=== PATIENT | female | born 1950 | race Caucasian/White ===

== ENCOUNTER → 2017-04-12 | Outpatient (CLI) | payer MEDICARE, OTHER ==
[~2017-04-12] MED LIST: ACET-461 PO; ASCO500T20 PO; ASP81CT; ASP81CT PO; ASPI-892 PO; Atorvastatin Calcium PO; CALC-140 PO; CATHETER FLUSH 10 ML SYR IV PRN; CHOL200049 PO; CITA20TA12 PO; CITA40TA19 PO; CLPD75T PO; CYAN10006 PO; DESV50TA; ESOM20SU; FEXO180T84 PO; FEXO30TA17; IOHEXOL 350 MG/ML 150 ML (OMNIPAQUE 350) VIAL IV ONE; LOVA20TA2 PO; METO-351 PO; NAPR220T76 PO; NEXIUM; NITR-33 PO; NS 100 ML (IVPB) BAG IV ONE; PRISTIQ; ZLP5T; pristiq
--- NOTE | 2017-04-12 13:21 | Diagnostic Imaging Report ---
PROCEDURE: CT angiography of the chest with contrast. TECHNIQUE: Multiple contiguous axial images were obtained through the chest after uneventful bolus administration of intravenous contrast. Reconstructed CTA MIP acquisitions were also performed. INDICATION: Sweaty, shaking, chest pain. No priors. The pulmonary arterial branches are well opacified and confirmed widely patent. No intraluminal filling defect or thrombus. The study is negative for PE. The aorta is patent and nonaneurysmal. The heart and pericardium unremarkable. There does appear to be a small hiatal hernia. No thoracic effusion or pneumothorax. There is trace basilar atelectasis on the left. No evidence for pneumonia or acute infiltrate. No effusion. No acute soft tissue or osseous chest wall pathology. No thoracic adenopathy. The visualized upper abdomen reveals a few gallstones with no acute-appearing upper abdominal abnormality. IMPRESSION: Negative for PE. Slight basilar atelectasis on the left. Cholelithiasis chronic. No acute-appearing abnormality. Dictated by: Dictated on workstation # [id number]
== END ==
LOC: RAD 11:30
PROVIDERS: ATTEND Nurse Practitioner Family
DX: R07.89 Other chest pain (principal); R06.09 Other forms of dyspnea; R94.31 Abnormal electrocardiogram [ECG] [EKG]; I25.10 Atherosclerotic heart disease of native coronary artery without angina pectoris
CPT/HCPCS: 71275

== ENCOUNTER → 2017-04-30 | Outpatient (CLI) | payer MEDICARE, OTHER ==
[~2017-04-30] MED LIST changes: -IOHEXOL 350 MG/ML 150 ML (OMNIPAQUE 350) VIAL IV ONE; -NS 100 ML (IVPB) BAG IV ONE; +REGADENOSON 0.4 MG/5 ML SYR (LEXISCAN) IV ONE
[2017-04-30 09:36] VITALS: BP 157/76
[2017-04-30 09:42] VITALS: BP 179/78
== END ==
LOC: CARD 08:10
PROVIDERS: ATTEND Nurse Practitioner Family
DX: R07.89 Other chest pain (principal); R06.09 Other forms of dyspnea; R94.31 Abnormal electrocardiogram [ECG] [EKG]; I25.10 Atherosclerotic heart disease of native coronary artery without angina pectoris
CPT/HCPCS: 78452; 93017

== ENCOUNTER 2017-06-20 13:01 | Outpatient (CLI) | payer MEDICARE, OTHER ==
[~2017-06-20] VITALS: Ht 160 cm; Wt 100.2 kg
[~2017-06-20 13:01] MED LIST changes: -CATHETER FLUSH 10 ML SYR IV PRN; -REGADENOSON 0.4 MG/5 ML SYR (LEXISCAN) IV ONE
[2017-06-20 13:09] VITALS: BP 127/60
[2017-06-20] MEDS ORDERED: ASCO500T7 PO (13:16)
[2017-06-20] MEDS ORDERED: MULT-1036 PO (13:16)
[2017-06-20] MEDS ORDERED: LORA10TA76 PO (13:16)
[2017-06-20] MEDS ORDERED: CITA40TA11 PO (13:16)
[2017-06-20] MEDS ORDERED: CLOP75TA28 PO (13:16)
[2017-06-20] MEDS ORDERED: ASPI-586 PO (13:16)
[2017-06-20] MEDS ORDERED: PANT40TA3 PO (13:16)
[2017-06-20 13:31] LABS: BASOPHILS % (AUTO) 1 % (0-10); EOSINOPHILS # (AUTO) 0.2 10^3/uL (0.0-0.3); EOSINOPHILS % (AUTO) 3 % (0-10); LYMPHOCYTES # (AUTO) 1.9 X 10^3 (1.0-4.0); LYMPHOCYTES % (AUTO) 26 % (12-44); MEAN CORPUSCULAR HEMOGLOBIN 30 PG (25-34); MEAN CORPUSCULAR HGB CONC 34 G/DL (32-36); MEAN CORPUSCULAR VOLUME 89 FL (80-99); MEAN PLATELET VOLUME 9.6 FL (7.4-10.4); MONOCYTES # (AUTO) 0.4 X 10^3 (0.0-1.0); MONOCYTES % (AUTO) 6 % (0-12); NEUTROPHILS # (AUTO) 4.5 X 10^3 (1.8-7.8); NEUTROPHILS % (AUTO) 64 % (42-75); PLATELET COUNT 256 10^3/uL (130-400); RED BLOOD COUNT 4.52 10^6/uL (4.35-5.85); RED CELL DISTRIBUTION WIDTH 12.3 % (10.0-14.5); WHITE BLOOD COUNT 7.1 10^3/uL (4.3-11.0)
== END 2017-06-20 13:30 | disposition home or self-care (01) ==
LOC: PREOP 13:01
PROVIDERS: ATTEND Surgery
DX: K80.20 Calculus of gallbladder without cholecystitis without obstruction; Z01.812 Encounter for preprocedural laboratory examination
CPT/HCPCS: 36415; 85025; 87081

== ENCOUNTER 2017-06-27 08:55 | Day surgery (SDC) | payer MEDICARE, OTHER ==
[~2017-06-27] VITALS: Ht 160 cm; Wt 100.2 kg
[~2017-06-27 08:55] MED LIST changes: +ASCO500T7 PO; +ASPI-586 PO; +CITA40TA11 PO; +CLOP75TA28 PO; +LORA10TA76 PO; +MULT-1036 PO; +PANT40TA3 PO
[2017-06-27 09:30] VITALS: BP 137/59
[2017-06-27] MEDS ORDERED: ceFAZolin 1 GM/NS 50 ML IVPB IV ONE ×2 (09:30)
[2017-06-27] MEDS ORDERED: CATHETER FLUSH 10 ML SYR IV PRN (09:30)
[2017-06-27] MEDS ORDERED: BUP/EPI 0.5% 1:200,000 (MARCAINE) 10ML VIAL IJ ONE (10:26)
--- NOTE | 2017-06-27 10:32 | Progress Note-Pre Operative ---
Pre-Operative Progress Note H&P Reviewed The H&P was reviewed, patient examined and no changes noted. Date Seen by Provider: Jun 27, 2017 Time Seen by Provider: 10:20 Date H&P Reviewed: Jun 27, 2017 Time H&P Reviewed: 10:20 Pre-Operative Diagnosis: chronic calculous cholecystitis MARQUEZ NIETO MD Jun 27, 2017 10:31 am
[2017-06-27] MEDS ORDERED: proPOfol 200 MG/20 ML (DIPRIVAN) VIAL IV ONE (10:37)
[2017-06-27] MEDS ORDERED: ONDANSETRON 4 MG/2 ML (SDV) Z0FRAN ONE ×2 (10:37→12:42)
[2017-06-27] MEDS ORDERED: LIDOCAINE PF 2% 5 ML (XYLOCAINE) VIAL ONE (10:37)
[2017-06-27] MEDS ORDERED: ROCURONIUM 50 MG/5 ML (ZEMURON) VIAL IV ONE (10:37)
[2017-06-27] MEDS ORDERED: fentaNYL INJECTION 100 MCG/2 ML AMP ONE ×2 (10:38)
[2017-06-27] MEDS ORDERED: MIDAZOLAM 2 MG/2 ML (VERSED) VIAL ONE (10:38)
[2017-06-27] MEDS ORDERED: DEXAMETHASONE 10 MG/ML (DECADRON) 1 ML VIAL ONE (10:39)
[2017-06-27] MEDS ORDERED: ACETAMINOPHEN 325 MG TABLET/CAPLET (TYLENOL) PO PRN (10:45)
[2017-06-27] MEDS ORDERED: oxyCODONE/APAP 5/325MG (PERCOCET 5) TABLET PO PRN (10:45)
[2017-06-27] MEDS ORDERED: ONDANSETRON 4 MG/2 ML (SDV) Z0FRAN IVP PRN ×2 (10:45→12:30)
[2017-06-27] MEDS ORDERED: morphine INJ 10 MG/ML 1ML (SYR OR VIAL) IVP PRN ×2 (10:45→12:30)
[2017-06-27] MEDS: LACTATED RINGERS 1,000 ML IV PRN ×2 (10:48→11:28)
[2017-06-27] MEDS ORDERED: LACTATED RINGERS 1,000 ML IV ONE (11:23)
[2017-06-27] MEDS ORDERED: NEOSTIGMINE (BLOXIVERZ ) 1 MG/1ML 10 ML VIAL ONE (11:55)
[2017-06-27] MEDS ORDERED: SEVOFLURANE (ULTANE) 15 ML INHAL SOLN ONE (12:11)
--- NOTE | 2017-06-27 12:15 | Progress Note-Post Operative ---
Post-Operative Progess Note Surgeon (s)/Body Builder Apprentice (s) Surgeon MARQUEZ NIETO MD Body Builder Apprentice: tena quiroga BARBER INSTRUCTOR Pre-Operative Diagnosis chronic calculous cholecystitis Post-Operative Diagnosis same Procedure & Operative Findings Date of Procedure 06/27/17 Procedure Performed/Findings laparoscopic cholecystectomy Anesthesia Type GET Estimated Blood Loss Estimated blood loss (mL): minimal Specimens/Packing Specimens Removed gallbladder MARQUEZ NIETO MD Jun 27, 2017 12:15 pm
[2017-06-27] MEDS ORDERED: HYDR-3816 PO (12:20)
--- NOTE | 2017-06-27 12:23 | Discharge Inst-Surgical ---
D/C Lap Instructions-EMILIA New, Converted, or Re-Newed RX: RX on Chart Follow Up Appt in 2 weeks Activity as tolerated No driving for 24 hours No driving while on pain medications Incentive Spirometry use every 2 hours while awake Regular Diet Symptoms to Report: Fever over 101 degree F, Nausea/Vomiting Infection Signs and Symptoms to report: Increased redness, Foul odor of wound, Increased drainage Bathing instructions: May shower Operative Area Clean/Dry; Keep incision clean/dry If any problems/questions: Contact your physician or go to Emergency Room MARQUEZ NIETO MD Jun 27, 2017 12:23 pm
[2017-06-27] MEDS ORDERED: morphine INJ 10 MG/ML 1ML (SYR OR VIAL) ONE (12:28)
[2017-06-27] MEDS ORDERED: MEPERIDINE (DEMEROL) INJ 50 MG/ML IVP PRN (12:30)
[2017-06-27] MEDS ORDERED: HYDROmorphone (DILAUDID) 2 MG/ML VIAL IVP PRN (12:30)
--- NOTE | 2017-06-27 12:54 | OPERATIVE REPORT ---
DATE OF SERVICE: 06/27/2017 ATTENDING PRIMARY CARE PHYSICIAN: Dr. Kiki Fisher. PREOPERATIVE DIAGNOSIS: Symptomatic chronic calculous cholecystitis. POSTOPERATIVE DIAGNOSIS: Symptomatic chronic calculous cholecystitis. PROCEDURE: Laparoscopic cholecystectomy. SURGEON: Dr. Nieto. AIRCRAFT COMMUNICATOR: Rojelio Sewell APRN. ANESTHESIA: General endotracheal. ESTIMATED BLOOD LOSS: Minimal. FINDINGS: Chronic gallbladder wall inflammation with multiple small gallstones. DISPOSITION: The patient tolerated the procedure well. INDICATIONS: The patient is a 66-year-old female who underwent a CT scan with an incidental finding of gallstones. At that time she was asymptomatic and was seen. The natural history of gallstone disease and gallbladder issues were explained to patient and eventually she did become symptomatic with pain in the right upper abdominal quadrant, usually after meals, associated with nausea and vomiting. She does have a number of medical comorbidities including coronary artery disease, hypertension, hypercholesterolemia and has had cardiac catheterization and stent placement in the past and is on anticoagulation with Plavix. DESCRIPTION OF PROCEDURE: The patient was brought to the operating room, laid supine on the table. After adequate IV pain and sedative medications and general endotracheal intubation, the abdomen was prepped and draped in standard surgical fashion. Then, 0.5% Marcaine with epinephrine was then used to anesthetize the overlying skin in the left upper abdominal quadrant and a small transverse skin incision made using a 15 blade. An 0 silk suture was applied to the medial aspect of the incision for retraction and the Veress needle inserted with low opening pressure of 0 mmHg and the abdomen was insufflated at 15 mmHg pressure. The Veress needle removed and a 5 mm Xcel trocar placed followed by a 5 mm 45 degree angle laparoscope visualizing the peritoneal cavity. A 4-quadrant abdominal exploration was performed. There was chronic gallbladder wall inflammation as well as dilation. Visualized the liver, small bowel, omentum and stomach appeared normal. Under direct visualization, we then proceeded to place a supraumbilical 10 mm port after the skin and peritoneum were anesthetized using 0.5% Marcaine with epinephrine and a transverse skin incision made using 15 blade. In a similar manner, a right upper abdominal quadrant 5 mm port was placed. The patient was then placed in reverse Trendelenburg position as well as plane right side up, left side down. The fundus of the gallbladder was retracted anteriorly and superiorly. The omental adhesions to the body of the gallbladder were then taken down using blunt dissection. The hepatoduodenal ligament was then opened using the hook instrument using cautery as well as bluntly. We then proceeded to identify the entire critical view of safety encompassing the triangle of Calot and the cystic duct and artery going into the gallbladder as well as the liver behind the proximal gallbladder. A timeout was then taken and the cystic duct and artery were then clipped proximally, distally and cut with EndoShears with visualization of good hemostasis. The gallbladder was then dissected off the liver bed using electrocautery on the hook instrument with visualization of good hemostasis as well as no leaking ducts of Luschka. The gallbladder was removed through the 10 mm port site using an EndoCatch bag. The 10 mm port site fascia and peritoneum were then closed under direct visualization using a Adal-Teodora device and 0 Vicryl suture. The abdomen was desufflated and remaining ports removed. All skin incisions were closed using 4-0 Monocryl running subcuticular sutures. The patient tolerated the procedure well. Intraoperatively she did develop what appeared to be a new bundle branch block, however, hemodynamically stable. She does have a history of coronary artery disease and has had a cardiac catheterization and stent placement. We will get a 12-lead EKG and consultation by her vaccine key customer leader for any further new management. Job ID: [id number] DocumentID: [id number] Dictated Date: 06/27/2017 12:29:25 Product Development Manager Date: 06/27/2017 12:53:59 Dictated By: MARQUEZ NIETO MD
--- NOTE | 2017-06-27 13:21 | Consultation-Cardiology ---
HPI-Cardiology Cardiology Consultation: Date of Consultation 06/27/17 Time Seen by Provider: 13:00 Date of Admission 06-27-17 Attending Physician Marquez Lyn MD Admitting Physician Kiki Fisher MD Consulting Physician Aleshia Romero MD HPI: Chief Complaint: LBBB Ms. Brannon is a 66 yr old female who is currently in out pt recovery post lap brit by Dr. Lyn. We have been consulted d/t LBBB. She is not reporting any c /o CP, palpitations, dizziness or lightheadedness. She reports a feeling of needing to belch. Review of Systems-Cardiology Review of Systems Constitutional: As described under HPI Eyes: No blindness, No blurred vision, No contact lenses, No drainage, No decreased acuity, No foreign body sensation, No pain, No vision change Ears/Nose/Throat: No chronic hearing loss, No ear discharge, No ear pain, No nasal drainage, No ulcerations Respiratory: As described under HPI Cardiovascular: As described under HPI Gastrointestinal: No abdomen distended, No abdominal pain, No blood streaked bowels, No constipation, No diarrhea, No nausea, No vomiting, No stool coloration changes Genitourinary: No burning, No dysuria, No discharge, No frequency, No flank pain, No hematuria, No urgency : Yes : No Musculoskeletal: No muscle pain Skin: No rash, No skin related problems, No ulcerations Psychiatric/Neurological: No anxiety, No depression, No seizure, No focal weakness, No syncope Hematologic: No bleeding abnormalities TQI-Jmfutc-Oxbqke Hx Patient Social History Alcohol Use: Denies Use Recreational Drug Use: No Smoking Status: Never a Smoker Recent Foreign Travel: No Recent Infectious Disease Expo: No Immunizations Up To Date Tetanus Booster (TDap): Unknown Past Medical History PMH As described under Assessment. Allergies and Home Medications Allergies Coded Allergies: No Known Drug Allergies (Unverified , 08/08/09) Home Medications Ascorbic Acid 500 Mg Tablet, 500 MG PO DAILY, (Reported) Aspirin 81 Mg Tablet.dr, 81 MG PO DAILY, (Reported) Citalopram Hydrobromide 40 Mg Tablet, 40 MG PO DAILY, (Reported) Clopidogrel Bisulfate 75 Mg Tablet, 75 MG PO DAILY, (Reported) Hydrocodone/Acetaminophen 1 Each Tablet, 1-2 EACH PO Q4H, #35 Prescribed by: MARQUEZ LYN on 06/27/17 1220 Loratadine 10 Mg Tablet, 10 MG PO DAILY, (Reported) Lovastatin 20 Mg Tablet, 20 MG PO DAILY, (Reported) Metoprolol Succinate 25 Mg Tab.er.24h, 12.5 MG PO BID, (Reported) take 1/2 of 25mg tab Multivits,Ca,Minerals/Iron/FA 1 Each Tablet, 1 EACH PO DAILY, (Reported) Pantoprazole Sodium 40 Mg Tablet.dr, 40 MG PO DAILY, (Reported) Physical Exam-Cardiology Physical Exam Vital Signs/I&O Capillary Refill : Constitutional: AAO x 3 HEENT: PERRL, No discharge, hearing is well preserved, oral hygience is good, No ulceration, No xanthelasmas are seen Neck: No carotid bruit, carotid pulses are 2 + bilaterally Respiratory: No accessory muscle use, No respiratory distress, lungs clear to auscultation Cardiovascular: regular rate-rhythm, No JVD, S1 and S2 Gastrointestinal: tender (Post surgical) Rectal: deferred Extremities: No significant edema Neurologic/Psychiatric: grossly intact Skin: No rash, No ulcerations ECG Impression ECG Initial ECG Rhythm: Normal Sinus Comment Telemetry: LBBB A/P-Cardiology Assessment/Admission Diagnosis Post lap brit No clinical evidence of ACS Intermittent LBBB with a known h/o LBBB Chronic poor stamina and gen weakness of undetermined etiology. MPI of 05/02/17 does not show any ischemia or infarction; LVEF 69% Abnormal ECG: LBBB CAD. Following abnormal MPI of Jun 2016, last card cath of 07/24/16 showed mod LAD disease without evidence of hemodynamic signficicance; patent Promus Nirmal 2.25x12 mm steny in the mid LAD and patent Promus 2.5 x 12 mm stent in the first OM , both placed in December 2013; LVEF 70%, no MR, normal LVEDP Echocardiogram from June 2016 showed LVEF 60%. Mild MR and TR. No evidence of significant valvular stenosis. PASP approx 25mmHg Recently diagnosed gallstones for which she is awaiting surgery with Dr Lyn Hypertension Mild to mod THURSTON, chronic, stable Elevated BMI of approx 39 Father of OR at age 57 Carotid art disease: carotid u/s of 09/15/15 at [facility] showed 20% LICA stenosis VERNON, treated with CPAP Discussion and Recomendations EKG and telemetry strips have been reviewed. Telemetry is showing intermittent LBB, which she has a h/o LBBB. She has a h/o CAD with stent placement a year ago. She has been off of Plavix and ASA for 5 days pre-operatively for lap brit. We advise her home medications be resumed including ASA and Plavix when OK from a surgical stand point. Resume home dose of BB. We will have her f/u as an out pt. We would like to thank Dr. Lyn for this consult. This consult is being scribed by Saeid Field APRN on behalf of Dr. Romero after discussion regarding plan of care. Clinical Quality Measures DVT/VTE Risk/Contraindication: Risk Factor Score Per Nursin RFS Level Per Nursing on Admit: 4+=Very High Physician Assessment Physician Assessment Pt seen at approx 1:10 pm on 06/27/17 S/p laparoscopic brit. No cp or palp or shortness of breath Cor: reg Lungs: clear Ext: no c/c/e Tele and ECG: intermittent LBBB (of which she has a known history) A&R * As documented in our note above that I updated (italics) and as noted below * Continue current regimen * Resume antiplatelet therapy as soon as considered safe from a surgical standpoint * Advised to return to ER in case of any symptoms * Outpatient f/u advised Note: I saw and examined patient at 1:10 pm yesterday and signed the note today THAIS FIELD Jun 27, 2017 13:21 ALESHIA ROMERO MD FACP [facility] Jun 28, 2017 08:49
[2017-06-27 13:30] VITALS: BP 161/87
[2017-06-27 14:00] VITALS: BP 164/79
[2017-06-27 14:30] VITALS: BP 143/70
== END 2017-06-27 14:55 | disposition home or self-care (01) ==
LOC: SDC 08:55
PROVIDERS: ATTEND Surgery
DX: K80.10 Calculus of gallbladder with chronic cholecystitis without obstruction (principal); I25.10 Atherosclerotic heart disease of native coronary artery without angina pectoris; I44.7 Left bundle-branch block, unspecified; I10 Essential (primary) hypertension; E78.00 Pure hypercholesterolemia, unspecified; K58.9 Irritable bowel syndrome, unspecified; F32.9 Major depressive disorder, single episode, unspecified; G47.33 Obstructive sleep apnea (adult) (pediatric); E66.9 Obesity, unspecified; Z68.39 Body mass index [BMI] 39.0-39.9, adult; Z95.5 Presence of coronary angioplasty implant and graft; Z79.02 Long term (current) use of antithrombotics/antiplatelets; Z79.899 Other long term (current) drug therapy; Z82.49 Family history of ischemic heart disease and other diseases of the circulatory system
CPT/HCPCS: 93005

== ENCOUNTER 2018-02-06 05:36 | Outpatient (CLI) | payer MEDICARE, OTHER ==
[~2018-02-06] VITALS: Ht 165.1 cm; Wt 100.2 kg
[~2018-02-06 05:36] MED LIST changes: +HYDR-34 PO
[2018-02-14] MEDS ORDERED: PANT40TA2 PO (11:26)
== END 2018-02-06 14:47 ==
LOC: PREOP 05:36
PROVIDERS: ATTEND Surgery
DX: Z01.818 Encounter for other preprocedural examination (principal)

== ENCOUNTER 2018-02-22 17:29 | Emergency (ER) | payer MEDICARE, OTHER ==
[~2018-02-22] VITALS: Ht 162.6 cm; Wt 93.0 kg
[~2018-02-22 17:29] MED LIST changes: +PANT40TA2 PO
--- NOTE | 2018-02-22 18:06 | ED GU-Female ---
General Chief Complaint: -Female Stated Complaint: VAGINAL BLEEDING AFTER BIOPSY,PASSED BLOOD CLOT Source: patient Exam Limitations: no limitations History of Present Illness Date Seen by Provider: February 22, 2018 Time Seen by Provider: 18:02 Initial Comments To ER with reports of vaginal bleeding after biopsy on 02/20/18. Patient had a routine well woman exam with Dr. Barnes, there was a lesion on the vaginal wall and she was referred to Dr. Meadows. This biopsy on the . She been feeling fine but today upon getting up from the couch she passed a large clot from the vagina. She is on aspirin and Plavix for coronary artery disease with stenting. She's had a complete hysterectomy about 20 years ago. Timing/Duration: just prior to arrival Severity/Quality: moderate Allergies and Home Medications Allergies Coded Allergies: No Known Drug Allergies (Unverified , 02/06/18) Home Medications Ascorbic Acid 500 Mg Tablet, 500 MG PO DAILY, (Reported) Aspirin 81 Mg Tablet.dr, 81 MG PO DAILY, (Reported) Citalopram Hydrobromide 40 Mg Tablet, 40 MG PO DAILY, (Reported) Clopidogrel Bisulfate 75 Mg Tablet, 75 MG PO DAILY, (Reported) Loratadine 10 Mg Tablet, 10 MG PO DAILY, (Reported) Lovastatin 20 Mg Tablet, 20 MG PO DAILY, (Reported) Metoprolol Succinate 25 Mg Tab.er.24h, 25 MG PO BID, (Reported) take 1/2 of 25mg tab Multivits,Ca,Minerals/Iron/FA 1 Each Tablet, 1 EACH PO DAILY, (Reported) Pantoprazole Sodium 40 Mg Tablet.dr, 40 MG PO DAILY Prescribed by: MARQUEZ NIETO on 02/14/18 1126 Patient Home Medication List Home Medication List Reviewed: Yes Review of Systems Constitutional: see HPI EENTM: see HPI Respiratory: no symptoms reported Cardiovascular: no symptoms reported Genitourinary: no symptoms reported Musculoskeletal: no symptoms reported Skin: no symptoms reported Psychiatric/Neurological: No Symptoms Reported Endocrine: No Symptoms Reported Past Ityhymq-Ekcyif-Odogsq Hx Patient Social History Recent Foreign Travel: No Contact w/Someone Who Travel: No Recent Hopitalizations: No Immunizations Up To Date Tetanus Booster (TDap): Unknown Date of Pneumonia Vaccine: Jul 15, 2017 Date of Influenza Vaccine: Jul 15, 2017 Seasonal Allergies Seasonal Allergies: Yes Past Medical History Cardiac, Coronary Stent, Gallbladder, Hysterectomy Sleep Apnea Currently Using CPAP: Yes Coronary Artery Disease, High Cholesterol, Hypertension Reproductive Disorders: No SENIOR TAX SPECIALIST History: Hysterectomy Sexually Transmitted Disease: No HIV/AIDS: No Gastroesophageal Reflux Arthritis Loss of Vision: Denies Hearing Impairment: Denies Sleep Difficulties, Anxiety, Depression Adverse Reaction/Blood Tranf: No (N/A) Physical Exam Vital Signs Vital Signs - First Documented 02/22/18 17:40 Temp 98.5 Pulse 82 Resp 16 B/P (MAP) 154/90 (111) Pulse Ox 98 O2 Delivery Room Air Capillary Refill : General Appearance: WD/WN, no apparent distress HEENT: PERRL/EOMI, normal ENT inspection Neck: non-tender, full range of motion Respiratory: no respiratory distress, no accessory muscle use Gastrointestinal: normal bowel sounds, non tender Pelvic: other (There is an area to the right vaginal wall about 2 inches posterior from the vaginal introitus that is about 7 mm in diameter. This is an oblong shaped area in the center of this is a pinhead size clot without active bleeding at this time. The clot was not removed.) Neurologic/Psychiatric: alert, normal mood/affect, oriented x 3 Skin: normal color Progress/Results/Core Measures Suspected Sepsis SIRS Temperature: Pulse: Respiratory Rate: Laboratory Tests 02/22/18 18:22: White Blood Count 7.1 Blood Pressure / Mean: Laboratory Tests 02/22/18 18:22: Platelet Count 279 Results/Orders Lab Results Laboratory Tests Test 02/22/18 18:22 Range/Units White Blood Count 7.1 4.3-11.0 10^3/uL Red Blood Count 4.48 4.35-5.85 10^6/uL Hemoglobin 13.7 11.5-16.0 G/DL Hematocrit 40 35-52 % Mean Corpuscular Volume 89 80-99 FL Mean Corpuscular Hemoglobin 31 25-34 PG Mean Corpuscular Hemoglobin Concent 34 32-36 G/DL Red Cell Distribution Width 12.7 10.0-14.5 % Platelet Count 279 130-400 10^3/uL Mean Platelet Volume 9.5 7.4-10.4 FL Neutrophils (%) (Auto) 66 42-75 % Lymphocytes (%) (Auto) 22 12-44 % Monocytes (%) (Auto) 9 0-12 % Eosinophils (%) (Auto) 3 0-10 % Basophils (%) (Auto) 1 0-10 % Neutrophils # (Auto) 4.7 1.8-7.8 X 10^3 Lymphocytes # (Auto) 1.5 1.0-4.0 X 10^3 Monocytes # (Auto) 0.7 0.0-1.0 X 10^3 Eosinophils # (Auto) 0.2 0.0-0.3 10^3/uL Basophils # (Auto) 0.1 0.0-0.1 10^3/uL My Orders Orders - WILLIAM WONG APRN Cbc With Automated Diff (02/22/18 18:00) Vital Signs/I&O 02/22/18 17:40 Temp 98.5 Pulse 82 Resp 16 B/P (MAP) 154/90 (111) Pulse Ox 98 O2 Delivery Room Air Capillary Refill : Departure Communication (Admissions) 2129 I relayed the findings to Dr. Meadows who states that if she continues to have a problem she can call the office for follow-up. Impression Primary Impression: post intravaginal biopsy bleeding Disposition: HOME, SELF-CARE Condition: Stable Departure-Patient Inst. Decision time for Depature: 18:05 Referrals: ROD BARNES MD (PCP/Family) Primary Care Physician Patient Instructions: NO INSTRUCTIONS GIVEN Add. Discharge Instructions: 1. Return to ER for any lightheadedness or recurrent bleeding. Call Dr. Meadows's office on Saturday morning to make an appointment for follow-up. All discharge instructions reviewed with patient and/or family. Voiced understanding. Copy Copies To 1: ROD BARNES MD, PETER J APRN February 22, 2018 18:06
[2018-02-22 18:29] LABS: BASOPHILS # (AUTO) 0.1 10^3/uL (0.0-0.1); BASOPHILS % (AUTO) 1 % (0-10); EOSINOPHILS # (AUTO) 0.2 10^3/uL (0.0-0.3); EOSINOPHILS % (AUTO) 3 % (0-10); HEMATOCRIT 40 % (35-52); HEMOGLOBIN 13.7 G/DL (11.5-16.0); LYMPHOCYTES # (AUTO) 1.5 X 10^3 (1.0-4.0); LYMPHOCYTES % (AUTO) 22 % (12-44); MEAN CORPUSCULAR HEMOGLOBIN 31 PG (25-34); MEAN CORPUSCULAR HGB CONC 34 G/DL (32-36); MEAN CORPUSCULAR VOLUME 89 FL (80-99); MEAN PLATELET VOLUME 9.5 FL (7.4-10.4); MONOCYTES # (AUTO) 0.7 X 10^3 (0.0-1.0); MONOCYTES % (AUTO) 9 % (0-12); NEUTROPHILS # (AUTO) 4.7 X 10^3 (1.8-7.8); NEUTROPHILS % (AUTO) 66 % (42-75); PLATELET COUNT 279 10^3/uL (130-400); RED BLOOD COUNT 4.48 10^6/uL (4.35-5.85); RED CELL DISTRIBUTION WIDTH 12.7 % (10.0-14.5); WHITE BLOOD COUNT 7.1 10^3/uL (4.3-11.0)
[2018-02-22 18:56] VITALS: BP 152/90
== END 2018-02-22 18:56 | disposition home or self-care (01) ==
LOC: EDUNIT# 17:29 → ER 17:30
DX: N99.821 Postprocedural hemorrhage of a genitourinary system organ or structure following other procedure (principal); I25.10 Atherosclerotic heart disease of native coronary artery without angina pectoris; E78.00 Pure hypercholesterolemia, unspecified; I10 Essential (primary) hypertension; K21.9 Gastro-esophageal reflux disease without esophagitis; F41.9 Anxiety disorder, unspecified; F32.9 Major depressive disorder, single episode, unspecified; G47.9 Sleep disorder, unspecified; Z95.5 Presence of coronary angioplasty implant and graft; Z90.710 Acquired absence of both cervix and uterus; Z79.82 Long term (current) use of aspirin; Z79.02 Long term (current) use of antithrombotics/antiplatelets
CPT/HCPCS: 36415; 85025; 99284

== ENCOUNTER → 2019-09-08 | Outpatient (CLI) | payer MEDICARE, OTHER ==
[~2019-09-08] VITALS: Ht 160 cm; Wt 109.0 kg
[~2019-09-08] MED LIST changes: +CATHETER FLUSH 10 ML SYR IV PRN; +REGADENOSON 0.4 MG/5 ML SYR (LEXISCAN) IV ONE
[2019-09-08 13:07] VITALS: BP 150/66
[2019-09-08 13:09] VITALS: BP 156/81
--- NOTE | 2019-09-08 16:22 | STRESS TEST ---
DATE OF SERVICE: 09/08/2019 RESTING AND POST REGADENOSON TECHNETIUM-99M TETROFOSMIN SPECT CT IMAGING ORDERING PHYSICIAN: Aleshia Romero MD, SURINDER, FACP, FACC. PRIMARY PHYSICIAN: Dr. Fisher. CLINICAL DIAGNOSIS: Coronary artery disease. Baseline images were carried out after injection of 11 mCi of technetium-99m Tetrofosmin. This was followed by 0.4 mg regadenoson and 28.2 mCi of technetium-99m Tetrofosmin for stress imaging. The electrocardiogram showed sinus rhythm at baseline. There was left bundle branch block at baseline. The electrocardiogram did not change significantly with the regadenoson infusion. The patient tolerated the procedure well. Review of images at rest and following stress does not indicate any significant perfusion defects consistent with significant myocardial ischemia or infarction. Gated images show normal global left ventricular systolic function with normal regional wall motion. Left ventricular ejection fraction is calculated to be 69%. Left ventricular end diastolic volume is 54 mL. TID is absent (1.08). CONCLUSIONS: 1. No evidence of any significant myocardial ischemia or infarction on this study. 2. Normal regional wall motion. 3. Normal global left ventricular systolic function with a calculated ejection fraction of 69%. Job ID: [id number] DocumentID: [id number] Dictated Date: 09/08/2019 15:41:56 Lithographic Artist Date: 09/08/2019 16:20:09 Dictated By: ALESHIA ROMERO MD, MA, FACP, FACC,
== END ==
LOC: CARD 09:21
PROVIDERS: ATTEND Internal Medicine Cardiovascular Disease
DX: I08.1 Rheumatic disorders of both mitral and tricuspid valves (principal); I25.10 Atherosclerotic heart disease of native coronary artery without angina pectoris; I65.29 Occlusion and stenosis of unspecified carotid artery; G47.33 Obstructive sleep apnea (adult) (pediatric)
CPT/HCPCS: 78452; 93017; 93306

== ENCOUNTER 2020-02-15 15:52 | Observation (INO) | payer MEDICARE, OTHER ==
[~2020-02-15] VITALS: Ht 162 cm; Wt 104.3 kg
[2020-02-15] VITALS (9 sets, daily range): BP systolic 129–152; BP diastolic 61–79
[~2020-02-15 15:52] MED LIST changes: -CATHETER FLUSH 10 ML SYR IV PRN; -REGADENOSON 0.4 MG/5 ML SYR (LEXISCAN) IV ONE
[2020-02-15] MEDS ORDERED: ASPIRIN 81 MG CHEW (CHILDREN'S ASA) PO ONE (16:00)
--- NOTE | 2020-02-15 16:19 | ED Chest Pain ---
General Chief Complaint: Chest Pain Stated Complaint: CHEST PAIN, NECK,THROBBING HEAD PAIN Nursing Triage Note: Pt amb to room #6 with c/o medial chest discomfort radiating up to medial neck et medial head. 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 Pt reports discomfort felt, "electrical." Pt reports recent hx headaches. Pt denies SOA, cough, fever, or chills. Pt reports she is currently not experiencing any chest pain or discomfort during triage. A&OX4. Nursing Sepsis Screen: No Definite Risk Source: patient Exam Limitations: no limitations History of Present Illness Date Seen by Provider: February 15, 2020 Time Seen by Provider: 15:49 Initial Comments The patient presents to ER by private conveyance from home with chief complaint that about 45 minutes prior to arrival she was not doing anything strenuous but began to experience some substernal chest pain radiating up towards the neck. She's been dealing with headaches past several months and Dr. Fisher has been working her up and got an MRI was unremarkable of her head. She says this chest pain started to wane by the time she got to the ER but did activate one of her headaches which is also begun to wane. She has not taken anything for it. She does take Plavix, a statin and recently doubled her metoprolol to 50 mg a day in response to increasing blood pressure over the past several days in conjunction with her primary care doctor. She is known to Dr. Romero. She had a catheterization with stents several years ago and more recently in 2018 she had an MPI showing an ejection fraction of 69% and no significant myocardial ischemia at that time. She was told by her maintenance carpenter that if she had more chest pain he would probably encourage her to get a heart catheterization again. She is not on a blood thinner. She has not had any chest palpitations flutters, near syncope or increased swelling of her hands or feet. She is not having shortness breath cough fever chills or sick contacts. No recent travel. She did take her daily pantoprazole. She did not take any antacids. History of left bundle branch block. Cardiac catheterization 2015 with a previous, patent, mid LAD and first OM stent placement. Cholecystectomy, hypertension, father of [place] at age 57, BMI 39, carotid disease 2014 ultrasound showed 20% left internal carotid artery stenosis. Obstructive sleep apnea on CPAP. Allergies and Home Medications Allergies Coded Allergies: No Known Drug Allergies (Unverified , 02/06/18) Home Medications Ascorbic Acid 500 Mg Tablet, 500 MG PO DAILY, (Reported) Aspirin 81 Mg Tablet.dr, 81 MG PO DAILY, (Reported) Citalopram Hydrobromide 40 Mg Tablet, 40 MG PO DAILY, (Reported) Clopidogrel Bisulfate 75 Mg Tablet, 75 MG PO DAILY, (Reported) Loratadine 10 Mg Tablet, 10 MG PO DAILY, (Reported) Lovastatin 20 Mg Tablet, 20 MG PO DAILY, (Reported) Metoprolol Succinate 25 Mg Tab.er.24h, 25 MG PO BID, (Reported) take 1/2 of 25mg tab Multivits,Ca,Minerals/Iron/FA 1 Each Tablet, 1 EACH PO DAILY, (Reported) Pantoprazole Sodium 40 Mg Tablet.dr, 40 MG PO DAILY Prescribed by: MARQUEZ NIETO on 02/14/18 1126 Patient Home Medication List Home Medication List Reviewed: Yes Review of Systems Review of Systems Constitutional: No chills, No diaphoresis EENTM: No Blurred Vision, No Double Vision Respiratory: Denies Cough, Denies Shortness of Air Cardiovascular: See HPI, Chest Pain; Denies Edema, Denies Irregular Heart Rate, Denies Lightheadedness Gastrointestinal: Denies Abdomen Distended, Denies Abdominal Pain, Denies Constipated, Denies Diarrhea, Denies Nausea Genitourinary: Denies Burning, Denies Drainage Musculoskeletal: No back pain, No joint pain Skin: No pruritus, No rash Psychiatric/Neurological: Denies Headache, Denies Numbness All Other Systems Reviewed Negative Unless Noted: Yes Past Ouytdiq-Oncwsv-Piugzr Hx Patient Social History Alcohol Use: Denies Use Recreational Drug Use: No Smoking Status: Never a Smoker Recent Foreign Travel: No Contact w/Someone Who Travel: No Recent Infectious Disease Expo: No Recent Hopitalizations: No Immunizations Up To Date Tetanus Booster (TDap): Unknown Date of Pneumonia Vaccine: Jul 15, 2017 Date of Influenza Vaccine: Jul 15, 2017 Seasonal Allergies Seasonal Allergies: Yes Past Medical History Cardiac, Coronary Stent, Gallbladder, Hysterectomy Sleep Apnea Currently Using CPAP: Yes Coronary Artery Disease, High Cholesterol, Hypertension Reproductive Disorders: No CONSULTING NETWORKING ENGINEER History: Hysterectomy Sexually Transmitted Disease: No HIV/AIDS: No Gastroesophageal Reflux Arthritis Loss of Vision: Denies Hearing Impairment: Denies Sleep Difficulties, Anxiety, Depression Adverse Reaction/Blood Tranf: No (N/A) Physical Exam Vital Signs Vital Signs - First Documented 02/15/20 15:53 Temp 36.9 Pulse 77 Resp 18 B/P (MAP) 183/116 (138) Pulse Ox 98 O2 Delivery Room Air Capillary Refill : Less Than 3 Seconds Height, Weight, BMI Height: 5'4.00" Weight: 205lbs. 0.0oz. 92.234291xs; 38.00 BMI Method:Estimated General Appearance: Anxious, Obese HEENT: PERRL/EOMI, Pharynx Normal, Moist Mucous Membranes Neck: Full Range of Motion, Normal Inspection; No JVD Respiratory: Lungs Clear, Normal Breath Sounds, No Accessory Muscle Use, No Respiratory Distress Cardiovascular: Regular Rate, Rhythm, No Edema, No JVD, Normal Peripheral Pulses Gastrointestinal: Normal Bowel Sounds, Non Tender, Soft Extremity: Normal Capillary Refill, Normal Inspection, Non Tender, No Calf Tend erness, No Pedal Edema Neurologic/Psychiatric: Alert, Oriented x3 Skin: Normal Color, Warm/Dry Progress/Results/Core Measures Results/Orders Lab Results Laboratory Tests Test 02/15/20 15:59 Range/Units White Blood Count 9.6 4.3-11.0 10^3/uL Red Blood Count 5.03 4.35-5.85 10^6/uL Hemoglobin 15.1 11.5-16.0 G/DL Hematocrit 45 35-52 % Mean Corpuscular Volume 89 80-99 FL Mean Corpuscular Hemoglobin 30 25-34 PG Mean Corpuscular Hemoglobin Concent 34 32-36 G/DL Red Cell Distribution Width 13.0 10.0-14.5 % Platelet Count 305 130-400 10^3/uL Mean Platelet Volume 9.5 7.4-10.4 FL Neutrophils (%) (Auto) 61 42-75 % Lymphocytes (%) (Auto) 28 12-44 % Monocytes (%) (Auto) 9 0-12 % Eosinophils (%) (Auto) 3 0-10 % Basophils (%) (Auto) 1 0-10 % Neutrophils # (Auto) 5.8 1.8-7.8 X 10^3 Lymphocytes # (Auto) 2.7 1.0-4.0 X 10^3 Monocytes # (Auto) 0.8 0.0-1.0 X 10^3 Eosinophils # (Auto) 0.3 0.0-0.3 10^3/uL Basophils # (Auto) 0.1 0.0-0.1 10^3/uL Prothrombin Time 11.9 L 12.2-14.7 SEC INR Comment 0.9 0.8-1.4 Activated Partial Thromboplast Time 28 24-35 SEC Sodium Level 138 135-145 MMOL/L Potassium Level 4.7 3.6-5.0 MMOL/L Chloride Level 104 98-107 MMOL/L Carbon Dioxide Level 22 21-32 MMOL/L Anion Gap 12 5-14 MMOL/L Blood Urea Nitrogen 21 H 7-18 MG/DL Creatinine 0.90 0.60-1.30 MG/DL Estimat Glomerular Filtration Rate > 60 BUN/Creatinine Ratio 23 Glucose Level 111 H 70-105 MG/DL Calcium Level 9.7 8.5-10.1 MG/DL Corrected Calcium 9.4 8.5-10.1 MG/DL Magnesium Level 2.3 1.6-2.4 MG/DL Total Bilirubin 0.2 0.1-1.0 MG/DL Aspartate Amino Transf (AST/SGOT) 35 H 5-34 U/L Alanine Aminotransferase (ALT/SGPT) 23 0-55 U/L Alkaline Phosphatase 65 40-136 U/L Myoglobin 47.3 10.0-92.0 NG/ML Troponin I < 0.028 <0.028 NG/ML B-Type Natriuretic Peptide 19.6 <100.0 PG/ML Total Protein 8.4 H 6.4-8.2 GM/DL Albumin 4.4 3.2-4.5 GM/DL Medications Given in ED Current Medications Medications Dose Ordered Sig/Valentino Route Start Time Stop Time Status Last Admin Dose Admin Aspirin 324 mg ONCE ONCE PO 02/15/20 16:00 02/15/20 16:01 DC 02/15/20 16:10 324 MG Vital Signs/I&O 02/15/20 02/15/20 15:53 15:53 Temp 36.9 Pulse 77 Resp 18 B/P (MAP) 183/116 (138) Pulse Ox 98 O2 Delivery Room Air Room Air 2 Blood Pressure Mean: 138 Progress Progress Note : Time: 16:18 Progress Note Angina? Patient's not on hormone replacement therapy nor does she have a personal or family history of clots. Her pain has gone away she has no tachycardia nor hypoxia/dyspnea. Pulmonary is unlikely. Initial ECG Impression Date: February 15, 2020 Initial ECG Impression Time: 15:56 Initial ECG Rate: 74 Initial ECG Rhythm: Normal Sinus Initial ECG Intervals: IA (173) Initial ECG Impression: Nonspecific Changes Initial ECG Comparisson: Unchanged Comment Left bundle branch block without clinically relevant ST changes. Diagnostic Imaging Diagonstic Imaging: Xray Plain Films/CT/US/NM/MRI: chest (1v) Comments NAME: VANGIE VALDOVINOS [facility] REC#: [id number] PT STATUS: REG ER : 1950 PHYSICIAN: DONTE OSBORN ADMIT DATE: 02/15/20/ER Signed Date of Exam:02/15/20 CHEST 1 VIEW, AP/PA ONLY Indication: Chest discomfort. Frontal chest obtained at 04:15 p.m. and compared to 08/09/2009 Heart is top limits normal in size. Lungs are clear. There is no pneumothorax or pleural fluid. IMPRESSION: Borderline heart size with no acute process in the chest. Dictated by: Dictated on workstation # [id number] Dict: 02/15/20 1620 Trans: 02/15/20 1637 [facility] [id number] Interpreted by: BIBI WAGNER MD Electronically signed by: BIBI WAGNER MD 02/15/20 1637 Reviewed: Reviewed by Me Departure Communication (Admissions) Time/Spoke to Admitting Phy: 17:36 Discussed the case lab imaging findings with Dr. Duran and she agrees to observe the patient with consultation to cardiology. Time/Spoke to Consulting Phy: 17:35 Discussed the case with cardiology, Dr. Bosch and he agrees to consult on the case. As she is pain-free and not having an acute event on EKG he does not feel she requires heparin at this time. Impression Primary Impression: Chest pain Qualified Codes: R07.9 - Chest pain, unspecified Disposition: ADMITTED INPATIENT Condition: Stable Admissions Decision to Admit Reason: Admit from ER (General) Decision to Admit/Date: February 15, 2020 Time/Decision to Admit Time: 16:45 Departure-Patient Inst. Referrals: ROD FISHER MD (PCP/Family) Primary Care Physician DELMA MCGUIRE February 15, 2020 16:19
[2020-02-15 16:22] LABS: BASOPHILS # (AUTO) 0.1 10^3/uL (0.0-0.1); BASOPHILS % (AUTO) 1 % (0-10); EOSINOPHILS # (AUTO) 0.3 10^3/uL (0.0-0.3); EOSINOPHILS % (AUTO) 3 % (0-10); HEMATOCRIT 45 % (35-52); HEMOGLOBIN 15.1 G/DL (11.5-16.0); LYMPHOCYTES # (AUTO) 2.7 X 10^3 (1.0-4.0); LYMPHOCYTES % (AUTO) 28 % (12-44); MEAN CORPUSCULAR HEMOGLOBIN 30 PG (25-34); MEAN CORPUSCULAR HGB CONC 34 G/DL (32-36); MEAN CORPUSCULAR VOLUME 89 FL (80-99); MEAN PLATELET VOLUME 9.5 FL (7.4-10.4); MONOCYTES # (AUTO) 0.8 X 10^3 (0.0-1.0); MONOCYTES % (AUTO) 9 % (0-12); NEUTROPHILS # (AUTO) 5.8 X 10^3 (1.8-7.8); NEUTROPHILS % (AUTO) 61 % (42-75); PLATELET COUNT 305 10^3/uL (130-400); WHITE BLOOD COUNT 9.6 10^3/uL (4.3-11.0)
--- NOTE | 2020-02-15 16:22 | Diagnostic Imaging Report ---
Indication: Chest discomfort. Frontal chest obtained at 04:15 p.m. and compared to 08/09/2009 Heart is top limits normal in size. Lungs are clear. There is no pneumothorax or pleural fluid. IMPRESSION: Borderline heart size with no acute process in the chest. Dictated by: Dictated on workstation # [id number]
[2020-02-15 16:26] LABS: INR 0.9 (0.8-1.4); PROTHROMBIN TIME PATIENT 11.9 SEC (12.2-14.7)
[2020-02-15 16:32] LABS: ALBUMIN 4.4 GM/DL (3.2-4.5)
[2020-02-15 16:33] LABS: CHLORIDE 104 MMOL/L (98-107); POTASSIUM 4.7 MMOL/L (3.6-5.0); SODIUM 138 MMOL/L (135-145)
[2020-02-15 16:34] LABS: CALCIUM 9.7 MG/DL (8.5-10.1)
[2020-02-15 16:35] LABS: GLUCOSE 111 MG/DL (70-105); TOTAL PROTEIN 8.4 GM/DL (6.4-8.2)
[2020-02-15 16:36] LABS: CARBON DIOXIDE 22 MMOL/L (21-32)
[2020-02-15 16:37] LABS: BILIRUBIN,TOTAL 0.2 MG/DL (0.1-1.0)
[2020-02-15 16:38] LABS: ALKALINE PHOSPHATASE 65 U/L (40-136)
[2020-02-15 16:39] LABS: GFR ESTIMATED > 60
[2020-02-15 16:40] LABS: BUN/CREATININE RATIO 23
[2020-02-15 16:42] LABS: ALANINE AMINOTRANSFERASE 23 U/L (0-55); MAGNESIUM 2.3 MG/DL (1.6-2.4)
--- OUTSIDE RECORDS SUMMARY | 2020-02-15 17:56 | XMS REPORT ---
Author Author [facility] [facility] Address [address] [address] Care Team Providers Care Waitstaff Captain Name Role Phone JUDY GUZMAN Unavailable Unavailable MOLLY, ROD A Unavailable MOLLY, ROD A Unavailable CRISTINA QUINONES Unavailable MARQUEZ NIETO MD Unavailable Unavailable ROMAIN MAGANA Unavailable Unavailable PAONI, GERALD Unavailable Unavailable PATALITA, GERALD Unavailable Unavailable THAIS LUJAN Unavailable Unavailable PARVEZ, JUDI Unavailable Unavailable PARVEZ, JUDI Unavailable Unavailable PARVEZ, JUDI Unavailable Unavailable MOLLY, ROD Unavailable Unavailable MOLLY, ROD Unavailable Unavailable MOLLY, ROD Unavailable Unavailable HOWAYEK, ROMAIN Unavailable Unavailable REYNOLDS, UMBERTO-JAYCOB Unavailable Unavailable REYNOLDS, UMBERTO-JAYCOB Unavailable Unavailable BROKOB, NATALIA Unavailable Unavailable BROKOB, NATALIA Unavailable Unavailable BROKOB, NATALIA Unavailable Unavailable MOLLY, ROD Unavailable Unavailable MOLLY, ROD Unavailable Unavailable MOLLY, ROD Unavailable Unavailable PARVEZ, JUDI Unavailable Unavailable BROWN, FARRAH Unavailable Unavailable BROWN, FARRAH Unavailable Unavailable BROWN, FARRAH Unavailable Unavailable ROD BARNES MD Unavailable Unavailable NEYMAR QUINONES FACC, LUISA FACP CCDS Unavailable UnavailTHAIS Lam Unavailable Unavailable WILLIAM WONG APRN Unavailable Unavailable MEHRDAD WELLER MD Unavailable Unavailable ROBB CHILDERS MD Unavailable Unavailable Unavailable Unavailable Unavailable Unavailable Unavailable Unavailable Unavailable Unavailable Unavailable Unavailable Unavailable Unavailable Allergies Normalized Allergy Reported Date of Reaction(s) Care Provider Facility Allergy Type classification allergen Allergy Onset DA (6 Unclassified No Known Drug 08-08-2009 - no information THAIS LUJAN Not Available sources.) Allergies (73152) no information Unclassified NO KNOWN DRUG UNKNOWN, NO JUDI HANNON Not Available (20 sources.) ALLERGIES KNOWN DRUG (55441) ALLERGIES Medications Medication Ingredient Drug Dose Dates Status Sig Sig Care Class(es) (Normalized) (Original) Provid er acetaminoph acetaminoph Opioid 06-27-20 Complete take 7.5 Acetam inophe [place] en 325 mg / en / Agonist 17 - d tablets by n/Hydrocodon i Kido HYDROcodone HYDROcodone 02-07-20 mouth every e Bitart (no bitartrate 18 four hours, (Lortab 7.5 phone) 7.5 mg oral then take Mg Tablet) 1 tablet (2 1-1 tablets Each Tablet, sources.) by mouth 1-2 Each Oral Every 4HRS 06/27/17 Discontinued no CEFAZOLIN no 1 g 02-22-20 no no no no information VIAL INJ 1 information 17 - informat informatio n information name (1 source.) GM (ANCEF) 02-22-20 ion 17 no FENTANYL no 02-22-20 no no no no information INJ 100 information 17 - informat information info rmation name (1 source.) MCG/2CC 02-22-20 ion VIAL 17 no Normal no 02-21-20 no no no no information saline information 17 - informat information infor mation name (1 source.) 03-07-20 ion 17 Problems Active Problems Problem Normalized Date Last Normalized Normalized Provider Fa cility Classification Problem(s) Recorded Problem Problem Sta tus Duration Abdominal pain Abdominal Episodic Active LUISA BLACKMON [facility] Via (1 source.) pain, other [facility] Yudith specified site [facility] (30825) Residual Acquired Episodic Active WILLIAM WONG [facility] Via codes; absence of [place] unclassified both cervix [facility] (1 source.) and uterus [place] ([address]2414) Other upper Acute Episodic Active [facility] respiratory sinusitis, [facility] of infections (14 unspecified [place] sources.) County ([address]) Anxiety Anxiety Chronic Active WILLIAM WONG [facility] Via disorders (4 disorder, [place] sources.) unspecified [facility] (56091) Other Body mass Chronic Active MARQUEZ NIETO [facility] Via nutritional; index (BMI) [facility] [place] endocrine; and 39.0-39.9, Hospital - metabolic adult [place] disorders (2 (93520) sources.) Unclassified Body mass Chronic Active no name no inform ation (4 sources.) index (BMI) 39.0-39.9, adult Translations: [ FAMILY HX OF ISCHEM HEART DIS AND OTH DI, OBSTRUCTIVE SLEEP APNEA (ADULT) (PEDIATR] Biliary tract Calculus of Episodic Active TAKAAKI KIDO , [facility] Via disease (7 gallbladder MD [place] sources.) with chronic Hospital - cholecystitis [place] without (20391) obstruction Translations: [ CALCULUS OF GALLBLADDER W/O CHOLECYSTITI] Joint Derangement of Chronic Active JUDI PARVEZ Not Pam ilable disorders and unspecified (43099) dislocations; medial trauma-related meniscus due (24 sources.) to old tear or injury, left knee Translations: [ OTHER AND UNSPECIFIED DERANGEMENT OF MEDIAL MENISCUS] Abdominal Diaphragmatic Episodic Active TAKAAKI KIDO , [facility] Via hernia (8 hernia without MD [place] sources.) obstruction or Hospital - gangrene [place] (61487) Genitourinary Dysuria Episodic Active ROMAIN HOWAYEK Hospi ravinder symptoms and Translations: [facility] of ill-defined [ DYSURIA, [place] conditions (23 UNSPECIFIED County (67163) sources.) ABNORMAL FINDINGS IN URINE, DYSURIA, DYSURIA, OTHER NONSPECIFIC FINDINGS ON EXAMINATION OF URINE] Other Encounter for Episodic Active ROMAIN HOWAYEK Not Available screening for screening for (31539) suspected malignant conditions neoplasm of (not mental colon disorders or Translations: infectious [ ABNORMAL disease) (31 ELECTROCARDIOG sources.) NIHARIKA [ECG] [EKG], NONSPECIFIC ABNORMAL ELECTROCARDIOG NIHARIKA [ECG] [EKG], ABNORMAL RESULT OF OTHER CARDIOVASCULAR ] Essential Essential Chronic Active ROMAIN HOWJAMEEK Not Avai lable hypertension (primary) (05685) (27 sources.) hypertension Translations: [ MALIGNANT ESSENTIAL HYPERTENSION] Residual Family history Episodic Active THAIS AMITAMA [facility] Via codes; of ischemic [place] unclassified heart disease Hospital - (3 sources.) and other [place] diseases of (48653) the circulatory system Residual Family history Episodic Active TAKAAKI KIDO , [facility] Via codes; of malignant [place] unclassified neoplasm of Hospital - (8 sources.) digestive [place] organs (16109) Gastroduodenal Gastric ulcer, Chronic Active TAKAAKI KIDO , [facility] Via ulcer (except unspecified as MD [place] hemorrhage) (8 acute or Hospital - sources.) chronic, [place] without (29390) hemorrhage or perforation Gastritis and Gastritis, Episodic Active TAKAAKI KIDO , [facility] Via duodenitis (8 unspecified, MD [place] sources.) without Hospital - bleeding [place] (31041) Other Irritable Chronic Active TAKAAKI KIDO , [facility]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 MD [place] al disorders without Hospital - (6 sources.) diarrhea [place] (69495) 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[facility] Via disorders (7 bundle-branch [place] sources.) block, Hospital - unspecified [place] (93581) Other longterm Episodic Active TAKAAKI KIDO , [facility] Via aftercare (18 (current) use MD [place] sources.) of Hospital - antithrombotic [place] s/antiplatelet (14029) s Translations: [ OTHER SHELTER (CURRENT) DRUG THERAPY] Other exterminator termite Episodic Active PETER WONG [facility] Via aftercare (4 (current) use [place] sources.) of aspirin Hospital - [place] (69564) Other Long-term Episodic Active ALI NEYMAR , [facility] Via aftercare (1 (current) use MD OSCAR [place] source.) of other Hospital - medications [place] (53498) Mood disorders Major Chronic Active [facility] Hosp ital (20 sources.) depressive [facility] of disorder, [facility] (49524) episode, unspecified Translations: [ MAJOR DEPRESSIVE DISORDER, SINGLE EPISODE, UNSPECIFIED DEGREE] Other Obesity, Chronic Active TAKAAKI KIDO , [facility] Via nutritional; unspecified MD [place] endocrine; and Hospital - metabolic [place] disorders (6 (59352) sources.) Other Obesity, Chronic Active ALI NEYMAR , [facility] Via nutritional; unspecified MD OSC[facility] [place] endocrine; and Hospital - metabolic [place] disorders (1 (19912) source.) Residual Obstructive Chronic Active ALI NEYMAR , [facility] Via codes; sleep apnea MD O[facility]AR [place] unclassified (adult) Hospital - (7 sources.) (pediatric) [place] (16202) Residual Obstructive Chronic Active ROD MOLLY [facility] Vi a codes; sleep apnea , MD [place] unclassified (adult)(pediat Hospital - (1 source.) julianna) [place] (57333) Occlusion or Occlusion and Chronic Active ALI NEYMAR , [facility] Via stenosis of stenosis of MD O[facility]AR [place] precerebral unspecified Hospital - arteries (2 carotid artery [place] sources.) (96350) Nonspecific Other chest Episodic Active ALI NEYMAR , [facility] V ia chest pain (6 pain MD [facility] [place] sources.) Translations: Hospital - [ CHEST PAIN [place] NEC] (03790) Malaise and Other fatigue Episodic Active ROMAIN MAGANA No t Available fatigue (25 Translations: (49741) sources.) [ OTHER MALAISE AND FATIGUE, OTHER MALAISE AND FATIGUE, WEAKNESS] Other lower Other forms of Episodic Active ALI NEYMAR , [facility] Via respiratory dyspnea MD O[facility]AR [place] disease (7 Hospital - sources.) [place] (13275) Other Other long Episodic Active THAIS BAIMA [facility] Via aftercare (14 term (current) [place] sources.) drug therapy Hospital - [place] (09607) Residual Other Episodic Active ALI NEYMAR , [facility] Via codes; postprocedural MD O[facility]AR [place] unclassified status Hospital - (1 source.) [place] (65758) Other lower Other Episodic Active ALI NEYMAR , [facility] Via respiratory respiratory MD OSCAR [place] disease (1 abnormalities Hospital - source.) [place] (05411) Other Other symptoms Episodic Active [facility] pital gastrointestin involving [facility] of al disorders digestive [place] (2 sources.) system County ([address]293) Other Pain in joint, Episodic Active [facility] non-traumatic lower leg [facility] of joint [place] disorders (2 County (33415) sources.) Other Pain in Episodic Active [facility] non-traumatic unspecified [facility] of joint knee [place] disorders (9 County (40246) sources.) Other and Personal Episodic Active MARQUEZ NIETO [facility] Via unspecified history of [place] benign colonic polyps Hospital neoplasm (8 [place] sources.) (36853) Complications Postprocedural Episodic Active MEHRDAD WELLER [facility] Via of surgical hemorrhage of , [place] procedures or a Hospital - medical care genitourinary [place] (6 sources.) system organ (09310) or structure following other procedure Translations: [ HEMATOMA COMPLIC A PROC] 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 MARQUEZ NIETO Not Available roro coronary (93035) toby and other angioplasty heart disease implant and (16 sources.) graft Translations: [ ATHSCL HEART DISEASE OF [place] CORONARY , PRESENCE OF CORONARY ANGIOPLASTY IMPLANT] Coronary Presence of Episodic Active MEHRDAD WELLER [facility] Vi a roro coronary , MD [place] s and other angioplasty Hospital - heart disease implant and [place] (5 sources.) graft (45664) Translations: [ PERCUTANEOUS TRANSLUM CORON ANGIOPLASTY ] Esophageal Reflux Chronic Active MARQUEZ NIETO [facility] Via disorders (33 esophagitis [place] sources.) Translations: Hospital - [ [place] GASTRO-ESOPHAG (81839) EAL REFLUX DISEASE WITH ES, ESOPHAGEAL OBSTRUCTION, GASTRO-ESOPHAG EAL REFLUX DISEASE WITHOUT] Heart valve Rheumatic Chronic Active ALI NEYMAR , [facility] Via disorders (2 disorders of MD OSCAR [place] sources.) both mitral Hospital - and tricuspid [place] valves (40288) Hemorrhoids (8 Second degree Episodic Active MARQUEZ NIETO [facility] Via sources.) hemorrhoids [facility] - [place] (12962) Residual Sleep Episodic Active WILLIAM WONG [facility] Via codes; disorder, [facility] unclassified unspecified Hospital - (4 sources.) Translations: [place] [ ACQUIRED (14292) ABSENCE OF BOTH CERVIX AND UTER] Other Synovitis and Episodic Active JUDI PARVEZ Not Avai lable connective tenosynovitis, (91906) tissue disease unspecified (11 sources.) Urinary tract Urinary tract Episodic Active [facility] ospital infections (5 infection, [facility] of sources.) site not [place] specified [facility] (00177) Translations: [ URINARY TRACT INFECTION, SITE NOT SPECIFIED] Past or Other Problems Problem Normalized Date Last Normalized Normalized Provider Fa cility Classification Problem(s) Recorded Problem Problem Sta tus Duration Unclassified Acute no information no information [facility] (2 sources.) sinusitis [facility] (64172) Mood disorders Major no information no information MARQUEZ BECKMAN , Not Available (8 sources.) depressive (08218) disorder, single episode, unspecified Other Other Episodic Completed JUDI PARVEZ Not Available connective tenosynovitis (94934) tissue disease of hand and (2 sources.) wrist Disorders of Pure no information no information MARQUEZ Hammond , Not Available lipid hypercholester (35758) metabolism (8 [place], sources.) unspecified Other lower Shortness of Episodic Completed ROMAIN Blevins pital respiratory breath [facility] of disease (10 [place] sources.) [facility] (08457) Procedures Procedure Normalized Procedure Procedure Result Performer Facility Date 02-14-2018 Colorectal scrn; hi no information MARQUEZ NIETO Vi a [facility] risk ind [place] (06643) 02-14-2018 Diagnostic endoscopic no information MARQUEZ NIETO Via [facility] examination on colon [place] (35514) 02-14-2018 Esoph endoscopy, no information [facility] [place] (02760) 02-14-2018 Upper GI endoscopy, no information MARQUEZ NIETO Vi a [facility] biopsy [place] (40401) Immunizations The data below is from unstructured sourcesNo immunization records.No immunization records.No immunization records.No immunization records.No immunization records. No Known Immunizations No Known Immunizations Results Test Name Value Interpretation Reference Range Date Time Fa cility (Normalized) (Normalized) (Medline Reference) metabolic panel on null Sodium no information (no code) Via [facility] (89229) laboratory on 2020-02-15 Albumin 4.4 g/dL (NEG) 3.4 - 5.4 g/dL 02-15-2020 PENDING LOCATION [Mass/Vol] 11:590400 [facility] (01700) ALP [Catalytic 65 U/L (NEG) 44 - 147 U/L 02-15-2020 PEND ING LOCATION activity/Vol] 11:59-0400 [facility] (89974) ALT [Catalytic 23 U/L (NEG) 4 - 40 U/L 02-15-2020 PENDIN G LOCATION activity/Vol] 11:590400 [facility] (76250) Anion gap 12 mmol/L (NEG) 3 - 11 mmol/L 02-15-2020 PENDING LOCATION [Moles/Vol] 11:59-0400 [facility] (89216) aPTT Coag (PPP) 28 s (NEG) 25 - 35 s 02-15-2020 PENDIN G LOCATION [Time] 11:590400 [facility] (46609) AST [Catalytic 35 U/L (H) 10 - 34 U/L 02-15-2020 PENDI NG LOCATION activity/Vol] 11:59-0400 [facility] (09671) Basophils (Bld) 0.1 10*3/uL (NEG) 0 - 0.3 10*3/uL 02-15-2020 PENDING LOCATION [#/Vol] 11:590400 [facility] (45947) Basophils/100 1 % (NEG) 0.5 - 1 % 02-15-2020 PENDING LOCATION WBC (Bld) 11:59-0400 [facility] (62065) Bilirubin 0.2 mg/dL (NEG) 0.1 - 1.2 mg/dL 02-15-2020 [facility] LOCATION [Mass/Vol] 11:59-0400 [facility] (93389) Calcium 9.7 mg/dL (NEG) 8.5 - 10.2 mg/dL 02-15-2020 [facility] LOCATION [Mass/Vol] 11:59-0400 [facility] (80628) Calcium 9.4 mg/dL (NEG) 8.5 - 10.2 mg/dL 02-15-2020 [facility] LOCATION [Mass/Vol] 11:59-0400 [facility] (45901) Chloride 104 mmol/L (NEG) 95 - 106 mmol/L 02-15-2020 [facility] LOCATION [Moles/Vol] 11:59-0400 [facility] (11550) CO2 [Moles/Vol] 22 mmol/L (NEG) 23 - 29 mmol/L 02-15-2020 P ENDING LOCATION 11:59-0400 [facility] (80958) Creatinine 0.90 mg/dL (NEG) 02-15-2020 PENDING LOCATI ON [Mass/Vol] 11:59-0400 [facility] (99467) Creatinine and > (no code) 02-15-2020 PENDING LOC ATION Glomerular 11:59-0400 [facility] (08872) filtration rate.predicted panel - Serum, Plasma or Blood Eosinophils 0.3 10*3/uL (NEG) 0.05 - 0.5 02-15-2020 PENDING LOCATION (Bld) [#/Vol] 10*3/uL 11:59-0400 [facility] (36420) Eosinophils/100 3 % (NEG) 1 - 4 % 02-15-2020 [facility] LOCATION WBC (Bld) 11:59-0400 [facility] (12685) Erythrocyte 13.0 % (NEG) 11.6 - 14.6 % 02-15-2020 [facility] LOCATION distribution 11:59-0400 [facility] (24574) width (RBC) [Ratio] Glucose 111 mg/dL (H) 60 - 125 mg/dL 02-15-2020 PENDING LOCATION [Mass/Vol] 11:59-0400 [facility] (65645) Hematocrit (Bld) 45 % (NEG) 36.1 - 50.3 % 02-15-2020 P ENDING LOCATION [Volume 11:59-0400 [facility] (89955) fraction] Hemoglobin (Bld) 15.1 g/dL (NEG) 12.1 - 17.2 g/dL 02-15-2020 PENDING LOCATION [Mass/Vol] 11:59-0400 [facility] (63749) INR Coag 0.9 (NEG) 02-15-2020 PENDING LOCATI ON (Platelet poor 11:59-0400 [facility] (97407) plasma or blood) [Relative time] Lymphocytes 2.7 10*3/uL (NEG) 0.9 - 2.9 02-15-2020 PENDING LOCATION (Bld) [#/Vol] 10*3/uL 11:59-0400 [facility] (72267) Lymphocytes/100 28 % (NEG) 20 - 40 % 02-15-2020 PENDIN G LOCATION WBC (Bld) 11:59-0400 [facility] (16666) Magnesium 2.3 mg/dL (NEG) 1.7 - 2.2 mg/dL 02-15-2020 PENDIN G LOCATION [Mass/Vol] 11:59-0400 [facility] (01948) MCH (RBC) 30 pg (NEG) 27 - 31 pg 02-15-2020 PENDING LOC ATION [Entitic mass] 11:59-0400 [facility] (43040) MCHC (RBC) 34 g/dL (NEG) 32 - 36 g/dL 02-15-2020 PENDING LOCATION [Mass/Vol] 11:59-0400 [facility] (25871) MCV (RBC) 89 (NEG) 02-15-2020 PENDING LOCATI ON [Entitic vol] 11:59-0400 [facility] (90307) Monocytes (Bld) 0.8 10*3/uL (NEG) 0.3 - 0.9 02-15-2020 PEND ING LOCATION [#/Vol] 10*3/uL 11:59-0400 [facility] (69565) Monocytes/100 9 % (NEG) 2 - 8 % 02-15-2020 PENDING LOCATION WBC (Bld) 11:59-0400 [facility] (96309) Myoglobin 47.3 ng/mL (NEG) 02-15-2020 PENDING LOCATI ON [Mass/Vol] 11:59-0400 [facility] (41089) Natriuretic 19.6 pg/mL (no code) 0 - 100 pg/mL 02-15-2020 PENDI NG LOCATION peptide B (Bld) 11:59-0400 [facility] (07214) [Mass/Vol] Neutrophils 5.8 10*3/uL (NEG) 1.7 - 7 10*3/uL 02-15-2020 [facility] LOCATION (Bld) [#/Vol] 11:590400 [facility] (84834) Neutrophils/100 61 % (NEG) 40 - 60 % 02-15-2020 PENDIN G LOCATION WBC (Bld) 11:590400 [facility] (15323) Platelet mean 9.5 (NEG) 02-15-2020 PENDING LOCA TION volume (Bld) 11:590400 [facility] (92534) [Entitic vol] Platelets (Bld) 305 10*3/uL (NEG) 150 - 450 02-15-2020 PEND ING LOCATION [#/Vol] 10*3/uL 11:590400 [facility] (03389) Potassium 4.7 mmol/L (NEG) 3.7 - 5.2 mmol/L 02-15-2020 PEND ING LOCATION [Moles/Vol] 11:59-0400 [facility] (94075) Protein 8.4 g/dL (H) 6.4 - 8.3 g/dL 02-15-2020 PENDING LOCATION [Mass/Vol] 11:59-0400 [facility] (52676) PT Coag (PPP) 11.9 s (L) 9.4 - 12.5 s 02-15-2020 PENDI NG LOCATION [Time] 11:590400 [facility] (79143) RBC (Bld) 5.03 10*6/uL (NEG) 4.2 - 6.1 02-15-2020 PENDING L OCATION [#/Vol] 10*6/uL 11:590400 [facility] (79045) Sodium 138 mmol/L (NEG) 135 - 145 mmol/L 02-15-2020 PEND ING LOCATION [Moles/Vol] 11:59-0400 [facility] (70075) Troponin ng/mL (NEG) 0 - 0.4 ng/mL 02-15-2020 PENDING LOCATION I.cardiac 11:59-0400 [facility] (88050) [Mass/Vol] Urea nitrogen 21 mg/dL (H) 7 - 20 mg/dL 02-15-2020 PENDI NG LOCATION [Mass/Vol] 11:59-0400 [facility] (22905) Urea 23 mg/mg (no code) 6 - 22 mg/mg 02-15-2020 PENDING L OCATION nitrogen/Creatin 11:59-0400 [facility] (39124) ine [Mass ratio] WBC (Bld) 9.6 10*3/uL (NEG) 3.5 - 10.5 02-15-2020 PENDING L OCATION [#/Vol] 10*3/uL 11:59-0400 [facility] (80770) laboratory on 2020-02-13 CMV IgG IA Qn >10.00 (H) 02-13-2020 [facility] (000 00) 00:10-0400 CMV IgM IA Qn <30.0 (no code) 02-13-2020 [facility] (000 00) 00:10-0400 EBV capsid IgG >600.0 (H) 02-13-2020 [facility] (00 000) IA Qn (S) 00:12-0400 EBV capsid IgM <36.0 (no code) 02-13-2020 [facility] (00 000) IA Qn (S) 00:12-0400 EBV nuclear IgG 534.0 (H) 02-13-2020 [facility] (0 0000) IA Qn (S) 00:12-0400 not yet categorized on 2020-02-11 CYTOMEGALOVIRUS >10.00 (H) 02-11-2020 Hospital (CMV) AB, IGG 08: [facility] (17011) CYTOMEGALOVIRUS <30.0 (no code) 02-11-2020 Hospital (CMV) AB, IGM 08: [address] ([address]) EBV AB VCA, IGG >600.0 (H) 02-11-2020 Hospital 08:040 [facility] (29331) EBV AB VCA, IGM <36.0 (no code) 02-11-2020 Hospital 08:[address] ([address]) EBV NUCLEAR 534.0 (H) 02-11-2020 Hospital ANTIGEN AB, IGG 08: [facility] (22238) INTERPRETATION: EBV (no code) 02-11-2020 Hospital INTERPRETATION 08: [facility] of CHART\.br\ CHAVEZ: [facility] ANTIBODY PRESENT (41345) + ANTIBODY ABSENT -\.br\ INTERPRETATION VCA-IGM VCA-IGG EBNA-IGG\.br\ NO PREVIOUS INFECTION/ - - -\.br\ SUSCEPTIBLE\.br\ PRIMARY INFECTION (NEW + + -\.br\ OR RECENT)\.br\ PAST INFECTION +OR- + +\.br\ SEE COMMENT BELOW* + - -\.br\ *RESULTS INDICATE INFECTION WITH EBV AT SOME TIME\.br\ HOWEVER CANNOT PREDICT THE TIMING OF THE INFECTION\.br\ SINCE ANTIBODIES TO EBNA USUALLY DEVELOP AFTER\.br\ PRIMARY INFECTION OR, ALTERNATIVELY, APPROXIMATELY\.b r\ 5-10% OF PATIENTS WITH EBV NEVER DEVELOP ANTIBODIES\.br\ TO EBNA. laboratory on 2020-02-11 Basophils (Bld) 0.1 10*3/uL (no code) 0 - 0.3 10*3/uL 02-11-2020 Hospital [#/Vol] 08: [facility] (25217) Basophils/100 1.10 % (no code) 0.5 - 1 % 02-11-2020 Hospital WBC (Bld) 08: [facility] () Eosinophils 0.2 10*3/uL (no code) 0.05 - 0.5 02-11-2020 Hospita l (Bld) [#/Vol] 10*3/uL 08: [facility] (35749) Eosinophils/100 2.9 % (no code) 1 - 4 % 02-11-2020 Hospit al WBC (Bld) 08: [facility] (18321) Erythrocyte 12.2 % (no code) 11.6 - 14.6 % 02-11-2020 Hospit al distribution 08: [facility] width (RBC) [facility] [Ratio] (33351) ESR (Bld) 13 mm/h (no code) 02-11-2020 Hospital [Velocity] 08: [facility] (43280) Hematocrit (Bld) 42.8 % (no code) 36.1 - 50.3 % 02-11-2020 H ospital [Volume 08: [facility] of fraction] [facility] (97140) Hemoglobin (Bld) 14.4 g/dL (no code) 12.1 - 17.2 g/dL 02-11-2020 Hospital [Mass/Vol] 08: [facility] (77965) Lymphocytes 2.07 10*3/uL (no code) 0.9 - 2.9 02-11-2020 Hospita l (Bld) [#/Vol] 10*3/uL 08: [facility] (71395) Lymphocytes/100 31.1 % (no code) 20 - 40 % 02-11-2020 Hospit al WBC (Bld) 08: [facility] (55137) MCH (RBC) 30.9 pg (no code) 27 - 31 pg 02-11-2020 Hospital [Entitic mass] 08: [facility] (60754) MCHC (RBC) 33.6 g/dL (no code) 32 - 36 g/dL 02-11-2020 Hospital [Mass/Vol] 08: [facility] (30268) MCV (RBC) 91.8 fL (no code) 80 - 100 fL 02-11-2020 Hospital [Entitic vol] 08: [facility] (97321) Monocytes (Bld) 0.5 10*3/uL (no code) 0.3 - 0.9 02-11-2020 Hosp ital [#/Vol] 10*3/uL 08: [facility] (08703) Monocytes/100 7.4 % (no code) 2 - 8 % 02-11-2020 Hospital WBC (Bld) 08: [facility] (97094) Neutrophils 3.84 10*3/uL (no code) 1.7 - 7 10*3/uL 02-11-2020 H ospital (Bld) [#/Vol] 08: [facility] (99845) Neutrophils/100 57.5 % (no code) 40 - 60 % 02-11-2020 Hospit al WBC (Bld) 08: [facility] (18110) Platelet mean 9.3 fL (no code) 7.2 - 11.7 fL 02-11-2020 Hosp ital volume (Bld) 08: [facility] [Entitic vol] [facility] (33646) Platelets (Bld) 275 10*3/uL (no code) 150 - 450 02-11-2020 Hosp ital [#/Vol] 10*3/uL 08: [facility] (06286) RBC (Bld) 4.66 10*6/uL (no code) 4.2 - 6.1 02-11-2020 Hospital [#/Vol] 10*6/uL 08: [facility] (73595) Service comment Comment (no code) 02-11-2020 [facility] (0 0000) (Unsp spec) 21:52-0400 [Interp] WBC (Bld) 6.66 10*3/uL (no code) 3.5 - 10.5 02-11-2020 Hospital [#/Vol] 10*3/uL 08: [facility] (00609) laboratory on 2019-11-11 Basophils (Bld) 0.0 10*3/uL (no code) 0 - 0.3 10*3/uL 11-11-2019 Hospital [#/Vol] 11: [facility] (27364) Basophils/100 0.60 % (no code) 0.5 - 1 % 11-11-2019 Hospital WBC (Bld) 11: [facility] (97449) Eosinophils 0.3 10*3/uL (no code) 0.05 - 0.5 11-11-2019 Hospita l (Bld) [#/Vol] 10*3/uL 11: [facility] (60005) Eosinophils/100 4.1 % (no code) 1 - 4 % 11-11-2019 Hospit al WBC (Bld) 11:26-0500 [facility] (25799) Erythrocyte 12.3 % (no code) 11.6 - 14.6 % 11-11-2019 Hospit al distribution 11: [facility] width (RBC) [facility] [Ratio] ([id number]) ESR (Bld) 11 mm/h (no code) 11-11-2019 Hospital [Velocity] 11: [facility] (45694) Hematocrit (Bld) 42.4 % (no code) 36.1 - 50.3 % 11-11-2019 H ospital [Volume 11: [facility] fraction[facility] ([id number]) Hemoglobin (Bld) 14.0 g/dL (no code) 12.1 - 17.2 g/dL 11-11-2019 Hospital [Mass/Vol] 11: [facility] (40867) Lymphocytes 2.30 10*3/uL (no code) 0.9 - 2.9 11-11-2019 Hospita l (Bld) [#/Vol] 10*3/uL 11: [facility] (85483) Lymphocytes/100 33.6 % (no code) 20 - 40 % 11-11-2019 Hospit al WBC (Bld) 11: [facility] (07428) MCH (RBC) 30.5 pg (no code) 27 - 31 pg 11-11-2019 Hospital [Entitic mass] 11: [facility] (13820) MCHC (RBC) 33.0 g/dL (no code) 32 - 36 g/dL 11-11-2019 Hospital [Mass/Vol] 11: [facility] (42477) MCV (RBC) 92.4 fL (no code) 80 - 100 fL 11-11-2019 Hospital [Entitic vol] 11: [facility] (92861) Monocytes (Bld) 0.5 10*3/uL (no code) 0.3 - 0.9 11-11-2019 Hosp ital [#/Vol] 10*3/uL 11: [facility] (99488) Monocytes/100 7.2 % (no code) 2 - 8 % 11-11-2019 Hospital WBC (Bld) 11: [facility] (25366) Neutrophils 3.73 10*3/uL (no code) 1.7 - 7 10*3/uL 11-11-2019 H ospital (Bld) [#/Vol] 11: [facility] (53617) Neutrophils/100 54.5 % (no code) 40 - 60 % 11-11-2019 Hospit al WBC (Bld) 11: [facility] (82789) Platelet mean 9.5 fL (no code) 7.2 - 11.7 fL 11-11-2019 Hosp ital volume (Bld) 11: [facility] [Entitic vol] [facility] (60855) Platelets (Bld) 267 10*3/uL (no code) 150 - 450 11-11-2019 Hosp ital [#/Vol] 10*3/uL 11: [facility] (72945) RBC (Bld) 4.59 10*6/uL (no code) 4.2 - 6.1 11-11-2019 Hospital [#/Vol] 10*6/uL 11: [facility] ([id number]) WBC (Bld) 6.84 10*3/uL (no code) 3.5 - 10.5 11-11-2019 Hospital [#/Vol] 10*3/uL 11: [facility] (46457) laboratory on 2019-05-22 Clue cells Wet Not Observed (no code) 05-22-2019 Hospital prep Ql (Vag 17:55-0400 [facility] fld[facility] ([id number]) T. vaginalis Wet Not Observed (no code) 05-22-2019 Hospital prep Ql (Vag 17:55-0400 [facility] fld[facility] (67734) Yeast Wet prep Not Observed (no code) 05-22-2019 Hospital Ql (Vag fld) 17:55-0400 [facility] (43361) not yet categorized on 2019-05-15 Electrocardiogra Complete (no code) 05-15-2019 Hospital ms recorded 13: [facility] (66620) Urine Volume Urine Volume (no code) 05-15-2019 Hospital Sufficient 13: [facility] (10mL) [facility] (06019) no information Urine Saved if (A) 05-15-2019 Hospital Culture Needed 13: [facility] (48hrs from time [facility] of collection) ([id number]) laboratory on 2019-05-15 Albumin BCG dye 4.1 (no code) 05-15-2019 Hospital [Mass/Vol] 13: [facility] (87543) ALP [Catalytic 57 U/L (no code) 44 - 147 U/L 05-15-2019 Hosp ital activity/Vol] 13: [facility] ([id number]) ALT [Catalytic 19 U/L (no code) 4 - 40 U/L 05-15-2019 Hospit al activity/Vol] 13: [facility] (71568) Anion gap 15 mmol/L (H) 3 - 11 mmol/L 05-15-2019 Hospital [Moles/Vol] 13: [facility] (21080) AST [Catalytic 25 U/L (no code) 10 - 34 U/L 05-15-2019 Hospi ravinder activity/Vol] 13: [facility] (59211) Bacteria LM Ql Negative (no code) 05-15-2019 Hospital (Urine sed) 13: [facility] (99669) Basophils (Bld) 0.1 10*3/uL (no code) 0 - 0.3 10*3/uL 05-15-2019 Hospital [#/Vol] 13: [facility] (32211) Basophils/100 0.80 % (no code) 0.5 - 1 % 05-15-2019 Hospital WBC (Bld) 13: [facility] (72285) Bilirubin 0.2 mg/dL (no code) 0.1 - 1.2 mg/dL 05-15-2019 Hospit al [Mass/Vol] 13: [facility] () Bilirubin N/A (A) 05-15-2019 Hospital Confirm Ql (U) 13: [facility] (32872) Bilirubin Ql (U) Negative (no code) 05-15-2019 Hospital 13: [facility] (77530) Calcium 10.1 mg/dL (no code) 8.5 - 10.2 mg/dL 05-15-2019 Hosp ital [Mass/Vol] 13: [facility] (41475) Chloride 104 mmol/L (no code) 95 - 106 mmol/L 05-15-2019 Hospi ravinder [Moles/Vol] 13: [facility] () CK [Catalytic 97 U/L (no code) 05-15-2019 Hospital activity/Vol] 13: [facility] () CK.MB [Mass/Vol] 1.9 ng/mL (no code) 0 - 4.3 ng/mL 05-15-2019 H ospital 13: [facility] () Clarity (U) Clear (no code) 05-15-2019 Hospital 13: [facility] () Cobalamin 510.00 pg/mL (no code) 200 - 900 pg/mL 05-15-2019 Hos pital (Vitamin B12) 13: [facility] [Mass/Vol] [facility] (15848) Color (U) Yellow (no code) 05-15-2019 Hospital 13: [facility] () Creatinine 0.76 mg/dL (no code) 05-15-2019 Hospital [Mass/Vol] 13: [facility] (71818) Eosinophils 0.2 10*3/uL (no code) 0.05 - 0.5 05-15-2019 Hospita l (Bld) [#/Vol] 10*3/uL 13: [facility] (20393) Eosinophils/100 2.4 % (no code) 1 - 4 % 05-15-2019 Hospit al WBC (Bld) 13: [facility] (17886) Epithelial 0-5/HPF (A) 05-15-2019 Hospital cells.squamous 13: [facility] LM.HPF (Urine [facility] sed) [#/Area] (75539) Erythrocyte 12.3 % (no code) 11.6 - 14.6 % 05-15-2019 Hospit al distribution 13: [facility] width (RBC) [facility] [Ratio] ([id number]) GFR/1.73 sq 76 (no code) 90 - 120 05-15-2019 Hospital M.predicted MDRD mL/min/{1.73_m2} mL/min/{1.73_m2} 13: [facility] (S/P/Bld) [Vol [facility] rate/Area] ([id number]) Globulin (S) 3.6 g/dL (H) 2 - 3.5 g/dL 05-15-2019 Hospit al [Mass/Vol] 13: [facility] (71692) Glucose 112 mg/dL (H) 60 - 125 mg/dL 05-15-2019 Hospita l [Mass/Vol] 13: [facility] (76133) Glucose Test Negative (no code) 05-15-2019 Hospital strip (U) 13: [facility] [Mass/Vol] [facility] (50361) HCO3 (P) 26 (no code) 05-15-2019 Hospital [Moles/Vol] 13: [facility] (42349) Hematocrit (Bld) 43.5 % (no code) 36.1 - 50.3 % 05-15-2019 H ospital [Volume 13: [facility] fraction[facility] (57643) Hemoglobin (Bld) 14.6 g/dL (no code) 12.1 - 17.2 g/dL 05-15-2019 Hospital [Mass/Vol] 13: [facility] (54447) Hemoglobin Ql Negative (no code) 05-15-2019 Hospital (U) 13: [facility] (34030) Ketones (U) Negative (no code) 05-15-2019 Hospital [Mass/Vol] 13: [facility] (34423) Leukocyte Negative (no code) 05-15-2019 Hospital esterase Test 13: [facility] strip Ql (U) [facility] (53984) Lymphocytes 1.99 10*3/uL (no code) 0.9 - 2.9 05-15-2019 Hospita l (Bld) [#/Vol] 10*3/uL 13: [facility] () Lymphocytes/100 27.9 % (no code) 20 - 40 % 05-15-2019 Hospit al WBC (Bld) 13: [facility] (47683) MCH (RBC) 30.5 pg (no code) 27 - 31 pg 05-15-2019 Hospital [Entitic mass] 13: [facility] (74884) MCHC (RBC) 33.6 g/dL (no code) 32 - 36 g/dL 05-15-2019 Hospital [Mass/Vol] 13: [facility] (26187) MCV (RBC) 91.0 fL (no code) 80 - 100 fL 05-15-2019 Hospital [Entitic vol] 13: [facility] (30013) Monocytes (Bld) 0.5 10*3/uL (no code) 0.3 - 0.9 05-15-2019 Hosp ital [#/Vol] 10*3/uL 13: [facility] (33677) Monocytes/100 6.3 % (no code) 2 - 8 % 05-15-2019 Hospital WBC (Bld) 13: [facility] (11203) Myoglobin 35.9 ng/mL (no code) 05-15-2019 Hospital [Mass/Vol] 13: [facility] (47433) Neutrophils 4.45 10*3/uL (no code) 1.7 - 7 10*3/uL 05-15-2019 H ospital (Bld) [#/Vol] 13: [facility] (75326) Neutrophils/100 62.6 % (no code) 40 - 60 % 05-15-2019 Hospit al WBC (Bld) 13: [facility] (30996) Nitrite Ql (U) Negative (no code) 05-15-2019 Hospital 13: [facility] (58862) Osmolality Calc 291 (no code) 05-15-2019 Hospital [Osmolality] 13: [facility] () pH (U) 7.0 [pH] (no code) 4.6 - 8 [pH] 05-15-2019 Hospital 13: [facility] () Platelet mean 9.4 fL (no code) 7.2 - 11.7 fL 05-15-2019 Hosp ital volume (Bld) 13: [facility] [Entitic vol] [facility] (32901) Platelets (Bld) 287 10*3/uL (no code) 150 - 450 05-15-2019 Hosp ital [#/Vol] 10*3/uL 13: [facility] (17183) Potassium 4.6 mmol/L (no code) 3.7 - 5.2 mmol/L 05-15-2019 Hosp ital [Moles/Vol] 13: [facility] (64013) Protein (U) Negative (no code) 0 - 20 mg/dL 05-15-2019 Hospita l [Mass/Vol] 13: [facility] (68985) Protein 7.7 g/dL (no code) 6.4 - 8.3 g/dL 05-15-2019 Hospita l [Mass/Vol] 13: [facility] (73607) RBC (Bld) 4.78 10*6/uL (no code) 4.2 - 6.1 05-15-2019 Hospital [#/Vol] 10*6/uL 13: [facility] (50969) RBC LM.HPF Negative (no code) 0 - 4 /[HPF] 05-15-2019 Hospital (Urine sed) 13: [facility] [#/Area] [facility] (42750) Sodium 140 mmol/L (no code) 135 - 145 mmol/L 05-15-2019 Hosp ital [Moles/Vol] 13: [facility] (88683) Specific gravity 1.010 (no code) 05-15-2019 Hospital (U) [Rel 13: [facility] density] [facility] (66358) Troponin ng/mL (no code) 0 - 0.4 ng/mL 05-15-2019 Hospital I.cardiac 13: [facility] [Mass/Vol] [facility] (33310) Urea nitrogen 16 mg/dL (no code) 7 - 20 mg/dL 05-15-2019 Hospi ravinder [Mass/Vol] 13: [facility] (25961) Urobilinogen Qn 0.2 (A) 05-15-2019 Hospital (U) {Josias'U}/dL 13: [facility] (40695) WBC (Bld) 7.12 10*3/uL (no code) 3.5 - 10.5 05-15-2019 Hospital [#/Vol] 10*3/uL 13:30 [facility] (47677) WBC LM.HPF Negative (no code) 0 - 5 /[HPF] 05-15-2019 Hospital (Urine sed) 13: [facility] [#/Area] [facility] (68469) laboratory on 2019-04-27 Albumin BCG dye 4.1 (no code) 04-27-2019 Hospital [Mass/Vol] 12:56040 [facility] (87384) ALP [Catalytic 57 U/L (no code) 44 - 147 U/L 04-27-2019 Hosp ital activity/Vol] 12: [facility] (47667) ALT [Catalytic 21 U/L (no code) 4 - 40 U/L 04-27-2019 Hospit al activity/Vol] 12:56040 [facility] (53435) Anion gap 14 mmol/L (no code) 3 - 11 mmol/L 04-27-2019 Hospital [Moles/Vol] 12: [facility] (20192) AST [Catalytic 23 U/L (no code) 10 - 34 U/L 04-27-2019 Hospi ravinder activity/Vol] 12: [facility] (40664) Basophils (Bld) 0.1 10*3/uL (no code) 0 - 0.3 10*3/uL 04-27-2019 Hospital [#/Vol] 12: [facility] (08083) Basophils/100 0.80 % (no code) 0.5 - 1 % 04-27-2019 Hospital WBC (Bld) 12: [facility] (75488) Bilirubin 0.3 mg/dL (no code) 0.1 - 1.2 mg/dL 04-27-2019 Hospit al [Mass/Vol] 12: [facility] (39335) Calcium 8.9 mg/dL (no code) 8.5 - 10.2 mg/dL 04-27-2019 Hospi ravinder [Mass/Vol] 12: [facility] (10881) Chloride 105 mmol/L (no code) 95 - 106 mmol/L 04-27-2019 Hospi ravinder [Moles/Vol] 12: [facility] (47938) Creatinine 0.77 mg/dL (no code) 04-27-2019 Hospital [Mass/Vol] 12: [facility] (12362) Eosinophils 0.3 10*3/uL (no code) 0.05 - 0.5 04-27-2019 Hospita l (Bld) [#/Vol] 10*3/uL 12: [facility] (22506) Eosinophils/100 3.6 % (no code) 1 - 4 % 04-27-2019 Hospit al WBC (Bld) 12: [facility] (93563) Erythrocyte 12.2 % (no code) 11.6 - 14.6 % 04-27-2019 Hospit al distribution 12: [facility] width (RBC) [facility] [Ratio] ([id number]) GFR/1.73 sq 74 (no code) 90 - 120 04-27-2019 Hospital M.predicted MDRD mL/min/{1.73_m2} mL/min/{1.73_m2} 12: [facility] (S/P/Bld) [Vol [facility] rate/Area] (88595) Globulin (S) 3.0 g/dL (no code) 2 - 3.5 g/dL 04-27-2019 Hospit al [Mass/Vol] 12:56 [facility] () Glucose 98 mg/dL (no code) 60 - 125 mg/dL 04-27-2019 Hospita l [Mass/Vol] 12:56040 [facility] (40351) HCO3 (P) 26 (no code) 04-27-2019 Hospital [Moles/Vol] 12:56040 [facility] (36688) Hematocrit (Bld) 43.4 % (no code) 36.1 - 50.3 % 04-27-2019 H ospital [Volume 12:56 [facility] fraction[facility] (51252) Hemoglobin (Bld) 14.5 g/dL (no code) 12.1 - 17.2 g/dL 04-27-2019 Hospital [Mass/Vol] 12:56040 [facility] (08507) Lymphocytes 2.51 10*3/uL (no code) 0.9 - 2.9 04-27-2019 Hospita l (Bld) [#/Vol] 10*3/uL 12:56040 [facility] (35493) Lymphocytes/100 32.4 % (no code) 20 - 40 % 04-27-2019 Hospit al WBC (Bld) 12:56 [facility] (50104) M. pneumoniae Ab Negative (no code) 04-27-2019 Hospital Ql (S) 12: [facility] (47051) MCH (RBC) 30.5 pg (no code) 27 - 31 pg 04-27-2019 Hospital [Entitic mass] 12:56 [facility] (14715) MCHC (RBC) 33.4 g/dL (no code) 32 - 36 g/dL 04-27-2019 Hospital [Mass/Vol] 12:56 [facility] (50149) MCV (RBC) 91.2 fL (no code) 80 - 100 fL 04-27-2019 Hospital [Entitic vol] 12:56 [facility] (92559) Monocytes (Bld) 0.6 10*3/uL (no code) 0.3 - 0.9 04-27-2019 Hosp ital [#/Vol] 10*3/uL 12: [facility] (71579) Monocytes/100 8.0 % (no code) 2 - 8 % 04-27-2019 Hospital WBC (Bld) 12: [facility] (31188) Neutrophils 4.27 10*3/uL (no code) 1.7 - 7 10*3/uL 04-27-2019 H ospital (Bld) [#/Vol] 12: [facility] (92208) Neutrophils/100 55.2 % (no code) 40 - 60 % 04-27-2019 Hospit al WBC (Bld) 12: [facility] (40404) Osmolality Calc 290 (no code) 04-27-2019 Hospital [Osmolality] 12: [facility] (24520) Platelet mean 9.3 fL (no code) 7.2 - 11.7 fL 04-27-2019 Hosp ital volume (Bld) 12: [facility] [Entitic vol] [facility] (16885) Platelets (Bld) 267 10*3/uL (no code) 150 - 450 04-27-2019 Hosp ital [#/Vol] 10*3/uL 12:56 [facility] (04854) Potassium 4.7 mmol/L (no code) 3.7 - 5.2 mmol/L 04-27-2019 Hosp ital [Moles/Vol] 12:040 [facility] (31214) Protein 7.1 g/dL (no code) 6.4 - 8.3 g/dL 04-27-2019 Hospita l [Mass/Vol] 12:040 [facility] (61139) RBC (Bld) 4.76 10*6/uL (no code) 4.2 - 6.1 04-27-2019 Hospital [#/Vol] 10*6/uL 12:040 [facility] (67345) Sodium 140 mmol/L (no code) 135 - 145 mmol/L 04-27-2019 Hosp ital [Moles/Vol] 12: [facility] (50946) TSH Qn 1.47 (no code) 04-27-2019 Hospital 12: [facility] (55511) Urea nitrogen 15 mg/dL (no code) 7 - 20 mg/dL 04-27-2019 Hospi ravinder [Mass/Vol] 12:040 [facility] (88227) WBC (Bld) 7.74 10*3/uL (no code) 3.5 - 10.5 04-27-2019 Hospital [#/Vol] 10*3/uL 12:040 [facility] (01857) other on 2018-10-22 Erythrocyte 12.3 % (no code) 11.6 - 14.6 % 10-22-2018 Hospit al distribution 15: [facility] width (RBC) [facility] [Ratio] ([id number]) M. pneumoniae Ab Negative (no code) 10-22-2018 Hospital Ql (S) 15: [facility] (15057) MCHC (RBC) 33.3 g/dL (no code) 32 - 36 g/dL 10-22-2018 Hospital [Mass/Vol] 15: [facility] (73620) Platelet mean 9.2 fL (no code) 7.2 - 11.7 fL 10-22-2018 Hosp ital volume (Bld) 15: [facility] [Entitic vol] [facility] (07604) hematology on 2018-10-22 Basophils (Bld) 0.1 10*3/uL (no code) 0 - 0.3 10*3/uL 10-22-2018 Hospital [#/Vol] 15:050 [facility] (93043) Basophils/100 0.90 % (no code) 0.5 - 1 % 10-22-2018 Hospital WBC (Bld) 15: [facility] (20353) Eosinophils 0.2 10*3/uL (no code) 0.05 - 0.5 10-22-2018 Hospita l (Bld) [#/Vol] 10*3/uL 15: [facility] (70841) Eosinophils/100 3.5 % (no code) 1 - 4 % 10-22-2018 Hospit al WBC (Bld) 15: [facility] (78185) Hematocrit (Bld) 45.9 % (no code) 36.1 - 50.3 % 10-22-2018 H ospital [Volume 15:0500 [facility] fraction] [facility] (52854) Hemoglobin (Bld) 15.3 g/dL (H) 12.1 - 17.2 g/dL 10-22-2018 Hospital [Mass/Vol] 15:050 [facility] (24211) Lymphocytes 1.84 10*3/uL (no code) 0.9 - 2.9 10-22-2018 Hospita l (Bld) [#/Vol] 10*3/uL 15:050 [facility] (93952) Lymphocytes/100 26.8 % (no code) 20 - 40 % 10-22-2018 Hospit al WBC (Bld) 15:050 [facility] (71129) MCH (RBC) 29.9 pg (no code) 27 - 31 pg 10-22-2018 Hospital [Entitic mass] 15:050 [facility] (23111) MCV (RBC) 89.6 fL (no code) 80 - 100 fL 10-22-2018 Hospital [Entitic vol] 15: [facility] (78049) Monocytes (Bld) 0.7 10*3/uL (no code) 0.3 - 0.9 10-22-2018 Hosp ital [#/Vol] 10*3/uL 15: [facility] (69380) Monocytes/100 10.1 % (no code) 2 - 8 % 10-22-2018 Hospital WBC (Bld) 15: [facility] (98407) Neutrophils 4.03 10*3/uL (no code) 1.7 - 7 10*3/uL 10-22-2018 H ospital (Bld) [#/Vol] 15: [facility] (24126) Neutrophils/100 58.7 % (no code) 40 - 60 % 10-22-2018 Hospit al WBC (Bld) 15: [facility] (02321) Platelets (Bld) 265 10*3/uL (no code) 150 - 450 10-22-2018 Hosp ital [#/Vol] 10*3/uL 15: [facility] (19155) RBC (Bld) 5.12 10*6/uL (H) 4.2 - 6.1 10-22-2018 Hospital [#/Vol] 10*6/uL 15: [facility] (76768) WBC (Bld) 6.86 10*3/uL (no code) 3.5 - 10.5 10-22-2018 Hospital [#/Vol] 10*3/uL 15: [facility] (61191) urinalysis on 2018-08-07 Bacteria LM.HPF Trace (A) 08-07-2018 Hospital #/area (Urine 12: [facility] (93802) Bilirubin Ql (U) Negative (no code) 08-07-2018 Hospital 12:45050 [facility] (28023) Clarity Nom (U) Clear (no code) 08-07-2018 Hospital 12: [facility] (45190) Color Nom (U) Yellow (no code) 08-07-2018 Hospital 12:45-0500 [facility] (15806) Epithelial 0-5/HPF (A) 08-07-2018 Hospital cells.squamous 12:45-0500 [facility] LM.HPF #/area [facility] (Urine sed) (05585) Hemoglobin Test Negative (no code) 08-07-2018 Hospital strip Ql (U) 12:45-0500 [facility] (02328) Leukocyte Negative (no code) 08-07-2018 Hospital esterase Test 12:45-0500 [facility] strip Ql (U) [facility] (90230) Nitrite Test Negative (no code) 08-07-2018 Hospital strip Ql (U) 12:45-0500 [facility] (00053) pH Test strip 7.0 [pH] (no code) 4.6 - 8 [pH] 08-07-2018 Hospi ravinder (U) 12:45-0500 [facility] (59126) Protein mass Negative (no code) 0 - 20 mg/dL 08-07-2018 Hospit al conc (U) 12:45-0500 [facility] (42700) RBC LM.HPF Negative (no code) 0 - 4 /[HPF] 08-07-2018 Hospital #/area (Urine 12:45-0500 [facility] sed) [facility] (23770) Specific gravity 1.015 (no code) 08-07-2018 Hospital Relative Density 12:45-0500 [facility] (U) [facility] (70158) Urobilinogen 0.2 (A) 0.2 - 1 08-07-2018 Hospital Test strip Qn {Josias'U}/dL {Josias'U}/dL 12:45-0500 [facility] (U) [facility] (58029) WBC LM.HPF Negative (no code) 0 - 5 /[HPF] 08-07-2018 Hospital #/area (Urine 12:45-0500 [facility] sed) [facility] (58101) other on 2018-08-07 Bilirubin N/A (A) 08-07-2018 Hospital [Presence] in 12:45-0500 [facility] Urine by [facility] Confirmatory ([id number]) method Glucose Negative (no code) 08-07-2018 Hospital [Mass/volume] in 12:45-0500 [facility] Urine by Test [facility] strip (89433) Ketones mass Negative (no code) 08-07-2018 Hospital conc (U) 12:45-0500 [facility] (33344) Urine Volume Urine Volume (no code) 08-07-2018 Hospital Sufficient 12:45-0500 [facility] (10mL) [facility] (87067) no information Urine Saved if (A) 08-07-2018 Hospital Culture Needed 12:45-0500 [facility] (48hrs from time [facility] of collection) ([id number]) metabolic panel on 2018-08-07 Anion gap 3 14 mmol/L (no code) 3 - 11 mmol/L 08-07-2018 Hospit al molar conc 12:450500 [facility] (99948) Calcium mass 9.3 mg/dL (no code) 8.5 - 10.2 mg/dL 08-07-2018 Ho spital conc 12:45-0500 [facility] (52661) Chloride molar 103 mmol/L (no code) 95 - 106 mmol/L 08-07-2018 Hospital conc 12:450500 [facility] (46236) CO2 molar conc 27 mmol/L (no code) 23 - 29 mmol/L 08-07-2018 Ho spital 12:450500 [facility] (40004) Creatinine mass 0.82 mg/dL (no code) 08-07-2018 Hospital conc 12:450500 [facility] (10387) GFR/1.73 sq M 69 (no code) 90 - 120 08-07-2018 Hospital predicted among mL/min/{1.73_m2} mL/min/{1.73_m2} 12:450500 [facility] non-blacks MDRD [facility] vol rate/area (97612) (S/P/Bld) Glucose mass 88 mg/dL (no code) 60 - 125 mg/dL 08-07-2018 Hosp ital conc 12:45-0500 [facility] ([id number]) Osmolality 291 mosm/kg (no code) 275 - 295 08-07-2018 Hospital mosm/kg 12:45-0500 [facility] ([id number]) Potassium molar 4.4 mmol/L (no code) 3.7 - 5.2 mmol/L 08-07-2018 Hospital conc 12:45-0500 [facility] ([id number]) Sodium molar 140 mmol/L (no code) 135 - 145 mmol/L 08-07-2018 H ospital conc [id number] [facility] ([id number]) Urea nitrogen 20 mg/dL (no code) 7 - 20 mg/dL 08-07-2018 Hospi ravinder mass conc 12:45-0500 [facility] ([id number]) hematology on 2018-08-07 Basophils Auto 0.1 10*3/uL (no code) 0 - 0.3 10*3/uL 08-07-2018 Hospital #/vol (Bld) 12:45-0500 [facility] ([id number]) Basophils/100 0.80 % (no code) 0.5 - 1 % 08-07-2018 Hospital WBC Auto (Bld) 12:45-0500 [facility] ([id number]) Eosinophils Auto 0.2 10*3/uL (no code) 0.05 - 0.5 08-07-2018 Ho spital #/vol (Bld) 10*3/uL 12:45-0500 [facility] ([id number]) Eosinophils/100 2.7 % (no code) 1 - 4 % 08-07-2018 Hospit al WBC Auto (Bld) 12:450500 [facility] ([id number]) Erythrocyte 12.7 % (no code) 11.6 - 14.6 % 08-07-2018 Hospit al distribution [id number] [facility] width Auto Ratio [facility] ([facility]BC) ([id number]) Hematocrit Auto 43.5 % (no code) 36.1 - 50.3 % 08-07-2018 Ho spital Volume Fraction 12:45-0500 [facility] (Bld) [facility] ([id number]) Hemoglobin mass 14.1 g/dL (no code) 12.1 - 17.2 g/dL 08-07-2018 Hospital conc (Bld) 12:45-0500 [facility] ([id number]) Lymphocytes Auto 2.12 10*3/uL (no code) 0.9 - 2.9 08-07-2018 Ho spital #/vol (Bld) 10*3/uL 12:45-0500 [facility] ([id number]) Lymphocytes/100 28.3 % (no code) 20 - 40 % 08-07-2018 Hospit al WBC Auto (Bld) 12:450500 [facility] ([id number]) MCH Auto Entitic 29.6 pg (no code) 27 - 31 pg 08-07-2018 Hosp ital mass (RBC) 12:450500 [facility] ([id number]) MCHC Auto mass 32.4 g/dL (no code) 32 - 36 g/dL 08-07-2018 Hosp ital conc (RBC) 12:450500 [facility] ([id number]) MCV Auto Entitic 91.2 fL (no code) 80 - 100 fL 08-07-2018 Hos pital volume (RBC) 12:450500 [facility] ([id number]) Monocytes Auto 0.5 10*3/uL (no code) 0.3 - 0.9 08-07-2018 Hospi ravinder #/vol (Bld) 10*3/uL 12:450500 [facility] ([id number]) Monocytes/100 6.8 % (no code) 2 - 8 % 08-07-2018 Hospital WBC Auto (Bld) 12:450500 [facility] ([id number]) Neutrophils Auto 4.61 10*3/uL (no code) 1.7 - 7 10*3/uL 08-07-20 18 Hospital #/vol (Bld) 12:450500 [facility] ([id number]) Neutrophils/100 61.4 % (no code) 40 - 60 % 08-07-2018 Hospit al WBC Auto (Bld) 12:450500 [facility] ([id number]) Platelet mean 9.1 fL (no code) 7.2 - 11.7 fL 08-07-2018 Hosp ital volume Auto 12:45-0500 [facility] ([facility] ([id number]) Platelets Auto 259 10*3/uL (no code) 150 - 450 08-07-2018 Hospi ravinder #/vol (Bld) 10*3/uL 12:45-0500 [facility] ([id number]) RBC Auto #/vol 4.77 10*6/uL (no code) 4.2 - 6.1 08-07-2018 Hosp ital (Bld) 10*6/uL 12:45-0500 [facility] ([id number]) WBC Auto #/vol 7.50 10*3/uL (no code) 3.5 - 10.5 08-07-2018 Hos pital (d) 10*3/uL 12:45-0500 [facility] ([id number]) venous blood hemoglobin measurement (mass/volume) on 2018-02-22 Hemoglobin (HGB) 13.7 g/dL (no code) 12 - 18 g/dL Via [facility] ([id number]) blood neutrophils automated count (number/volume) on 2018-02-22 Neutrophils 4.7 10*3/uL (no code) 1.5 - 7.8 [facility] ([id number][facility] blood monocytes/100 leukocytes on 2018-02-22 Monocytes/100 9 % (no code) 2 - 8 % Via [facility] leukocytes [facility] (78981) blood monocytes automated count (number/volume) on 2018-02-22 Monocytes 0.7 10*3/uL (no code) 0.2 - 1.1 [facility] ([id number]) blood lymphocytes automated count (number/volume) on 2018-02-22 Lymphocytes 1.5 10*3/uL (no code) 0.85 - 4.1 [facility] ([id number]) blood leukocytes automated count (number/volume) on 2018-02-22 WBC (Leukocytes) 7.1 10*3/uL (no code) 3.8 - 10.8 Via [facility] 10*3/uL [facility] (50494) blood hematocrit (volume fraction) on 2018-02-22 Hematocrit (HCT) 40 % (no code) 39 - 51 % Via [facility] ([id number]) blood erythrocytes automated count (number/volume) on 2018-02-22 Erythrocytes 4.48 10*6/uL (no code) 4.2 - 6.1 Via [facility] (RBC) 10*6/uL [facility] ([id number]) automated erythrocyte mean corpuscular volume on 2018-02-22 MCV 89 fL (no code) 80 - 100 fL Via [facility] ([id number]) automated erythrocyte mean corpuscular hemoglobin concentration measurement (mass/volume) on 2018-02-22 MCHC 34 g/dL (no code) 32 - 36 g/dL Via [facility] (03648) automated erythrocyte mean corpuscular hemoglobin (mass per erythrocyte) on 2018-02-22 MCH 31 pg (no code) 27 - 31 pg Via [facility] (13599) automated erythrocyte distribution width ratio on 2018-02-22 RDW-CA 12.7 % (no code) 11 - 15 % Via [facility] (23337) automated eosinophil count on 2018-02-22 Eosinophils 0.2 10*3/uL (no code) 0.05 - 1.5 Via [facility] 10*3/uL [facility] (49311) automated blood platelet mean volume measurement on 2018-02-22 Platelet mean 9.5 fL (no code) 7.2 - 11.7 fL Via [facility] (PMV) [facility] (24754) automated blood platelet count (count/volume) on 2018-02-22 Platelets 279 10*3/uL (no code) 150 - 400 Via [facility] 10*3/uL [facility] (29967) automated blood neutrophils/100 leukocytes on 2018-02-22 Neutrophils/100 66 % (no code) 40 - 60 % Via [facility] leukocytes [facility] (84717) automated blood lymphocytes/100 leukocytes on 2018-02-22 Lymphocytes/100 22 % (no code) 20 - 40 % Via [facility] leukocytes [facility] (46287) automated blood eosinophils/100 leukocytes on 2018-02-22 Eosinophils/100 3 % (no code) 1 - 4 % Via [facility] ([id number]) automated blood basophils/100 leukocytes on 2018-02-22 Basophils/100 1 % (no code) 0.5 - 1 % Via [facility] (70934) automated blood basophil count (count/volume) on 2018-02-22 Basophils 0.1 10*3/uL (no code) 0 - 0.2 10*3/uL Via [facility] ([id number]) no panel information on 2018-02-12 NEGATED no information (no code) 02-12-2018 [facility] (00 000) no 15:06-0400 information NEGATED no information (no code) 02-12-2018 [facility] (00 000) no 15:06-0400 information NEGATED no information (no code) 02-12-2018 [facility] (00 000) no 15:06-0400 information NEGATED no information (no code) 02-12-2018 [facility] (00 000) no 15:06-0400 information NEGATED no information (no code) 02-12-2018 [facility] (00 000) no 15:06-0400 information NEGATED no information (no code) 02-12-2018 [facility] (00 000) no 15:06-0400 information NEGATED no information (no code) 02-12-2018 [facility] (00 000) no 15:06-0400 information urinalysis on 2017-09-12 Bilirubin Ql (U) 0.3 (no code) 09-12-2017 no inform ation 12:11-0500 other on 2017-09-12 FINAL CULTURE 20,000-50,000 (no code) 09-12-2017 no informa tion RESULTS Mixed Izzy 12:56-0500 Globulin 3.5 g/dL (no code) 2 - 3.5 g/dL 09-12-2017 no inform ation Calculated mass 12:110500 conc (S) no panel information on 2017-09-12 NEGATED no information (no code) 09-12-2017 Not Availab le no 13:56-0500 ([id number]) information NEGATED no information (no code) 09-12-2017 Not Availab le no 13:56-0500 ([id number]) information NEGATED no information (no code) 09-12-2017 Not Availab le no 13:56-0500 ([id number]) information metabolic panel on 2017-09-12 Albumin mass 3.9 g/dL (no code) 3.4 - 5.4 g/dL 09-12-2017 no i nformation conc 12:11-0500 ALP enzyme 63 U/L (no code) 44 - 147 U/L 09-12-2017 no infor mation act/vol 12:0500 ALT enzyme 20 U/L (no code) 4 - 40 U/L 09-12-2017 no informa tion act/vol 12:11-0500 Anion gap 3 14 mmol/L (no code) 3 - 11 mmol/L 09-12-2017 no inf ormation molar conc 12:-0500 AST enzyme 28 U/L (no code) 10 - 34 U/L 09-12-2017 no inform ation act/vol 12:-0500 Calcium mass 9.0 mg/dL (no code) 8.5 - 10.2 mg/dL 09-12-2017 no information conc 12:-0500 Chloride molar 105 mmol/L (no code) 95 - 106 mmol/L 09-12-2017 no information conc 12:0500 CO2 molar conc 26 mmol/L (no code) 23 - 29 mmol/L 09-12-2017 no information 12:0500 Creatinine mass 0.83 mg/dL (no code) 09-12-2017 no informa tion conc 12:0500 GFR/1.73 sq M 69 (no code) 90 - 120 09-12-2017 no infor mation predicted among mL/min/{1.73_m2} mL/min/{1.73_m2} 12:050 0 non-blacks MDRD vol rate/area (S/P/Bld) Glucose mass 89 mg/dL (no code) 60 - 125 mg/dL 09-12-2017 no i nformation conc 12:0500 Osmolality 292 mosm/kg (no code) 275 - 295 09-12-2017 no inform ation mosm/kg 12:0500 Potassium molar 4.5 mmol/L (no code) 3.7 - 5.2 mmol/L 09-12-2017 no information conc 12:11-0500 Protein mass 7.4 g/dL (no code) 6.4 - 8.3 g/dL 09-12-2017 no i nformation conc 12:-0500 Sodium molar 140 mmol/L (no code) 135 - 145 mmol/L 09-12-2017 n o information conc 12:11-0500 Urea nitrogen 22 mg/dL (no code) 7 - 20 mg/dL 09-12-2017 no in formation mass conc 12:11-0500 hematology on 2017-09-12 Basophils Auto 0.0 10*3/uL (no code) 0 - 0.3 10*3/uL 09-12-2017 no information #/vol (Bld) 12:11-0500 Basophils/100 0.50 % (no code) 0.5 - 1 % 09-12-2017 no infor mation WBC Auto (Bld) 12:11-0500 Eosinophils Auto 0.2 10*3/uL (no code) 0.05 - 0.5 09-12-2017 no information #/vol (Bld) 10*3/uL 12:0500 Eosinophils/100 2.5 % (no code) 1 - 4 % 09-12-2017 no inf ormation WBC Auto (Bld) 12: Erythrocyte 12.7 % (no code) 11.6 - 14.6 % 09-12-2017 no inf ormation distribution 12:050 width Auto Ratio (RBC) Hematocrit Auto 43.3 % (no code) 36.1 - 50.3 % 09-12-2017 no information Volume Fraction 12:110500 (Bld) Hemoglobin mass 14.2 g/dL (no code) 12.1 - 17.2 g/dL 09-12-2017 no information conc (Bld) 12:11-0500 Lymphocytes Auto 2.23 10*3/uL (no code) 0.9 - 2.9 09-12-2017 no information #/vol (Bld) 10*3/uL 12:11-0500 Lymphocytes/100 28.8 % (no code) 20 - 40 % 09-12-2017 no inf ormation WBC Auto (Bld) 12:11-0500 MCH Auto Entitic 30.1 pg (no code) 27 - 31 pg 09-12-2017 no i nformation mass (RBC) 12:0500 MCHC Auto mass 32.8 g/dL (no code) 32 - 36 g/dL 09-12-2017 no i nformation conc (RBC) 12: MCV Auto Entitic 91.9 fL (no code) 80 - 100 fL 09-12-2017 no information volume (RBC) 12:11-0500 Monocytes Auto 0.6 10*3/uL (no code) 0.3 - 0.9 09-12-2017 no in formation #/vol (Bld) 10*3/uL 12:11-0500 Monocytes/100 7.2 % (no code) 2 - 8 % 09-12-2017 no infor mation WBC Auto (Bld) 12:110500 Neutrophils Auto 4.72 10*3/uL (no code) 1.7 - 7 10*3/uL 09-12-20 17 no information #/vol (Bld) 12:0500 Neutrophils/100 61.0 % (no code) 40 - 60 % 09-12-2017 no inf ormation WBC Auto (Bld) 12:0500 Platelet mean 9.3 fL (no code) 7.2 - 11.7 fL 09-12-2017 no i nformation volume Auto 12:0500 Entitic volume (Bld) Platelets Auto 275 10*3/uL (no code) 150 - 450 09-12-2017 no in formation #/vol (Bld) 10*3/uL 12:11-0500 RBC Auto #/vol 4.71 10*6/uL (no code) 4.2 - 6.1 09-12-2017 no i nformation (Bld) 10*6/uL 12:11-0500 WBC Auto #/vol 7.74 10*3/uL (no code) 3.5 - 10.5 09-12-2017 no information (Bld) 10*3/uL 12:110500 other on 2017-07-16 Amikacin <=16 (S) Not Available (50835) Amoxicillin/K <=8/4 (S) Not Available Clavulanate (68502) Ampicillin <=8 (S) Not Available (41422) Ampicillin/Sulba <=8/4 (S) Not Available ctam (78834) Aztreonam <=8 (S) Not Available (22786) Cefazolin <=8 (S) Not Available (57960) Cefepime <=8 (S) Not Available (75188) Cefotaxime <=2 (S) Not Available (65127) Cefotaxime/K <=0.5 (no code) Not Available Clavulanate (07686) Cefoxitin <=8 (S) Not Available (54166) Ceftazidime <=1 (S) Not Available (74636) Ceftazidime/K <=0.25 (no code) Not Available Clavulanate (91364) Ceftriaxone <=8 (S) Not Available (04596) Cefuroxime <=4 (S) Not Available (04542) Cephalothin <=8 (S) Not Available (86267) Ciprofloxacin <=1 (S) Not Available (62165) CULTURE SOURCE voided urine (no code) 07-16-2017 Not Availa ble 18:30-0400 (19023) Ertapenem <=1 (S) Not Available (03009) FINAL CULTURE Escherichia coli (no code) 07-16-2017 Not Pam ilable RESULTS (Isolate 1) 18:30-0400 (91949) Gentamicin <=4 (S) Not Available (29064) Imipenem <=4 (S) Not Available (05358) Levofloxacin <=2 (S) Not Available (58850) MEDIA PLATED Setup at 18:26 (no code) 07-16-2017 Not Availa ble on 07/16/2017 18:30-0400 (05127) Meropenem <=4 (S) Not Available (60378) Nitrofurantoin <=32 (S) Not Available (12073) Piperacillin <=16 (S) Not Available (41227) Piperacillin/Oskar <=16 (S) Not Available obactam (72571) PRELIM CULTURE >100,000 Gram (no code) 07-16-2017 Not Avail able RESULTS Negative Lactose 18:30-0400 (40680) 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 Tetracycline >8 (R) Not Available (89771) Tigecycline <=2 (S) Not Available (33894) Tobramycin <=4 (S) Not Available (73702) Trimethoprim/ <=2/38 (S) Not Available Sulfamethoxazole (00260) thyroid on 2017-04-11 TSH Qn 1.40 (no code) 04-11-2017 Not Available 20:04-0400 (88151) other on 2017-04-11 Albumin BCG dye 3.6 (no code) 04-11-2017 Not Availa ble [Mass/Vol] 20:040400 (33826) CK [Catalytic 95 U/L (no code) 04-11-2017 Not Availabl e activity/Vol] 20:040400 (12457) Electrocardiogra Complete (no code) 04-11-2017 Not Avail able ms recorded 20:39-0 (64540) Erythrocyte 12.2 % (no code) 11.6 - 14.6 % 04-11-2017 Not Av ailable distribution 20:040400 (45761) width (RBC) [Ratio] GFR/1.73 sq 70 (no code) 90 - 120 04-11-2017 Not Availa ble M.predicted MDRD mL/min/{1.73_m2} mL/min/{1.73_m2} 20:0400 (33146) (S/P/Bld) [Vol rate/Area] Globulin (S) 3.4 g/dL (no code) 2 - 3.5 g/dL 04-11-2017 Not Av ailable [Mass/Vol] 20:040400 (64665) HCO3 (P) 25 (no code) 04-11-2017 Not Available [Moles/Vol] 20:040400 (52839) MCHC (RBC) 32.7 g/dL (no code) 32 - 36 g/dL 04-11-2017 Not Avai lable [Mass/Vol] 20:040400 (36679) Osmolality Calc 296 (H) 04-11-2017 Not Availa ble [Osmolality] 20:040400 (14999) Platelet mean 9.2 fL (no code) 7.2 - 11.7 fL 04-11-2017 Not Available volume (Bld) 20:040400 (57281) [Entitic vol] metabolic panel on 2017-04-11 ALP [Catalytic 48 U/L (no code) 44 - 147 U/L 04-11-2017 Not Available activity/Vol] 20:040400 (51100) ALT [Catalytic 18 U/L (no code) 4 - 40 U/L 04-11-2017 Not Av ailable activity/Vol] 20:040400 (74679) Anion gap 14 mmol/L (no code) 3 - 11 mmol/L 04-11-2017 Not Avai lable [Moles/Vol] 20:0400 (23417) AST [Catalytic 20 U/L (no code) 10 - 34 U/L 04-11-2017 Not A vailable activity/Vol] 20: (64657) Bilirubin 0.2 mg/dL (no code) 0.1 - 1.2 mg/dL 04-11-2017 Not Av ailable [Mass/Vol] 20: (25317) Calcium 8.9 mg/dL (no code) 8.5 - 10.2 mg/dL 04-11-2017 Not A vailable [Mass/Vol] 20: (88391) Chloride 107 mmol/L (no code) 95 - 106 mmol/L 04-11-2017 Not A vailable [Moles/Vol] 20: (75584) Creatinine 0.82 mg/dL (no code) 04-11-2017 Not Available [Mass/Vol] 20:0 (41325) Glucose 113 mg/dL (H) 60 - 125 mg/dL 04-11-2017 Not Pam ilable [Mass/Vol] 20: (83432) Potassium 4.1 mmol/L (no code) 3.7 - 5.2 mmol/L 04-11-2017 Not Available [Moles/Vol] 20:0 (26677) Protein 7.0 g/dL (no code) 6.4 - 8.3 g/dL 04-11-2017 Not Pam ilable [Mass/Vol] 20:0400 (59591) Sodium 142 mmol/L (no code) 135 - 145 mmol/L 04-11-2017 Not Available [Moles/Vol] 20:0400 (41844) Urea nitrogen 20 mg/dL (no code) 7 - 20 mg/dL 04-11-2017 Not A vailable [Mass/Vol] 20:0400 (57877) hematology on 2017-04-11 Basophils (Bld) 0.0 10*3/uL (no code) 0 - 0.3 10*3/uL 04-11-2017 Not Available [#/Vol] 20:04-0400 (91391) Basophils/100 0.60 % (no code) 0.5 - 1 % 04-11-2017 Not Avai lable WBC (Bld) 20:04-0400 (56388) Eosinophils 0.3 10*3/uL (no code) 0.05 - 0.5 04-11-2017 Not Pam ilable (Bld) [#/Vol] 10*3/uL 20:04-0400 (11185) Eosinophils/100 4.3 % (no code) 1 - 4 % 04-11-2017 Not Av ailable WBC (Bld) 20:-0400 (48114) Hematocrit (Bld) 40.4 % (no code) 36.1 - 50.3 % 04-11-2017 N ot Available [Volume 20:0400 (65793) fraction] Hemoglobin (Bld) 13.2 g/dL (no code) 12.1 - 17.2 g/dL 04-11-2017 Not Available [Mass/Vol] 20:0400 (81347) Lymphocytes 2.30 10*3/uL (no code) 0.9 - 2.9 04-11-2017 Not Pam ilable (Bld) [#/Vol] 10*3/uL 20:04-0400 (42291) Lymphocytes/100 32.8 % (no code) 20 - 40 % 04-11-2017 Not Av ailable WBC (Bld) 20:04-0400 (01109) MCH (RBC) 30.2 pg (no code) 27 - 31 pg 04-11-2017 Not Availab le [Entitic mass] 20:04-0400 (90527) MCV (RBC) 92.4 fL (no code) 80 - 100 fL 04-11-2017 Not Availa ble [Entitic vol] 20:04-0400 (66745) Monocytes (Bld) 0.7 10*3/uL (no code) 0.3 - 0.9 04-11-2017 Not Available [#/Vol] 10*3/uL 20:04-0400 (75830) Monocytes/100 9.6 % (no code) 2 - 8 % 04-11-2017 Not Avai lable WBC (Bld) 20:04-0400 (27942) Neutrophils 3.70 10*3/uL (no code) 1.7 - 7 10*3/uL 04-11-2017 N ot Available (Bld) [#/Vol] 20:04-0400 (74439) Neutrophils/100 52.7 % (no code) 40 - 60 % 04-11-2017 Not Av ailable WBC (Bld) 20:0400 (90652) Platelets (Bld) 249 10*3/uL (no code) 150 - 450 04-11-2017 Not Available [#/Vol] 10*3/uL 20:0400 (53960) RBC (Bld) 4.37 10*6/uL (no code) 4.2 - 6.1 04-11-2017 Not Avail able [#/Vol] 10*6/uL 20:0400 (54621) WBC (Bld) 7.01 10*3/uL (no code) 3.5 - 10.5 04-11-2017 Not Avai lable [#/Vol] 10*3/uL 20:040400 (91132) cardiac on 2017-04-11 CK.MB [Mass/Vol] 2.1 ng/mL (no code) 0 - 4.3 ng/mL 04-11-2017 N ot Available 20:0400 (00369) Myoglobin 33.2 ng/mL (no code) 04-11-2017 Not Available [Mass/Vol] 20:040400 (16482) Troponin ng/mL (no code) 0 - 0.4 ng/mL 04-11-2017 Not Avai lable I.cardiac 20:040400 (07080) [Mass/Vol] Troponin ng/mL (no code) 0 - 0.4 ng/mL 04-11-2017 Not Avai lable I.cardiac 22:59-0400 (90036) [Mass/Vol] urinalysis on 2017-03-22 Clarity (U) Clear (no code) 03-22-2017 Not Available 16: (13428) Color (U) Yellow (no code) 03-22-2017 Not Available 16: (22244) Epithelial 0-5/HPF (A) 03-22-2017 Not Available cells.squamous 16:12-0400 (39788) LM.HPF (Urine sed) [#/Area] Leukocyte 1+ (A) 03-22-2017 Not Available esterase Test 16:12-0400 (30401) strip Ql (U) Protein (U) Negative (no code) 0 - 20 mg/dL 03-22-2017 Not Pam ilable [Mass/Vol] 16:12-0400 (03098) RBC LM.HPF Negative (no code) 0 - 4 /[HPF] 03-22-2017 Not Avai lable (Urine sed) 16:12-0400 (66846) [#/Area] Specific gravity 1.020 (no code) 03-22-2017 Not Avail able (U) [Rel 16:12-0400 (99845) density] WBC LM.HPF 0-2/HPF (A) 03-22-2017 Not Available (Urine sed) 16:12-0400 (65578) [#/Area] other on 2017-03-22 Bacteria LM Ql Trace (A) 03-22-2017 Not Availab le (Urine sed) 16:12-0400 (01738) Bilirubin N/A (A) 03-22-2017 Not Available Confirm Ql (U) 16:120400 (75880) Bilirubin Ql (U) Negative (no code) 03-22-2017 Not Avail able 16:120400 (29313) CULTURE SOURCE void (no code) 03-22-2017 Not Availab le 16:12-0400 (80759) Erythrocyte 12.3 % (no code) 11.6 - 14.6 % 03-22-2017 Not Av ailable distribution 16:120400 (41202) width (RBC) [Ratio] GFR/1.73 sq 57 (L) 90 - 120 03-22-2017 Not Availa ble M.predicted MDRD mL/min/{1.73_m2} mL/min/{1.73_m2} 16:120400 (50582) (S/P/Bld) [Vol rate/Area] Glucose Test Negative (no code) 03-22-2017 Not Available strip (U) 16:120400 (40227) [Mass/Vol] HCO3 (P) 27 (no code) 03-22-2017 Not Available [Moles/Vol] 16:12-0400 (16732) Hemoglobin Ql Negative (no code) 03-22-2017 Not Availabl e (U) 16:120400 (52017) Ketones (U) Negative (no code) 03-22-2017 Not Available [Mass/Vol] 16:120400 (26495) MCHC (RBC) 33.1 g/dL (no code) 32 - 36 g/dL 03-22-2017 Not Avai lable [Mass/Vol] 16:120400 (53031) MEDIA PLATED Setup at 17:33 (no code) 03-22-2017 Not Availa ble on 03/22/2017 16:12-0400 (25706) Nitrite Ql (U) Negative (no code) 03-22-2017 Not Availab le 16:0400 (20366) Osmolality Calc 296 (H) 03-22-2017 Not Availa ble [Osmolality] 16:0 (47016) pH (U) 5.5 [pH] (no code) 4.6 - 8 [pH] 03-22-2017 Not Avail able 16:120400 (57314) Platelet mean 9.6 fL (no code) 7.2 - 11.7 fL 03-22-2017 Not Available volume (Bld) 16:120400 (88842) [Entitic vol] PRELIM CULTURE Positive (no code) 03-22-2017 Not Availab le RESULTS 16:0400 (21379) Urine Volume Urine Volume (no code) 03-22-2017 Not Availabl e Sufficient 16:0 (14280) (10mL) Urobilinogen Qn 0.2 (A) 03-22-2017 Not Availa ble (U) {Josias'U}/dL 16:120400 (39108) Yeast.budding Ql No Yeast present (no code) 03-22-2017 Not Available (Urine sed) 16:120400 (03444) no information Urine Saved if (A) 03-22-2017 Not Avai lable Culture Needed 16:120400 (49480) (48hrs from time of collection) metabolic panel on 2017-03-22 Anion gap 15 mmol/L (H) 3 - 11 mmol/L 03-22-2017 Not Avai lable [Moles/Vol] 16:120400 (85544) Calcium 8.9 mg/dL (no code) 8.5 - 10.2 mg/dL 03-22-2017 Not A vailable [Mass/Vol] 16: (63993) Chloride 104 mmol/L (no code) 95 - 106 mmol/L 03-22-2017 Not A vailable [Moles/Vol] 16: (90796) Creatinine 0.98 mg/dL (no code) 03-22-2017 Not Available [Mass/Vol] 16: (51341) Glucose 105 mg/dL (no code) 60 - 125 mg/dL 03-22-2017 Not Pam ilable [Mass/Vol] 16: (37321) Potassium 4.6 mmol/L (no code) 3.7 - 5.2 mmol/L 03-22-2017 Not Available [Moles/Vol] 16: (93132) Sodium 141 mmol/L (no code) 135 - 145 mmol/L 03-22-2017 Not Available [Moles/Vol] 16: (27654) Urea nitrogen 26 mg/dL (H) 7 - 20 mg/dL 03-22-2017 Not A vailable [Mass/Vol] 16: (17865) hematology on 2017-03-22 Basophils (Bld) 0.1 10*3/uL (no code) 0 - 0.3 10*3/uL 03-22-2017 Not Available [#/Vol] 16: (73054) Basophils/100 0.60 % (no code) 0.5 - 1 % 03-22-2017 Not Avai lable WBC (Bld) 16: (83388) Eosinophils 0.2 10*3/uL (no code) 0.05 - 0.5 03-22-2017 Not Pam ilable (Bld) [#/Vol] 10*3/uL 16: (01319) Eosinophils/100 2.8 % (no code) 1 - 4 % 03-22-2017 Not Av ailable WBC (Bld) 16: (14129) ESR (Bld) 10 mm/h (no code) 03-22-2017 Not Available [Velocity] 16: (83340) Hematocrit (Bld) 43.5 % (no code) 36.1 - 50.3 % 03-22-2017 N ot Available [Volume 16: (56384) fraction] Hemoglobin (Bld) 14.4 g/dL (no code) 12.1 - 17.2 g/dL 03-22-2017 Not Available [Mass/Vol] 16: (93313) Lymphocytes 2.03 10*3/uL (no code) 0.9 - 2.9 03-22-2017 Not Pam ilable (Bld) [#/Vol] 10*3/uL 16: (62804) Lymphocytes/100 24.7 % (no code) 20 - 40 % 03-22-2017 Not Av ailable WBC (Bld) 16: (66140) MCH (RBC) 30.2 pg (no code) 27 - 31 pg 03-22-2017 Not Availab le [Entitic mass] 16: (41619) MCV (RBC) 91.2 fL (no code) 80 - 100 fL 03-22-2017 Not Availa ble [Entitic vol] 16: (71988) Monocytes (Bld) 0.5 10*3/uL (no code) 0.3 - 0.9 03-22-2017 Not Available [#/Vol] 10*3/uL 16:0 (55610) Monocytes/100 5.5 % (no code) 2 - 8 % 03-22-2017 Not Avai lable WBC (Bld) 16: (97943) Neutrophils 5.46 10*3/uL (no code) 1.7 - 7 10*3/uL 03-22-2017 N ot Available (Bld) [#/Vol] 16:0 (91593) Neutrophils/100 66.4 % (no code) 40 - 60 % 03-22-2017 Not Av ailable WBC (Bld) 16: (02779) Platelets (Bld) 269 10*3/uL (no code) 150 - 450 03-22-2017 Not Available [#/Vol] 10*3/uL 16:12-0400 ([id number]) RBC (Bld) 4.77 10*6/uL (no code) 4.2 - 6.1 03-22-2017 Not Avail able [#/Vol] 10*6/uL 16:12-0400 (63717) WBC (Bld) 8.22 10*3/uL (no code) 3.5 - 10.5 03-22-2017 Not Avai lable [#/Vol] 10*3/uL 16:12-0400 ([id number]) urinalysis on 2017-02-18 Clarity (U) Clear (no code) 02-18-2017 Not Available 13:56-0400 ([id number]) Color (U) Yellow (no code) 02-18-2017 Not Available 13:56-0400 (28716) Epithelial 0-5/HPF (A) 02-18-2017 Not Available cells.squamous 13:56-0400 (02963) LM.HPF (Urine sed) [#/Area] Leukocyte Trace (A) 02-18-2017 Not Available esterase Test 13:56-0400 (72536) strip Ql (U) Protein (U) Negative (no code) 0 - 20 mg/dL 02-18-2017 Not Pam ilable [Mass/Vol] 13:56-0400 (27824) RBC LM.HPF 0-2/HPF (A) 02-18-2017 Not Available (Urine sed) 13:56-0400 (98225) [#/Area] Specific gravity 1.025 (no code) 02-18-2017 Not Avail able (U) [Rel 13:56-0400 (20522) density] WBC LM.HPF 0-2/HPF (A) 02-18-2017 Not Available (Urine sed) 13:56-0400 (85106) [#/Area] other on 2017-02-18 Bacteria LM Ql Negative (no code) 02-18-2017 Not Availab le (Urine sed) 13:56-0400 (07963) Bilirubin N/A (A) 02-18-2017 Not Available Confirm Ql (U) 13:56-0400 (71241) Bilirubin Ql (U) Negative (no code) 02-18-2017 Not Avail able 13:56-0400 ([id number]) Electrocardiogra Complete (no code) 02-18-2017 Not Avail able ms recorded 13:56-0400 (32895) Erythrocyte 12.2 % (no code) 11.6 - 14.6 % 02-18-2017 Not Av ailable distribution 13:56-0400 (68458) width (RBC) [Ratio] FINAL CULTURE Negative (no code) 02-18-2017 Not Availabl e RESULTS 13:56-0400 (42266) GFR/1.73 sq 59 (L) 90 - 120 02-18-2017 Not Availa ble M.predicted MDRD mL/min/{1.73_m2} mL/min/{1.73_m2} 13:56-0400 (48997) (S/P/Bld) [Vol rate/Area] Glucose Test Negative (no code) 02-18-2017 Not Available strip (U) 13:56-0400 ([id number]) [Mass/Vol] HCO3 (P) 28 (no code) 02-18-2017 Not Available [Moles/Vol] 13:56-0400 (96430) Hemoglobin Ql Negative (no code) 02-18-2017 Not Availabl e (U) 13:56-0400 (68605) Ketones (U) Negative (no code) 02-18-2017 Not Available [Mass/Vol] 13:56-0400 (69109) MCHC (RBC) 33.1 g/dL (no code) 32 - 36 g/dL 02-18-2017 Not Avai lable [Mass/Vol] 13:56-0400 (26890) MEDIA PLATED Setup at 13:21 (no code) 02-18-2017 Not Availa ble on 02/18/2017 13:56-0400 ([id number]) Nitrite Ql (U) Negative (no code) 02-18-2017 Not Availab le 13:56-0400 (11256) Osmolality Calc 295 (no code) 02-18-2017 Not Availa ble [Osmolality] 13:56-0400 (39306) pH (U) 6.0 [pH] (no code) 4.6 - 8 [pH] 02-18-2017 Not Avail able 13:56-0400 (12634) Platelet mean 9.1 fL (no code) 7.2 - 11.7 fL 02-18-2017 Not Available volume (Bld) 13:56-0400 (30342) [Entitic vol] Urine Volume Urine Volume (no code) 02-18-2017 Not Availabl e Sufficient 13: (07385) (10mL) Urobilinogen Qn 0.2 (A) 02-18-2017 Not Availa ble (U) {Josias'U}/dL 13: (00538) Yeast.budding Ql No Yeast present (no code) 02-18-2017 Not Available (Urine sed) 13: (09216) no information Urine Saved if (A) 02-18-2017 Not Avai lable Culture Needed 13: (82651) (48hrs from time of collection) metabolic panel on 2017-02-18 Anion gap 14 mmol/L (no code) 3 - 11 mmol/L 02-18-2017 Not Avai lable [Moles/Vol] 13: (64501) Calcium 9.3 mg/dL (no code) 8.5 - 10.2 mg/dL 02-18-2017 Not A vailable [Mass/Vol] 13: (49620) Chloride 103 mmol/L (no code) 95 - 106 mmol/L 02-18-2017 Not A vailable [Moles/Vol] 13: (71173) Creatinine 0.95 mg/dL (no code) 02-18-2017 Not Available [Mass/Vol] 13: (81152) Glucose 96 mg/dL (no code) 60 - 125 mg/dL 02-18-2017 Not Pam ilable [Mass/Vol] 13: (89462) Potassium 4.2 mmol/L (no code) 3.7 - 5.2 mmol/L 02-18-2017 Not Available [Moles/Vol] 13:0400 (95297) Sodium 141 mmol/L (no code) 135 - 145 mmol/L 02-18-2017 Not Available [Moles/Vol] 13:040 (95093) Urea nitrogen 26 mg/dL (H) 7 - 20 mg/dL 02-18-2017 Not A vailable [Mass/Vol] 13: (88139) hematology on 2017-02-18 Basophils (Bld) 0.0 10*3/uL (no code) 0 - 0.3 10*3/uL 02-18-2017 Not Available [#/Vol] 13:56-0400 (72207) Basophils/100 0.50 % (no code) 0.5 - 1 % 02-18-2017 Not Avai lable WBC (Bld) 13:560400 (66961) Eosinophils 0.3 10*3/uL (no code) 0.05 - 0.5 02-18-2017 Not Pam ilable (Bld) [#/Vol] 10*3/uL 13:560400 (54181) Eosinophils/100 3.9 % (no code) 1 - 4 % 02-18-2017 Not Av ailable WBC (Bld) 13:560400 (21589) Hematocrit (Bld) 42.0 % (no code) 36.1 - 50.3 % 02-18-2017 N ot Available [Volume 13: (82144) fraction] Hemoglobin (Bld) 13.9 g/dL (no code) 12.1 - 17.2 g/dL 02-18-2017 Not Available [Mass/Vol] 13:560400 (09680) Lymphocytes 2.29 10*3/uL (no code) 0.9 - 2.9 02-18-2017 Not Pam ilable (Bld) [#/Vol] 10*3/uL 13:560400 (69331) Lymphocytes/100 30.6 % (no code) 20 - 40 % 02-18-2017 Not Av ailable WBC (Bld) 13:560400 (11295) MCH (RBC) 30.2 pg (no code) 27 - 31 pg 02-18-2017 Not Availab le [Entitic mass] 13:560400 (15224) MCV (RBC) 91.1 fL (no code) 80 - 100 fL 02-18-2017 Not Availa ble [Entitic vol] 13:560400 (70501) Monocytes (Bld) 0.5 10*3/uL (no code) 0.3 - 0.9 02-18-2017 Not Available [#/Vol] 10*3/uL 13:560400 (99168) Monocytes/100 7.2 % (no code) 2 - 8 % 02-18-2017 Not Avai lable WBC (Bld) 13:56-0400 (35734) Neutrophils 4.32 10*3/uL (no code) 1.7 - 7 10*3/uL 02-18-2017 N ot Available (Bld) [#/Vol] 13:56-0400 (13421) Neutrophils/100 57.8 % (no code) 40 - 60 % 02-18-2017 Not Av ailable WBC (Bld) 13:560400 (62221) Platelets (Bld) 268 10*3/uL (no code) 150 - 450 02-18-2017 Not Available [#/Vol] 10*3/uL 13:560400 (32984) RBC (Bld) 4.61 10*6/uL (no code) 4.2 - 6.1 02-18-2017 Not Avail able [#/Vol] 10*6/uL 13:56-0400 (66837) WBC (Bld) 7.48 10*3/uL (no code) 3.5 - 10.5 02-18-2017 Not Avai lable [#/Vol] 10*3/uL 13:56-0400 (28367) other on 2017-01-11 Fibrin D-dimer 156.00 (no code) 01-11-2017 Not Availab le DDU (PPP) 15:36-0400 (77060) [Mass/Vol] Vital Signs The data below is from unstructured sources Vital Response Date/Time Temperature (Fahrenheit) 98.6 degree s F (97.6 - 99.5) Temperature (Calculated Celsius) 37. 80550 degrees C (36.4 - 37.5) Temperature Source Temporal Pulse Rate (adult) 78 bpm (60 - 90) Respiratory Rate 20 bpm (12 - 24) O2 Sat by Pulse Oximetry 93 % (88 - 100) Blood Pressure 134/66 mm Hg Pain Pain Intensity 0 Height (Feet) 5 feet Height (Inches) 3.00 inches Height (Calculated Centimeters) 160. 747963 cm Weight (Pounds) 226 pounds Weight (Calculated Grams) 657374.877 gm Weight (Calculated Kilograms) 102.51 1877 kilograms Calculated BMI 38.61 Vital Response Date/Time Temperature (Fahrenheit) 98.4 degree s F (97.6 - 99.5) Temperature (Calculated Celsius) 36. 09933 degrees C (36.4 - 37.5) Temperature Source Temporal Pulse Rate (adult) 79 bpm (60 - 90) Respiratory Rate 18 bpm (12 - 24) O2 Sat by Pulse Oximetry 96 % (88 - 100) Blood Pressure 148/75 mm Hg Pain Pain Intensity 4 Height (Feet) 5 feet Height (Inches) 5 inches Height (Calculated Centimeters) 165. 794112 cm Weight (Pounds) 212 pounds Weight (Calculated Grams) 362453.877 gm Weight (Calculated Kilograms) 96.161 583 kilograms Calculated BMI 35.27 Vital Response Date/Time Pulse Rate (adult) 75 bpm (60 - 90) 06/20/2017 1:09pm O2 Sat by Pulse Oximetry 96 % (88 - 100) 06/20/2017 1:09pm Blood Pressure 127/60 mm Hg 06/20/2017 1:09pm Blood Pressure Mean 82 mm Hg 06/20/2017 1:09pm Pain Numeric Pain Scale 0-No Pain 06/20/2017 1:09pm Height (Feet) 5 feet 1:08pm Height (Inches) 3.00 inches 06/20/2017 1:08pm Height (Calculated Centimeters) 160. 991855 cm 06/20/2017 1:08pm Weight (Pounds) 221 pounds 06/20/2017 1:08pm Weight (Ounces) 0.0 oz 0 06/20/2017 1:08pm Weight (Calculated Grams) 743479.92 gm 06/20/2017 1:08pm Weight (Calculated Kilograms) 100.24 3915 kilograms 06/20/2017 1:08pm Calculated BMI 39.2 06/01 1:08pm Weight Measurement Method Standing Scale 06/20/2017 1:08pm Blood pressure systolic 158 mmHg 2016-11-08 Blood pressure diastolic 94 mmHg 2016-11-08 Vital Response Date/Time Temperature (Fahrenheit) 97.7 degree s F (97.6 - 99.5) 02/14/2018 12:20pm Temperature (Calculated Celsius) 36. 90988 degrees C (36.4 - 37.5) 02/14/2018 12:20pm Temperature Source Skin 02/14/2018 12:20pm Pulse Rate (adult) 63 bpm (60 - 90) 02/14/2018 12:20pm Respiratory Rate 16 bpm (12 - 24) 02/14/2018 12:20pm O2 Sat by Pulse Oximetry 94 % (88 - 100) 02/14/2018 12:20pm Blood Pressure 114/64 mm Hg 02/14/2018 12:20pm Blood Pressure Mean 92 mm Hg (65 - 110) 02/14/2018 10:35am Pain Numeric Pain Scale 0-No Pain 02/14/2018 12:20pm Pain Intensity 0 2017 12:10pm Height (Feet) 5 feet 10:32am Height (Inches) 5.00 inches 02/14/2018 10:32am Height (Calculated Centimeters) 165. 734439 cm 02/14/2018 10:32am Weight (Pounds) 221 pounds 02/14/2018 10:32am Weight (Ounces) 0.0 oz 0 02/14/2018 10:32am Weight (Calculated Grams) 797840.92 gm 02/14/2018 10:32am Weight (Calculated Kilograms) 100.24 3915 kilograms 02/14/2018 10:32am Calculated BMI 36.8 01/28 10:32am Weight Measurement Method Standing Scale 02/14/2018 10:32am Vital Response Date/Time Temperature (Fahrenheit) 98.5 degree s F (97.6 - 99.5) 02/22/2018 5:40pm Temperature (Calculated Celsius) 36. 61414 degrees C (36.4 - 37.5) 02/22/2018 5:40pm Temperature Source Temporal 02/22/2018 5:40pm Pulse Rate (adult) 82 bpm (60 - 90) 02/22/2018 5:40pm Respiratory Rate 16 bpm (12 - 24) 02/22/2018 5:40pm O2 Sat by Pulse Oximetry 98 % (88 - 100) 02/22/2018 5:40pm Blood Pressure 154/90 mm Hg 02/22/2018 5:40pm Blood Pressure Mean 111 mm Hg (65 - 110) 02/22/2018 5:40pm Pain Numeric Pain Scale 0-No Pain 02/22/2018 5:40pm Pain Intensity 0 2017 12:10pm Height (Feet) 5 feet 5:40pm Height (Inches) 4.00 inches 02/22/2018 5:40pm Height (Calculated Centimeters) 162. 093389 cm 02/22/2018 5:40pm Height Method Estimated 02/22/2018 5:40pm Weight (Pounds) 205 pounds 02/22/2018 5:40pm Weight (Ounces) 0.0 oz 0 02/14/2018 10:32am Weight (Calculated Grams) 82410.44 gm 02/22/2018 5:40pm Weight (Calculated Kilograms) 92.986 437 kilograms 02/22/2018 5:40pm Calculated BMI 36.8 01/28 10:32am Weight Method Estimated 02/22/2018 5:40pm Weight Measurement Method Standing Scale 02/14/2018 10:32am Capillary Refill Capillary Refill Less Than 3 Seconds 02/22/2018 5:40pm Vital Response Date/Time Temperature (Fahrenheit) 98.5 degree s F (97.6 - 99.5) 02/22/2018 5:40pm Temperature (Calculated Celsius) 36. 46787 degrees C (36.4 - 37.5) 02/22/2018 5:40pm Temperature Source Temporal 02/22/2018 5:40pm Pulse Rate (adult) 82 bpm (60 - 90) 02/22/2018 5:40pm Respiratory Rate 16 bpm (12 - 24) 02/22/2018 5:40pm O2 Sat by Pulse Oximetry 98 % (88 - 100) 02/22/2018 5:40pm Blood Pressure 154/90 mm Hg 02/22/2018 5:40pm Blood Pressure Mean 111 mm Hg (65 - 110) 02/22/2018 5:40pm Pain Numeric Pain Scale 0-No Pain 02/22/2018 5:40pm Pain Intensity 0 2017 12:10pm Height (Feet) 5 feet 5:40pm Height (Inches) 4.00 inches 02/22/2018 5:40pm Height (Calculated Centimeters) 162. 292172 cm 02/22/2018 5:40pm Height Method Estimated 02/22/2018 5:40pm Weight (Pounds) 205 pounds 02/22/2018 5:40pm Weight (Ounces) 0.0 oz 0 02/14/2018 10:32am Weight (Calculated Grams) 26682.44 gm 02/22/2018 5:40pm Weight (Calculated Kilograms) 92.986 437 kilograms 02/22/2018 5:40pm Calculated BMI 36.8 01/28 10:32am Weight Method Estimated 02/22/2018 5:40pm Weight Measurement Method Standing Scale 02/14/2018 10:32am Capillary Refill Capillary Refill Less Than 3 Seconds 02/22/2018 5:40pm Interventions No Information Plan of Treatment The data below is from unstructured sources Discharge Date 06/20/17 1:30pm Prescriptions See Medication Section Activity Details Follow Up prn Reason:as needed Discharge Date 02/14/18 12:20pm Instructions/Education Provided COLO NOSCOPY EGD-ESOPHAGOGASTRODUODENOSCOPY High Fiber Diet Prescriptions See Medication Section Discharge Date 02/22/18 6:56pm Disposition 01 HOME, SELF-CARE Condition at Discharge Stable Instructions/Education Provided NO I NSTRUCTIONS GIVEN Prescriptions See Medication Section Referrals ROD BARNES MD Order Date: Primary Care Physician Address: [address] [place] [id number] [phone] Additional Instructions/Education 1. Return to ER for any lightheadedness or recurrent bleeding. Call Dr. Meadows's office on Saturday to make an appointment for follow-up. All discharge instructions reviewed with patient and/or family. Voiced understanding. Discharge Date 02/22/18 6:56pm Disposition 01 HOME, SELF-CARE Condition at Discharge Stable Instructions/Education Provided NO I NSTRUCTIONS GIVEN Prescriptions See Medication Section Referrals ROD BARNES MD Order Date: Primary Care Physician Address: [address] [place] [id number] Additional Instructions/Education 1. Return to ER for any lightheadedness or recurrent bleeding. Call Dr. Meadows's office on Saturday to make an appointment for follow-up. All discharge instructions reviewed with patient and/or family. Voiced understanding. Goals No Information Social History No Information Functional Status The data below is from unstructured sources Query Response Date Vincent rded Comprehension Ability Understands Co ncepts January 12, 2015 8:47am No functional status information available. Mental Status No Information Encounters Encounter Normalized Encounter Encounter Diagnosis Care Provi jaspal Organization Date Type 02-14-2018 Admission to day no information [employer] no organization name - surgery Phone: 02-14-2018 [employer] 02-15-2020 Emergency department no information ROBB COUCH MD [facility] [address] [facility] patient visit (no phone) [facility] (no phone) 02-22-2018 Emergency department no information WILLIAM Hogan APRN [facility] no organization name - patient visit Work Phone: 02-22-2018 02-22-2018 Emergency department no information no name no organization name - patient visit 02-22-2018 08-07-2018 Patient encounter no information no name no or ganization name - 08-08-2018 02-22-2018 Patient encounter no information no name no or ganization name [employer] Patient encounter no information no name no or ganization name 02-14-2018 - 02-14-2018 02-06-2018 Patient encounter no information [employer] Work no organization name - 02-06-2018 [employer] 09-12-2017 Patient encounter no information no name no or ganization name - 09-13-2017 07-16-2017 Patient encounter no information no name no or ganization name - 07-17-2017 06-27-2017 Patient encounter no information no name no or ganization name - 06-27-2017 02-11-2020 Patient encounter no information ORD MOLLY (no [facility] [place] [facility] (no 02-11-2020 phone) 02-11-2020 Patient encounter no information ROD MOLLY (no [facility] [place] [address] [facility] (no 02-11-2020 phone) 11-14-2019 Patient encounter no information ROD MOLLY (no [facility] [place] [address] [facility] (no 11-15-2019 phone) 11-11-2019 Patient encounter no information ROD MOLLY (no [facility] [place] [address] [facility] (no 11-11-2019 phone) 11-11-2019 Patient encounter no information ROD MOLLY (no [facility] [place] [facility] (no 11-11-2019 phone) 09-08-2019 Patient encounter no information no name no or ganization name procedure 09-03-2019 Patient encounter no information no name no or ganization name - procedure 09-03-2019 08-12-2019 Patient encounter no information no name no or ganization name - procedure 08-12-2019 08-12-2019 Patient encounter no information no name no or ganization name - procedure 08-12-2019 07-18-2019 Patient encounter no information no name no or ganization name - procedure 07-19-2019 06-12-2019 Patient encounter no information no name no or ganization name - procedure 06-13-2019 05-22-2019 Patient encounter no information no name no or ganization name - procedure 05-23-2019 05-22-2019 Patient encounter no information no name no or ganization name - procedure 05-23-2019 05-15-2019 Patient encounter no information no name no or ganization name - procedure 05-15-2019 05-15-2019 Patient encounter no information no name no or ganization name - procedure 05-16-2019 04-27-2019 Patient encounter no information no name no or ganization name - procedure 04-28-2019 10-22-2018 Patient encounter no information no name no or ganization name - procedure 10-23-2018 06-24-2018 Patient encounter no information no name no or ganization name - procedure 06-25-2018 02-14-2018 Patient encounter no information no name no or ganization name - procedure 02-14-2018 02-06-2018 Patient encounter no information no name no or ganization name - procedure 02-06-2018 01-27-2018 Patient encounter no information no name no or ganization name - procedure 01-28-2018 11-21-2017 Patient encounter no information no name no or ganization name - procedure 11-22-2017 11-07-2017 Patient encounter no information no name no or ganization name - procedure 11-08-2017 07-16-2017 Patient encounter no information no name no or ganization name - procedure 07-17-2017 06-27-2017 Patient encounter no information no name no or ganization name - procedure 06-27-2017 06-20-2017 Patient encounter no information no name no or ganization name - procedure 06-20-2017 04-30-2017 Patient encounter no information no name no or ganization name procedure 04-30-2017 Patient encounter no information no name no or ganization name procedure 04-29-2017 Patient encounter no information no name no or ganization name - procedure 04-30-2017 04-12-2017 Patient encounter no information no name no or ganization name procedure 04-12-2017 Patient encounter no information no name no or ganization name - procedure 04-13-2017 04-12-2017 Patient encounter no information no name no or ganization name procedure 04-11-2017 Patient encounter no information no name no or ganization name - procedure 04-12-2017 03-22-2017 Patient encounter no information no name no or ganization name - procedure 03-23-2017 03-13-2017 Patient encounter no information no name no or ganization name - procedure 03-29-2017 02-26-2017 Patient encounter no information no name no or ganization name - procedure 02-27-2017 02-21-2017 Patient encounter no information no name no or ganization name - procedure 02-21-2017 02-18-2017 Patient encounter no information no name no or ganization name - procedure 02-19-2017 02-06-2017 Patient encounter no information no name no or ganization name - procedure 02-07-2017 02-03-2017 Patient encounter no information no name no or ganization name - procedure 02-04-2017 01-17-2017 Patient encounter no information no name no or ganization name - procedure 01-18-2017 07-24-2016 Patient encounter no information no name no or ganization name - procedure 07-24-2016 07-19-2016 Patient encounter no information no name no or ganization name procedure 07-18-2016 Patient encounter no information no name no or ganization name procedure 01-11-2015 Patient encounter no information no name no or ganization name - procedure 01-12-2015 no information Encounter for other no name no organiz ation name preprocedural examination no information Encounter for general no name no organ ization name adult medical examination without abnormal findings no information Encounter for no name no organization name preprocedural laboratory examination Medical Equipment No Information Payers No Information History of Past Illness Name Date of Onset Comme nts Depressive Disorder Dec 19 2009 3:11PM Conjunctivitis Dec 19 2009 3:11PM Pharyngitis, Acute Feb 08 2010 1:49PM Allergic Rhinitis, cause unspecified Anxiety Disorder May 08 2010 3:41PM Depressive Disorder May 08 2010 3:41PM Flu Aug 10 2010 2:29PM Sleep apnea Depression indigestion Heart disease Eustachian Tube Dysfunction Jan 0119 08 3:40PM Seasonal Allergies Jan 01 2011 3:40PM Post-nasal drainage Jan 01 2011 3:40PM Ear Pain Jan 01 2011 3:40PM Sinusitis, Acute Sep 10 2011 1:51PM Fatigue Jul 19 2015 3:49PM Seasonal Allergies Jul 19 2015 3:49PM Advance Directives Directive Response Recor ded Date/Time Advance Directives No 8:39am Health Care Power of Art Supervisor No 01/11/15 8:39am Organ Donor No 01/11/15 8:39am Resuscitation Status Full Code 01/11/15 8:39am Directive Response Recor ded Date/Time Advance Directives No 1:38am Health Care Power of Art Supervisor No 08/09/09 1:38am Organ Donor No 08/09/09 1:38am Directive Response Recor ded Date/Time Advance Directives No 3:10pm Health Care Power of Art Supervisor No 01/21/15 3:10pm Organ Donor No 01/21/15 3:10pm Resuscitation Status Full Code 01/21/15 3:10pm Directive Response Recor ded Date/Time Advance Directives No 1:10pm Health Care Power of Art Supervisor No 06/20/17 1:10pm Organ Donor No 06/20/17 1:10pm Resuscitation Status Full Code 06/20/17 1:10pm Directive Response Recor ded Date/Time Advance Directives No 10:31am Health Care Power of Art Supervisor No 02/14/18 10:31am Organ Donor No 02/14/18 10:31am Resuscitation Status Full Code 02/14/18 10:31am Directive Response Recor ded Date/Time Advance Directives No 6:09pm Health Care Power of Art Supervisor No 02/22/18 6:09pm Organ Donor No 02/22/18 6:09pm Resuscitation Status Full Code 02/22/18 6:09pm Discharge Instructions No hospital discharge instructions.No hospital discharge instructions.No hospital discharge instructions.No hospital discharge instruction information available.No hospital discharge instruction information available.No hospital discharge instruction information available. Additional Source Comments This clinical document has been generated using [employer] software that has been certified by the Office of the National Coordinator for Health Information Technology (ONC 15.99.04.3023.Diam.31.00.0.065365) and the National Committee for [employer] (NCQA, as an eMeasure certified technology). FOR RECORDS PERTAINING TO PATIENTS WHO ARE OR HAVE BEEN ENROLLED IN A CHEMICAL D EPENDENCY/SUBSTANCE ABUSE PROGRAM, SOME INFORMATION MAY BE OMITTED. This clinica l summary was aggregated from multiple sources. Caution should be exercised in using it in the provision of clinical care. This summary normalizes information from multiple sources, and as a consequence, information in this document may ma terially change the coding, format and clinical context of patient data. In bart tion, data may be omitted in some cases. CLINICAL DECISIONS SHOULD BE BASED ON T HE PRIMARY CLINICAL RECORDS. [employer] provides no warranty or guara ntee of the accuracy or completeness of information in this document.The followi ng information is based on time limited clinical information UNRECOGNIZED CONTENT PROVIDED BELOW FOR UNRECOGNIZED SECTION MEDICAL (GENERAL) HISTORY Type Description Date Medical History High blood pressure Medical History Heart disease Medical History Bronchitis Medical History Joint replacement Medical History Blood thinners Medical History Back trouble Surgical History Hysterctomy Surgical History Joint replacement (thumb)
--- OUTSIDE RECORDS SUMMARY | 2020-02-15 17:57 | XMS REPORT | Continuity of Care Document ---
Author Organization Unknown Address Unknown Phone Unavailable Allergies Active Description Code Type Severity Reaction Onset Reported/Identified Relationship to Patient Clinical Status Yes No Known Drug Allergies [id number] Drug Allergy Mild N/A 08/08/2009 Yes No Known Drug Allergies [id number] Drug Allergy Unknown N/A 02/06/2018 Medications There is no data. Problems Date Dx Coded Attending Type Code Diagnosis Diagnosed By 07/01/2014 ROD BARNES MD Ot 327.23 OBSTRUCTIVE SLEEP APNEA (ADULT) (PEDIATR 01/12/2015 NEYMAR QUINONES FACC, LUISA FACP CCDS Ot 272.4 HYPERLIPIDEMIA NEC/NOS 01/12/2015 NEYMAR QUINONES FACC, LUISA FACP CCDS Ot 414.01 CORONARY ATHEROSCLEROSIS OF [place] CORON 01/12/2015 NEYMAR QUINONES FACC, LUISA FACP CCDS Ot 414.4 CORONARY ATHEROSCLEROSIS DUE TO CALCIFIE 01/12/2015 NEYMAR QUINONES FACC, LUISA FACP CCDS Ot V58.69 OTH MED,LT,CURRENT USE 01/21/2015 MEHRDAD WELLER MD Ot 780.79 OTH MALAISE FATIGUE 01/21/2015 MEHRDAD WELLER MD Ot 998.12 HEMATOMA COMPLIC A PROC 01/21/2015 MEHRDAD WELLER MD Ot V45.82 PERCUTANEOUS TRANSLUM CORON ANGIOPLASTY 01/21/2015 NEYMAR QUINONES FACC, LUISA FACP CCDS Ot 278.00 01/21/2015 NEYMAR QUINONES FACC, LUISA FACP CCDS Ot 780.79 01/21/2015 NEYMAR QUINONES FACC, ALI FACP CCDS Ot 786.09 01/21/2015 NEYMAR QUINONES FACC, LUISA FACP CCDS Ot 786.59 01/21/2015 NEYMAR QUINONES FACC, ALI FACP CCDS Ot 794.31 01/21/2015 NEYMAR QUINONES FACC, ALI FACP CCDS Ot 789.09 01/21/2015 NEYMAR QUINONES FACC, LUISA FACP CCDS Ot V45.89 02/26/2015 NEYMAR MD FACC, ALI FACP CCDS Ot 789.09 02/26/2015 NEYMAR QUINONES FACC, ALI FACP CCDS Ot V45.89 02/27/2015 NEYMAR QUINONES FACC, ALI FACP CCDS Ot 278.00 02/27/2015 NEYMAR QUINONES FACC, ALI FACP CCDS Ot 780.79 02/27/2015 NEYMAR QUINONES FACC, ALI FACP CCDS Ot 786.09 02/27/2015 NEYMAR QUINONES FACC, ALI FACP CCDS Ot 786.59 02/27/2015 NEYMAR QUINONES FACC, ALI FACP CCDS Ot 794.31 07/18/2016 NEYMAR QUINONES FACC, ALI FACP CCDS Ot 278.00 OBESITY, NOS 07/18/2016 NEYMAR QUINONES FACC, ALI FACP CCDS Ot 780.79 OTH MALAISE FATIGUE 07/18/2016 NEYMAR QUINONES FACC, ALI FACP CCDS Ot 786.09 RESPIRATORY ABNORM NEC 07/18/2016 NEYMAR BEDOYAC, ALI FACP CCDS Ot 786.59 CHEST PAIN NEC 07/18/2016 NEYMAR BEDOYAC, ALI FACP CCDS Ot 794.31 ABNORM ELECTROCARDIOGRAM 07/18/2016 NEYMAR QUINONES FACC, ALI FACP CCDS Ot 789.09 ABDOMINAL PAIN, OTHER SPECIFIED SITE 07/18/2016 NEYMAR QUINONES FACC, ALI FACP CCDS Ot V45.89 POSTSURGICAL STATES NEC 07/19/2016 NEYMAR QUINONES FACC, ALI FACP CCDS Ot 278.00 OBESITY, NOS 07/19/2016 NEYMAR BEDOYAC, ALI FACP CCDS Ot 780.79 OTH MALAISE FATIGUE 07/19/2016 NEYMAR BEDOYAC, ALI FACP CCDS Ot 786.09 RESPIRATORY ABNORM NEC 07/19/2016 NEYMAR BEDOYAC, ALI FACP CCDS Ot 786.59 CHEST PAIN NEC 07/19/2016 NEYMAR BEDOYAC, ALI FACP CCDS Ot 794.31 ABNORM ELECTROCARDIOGRAM 07/19/2016 NEYMAR QUINONES FACC, ALI FACP CCDS Ot 789.09 ABDOMINAL PAIN, OTHER SPECIFIED SITE 07/19/2016 NEYMAR BEDOYAC, ALI FACP CCDS Ot V45.89 POSTSURGICAL STATES NEC 07/19/2016 NEYMAR BEDOYAC, ALI FACP CCDS Ot 278.00 OBESITY, NOS 07/19/2016 NEYMAR QUINONES FACC, ALI FACP CCDS Ot 780.79 OTH MALAISE FATIGUE 07/19/2016 NEYMAR QUINONES FACC, ALI FACP CCDS Ot 786.09 RESPIRATORY ABNORM NEC 07/19/2016 NEYMAR QUINONES FACC, ALI FACP CCDS Ot 786.59 CHEST PAIN NEC 07/19/2016 NEYMAR QUINONES FACC, ALI FACP CCDS Ot 794.31 ABNORM ELECTROCARDIOGRAM 07/19/2016 NEYMAR QUINONES FACC, ALI FACP CCDS Ot 789.09 ABDOMINAL PAIN, OTHER SPECIFIED SITE 07/19/2016 NEYMAR QUINONES FACC, ALI FACP CCDS Ot V45.89 POSTSURGICAL STATES NEC 07/19/2016 NEYMAR QUINONES FACC, ALI FACP CCDS Ot G47.33 OBSTRUCTIVE SLEEP APNEA (ADULT) (PEDIATR 07/19/2016 NEYMAR BEDOYAC, ALI FACP CCDS Ot R06.09 OTHER FORMS OF DYSPNEA 07/19/2016 NEYMAR QUINONES FACC, ALI FACP CCDS Ot R94.31 ABNORMAL ELECTROCARDIOGRAM [ECG] [EKG] 07/19/2016 NEYMAR QUINONES FACC, ALI FACP CCDS Ot G47.33 OBSTRUCTIVE SLEEP APNEA (ADULT) (PEDIATR 07/19/2016 NEYMAR BEDOYAC, ALI FACP CCDS Ot R06.09 OTHER FORMS OF DYSPNEA 07/19/2016 NEYMAR QUINONES FACC, ALI FACP CCDS Ot R94.31 ABNORMAL ELECTROCARDIOGRAM [ECG] [EKG] 07/20/2016 NEYMAR QUINONES FACC, ALI FACP CCDS Ot G47.33 OBSTRUCTIVE SLEEP APNEA (ADULT) (PEDIATR 07/20/2016 NEYMAR QUINONES FACC, ALI FACP CCDS Ot R06.09 OTHER FORMS OF DYSPNEA 07/20/2016 NEYMAR BEDOYA, ALI FACP CCDS Ot R94.31 ABNORMAL ELECTROCARDIOGRAM [ECG] [EKG] 07/21/2016 NEYMAR BEDOYAC, ALI FACP CCDS Ot G47.33 OBSTRUCTIVE SLEEP APNEA (ADULT) (PEDIATR 07/21/2016 NEYMAR BEDOYAC, ALI FACP CCDS Ot R06.09 OTHER FORMS OF DYSPNEA 07/21/2016 NEYMAR BEDOYAC, ALI FACP CCDS Ot R94.31 ABNORMAL ELECTROCARDIOGRAM [ECG] [EKG] 07/24/2016 NEYMAR BEDOYAC, ALI FACP CCDS Ot G47.33 OBSTRUCTIVE SLEEP APNEA (ADULT) (PEDIATR 07/24/2016 NEYMAR QUINONES FACC, LUISA FACP CCDS Ot R06.09 OTHER FORMS OF DYSPNEA 07/24/2016 NEYMAR QUINONES FACC, LUISA FACP CCDS Ot R94.31 ABNORMAL ELECTROCARDIOGRAM [ECG] [EKG] 07/24/2016 THAIS LUJAN [employer] MANAGEMENT FORESTER Ot G47.33 OBSTRUCTIVE SLEEP APNEA (ADULT) (PEDIATR 07/24/2016 THAIS LUJAN L [employer]AND MANAGEMENT FORESTER Ot I 10 ESSENTIAL (PRIMARY) HYPERTENSION 07/24/2016 FAUZIA LUJANHER L LAND MANAGEMENT FORESTER Ot I25.10 ATHSCL HEART DISEASE OF [place] CORONARY 07/24/2016 THAIS LUJAN L [employer]AND MANAGEMENT FORESTER Ot I44.7 LEFT BUNDLE-BRANCH BLOCK, UNSPECIFIED 07/24/2016 THAIS LUJAN L [employer] MANAGEMENT FORESTER Ot R53.1 WEAKNESS 07/24/2016 THAIS LUJAN [employer] MANAGEMENT FORESTER Ot R94.39 ABNORMAL RESULT OF OTHER CARDIOVASCULAR 07/24/2016 THAIS LUJAN [employer] MANAGEMENT FORESTER Ot Z79.899 OTHER NURSING HOME (CURRENT) DRUG THERAPY 07/24/2016 FAUZIA LUJANHER L [employer]AND MANAGEMENT FORESTER Ot Z82.49 FAMILY HX OF [place] HEART DIS AND OTH DI 07/24/2016 THAIS LUJAN L [employer]AND MANAGEMENT FORESTER Ot Z95.5 PRESENCE OF CORONARY ANGIOPLASTY IMPLANT 08/09/2016 NEYMAR QUINONES FACC, LUISA BEDOYAP CCDS Ot G47.33 OBSTRUCTIVE SLEEP APNEA (ADULT) (PEDIATR 08/09/2016 NEYMAR QUINONES FACC, LUISA FACP CCDS Ot R06.09 OTHER FORMS OF DYSPNEA 08/09/2016 NEYMAR QUINONES FACC, LUISA FACP CCDS Ot R94.31 ABNORMAL ELECTROCARDIOGRAM [ECG] [EKG] 08/09/2016 NEYMAR QUINONES FACC, LUISA FACP CCDS Ot G47.33 OBSTRUCTIVE SLEEP APNEA (ADULT) (PEDIATR 08/09/2016 NEYMAR QUINONES FACC, LUISA FACP CCDS Ot R06.09 OTHER FORMS OF DYSPNEA 08/09/2016 NEYMAR QUINONES FACC, LUISA FACP CCDS Ot R94.31 ABNORMAL ELECTROCARDIOGRAM [ECG] [EKG] 08/09/2016 THAIS LUJAN L [employer]AND MANAGEMENT FORESTER Ot G47.33 OBSTRUCTIVE SLEEP APNEA (ADULT) (PEDIATR 08/09/2016 THAIS LUJAN L [employer]AND MANAGEMENT FORESTER Ot I 10 ESSENTIAL (PRIMARY) HYPERTENSION 08/09/2016 BAIMA THAIS L [employer]AND MANAGEMENT FORESTER Ot I25.10 ATHSCL HEART DISEASE OF [place] CORONARY 08/09/2016 BAIMA, THAIS L [employer]AND MANAGEMENT FORESTER Ot I44.7 LEFT BUNDLE-BRANCH BLOCK, UNSPECIFIED 08/09/2016 BAIMA, THAIS L [employer]AND MANAGEMENT FORESTER Ot R53.1 WEAKNESS 08/09/2016 BAIMA, THAIS L LAND MANAGEMENT FORESTER Ot R94.39 ABNORMAL RESULT OF OTHER CARDIOVASCULAR 08/09/2016 BAIMA, THAIS L [employer]AND MANAGEMENT FORESTER Ot Z79.899 OTHER LABORER BR[employer] (CURRENT) DRUG THERAPY 08/09/2016 BAIMA, THAIS L [employer]AND MANAGEMENT FORESTER Ot Z82.49 FAMILY HX OF [place] HEART DIS AND OTH DI 08/09/2016 BAIMA, THAIS L [employer]AND MANAGEMENT FORESTER Ot Z95.5 PRESENCE OF CORONARY ANGIOPLASTY IMPLANT 08/11/2016 BAIMA THAIS L [employer] MANAGEMENT FORESTER Ot G47.33 OBSTRUCTIVE SLEEP APNEA (ADULT) (PEDIATR 08/11/2016 BAIMA, THAIS L LAND MANAGEMENT FORESTER Ot I 10 ESSENTIAL (PRIMARY) HYPERTENSION 08/11/2016 BAIMA, THAIS L LAND MANAGEMENT FORESTER Ot I25.10 ATHSCL HEART DISEASE OF [place] CORONARY 08/11/2016 BAIMA THAIS L [employer] MANAGEMENT FORESTER Ot I44.7 LEFT BUNDLE-BRANCH BLOCK, UNSPECIFIED 08/11/2016 BAIMA, THAIS L LAND MANAGEMENT FORESTER Ot R53.1 WEAKNESS 08/11/2016 BAIMA, THAIS L LAND MANAGEMENT FORESTER Ot R94.39 ABNORMAL RESULT OF OTHER CARDIOVASCULAR 08/11/2016 BAIMA, THAIS L [employer]AND MANAGEMENT FORESTER Ot Z79.899 OTHER LABORER [employer] (CURRENT) DRUG THERAPY 08/11/2016 BAIMA, THAIS L LAND MANAGEMENT FORESTER Ot Z82.49 FAMILY HX OF [place] HEART DIS AND OTH DI 08/11/2016 BAIMA, THAIS L LAND MANAGEMENT FORESTER Ot Z95.5 PRESENCE OF CORONARY ANGIOPLASTY IMPLANT 04/15/2017 BAIMA, THAIS L LAND MANAGEMENT FORESTER Ot I25.10 ATHSCL HEART DISEASE OF [place] CORONARY 04/15/2017 BAIMA, THAIS L LAND MANAGEMENT FORESTER Ot R06.09 OTHER FORMS OF DYSPNEA 04/15/2017 BAIMA, THAIS L LAND MANAGEMENT FORESTER Ot R07.89 OTHER CHEST PAIN 04/15/2017 BAIMA, THAIS L LAND MANAGEMENT FORESTER Ot R94.31 ABNORMAL ELECTROCARDIOGRAM [ECG] [EKG] 05/06/2017 BAIMA, THAIS L LAND MANAGEMENT FORESTER Ot I25.10 ATHSCL HEART DISEASE OF [place] CORONARY 05/06/2017 BAIMA, THAIS L LAND MANAGEMENT FORESTER Ot R06.09 OTHER FORMS OF DYSPNEA 05/06/2017 BAIMA, THAIS L LAND MANAGEMENT FORESTER Ot R07.89 OTHER CHEST PAIN 05/06/2017 BAIMA, THAIS L LAND MANAGEMENT FORESTER Ot R94.31 ABNORMAL ELECTROCARDIOGRAM [ECG] [EKG] 05/28/2017 BAIMA, THAIS L LAND MANAGEMENT FORESTER Ot I25.10 ATHSCL HEART DISEASE OF [place] CORONARY 05/28/2017 BAIMA, THAIS L LAND MANAGEMENT FORESTER Ot R06.09 OTHER FORMS OF DYSPNEA 05/28/2017 BAIMA, THAIS L LAND MANAGEMENT FORESTER Ot R07.89 OTHER CHEST PAIN 05/28/2017 BAIMA, THAIS L LAND MANAGEMENT FORESTER Ot R94.31 ABNORMAL ELECTROCARDIOGRAM [ECG] [EKG] 06/20/2017 MARQUEZ NIETO MD, Ot K80.20 CALCULUS OF GALLBLADDER W/O CHOLECYSTITI 06/20/2017 MARQUEZ NIETO MD, Ot Z01.81 2 ENCOUNTER FOR PREPROCEDURAL LABORATORY E 06/27/2017 MARQUEZ NIETO MD, Ot E66.9 OBESITY, UNSPECIFIED 06/27/2017 MARQUEZ NIETO MD, Ot E78.00 PURE HYPERCHOLESTEROLEMIA, UNSPECIFIED 06/27/2017 MARQUEZ NIETO MD, Ot F32.9 MAJOR DEPRESSIVE DISORDER, SINGLE EPISOD 06/27/2017 MARQUEZ NIETO MD, Ot G47.33 OBSTRUCTIVE SLEEP APNEA (ADULT) (PEDIATR 06/27/2017 MARQUEZ NIETO MD Ot I10 ESSENTIAL (PRIMARY) HYPERTENSION 06/27/2017 MARQUEZ NIETO MD, Ot I25.10 ATHSCL HEART DISEASE OF [place] CORONARY 06/27/2017 MARQUEZ NIETO MD, Ot I44.7 LEFT BUNDLE-BRANCH BLOCK, UNSPECIFIED 06/27/2017 MARQUEZ NIETO MD, Ot K58.9 IRRITABLE BOWEL SYNDROME WITHOUT DIARRHE 06/27/2017 MARQUEZ NIETO MD, Ot K80.10 CALCULUS OF GALLBLADDER W CHRONIC CHOLEC 06/27/2017 MARQUEZ NIETO MD, Ot Z68.39 BODY MASS INDEX (BMI) 39.0-39.9, ADULT 06/27/2017 MARQUEZ NIETO MD, Ot Z79.02 NURSING HOME (CURRENT) USE OF ANTITHROMBOTI 06/27/2017 MARQUEZ NIETO MD, Ot Z79.89 9 OTHER LABORER [employer] (CURRENT) DRUG THERAPY 06/27/2017 MARQUEZ NIETO MD, Ot Z82.49 FAMILY HX OF [place] HEART DIS AND OTH DI 06/27/2017 MARQUEZ NIETO MD, Ot Z95.5 PRESENCE OF CORONARY ANGIOPLASTY IMPLANT 06/29/2017 MARQUEZ NIETO MD Ot E66.9 OBESITY, UNSPECIFIED 06/29/2017 MARQUEZ NIETO MD Ot E78.00 PURE HYPERCHOLESTEROLEMIA, UNSPECIFIED 06/29/2017 MARQUEZ NIETO MD, Ot F32.9 MAJOR DEPRESSIVE DISORDER, SINGLE EPISOD 06/29/2017 MARQUEZ NIETO MD, Ot G47.33 OBSTRUCTIVE SLEEP APNEA (ADULT) (PEDIATR 06/29/2017 MARQUEZ NIETO MD, Ot I10 ESSENTIAL (PRIMARY) HYPERTENSION 06/29/2017 MARQUEZ NIETO MD Ot I25.10 ATHSCL HEART DISEASE OF [place] CORONARY 06/29/2017 MARQUEZ NIETO MD, Ot I44.7 LEFT BUNDLE-BRANCH BLOCK, UNSPECIFIED 06/29/2017 MARQUEZ NIETO MD, Ot K58.9 IRRITABLE BOWEL SYNDROME WITHOUT DIARRHE 06/29/2017 MARQUEZ NIETO MD, Ot K80.10 CALCULUS OF GALLBLADDER W CHRONIC CHOLEC 06/29/2017 MARQUEZ NIETO MD, Ot Z68.39 BODY MASS INDEX (BMI) 39.0-39.9, ADULT 06/29/2017 MARQUEZ NIETO MD, Ot Z79.02 LAB[employer]ER [employer] (CURRENT) USE OF ANTITHROMBOTI 06/29/2017 MARQUEZ NIETO MD, Ot Z79.89 9 OTHER LABORER [employer] (CURRENT) DRUG THERAPY 06/29/2017 MARQUEZ NIETO MD, Ot Z82.49 FAMILY HX OF [place] HEART DIS AND OTH DI 06/29/2017 MARQUEZ NIETO MD, Ot Z95.5 PRESENCE OF CORONARY ANGIOPLASTY IMPLANT 07/04/2017 MARQUEZ NIETO MD, Ot E66.9 OBESITY, UNSPECIFIED 07/04/2017 MARQUEZ NIETO MD Ot E78.00 PURE HYPERCHOLESTEROLEMIA, UNSPECIFIED 07/04/2017 MARQUEZ NIETO MD Ot F32.9 MAJOR DEPRESSIVE DISORDER, SINGLE EPISOD 07/04/2017 MARQUEZ NIETO MD, Ot G47.33 OBSTRUCTIVE SLEEP APNEA (ADULT) (PEDIATR 07/04/2017 MARQUEZ NIETO MD Ot I10 ESSENTIAL (PRIMARY) HYPERTENSION 07/04/2017 MARQUEZ NIETO MD, Ot I25.10 ATHSCL HEART DISEASE OF [place] CORONARY 07/04/2017 MARQUEZ NIETO MD, Ot I44.7 LEFT BUNDLE-BRANCH BLOCK, UNSPECIFIED 07/04/2017 MARQUEZ NIETO MD, Ot K58.9 IRRITABLE BOWEL SYNDROME WITHOUT DIARRHE 07/04/2017 MARQUEZ NIETO MD Ot K80.10 CALCULUS OF GALLBLADDER W CHRONIC CHOLEC 07/04/2017 MARQUEZ NIETO MD, Ot Z68.39 BODY MASS INDEX (BMI) 39.0-39.9, ADULT 07/04/2017 MARQUEZ NIETO MD, Ot Z79.02 LAB[employer]ER [employer] (CURRENT) USE OF ANTITHROMBOTI 07/04/2017 MARQUEZ NIETO MD, Ot Z79.89 9 OTHER LABORER [employer] (CURRENT) DRUG THERAPY 07/04/2017 MARQUEZ NIETO MD, Ot Z82.49 FAMILY HX OF [place] HEART DIS AND OTH DI 07/04/2017 MARQUEZ NIETO MD, Ot Z95.5 PRESENCE OF CORONARY ANGIOPLASTY IMPLANT 07/22/2017 MARQUEZ NIETO MD Ot E66.9 OBESITY, UNSPECIFIED 07/22/2017 MARQUEZ NIETO MD Ot E78.00 PURE HYPERCHOLESTEROLEMIA, UNSPECIFIED 07/22/2017 MARQUEZ NIETO MD Ot F32.9 MAJOR DEPRESSIVE DISORDER, SINGLE EPISOD 07/22/2017 MARQUEZ NIETO MD, Ot G47.33 OBSTRUCTIVE SLEEP APNEA (ADULT) (PEDIATR 07/22/2017 MARQUEZ NIETO MD Ot I10 ESSENTIAL (PRIMARY) HYPERTENSION 07/22/2017 MARQUEZ NIETO MD Ot I25.10 ATHSCL HEART DISEASE OF [place] CORONARY 07/22/2017 MARQUEZ NIETO MD, Ot I44.7 LEFT BUNDLE-BRANCH BLOCK, UNSPECIFIED 07/22/2017 MARQUEZ NIETO MD Ot K58.9 IRRITABLE BOWEL SYNDROME WITHOUT DIARRHE 07/22/2017 MARQUEZ NIETO MD Ot K80.10 CALCULUS OF GALLBLADDER W CHRONIC CHOLEC 07/22/2017 MARQUEZ NIETO MD Ot Z68.39 BODY MASS INDEX (BMI) 39.0-39.9, ADULT 07/22/2017 MARQUEZ NIETO MD, Ot Z79.02 LAB[employer] (CURRENT) USE OF ANTITHROMBOTI 07/22/2017 MARQUEZ NIETO MD, Ot Z79.89 9 OTHER NURSING HOME (CURRENT) DRUG THERAPY 07/22/2017 MARQUEZ NIETO MD, Ot Z82.49 FAMILY HX OF [place] HEART DIS AND OTH DI 07/22/2017 MARQUEZ NIETO MD, Ot Z95.5 PRESENCE OF CORONARY ANGIOPLASTY IMPLANT 02/06/2018 MARQUEZ NIETO MD, Ot Z01.81 8 ENCOUNTER FOR OTHER PREPROCEDURAL EXAMIN 02/06/2018 MARQUEZ NIETO MD, Ot Z01.81 8 ENCOUNTER FOR OTHER PREPROCEDURAL EXAMIN 02/12/2018 MARQUEZ NIETO MD, Ot Z01.81 8 ENCOUNTER FOR OTHER PREPROCEDURAL EXAMIN 02/14/2018 MARQUEZ NIETO MD, Ot I10 ESSENTIAL (PRIMARY) HYPERTENSION 02/14/2018 MARQUEZ NIETO MD, Ot I25.10 ATHSCL HEART DISEASE OF [place] CORONARY 02/14/2018 MARQUEZ NIETO MD, Ot K21.0 GASTRO-ESOPHAGEAL REFLUX DISEASE WITH ES 02/14/2018 MARQUEZ NIETO MD, Ot K22.2 ESOPHAGEAL OBSTRUCTION 02/14/2018 MARQUEZ NIETO MD, Ot K25.9 GASTRIC ULCER, UNSP ACUTE OR CHRONIC, 02/14/2018 MARQUEZ NIETO MD Ot K29.70 GASTRITIS, UNSPECIFIED, WITHOUT BLEEDING 02/14/2018 MARQUEZ NIETO MD, Ot K44.9 DIAPHRAGMATIC HERNIA WITHOUT OBSTRUCTION 02/14/2018 MARQUEZ NIETO MD, Ot K64.1 SECOND DEGREE HEMORRHOIDS 02/14/2018 MARQUEZ NIETO MD, Ot Z12.11 ENCOUNTER FOR SCREENING FOR MALIGNANT NE 02/14/2018 MARQUEZ NIETO MD, Ot Z79.02 LAB[employer] (CURRENT) USE OF ANTITHROMBOTI 02/14/2018 MARQUEZ NIETO MD, Ot Z79.89 9 OTHER LABORER [employer] (CURRENT) DRUG THERAPY 02/14/2018 MARQUEZ NIETO MD, Ot Z80.0 FAMILY HISTORY OF MALIGNANT NEOPLASM OF 02/14/2018 MARQUEZ NIETO MD, Ot Z86.01 0 PERSONAL HISTORY OF COLONIC POLYPS 02/14/2018 MARQUEZ NIETO MD Ot Z95.5 PRESENCE OF CORONARY ANGIOPLASTY IMPLANT 02/17/2018 MARQUEZ NIETO MD Ot I10 ESSENTIAL (PRIMARY) HYPERTENSION 02/17/2018 MARQUEZ NIETO MD Ot I25.10 ATHSCL HEART DISEASE OF [place] CORONARY 02/17/2018 MARQUEZ NIETO MD Ot K21.0 GASTRO-ESOPHAGEAL REFLUX DISEASE WITH ES 02/17/2018 MARQUEZ NIETO MD Ot K22.2 ESOPHAGEAL OBSTRUCTION 02/17/2018 MARQUEZ NIETO MD Ot K25.9 GASTRIC ULCER, UNSP ACUTE OR CHRONIC, 02/17/2018 MARQUEZ NIETO MD Ot K29.70 GASTRITIS, UNSPECIFIED, WITHOUT BLEEDING 02/17/2018 MARQUEZ NIETO MD, Ot K44.9 DIAPHRAGMATIC HERNIA WITHOUT OBSTRUCTION 02/17/2018 MARQUEZ NIETO MD, Ot K64.1 SECOND DEGREE HEMORRHOIDS 02/17/2018 MAQRUEZ NIETO MD, Ot Z12.11 ENCOUNTER FOR SCREENING FOR MALIGNANT NE 02/17/2018 MARQUEZ NIETO MD Ot Z79.02 LAB[employer]ER [employer] (CURRENT) USE OF ANTITHROMBOTI 02/17/2018 MARQUEZ NIETO MD Ot Z79.89 9 OTHER NURSING HOME (CURRENT) DRUG THERAPY 02/17/2018 MARQUEZ NIETO MD, Ot Z80.0 FAMILY HISTORY OF MALIGNANT NEOPLASM OF 02/17/2018 MARQUEZ NIETO MD Ot Z86.01 0 PERSONAL HISTORY OF COLONIC POLYPS 02/17/2018 MARQUEZ NIETO MD Ot Z95.5 PRESENCE OF CORONARY ANGIOPLASTY IMPLANT 02/22/2018 MARQUEZ NIETO MD Ot I10 ESSENTIAL (PRIMARY) HYPERTENSION 02/22/2018 MARQUEZ NIETO MD, Ot I25.10 ATHSCL HEART DISEASE OF [place] CORONARY 02/22/2018 MARQUEZ NIETO MD Ot K21.0 GASTRO-ESOPHAGEAL REFLUX DISEASE WITH ES 02/22/2018 MARQUEZ NIETO MD Ot K22.2 ESOPHAGEAL OBSTRUCTION 02/22/2018 MARQUEZ NIETO MD Ot K25.9 GASTRIC ULCER, UNSP ACUTE OR CHRONIC, 02/22/2018 MARQUEZ NIETO MD Ot K29.70 GASTRITIS, UNSPECIFIED, WITHOUT BLEEDING 02/22/2018 MARQUEZ NIETO MD Ot K44.9 DIAPHRAGMATIC HERNIA WITHOUT OBSTRUCTION 02/22/2018 MARQUEZ NIETO MD, Ot K64.1 SECOND DEGREE HEMORRHOIDS 02/22/2018 MARQUEZ NIETO MD, Ot Z12.11 ENCOUNTER FOR SCREENING FOR MALIGNANT NE 02/22/2018 MARQUEZ NIETO MD, Ot Z79.02 LAB[employer]ER [employer] (CURRENT) USE OF ANTITHROMBOTI 02/22/2018 MARQUEZ NIETO MD, Ot Z79.89 9 OTHER NURSING HOME (CURRENT) DRUG THERAPY 02/22/2018 MARQUEZ NIETO MD, Ot Z80.0 FAMILY HISTORY OF MALIGNANT NEOPLASM OF 02/22/2018 MARQUEZ NIETO MD, Ot Z86.01 0 PERSONAL HISTORY OF COLONIC POLYPS 02/22/2018 MARQUEZ NIETO MD, Ot Z95.5 PRESENCE OF CORONARY ANGIOPLASTY IMPLANT 02/22/2018 WILLIAM WONG APRN Ot E78.00 PURE HYPERCHOLESTEROLEMIA, UNSPECIFIED 02/22/2018 WILLIAM WONG APRN Ot F32 .9 MAJOR DEPRESSIVE DISORDER, SINGLE EPISOD 02/22/2018 WILLIAM WONG APRN Ot F41 .9 ANXIETY DISORDER, UNSPECIFIED 02/22/2018 WILLIAM WONG APRN Ot G47 .9 SLEEP DISORDER, UNSPECIFIED 02/22/2018 WILLIAM WONG APRN Ot I10 ESSENTIAL (PRIMARY) HYPERTENSION 02/22/2018 WILLIAM WONG APRN Ot I25.10 ATHSCL HEART DISEASE OF [place] CORONARY 02/22/2018 WILLIAM WONG APRN Ot K21 .9 GASTRO-ESOPHAGEAL REFLUX DISEASE WITHOUT 02/22/2018 WILLIAM WONG APRN Ot N99.821 POSTPROC HEMOR OF A SYS ORG FOLLOWING 02/22/2018 WILLIAM WONG APRN Ot Z79.02 LAB[employer] (CURRENT) USE OF ANTITHROMBOTI 02/22/2018 WILLIAM WONG APRN Ot Z79.82 LAB[employer]ER [employer] (CURRENT) USE OF ASPIRIN 02/22/2018 WILLIAM WONG APRN Ot Z90.710 ACQUIRED ABSENCE OF BOTH CERVIX AND UTER 02/22/2018 WILLIAM WONG APRN Ot Z95 .5 PRESENCE OF CORONARY ANGIOPLASTY IMPLANT 02/23/2018 MARQUEZ NIETO MD, Ot I10 ESSENTIAL (PRIMARY) HYPERTENSION 02/23/2018 MARQUEZ NIETO MD, Ot I25.10 ATHSCL HEART DISEASE OF [place] CORONARY 02/23/2018 MARQUEZ NIETO MD, Ot K21.0 GASTRO-ESOPHAGEAL REFLUX DISEASE WITH ES 02/23/2018 MARQUEZ NIETO MD, Ot K22.2 ESOPHAGEAL OBSTRUCTION 02/23/2018 MARQUEZ NIETO MD, Ot K25.9 GASTRIC ULCER, UNSP ACUTE OR CHRONIC, 02/23/2018 MARQUEZ NIETO MD, Ot K29.70 GASTRITIS, UNSPECIFIED, WITHOUT BLEEDING 02/23/2018 MARQUEZ NIETO MD, Ot K44.9 DIAPHRAGMATIC HERNIA WITHOUT OBSTRUCTION 02/23/2018 MARQUEZ NIETO MD, Ot K64.1 SECOND DEGREE HEMORRHOIDS 02/23/2018 MARQUEZ NIETO MD, Ot Z12.11 ENCOUNTER FOR SCREENING FOR MALIGNANT NE 02/23/2018 MARQUEZ NIETO MD, Ot Z79.02 LAB[employer]ER BR[employer] (CURRENT) USE OF ANTITHROMBOTI 02/23/2018 MARQUEZ NIETO MD, Ot Z79.89 9 OTHER LABORER BR[employer] (CURRENT) DRUG THERAPY 02/23/2018 MARQUEZ NIETO MD, Ot Z80.0 FAMILY HISTORY OF MALIGNANT NEOPLASM OF 02/23/2018 MARQUEZ NIETO MD, Ot Z86.01 0 PERSONAL HISTORY OF COLONIC POLYPS 02/23/2018 MARQUEZ NIETO MD Ot Z95.5 PRESENCE OF CORONARY ANGIOPLASTY IMPLANT 02/24/2018 WILLIAM WONG APRN Ot E78.00 PURE HYPERCHOLESTEROLEMIA, UNSPECIFIED 02/24/2018 WILLIAM WONG APRN Ot F32 .9 MAJOR DEPRESSIVE DISORDER, SINGLE EPISOD 02/24/2018 WILLIAM WONG APRN Ot F41 .9 ANXIETY DISORDER, UNSPECIFIED 02/24/2018 WILLIAM WONG APRN Ot G47 .9 SLEEP DISORDER, UNSPECIFIED 02/24/2018 WILLIAM WONG APRN Ot I10 ESSENTIAL (PRIMARY) HYPERTENSION 02/24/2018 WILLIAM WONG APRN Ot I25.10 ATHSCL HEART DISEASE OF [place] CORONARY 02/24/2018 WILLIAM WONG APRN Ot K21 .9 GASTRO-ESOPHAGEAL REFLUX DISEASE WITHOUT 02/24/2018 WILLIAM WONG APRN Ot N99.821 POSTPROC HEMOR OF A SYS ORG FOLLOWING 02/24/2018 WILLIAM WONG APRN Ot Z79.02 LAB[employer] (CURRENT) USE OF ANTITHROMBOTI 02/24/2018 WILLIAM WONG APRN Ot Z79.82 NURSING HOME (CURRENT) USE OF ASPIRIN 02/24/2018 WILLIAM WONG APRN Ot Z90.710 ACQUIRED ABSENCE OF BOTH CERVIX AND UTER 02/24/2018 WILLIAM WONG APRN Ot Z95 .5 PRESENCE OF CORONARY ANGIOPLASTY IMPLANT 03/13/2018 MARQUEZ NIETO MD Ot I10 ESSENTIAL (PRIMARY) HYPERTENSION 03/13/2018 MARQUEZ NIETO MD, Ot I25.10 ATHSCL HEART DISEASE OF [place] CORONARY 03/13/2018 MARQUEZ NIETO MD, Ot K21.0 GASTRO-ESOPHAGEAL REFLUX DISEASE WITH ES 03/13/2018 MARQUEZ NIETO MD, Ot K22.2 ESOPHAGEAL OBSTRUCTION 03/13/2018 MARQUEZ NIETO MD, Ot K25.9 GASTRIC ULCER, UNSP ACUTE OR CHRONIC, 03/13/2018 MARQUEZ NIETO MD, Ot K29.70 GASTRITIS, UNSPECIFIED, WITHOUT BLEEDING 03/13/2018 MARQUEZ NIETO MD, Ot K44.9 DIAPHRAGMATIC HERNIA WITHOUT OBSTRUCTION 03/13/2018 MARQUEZ NIETO MD, Ot K64.1 SECOND DEGREE HEMORRHOIDS 03/13/2018 MARQUEZ NIETO MD, Ot Z12.11 ENCOUNTER FOR SCREENING FOR MALIGNANT NE 03/13/2018 MARQUEZ NIETO MD Ot Z79.02 NURSING HOME (CURRENT) USE OF ANTITHROMBOTI 03/13/2018 MARQUEZ NIETO MD, Ot Z79.89 9 OTHER NURSING HOME (CURRENT) DRUG THERAPY 03/13/2018 MARQUEZ NIETO MD, Ot Z80.0 FAMILY HISTORY OF MALIGNANT NEOPLASM OF 03/13/2018 MARQUEZ NIETO MD Ot Z86.01 0 PERSONAL HISTORY OF COLONIC POLYPS 03/13/2018 MARQUEZ NIETO MD Ot Z95.5 PRESENCE OF CORONARY ANGIOPLASTY IMPLANT 09/08/2019 NEYMAR QUINONES FACC, ALI FACP CCDS Ot 278.00 OBESITY, NOS 09/08/2019 NEYMAR UQINONES FACC, ALI FACP CCDS Ot 780.79 OTH MALAISE FATIGUE 09/08/2019 NEYMAR BEDOYAC, ALI FACP CCDS Ot 786.09 RESPIRATORY ABNORM NEC 09/08/2019 NEYMAR QUINONES FACC, ALI FACP CCDS Ot 786.59 CHEST PAIN NEC 09/08/2019 NEYMAR QUINONES FACC, ALI FACP CCDS Ot 794.31 ABNORM ELECTROCARDIOGRAM 09/08/2019 NEYMAR QUINONES FACC, ALI FACP CCDS Ot 789.09 ABDOMINAL PAIN, OTHER SPECIFIED SITE 09/08/2019 NEYMAR QUINONES FACC, ALI FACP CCDS Ot V45.89 POSTSURGICAL STATES NEC 09/08/2019 NEYMAR QUINONES FACC, ALI FACP CCDS Ot G47.33 OBSTRUCTIVE SLEEP APNEA (ADULT) (PEDIATR 09/08/2019 NEYMAR BEDOYAC, ALI FACP CCDS Ot R06.09 OTHER FORMS OF DYSPNEA 09/08/2019 NEYMAR QUINONES FACC, ALI FACP CCDS Ot R94.31 ABNORMAL ELECTROCARDIOGRAM [ECG] [EKG] 09/08/2019 NEYMAR QUINONES FACC, ALI FACP CCDS Ot G47.33 OBSTRUCTIVE SLEEP APNEA (ADULT) (PEDIATR 09/08/2019 NEYMAR QUINONES FACC, ALI FACP CCDS Ot R06.09 OTHER FORMS OF DYSPNEA 09/08/2019 NEYMAR QUINONES FACC, ALI FACP CCDS Ot R94.31 ABNORMAL ELECTROCARDIOGRAM [ECG] [EKG] 09/08/2019 BAIMA, THAIS L [employer] MANAG[employer] FORESTER Ot I25.10 ATHSCL HEART DISEASE OF [place] CORONARY 09/08/2019 BAIMA, THAIS L [employer] MANAG[employer] FORESTER Ot R06.09 OTHER FORMS OF DYSPNEA 09/08/2019 BAIMA, THAIS L [employer] MANAG[employer] FORESTER Ot R07.89 OTHER CHEST PAIN 09/08/2019 BAIMA, THAIS L [employer] MANAG[employer] FORESTER Ot R94.31 ABNORMAL ELECTROCARDIOGRAM [ECG] [EKG] 09/08/2019 BAIMA, THAIS L [employer] MANAG[employer] FORESTER Ot I25.10 ATHSCL HEART DISEASE OF [place] CORONARY 09/08/2019 BAIMA, THAIS L [employer] MANAG[employer] FORESTER Ot R06.09 OTHER FORMS OF DYSPNEA 09/08/2019 BAIMA, THAIS L [employer] MANAG[employer] FORESTER Ot R07.89 OTHER CHEST PAIN 09/08/2019 BAIMA, THAIS L [employer] MANAG[employer] FORESTER Ot R94.31 ABNORMAL ELECTROCARDIOGRAM [ECG] [EKG] 09/10/2019 NEYMAR QUINONES FACC, ALI FACP CCDS Ot G47.33 OBSTRUCTIVE SLEEP APNEA (ADULT) (PEDIATR 09/10/2019 NEYMAR BEDOYAC, ALI FACP CCDS Ot I08.1 RHEUMATIC DISORDERS OF BOTH MITRAL AND T 09/10/2019 NEYMAR QUINONES FACC, ALI FACP CCDS Ot I25.10 ATHSCL HEART DISEASE OF [place] CORONARY 09/10/2019 NEYMAR QUINONES [facility], ALI FACP CCDS Ot I65.29 OCCLUSION AND STENOSIS OF UNSPECIFIED CA 09/29/2019 NEYMAR QUINONES FACC, [facility] FACP CCDS Ot G47.33 OBSTRUCTIVE SLEEP APNEA (ADULT) (PEDIATR 09/29/2019 NEYMAR QUINONES [facility], ALI FACP CCDS Ot I08.1 RHEUMATIC DISORDERS OF BOTH [place] AND T 09/29/2019 NEYMAR QUINONES FACC, [facility] Ot I25.10 ATHSCL HEART DISEASE OF [place] CORONARY 09/29/2019 NEYMAR QUINONES [facility], ALI FACP CCDS Ot I65.29 OCCLUSION AND STENOSIS OF UNSPECIFIED [place] Procedures There is no data. Results Test Result Range Automated blood complete blood count (he mogram) panel - 07/24/16 07:34 Blood leukocytes automated count (number/volume) 6.9 10*3/uL 4.3-11.0 Blood erythrocytes automated count (number/volume) 4.70 10*6/uL 4.35-5.85 Venous blood hemoglobin measurement (mass/volume) 14.2 g/dL 11.5-16.0 Blood hematocrit (volume fraction) 42 % 35-52 Automated erythrocyte mean corpuscular volume 88 [ foz_us] 80-99 Automated erythrocyte mean corpuscular h emoglobin (mass per erythrocyte) 30 pg 25-34 Automated erythrocyte mean corpuscular h emoglobin concentration measurement (mass/volume) 34 g/dL 32-36 Automated erythrocyte distribution width ratio 12. 7 % 10.0- 14.5 Automated blood platelet count (count/volume) 243 10*3/uL 130-400 Automated blood platelet mean volume measurement 9.7 [foz_us] 7.4-10.4 PT panel in platelet poor plasma by coag ulation assay - 07/24/16 07:34 Prothrombin time (PT) in platelet poor plasma by coagu lation assay 12.5 s 12.2-14.7 INR in platelet poor plasma or blood by coagulation as say 1.0 0.8-1.4 Activated partial thromboplastin time (a PTT) in platelet poor plasma bycoagulation assay - 07/24/16 07:34 Activated partial thromboplastin time (a PTT) in platelet poor plasma bycoagulation assay 27 s 24-35 Comprehensive metabolic panel - 07/24/16 07:34 Serum or plasma sodium measurement (moles/volume) 140 mmol/L 135-145 Serum or plasma potassium measurement (moles/volume) 4.2 mmol/L 3.6-5.0 Serum or plasma chloride measurement (moles/volume) 105 mmol/L 98-107 Carbon dioxide 27 mmol/L 21-32 Serum or plasma anion gap determination (moles/volume) 8 mmol/L 5-14 Serum or plasma urea nitrogen measurement (mass/volume ) 15 mg/dL 7-18 Serum or plasma creatinine measurement (mass/volume) 0.77 mg/dL 0.60-1.30 Serum or plasma urea nitrogen/creatinine mass ratio 19 NRG Serum or plasma creatinine measurement w ith calculation of estimated glomerular filtration rate > NRG Serum or plasma glucose measurement (mass/volume) 95 mg/dL 70-105 Serum or plasma calcium measurement (mass/volume) 8.9 mg/dL 8.5-10.1 Serum or plasma total bilirubin measurement (mass/volu me) 0.4 mg/dL 0.1-1.0 Serum or plasma alkaline phosphatase gage surement (enzymatic activity/volume) 57 U/L 40-136 Serum or plasma aspartate aminotransfera se measurement (enzymatic activity/volume) 25 U/L 5-34 Serum or plasma alanine aminotransferase measurement (enzymatic activity/volume) 23 U/L 0-55 Serum or plasma protein measurement (mass/volume) 7.0 g/dL 6.4-8.2 Serum or plasma albumin measurement (mass/volume) 4.0 g/dL 3.2-4.5 Lipid 1996 panel - 07/24/16 07:34 Serum or plasma triglyceride measurement (mass/volume) 118 mg/dL <150 Serum or plasma cholesterol measurement (mass/volume) 153 mg/dL < 200 Serum or plasma cholesterol in HDL measurement (mass/v olume) 49 mg/dL 40-60 Cholesterol in LDL [mass/volume] in serum or plasma by direct assay 87 mg/dL 1-129 Serum or plasma cholesterol in VLDL measurement (mass/ volume) 24 mg/dL 5-40 Methicillin resistant Staphylococcus aur eus (MRSA) screening culture - 07/24/16 07:34 Methicillin resistant Staphylococcus aureus (MRSA) scr eening culture NEG NRG Complete blood count (CBC) with automate d white blood cell (WBC) differential - 06/20/17 13:23 Blood leukocytes automated count (number/volume) 7.1 10*3/uL 4.3-11.0 Blood erythrocytes automated count (number/volume) 4.52 10*6/uL 4.35-5.85 Venous blood hemoglobin measurement (mass/volume) 13.5 g/dL 11.5-16.0 Blood hematocrit (volume fraction) 40 % 35-52 Automated erythrocyte mean corpuscular volume 89 [ foz_us] 80-99 Automated erythrocyte mean corpuscular h emoglobin (mass per erythrocyte) 30 pg 25-34 Automated erythrocyte mean corpuscular h emoglobin concentration measurement (mass/volume) 34 g/dL 32-36 Automated erythrocyte distribution width ratio 12. 3 % 10.0- 14.5 Automated blood platelet count (count/volume) 256 10*3/uL 130-400 Automated blood platelet mean volume measurement 9.6 [foz_us] 7.4-10.4 Automated blood neutrophils/100 leukocytes 64 % 42-75 Automated blood lymphocytes/100 leukocytes 26 % 12-44 Blood monocytes/100 leukocytes 6 % 0-12 Automated blood eosinophils/100 leukocytes 3 % 0-10 Automated blood basophils/100 leukocytes 1 % 0-10 Blood neutrophils automated count (number/volume) 4.5 10*3 1.8-7.8 Blood lymphocytes automated count (number/volume) 1.9 10*3 1.0-4.0 Blood monocytes automated count (number/volume) 0. 4 10*3 0.0-1.0 Automated eosinophil count 0.2 10*3/uL 0 .0-0.3 Automated blood basophil count (count/volume) 0.0 10*3/uL 0.0-0.1 Methicillin resistant Staphylococcus aur eus (MRSA) screening culture - 06/20/17 13:23 Methicillin resistant Staphylococcus aureus (MRSA) scr eening culture NEG NRG Pap IG (Image Guided) - 02/07/18 09:31 DIAGNOSIS: Comment Specimen adequacy: Comment Performed by: Comment QC reviewed by: Comment . . Note: Comment Test Methodology: Comment Complete blood count (CBC) with automate d white blood cell (WBC) differential - 02/22/18 18:22 Blood leukocytes automated count (number/volume) 7.1 10*3/uL 4.3-11.0 Blood erythrocytes automated count (number/volume) 4.48 10*6/uL 4.35-5.85 Venous blood hemoglobin measurement (mass/volume) 13.7 g/dL 11.5-16.0 Blood hematocrit (volume fraction) 40 % 35-52 Automated erythrocyte mean corpuscular volume 89 [ foz_us] 80-99 Automated erythrocyte mean corpuscular h emoglobin (mass per erythrocyte) 31 pg 25-34 Automated erythrocyte mean corpuscular h emoglobin concentration measurement (mass/volume) 34 g/dL 32-36 Automated erythrocyte distribution width ratio 12. 7 % 10.0- 14.5 Automated blood platelet count (count/volume) 279 10*3/uL 130-400 Automated blood platelet mean volume measurement 9.5 [foz_us] 7.4-10.4 Automated blood neutrophils/100 leukocytes 66 % 42-75 Automated blood lymphocytes/100 leukocytes 22 % 12-44 Blood monocytes/100 leukocytes 9 % 0-12 Automated blood eosinophils/100 leukocytes 3 % 0-10 Automated blood basophils/100 leukocytes 1 % 0-10 Blood neutrophils automated count (number/volume) 4.7 10*3 1.8-7.8 Blood lymphocytes automated count (number/volume) 1.5 10*3 1.0-4.0 Blood monocytes automated count (number/volume) 0. 7 10*3 0.0-1.0 Automated eosinophil count 0.2 10*3/uL 0 .0-0.3 Automated blood basophil count (count/volume) 0.1 10*3/uL 0.0-0.1 EBV Antibody Profile - 02/11/20 12:13 EBV Nuclear Antigen Ab, IgG 534.0 U/mL 0 .0-17.9 EBV Ab VCA, IgG >600.0 U/mL 0.0-17.9 EBV Ab VCA, IgM <36.0 U/mL 0.0-35.9 Interpretation: Comment Cytomegalovirus (CMV) Ab, IgG - 02/11/20 12:13 Cytomegalovirus (CMV) Ab, IgG >10.00 U/mL 0.00-0.59 Cytomegalovirus (CMV) Ab, IgM - 02/11/20 12:13 Cytomegalovirus (CMV) Ab, IgM <30.0 AU/mL 0.0-29.9 Complete blood count (CBC) with automate d white blood cell (WBC) differential - 02/15/20 15:59 Blood leukocytes automated count (number/volume) 9.6 10*3/uL 4.3-11.0 Blood erythrocytes automated count (number/volume) 5.03 10*6/uL 4.35-5.85 Venous blood hemoglobin measurement (mass/volume) 15.1 g/dL 11.5-16.0 Blood hematocrit (volume fraction) 45 % 35-52 Automated erythrocyte mean corpuscular volume 89 [ foz_us] 80-99 Automated erythrocyte mean corpuscular h emoglobin (mass per erythrocyte) 30 pg 25-34 Automated erythrocyte mean corpuscular h emoglobin concentration measurement (mass/volume) 34 g/dL 32-36 Automated erythrocyte distribution width ratio 13. 0 % 10.0- 14.5 Automated blood platelet count (count/volume) 305 10*3/uL 130-400 Automated blood platelet mean volume measurement 9.5 [foz_us] 7.4-10.4 Automated blood neutrophils/100 leukocytes 61 % 42-75 Automated blood lymphocytes/100 leukocytes 28 % 12-44 Blood monocytes/100 leukocytes 9 % 0-12 Automated blood eosinophils/100 leukocytes 3 % 0-10 Automated blood basophils/100 leukocytes 1 % 0-10 Blood neutrophils automated count (number/volume) 5.8 10*3 1.8-7.8 Blood lymphocytes automated count (number/volume) 2.7 10*3 1.0-4.0 Blood monocytes automated count (number/volume) 0. 8 10*3 0.0-1.0 Automated eosinophil count 0.3 10*3/uL 0 .0-0.3 Automated blood basophil count (count/volume) 0.1 10*3/uL 0.0-0.1 PT panel in platelet poor plasma by coag ulation assay - 02/15/20 15:59 Prothrombin time (PT) in platelet poor plasma by coagu lation assay 11.9 s 12.2-14.7 INR in platelet poor plasma or blood by coagulation as say 0.9 0.8-1.4 Activated partial thromboplastin time (a PTT) in platelet poor plasma bycoagulation assay - 02/15/20 15:59 Activated partial thromboplastin time (a PTT) in platelet poor plasma bycoagulation assay 28 s 24-35 Comprehensive metabolic panel - 02/15/20 15:59 Serum or plasma sodium measurement (moles/volume) 138 mmol/L 135-145 Serum or plasma potassium measurement (moles/volume) 4.7 mmol/L 3.6-5.0 Serum or plasma chloride measurement (moles/volume) 104 mmol/L 98-107 Carbon dioxide 22 mmol/L 21-32 Serum or plasma anion gap determination (moles/volume) 12 mmol/L 5-14 Serum or plasma urea nitrogen measurement (mass/volume ) 21 mg/dL 7-18 Serum or plasma creatinine measurement (mass/volume) 0.90 mg/dL 0.60-1.30 Serum or plasma urea nitrogen/creatinine mass ratio 23 NRG Serum or plasma creatinine measurement w ith calculation of estimated glomerular filtration rate > NRG Serum or plasma glucose measurement (mass/volume) 111 mg/dL 70-105 Serum or plasma calcium measurement (mass/volume) 9.7 mg/dL 8.5-10.1 Serum or plasma total bilirubin measurement (mass/volu me) 0.2 mg/dL 0.1-1.0 Serum or plasma alkaline phosphatase gage surement (enzymatic activity/volume) 65 U/L 40-136 Serum or plasma aspartate aminotransfera se measurement (enzymatic activity/volume) 35 U/L 5-34 Serum or plasma alanine aminotransferase measurement (enzymatic activity/volume) 23 U/L 0-55 Serum or plasma protein measurement (mass/volume) 8.4 g/dL 6.4-8.2 Serum or plasma albumin measurement (mass/volume) 4.4 g/dL 3.2-4.5 CALCIUM CORRECTED 9.4 mg/dL 8.5-10.1 Magnesium - 02/15/20 15:59 Magnesium 2.3 mg/dL 1.6-2.4 Serum or plasma troponin i.cardiac measu rement (mass/volume) - 02/15/20 15:59 Serum or plasma troponin i.cardiac measurement (mass/v olume) < ng/mL <0.028 Myoglobin, serum - 02/15/20 15:59 Myoglobin, serum 47.3 ng/mL 10.0-92.0 Serum or plasma lithium measurement (mol es/volume) - 02/15/20 15:59 BNP PT 19.6 pg/mL <100.0 Encounters ACCT No. Visit Date/Time Discharge Status Pt. Type Provider Facility Loc./Unit Complaint [id number] 07/19/2015 15:12:29 07/19/2015 23:59: 59 CLS Outpatient JUDY GUZMAN [id number] 02/12/2018 14:21:00 Document Registration [id number] 09/08/2019 09:21:00 23:59:59 CLS Outpatient LUISA BLACKMON MD, FACC, FACP CC DS [facility] CARD CAD [id number] 08/07/2019 15:09:00 23:59:59 CLS Preadmit LUISA BLACKMON MD, FACC, FACP CCDS [facility] CARD CAD [id number] 02/22/2018 17:30:00 18:56:00 DIS Emergency WILLIAM WONG APRN [facility] ER VAGINAL BLEEDING AFTER BIOPSY,PASSED BLOOD CLOT [id number] 02/14/2018 09:45:00 018 12:20:00 DIS Outpatient MARQUEZ NIETO MD [facility] ENDO SCREENING/REFLUX [id number] 02/06/2018 05:36:00 018 14:47:00 DIS Outpatient MARQUEZ NIETO MD [facility] PREOP COLONOSCOPY/EGD [id number] 06/27/2017 08:55:00 017 14:55:00 DIS Outpatient MARQUEZ NIETO MD [facility] SDC GALLSTONES [id number] 06/20/2017 13:01:00 017 13:30:00 DIS Outpatient MARQUEZ NIETO MD [facility] PREOP GALLSTONES [id number] 04/30/2017 08:10:00 017 23:59:59 CLS Outpatient THAIS LUJAN [facility] CARD R07.89 CHEST PA IN [id number] 04/12/2017 11:30:00 017 23:59:59 CLS Outpatient THAIS LUJAN [facility] RAD R07.89 CHEST PA IN,R06.09 [place] [id number] 07/24/2016 06:59:00 13:15:00 DIS Outpatient THAIS LUJAN [facility] CATH ANGINA,SOB,ABNO RMAL STRESS TEST, FATIGUE,HTN [id number] 07/19/2016 08:08:00 23:59:59 CLS Outpatient NEYMAR QUINONES FACC, ALI FACP CC DS [facility] CARD ABNORMAL EC G,THURSTON,VERNON [id number] 07/18/2016 10:57:00 23:59:59 CLS Outpatient NEYMAR QUINONES FACC, ALI FACP CC DS [facility] CARD ABNORMAL EC G,THURSTON,VERNON [id number] 01/21/2015 14:49:00 18:09:00 DIS Emergency MEHRDAD WELLER MD [facility] ER WEAKNESS/SHAKEY LIGHTHE ADED [id number] 01/17/2015 16:19:00 23:59:59 CLS Outpatient NEYMAR QUINONES FACC, ALI FACP CC DS [facility] RAD POST CATH G ROIN SWELLING [id number] 01/11/2015 08:19:00 10:10:00 DIS Outpatient NEYMAR QUINONES FACC, ALI FACP CC DS [facility] CATH ANGINA SHOR TNESS OF BREATH FATIGUE [id number] 01/10/2015 09:25:00 23:59:59 CLS Outpatient NEYMAR QUINONES FACC, ALI FACP CC DS [facility] CARD CHEST DISCOMFORT,ABNORMAL EKG [id number] 06/30/2014 20:15:00 014 06:10:00 DIS Outpatient ROD BARNES MD [facility] SLEEP VERNON,SNORING,CHOKING,INS OMNIA [id number] 02/15/2020 16:27:00 Document Registration [id number] 02/13/2020 05:07:00 Document Registration [id number] 02/13/2020 05:07:00 Document Registration
[2020-02-15] MEDS ORDERED: ONDANSETRON 4 MG/2 ML (SDV) Z0FRAN IV PRN (19:00)
[2020-02-15] MEDS ORDERED: ONDANSETRON 4 MG/2 ML (SDV) Z0FRAN IVP PRN (19:00)
[2020-02-15] MEDS ORDERED: morphine INJ 4 MG/ML 1 ML (VIAL/SYRINGE) IV PRN (19:00)
[2020-02-15] MEDS ORDERED: CATHETER FLUSH 10 ML SYR IV PRN (19:00)
[2020-02-15] MEDS ORDERED: NITROGLYCERIN 0.4 MG SL TABS BTL 25'S SL PRN (19:00)
--- OUTSIDE RECORDS SUMMARY | 2020-02-15 19:09 | XMS REPORT ---
Author Author [employer] [facility] Sessions [facility] [employer] [facility] Address [address] [address] Care Team Providers Care Security Technician Name Role Phone JUDY GUZMAN Unavailable Unavailable [...] information THAIS LUJAN Not Available sources.) Allergies (66553) no information Unclassified NO KNOWN DRUG UNKNOWN, NO JUDI HANNON Not Available (20 sources.) ALLERGIES KNOWN DRUG (80334) ALLERGIES Medications Medication Ingredient Drug Dose Dates [...] Abdominal pain Abdominal Episodic Active LUISA BLACKMON [facility] Via (1 source.) pain, other [facility] Yudith specified site [facility] (50943) Residual Acquired Episodic Active WILLIAM WONG [facility] Via codes; absence of Yudith unclassified both cervix [facility] (1 source.) and uterus [place] (20447) Other upper Acute Episodic Active [facility] respiratory sinusitis, [facility] of infections (14 unspecified [place] sources.) County ([address]) Anxiety Anxiety Chronic Active WILLIAM WONG [facility] Via disorders (4 disorder, Y[place] sources.) unspecified [facility] (85429) Other Body mass Chronic Active MARQUEZ NIETO [facility] Via nutritional; index (BMI) MD [place] endocrine; and 39.0-39.9, Hospital - metabolic adult [place] disorders (2 (63584) sources.) Unclassified Body mass Chronic Active no name no inform ation (4 sources.) index (BMI) 39.0-39.9, adult Translations: [ FAMILY HX OF ISCHEM HEART DIS AND OTH DI, OBSTRUCTIVE SLEEP APNEA (ADULT) (PEDIATR] Biliary tract Calculus of Episodic Active TAKAAKI KIDO , [facility] Via disease (7 gallbladder MD [place] sources.) with chronic Hospital - cholecystitis [place] without (22695) obstruction Translations: [ CALCULUS OF GALLBLADDER W/O CHOLECYSTITI] Joint Derangement of Chronic Active JUDI PARVEZ Not Pam ilable disorders and unspecified (61930) dislocations; medial trauma-related meniscus due (24 sources.) to old tear or injury, left knee Translations: [ OTHER AND UNSPECIFIED DERANGEMENT OF MEDIAL MENISCUS] Abdominal Diaphragmatic Episodic Active TAKAAKI KIDO , [facility] Via hernia (8 hernia without MD [place] sources.) obstruction or Hospital - gangrene [place] (79256) Genitourinary Dysuria Episodic Active ROMAIN HOWAYEK Hospi ravinder symptoms and Translations: [facility] of ill-defined [ DYSURIA, [place] conditions (23 UNSPECIFIED County (75906) sources.) ABNORMAL FINDINGS IN URINE, DYSURIA, DYSURIA, OTHER NONSPECIFIC FINDINGS ON EXAMINATION OF URINE] Other Encounter for Episodic Active ROMAIN HOWAYEK Not Available screening for screening for (39676) suspected malignant conditions neoplasm of (not mental colon disorders or Translations: infectious [ ABNORMAL disease) (31 ELECTROCARDIOG sources.) NIHARIKA [ECG] [EKG], NONSPECIFIC ABNORMAL ELECTROCARDIOG NIHARIKA [ECG] [EKG], ABNORMAL RESULT OF OTHER CARDIOVASCULAR ] Essential Essential Chronic Active ROMAIN HOWJAMEEK Not Avai lable hypertension (primary) (31460) (27 sources.) hypertension Translations: [ MALIGNANT ESSENTIAL HYPERTENSION] Residual Family history Episodic Active THAIS AMITAMA [facility] Via codes; of ischemic Y[place]ith unclassified heart disease Hospital - (3 sources.) and other [place] diseases of (42771) the circulatory system Residual Family history Episodic Active TAKAAKI KIDO , [facility] Via codes; of malignant MD [place] unclassified neoplasm of Hospital - (8 sources.) digestive [place] organs (00923) Gastroduodenal Gastric ulcer, Chronic Active TAKAAKI KIDO , [facility] Via ulcer (except unspecified as MD [place] hemorrhage) (8 acute or Hospital - sources.) chronic, [place] without (82969) hemorrhage or perforation Gastritis and Gastritis, Episodic Active TAKAAKI KIDO , [facility] Via duodenitis (8 unspecified, MD [place] sources.) without Hospital - bleeding [place] (01989) Other Irritable Chronic Active TAKAAKI KIDO , [facility]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 MD [place] al disorders without Hospital - (6 sources.) diarrhea [place] (84827) 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[facility] Via disorders (7 bundle-branch [place] sources.) block, Hospital - unspecified [place] (72364) Other [facility] Episodic Active TAKAAKI KIDO , [facility] Via aftercare (18 (current) use MD [place] sources.) of Hospital - antithrombotic [place] s/antiplatelet (29185) s Translations: [ OTHER ASSISTED (CURRENT) DRUG THERAPY] Other superintendent container terminal Episodic Active PETER WONG [facility] Via aftercare (4 (current) use [place] sources.) of aspirin Hospital - [place] (85435) Other Long-term Episodic Active ALI NEYMAR , [facility] Via aftercare (1 (current) use MD OSCAR [place] source.) of other Hospital - medications [place] (61250) Mood disorders Major Chronic Active [facility] Hosp ital (20 sources.) depressive [facility] of disorder, [facility] (35997) episode, unspecified Translations: [ MAJOR DEPRESSIVE DISORDER, SINGLE EPISODE, UNSPECIFIED DEGREE] Other Obesity, Chronic Active TAKAAKI KIDO , [facility] Via nutritional; unspecified MD [place] endocrine; and Hospital - metabolic [place] disorders (6 (50369) sources.) Other Obesity, Chronic Active ALI NEYMAR , [facility] Via nutritional; unspecified MD OSCAR [place] endocrine; and Hospital - metabolic [place] disorders (1 (84610) source.) Residual Obstructive Chronic Active ALI NEYMAR , [facility] Via codes; sleep apnea MD OSCAR [place] unclassified (adult) Hospital - (7 sources.) (pediatric) [place] (78519) Residual Obstructive Chronic Active ROD MOLLY [facility] Vi a codes; sleep apnea , MD [place] unclassified (adult)(pediat Hospital - (1 source.) julianna) [place] (62384) Occlusion or Occlusion and Chronic Active ALI NYEMAR , [facility] Via stenosis of stenosis of MD OSCAR [place] precerebral unspecified Hospital - arteries (2 carotid artery [place] sources.) (66179) Nonspecific Other chest Episodic Active ALI NEYMAR , [facility] V ia chest pain (6 pain MD OSCAR [place] sources.) Translations: Hospital - [ CHEST PAIN [place] NEC] (65945) Malaise and Other fatigue Episodic Active ROMAIN MAGANA No t Available fatigue (25 Translations: (38333) sources.) [ OTHER MALAISE AND FATIGUE, OTHER MALAISE AND FATIGUE, WEAKNESS] Other lower Other forms of Episodic Active ALI NEYMAR , [facility] Via respiratory dyspnea MD OSCAR [place] disease (7 Hospital - sources.) [place] (49911) Other Other long Episodic Active THAIS BAIMA [facility] Via aftercare (14 term (current) [place] sources.) drug therapy Hospital - [place] (11863) Residual Other Episodic Active ALI NEYMAR , [facility] Via codes; postprocedural MD OSCAR [place] unclassified status Hospital - (1 source.) [place] (80926) Other lower Other Episodic Active ALI NEYMAR , [facility] Via respiratory respiratory MD OSCAR [place] disease (1 abnormalities Hospital - source.) [place] (66735) Other Other symptoms Episodic Active [facility] pital gastrointestin involving [facility] of al disorders digestive [place] (2 sources.) system County (69520) Other Pain in joint, Episodic Active [facility] non-traumatic lower leg [facility] of joint [place] disorders (2 County (86997) sources.) Other Pain in Episodic Active [facility] non-traumatic unspecified [facility] of joint knee [place] disorders (9 County (87950) sources.) Other and Personal Episodic Active MARQUEZ NIETO [facility] Via unspecified history of MD [place] benign colonic polyps Hospital neoplasm (8 [place] sources.) (45205) Complications Postprocedural Episodic Active MEHRDAD WELLER [facility] Via of surgical hemorrhage of , MD [place] procedures or a Hospital - medical care genitourinary [place] (6 sources.) system organ (60347) or structure following other procedure Translations: [ HEMATOMA COMPLIC A PROC] 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 MARQUEZ NIETO Not Available roro coronary (89714) toby and other angioplasty heart disease implant and (16 sources.) graft Translations: [ ATHSCL HEART DISEASE OF [place] CORONARY , PRESENCE OF CORONARY ANGIOPLASTY IMPLANT] Coronary Presence of Episodic Active MEHRDAD WELLER [facility] Vi a roro coronary , MD [place] s and other angioplasty Hospital - heart disease implant and [place] (5 sources.) graft (19371) Translations: [ PERCUTANEOUS TRANSLUM CORON ANGIOPLASTY ] Esophageal Reflux Chronic Active MARQUEZ NIETO [facility] Via disorders (33 esophagitis MD [place] sources.) Translations: Hospital - [ [place] GASTRO-ESOPHAG (42902) EAL REFLUX DISEASE WITH ES, ESOPHAGEAL OBSTRUCTION, GASTRO-ESOPHAG EAL REFLUX DISEASE WITHOUT] Heart valve Rheumatic Chronic Active ALI NEYMAR , [facility] Via disorders (2 disorders of MD OSCAR [place] sources.) both mitral Hospital - and tricuspid [place] valves (25834) Hemorrhoids (8 Second degree Episodic Active MARQUEZ NIETO [facility] Via sources.) hemorrhoids [facility] - [place] (78491) Residual Sleep Episodic Active WILLIAM WONG [facility] Via codes; disorder, [facility] unclassified unspecified Hospital - (4 sources.) Translations: [place] [ ACQUIRED (76717) ABSENCE OF BOTH CERVIX AND UTER] Other Synovitis and Episodic Active JUDI PARVEZ Not Avai lable connective tenosynovitis, (69802) tissue disease unspecified (11 sources.) Urinary tract Urinary tract Episodic Active [facility] ospital infections (5 infection, [facility] of sources.) site not [place] specified [facility] (55762) Translations: [ URINARY TRACT INFECTION, SITE NOT SPECIFIED] Past or Other Problems Problem Normalized Date Last Normalized Normalized Provider Fa cility Classification Problem(s) Recorded Problem Problem Sta tus Duration Unclassified Acute no information no information [facility] (2 sources.) sinusitis [facility] (22181) Mood disorders Major no information no information MARQUEZ BECKMAN , Not Available (8 sources.) depressive (90765) disorder, single episode, unspecified Other Other Episodic Completed JUDI PARVEZ Not Available connective tenosynovitis (82700) tissue disease of hand and (2 sources.) wrist Disorders of Pure no information no information MARQUEZ Hammond , Not Available lipid hypercholester (18143) metabolism (8 o[place], sources.) unspecified Other lower Shortness of Episodic Completed ROMAIN Blevins pital respiratory breath [facility] of disease (10 [place] sources.) [facility] (01421) Procedures Procedure Normalized Procedure Procedure Result Performer Facility Date 02-14-2018 Colorectal scrn; hi no information MARQUEZ NIETO Vi a [facility] risk ind [place] (13152) 02-14-2018 Diagnostic endoscopic no information MARQUEZ NIETO Via [facility] examination on colon [place] (37569) 02-14-2018 Esoph endoscopy, no information [facility] [place] (04924) 02-14-2018 Upper GI endoscopy, no information MARQUEZ NIETO Vi a [facility] biopsy [place] (92120) Immunizations The data below is from unstructured sourcesNo immunization records.No immunization records.No immunization records.No immunization records.No immunization records. No Known Immunizations No Known Immunizations Results Test Name Value Interpretation Reference Range Date Time Fa cility (Normalized) (Normalized) (Medline Reference) metabolic panel on null Sodium no information (no code) Via [facility] (04486) laboratory on 2020-02-15 Albumin 4.4 g/dL (NEG) 3.4 - 5.4 g/dL 02-15-2020 PENDING LOCATION [Mass/Vol] 11:590400 [facility] (31276) ALP [Catalytic 65 U/L (NEG) 44 - 147 U/L 02-15-2020 PEND ING LOCATION activity/Vol] 11:59-0400 [facility] (24202) ALT [Catalytic 23 U/L (NEG) 4 - 40 U/L 02-15-2020 PENDIN G LOCATION activity/Vol] 11:590400 [facility] (18959) Anion gap 12 mmol/L (NEG) 3 - 11 mmol/L 02-15-2020 PENDING LOCATION [Moles/Vol] 11:59-0400 [facility] (54052) aPTT Coag (PPP) 28 s (NEG) 25 - 35 s 02-15-2020 PENDIN G LOCATION [Time] 11:590400 [facility] (83459) AST [Catalytic 35 U/L (H) 10 - 34 U/L 02-15-2020 PENDI NG LOCATION activity/Vol] 11:59-0400 [facility] (25876) Basophils (Bld) 0.1 10*3/uL (NEG) 0 - 0.3 10*3/uL 02-15-2020 PENDING LOCATION [#/Vol] 11:590400 [facility] (22824) Basophils/100 1 % (NEG) 0.5 - 1 % 02-15-2020 PENDING LOCATION WBC (Bld) 11:59-0400 [facility] (88363) Bilirubin 0.2 mg/dL (NEG) 0.1 - 1.2 mg/dL 02-15-2020 [facility] LOCATION [Mass/Vol] 11:59-0400 [facility] (71710) Calcium 9.7 mg/dL (NEG) 8.5 - 10.2 mg/dL 02-15-2020 [facility] LOCATION [Mass/Vol] 11:59-0400 [facility] (12417) Calcium 9.4 mg/dL (NEG) 8.5 - 10.2 mg/dL 02-15-2020 [facility] LOCATION [Mass/Vol] 11:59-0400 [facility] (89084) Chloride 104 mmol/L (NEG) 95 - 106 mmol/L 02-15-2020 [facility] LOCATION [Moles/Vol] 11:59-0400 [facility] (78679) CO2 [Moles/Vol] 22 mmol/L (NEG) 23 - 29 mmol/L 02-15-2020 P ENDING LOCATION 11:59-0400 [facility] (76551) Creatinine 0.90 mg/dL (NEG) 02-15-2020 PENDING LOCATI ON [Mass/Vol] 11:59-0400 [facility] (78159) Creatinine and > (no code) 02-15-2020 PENDING LOC ATION Glomerular 11:59-0400 [facility] (20695) filtration rate.predicted panel - Serum, Plasma or Blood Eosinophils 0.3 10*3/uL (NEG) 0.05 - 0.5 02-15-2020 PENDING LOCATION (Bld) [#/Vol] 10*3/uL 11:59-0400 [facility] (30597) Eosinophils/100 3 % (NEG) 1 - 4 % 02-15-2020 [facility] LOCATION WBC (Bld) 11:59-0400 [facility] (88537) Erythrocyte 13.0 % (NEG) 11.6 - 14.6 % 02-15-2020 [facility] LOCATION distribution 11:59-0400 [facility] (00785) width (RBC) [Ratio] Glucose 111 mg/dL (H) 60 - 125 mg/dL 02-15-2020 PENDING LOCATION [Mass/Vol] 11:59-0400 [facility] (78152) Hematocrit (Bld) 45 % (NEG) 36.1 - 50.3 % 02-15-2020 P ENDING LOCATION [Volume 11:59-0400 [facility] (63861) fraction] Hemoglobin (Bld) 15.1 g/dL (NEG) 12.1 - 17.2 g/dL 02-15-2020 PENDING LOCATION [Mass/Vol] 11:59-0400 [facility] (79013) INR Coag 0.9 (NEG) 02-15-2020 PENDING LOCATI ON (Platelet poor 11:59-0400 [facility] (83977) plasma or blood) [Relative time] Lymphocytes 2.7 10*3/uL (NEG) 0.9 - 2.9 02-15-2020 PENDING LOCATION (Bld) [#/Vol] 10*3/uL 11:59-0400 [facility] (41055) Lymphocytes/100 28 % (NEG) 20 - 40 % 02-15-2020 PENDIN G LOCATION WBC (Bld) 11:59-0400 [facility] (86800) Magnesium 2.3 mg/dL (NEG) 1.7 - 2.2 mg/dL 02-15-2020 PENDIN G LOCATION [Mass/Vol] 11:59-0400 [facility] (25935) MCH (RBC) 30 pg (NEG) 27 - 31 pg 02-15-2020 PENDING LOC ATION [Entitic mass] 11:59-0400 [facility] (77334) MCHC (RBC) 34 g/dL (NEG) 32 - 36 g/dL 02-15-2020 PENDING LOCATION [Mass/Vol] 11:59-0400 [facility] (95213) MCV (RBC) 89 (NEG) 02-15-2020 PENDING LOCATI ON [Entitic vol] 11:59-0400 [facility] (67766) Monocytes (Bld) 0.8 10*3/uL (NEG) 0.3 - 0.9 02-15-2020 PEND ING LOCATION [#/Vol] 10*3/uL 11:59-0400 [facility] (11334) Monocytes/100 9 % (NEG) 2 - 8 % 02-15-2020 PENDING LOCATION WBC (Bld) 11:59-0400 [facility] (27722) Myoglobin 47.3 ng/mL (NEG) 02-15-2020 PENDING LOCATI ON [Mass/Vol] 11:59-0400 [facility] (85171) Natriuretic 19.6 pg/mL (no code) 0 - 100 pg/mL 02-15-2020 PENDI NG LOCATION peptide B (Bld) 11:59-0400 [facility] (20357) [Mass/Vol] Neutrophils 5.8 10*3/uL (NEG) 1.7 - 7 10*3/uL 02-15-2020 PE NDING LOCATION (Bld) [#/Vol] 11:590400 [facility] (76985) Neutrophils/100 61 % (NEG) 40 - 60 % 02-15-2020 PENDIN G LOCATION WBC (Bld) 11:590400 [facility] (78794) Platelet mean 9.5 (NEG) 02-15-2020 PENDING LOCA TION volume (Bld) 11:590400 [facility] (83248) [Entitic vol] Platelets (Bld) 305 10*3/uL (NEG) 150 - 450 02-15-2020 PEND ING LOCATION [#/Vol] 10*3/uL 11:590400 [facility] (75276) Potassium 4.7 mmol/L (NEG) 3.7 - 5.2 mmol/L 02-15-2020 PEND ING LOCATION [Moles/Vol] 11:59-0400 [facility] (88394) Protein 8.4 g/dL (H) 6.4 - 8.3 g/dL 02-15-2020 PENDING LOCATION [Mass/Vol] 11:59-0400 [facility] (85450) PT Coag (PPP) 11.9 s (L) 9.4 - 12.5 s 02-15-2020 PENDI NG LOCATION [Time] 11:590400 [facility] (48975) RBC (Bld) 5.03 10*6/uL (NEG) 4.2 - 6.1 02-15-2020 PENDING L OCATION [#/Vol] 10*6/uL 11:590400 [facility] (36848) Sodium 138 mmol/L (NEG) 135 - 145 mmol/L 02-15-2020 PEND ING LOCATION [Moles/Vol] 11:59-0400 [facility] (19841) Troponin ng/mL (NEG) 0 - 0.4 ng/mL 02-15-2020 PENDING LOCATION I.cardiac 11:59-0400 [facility] (47146) [Mass/Vol] Urea nitrogen 21 mg/dL (H) 7 - 20 mg/dL 02-15-2020 PENDI NG LOCATION [Mass/Vol] 11:59-0400 [facility] (97700) Urea 23 mg/mg (no code) 6 - 22 mg/mg 02-15-2020 PENDING L OCATION nitrogen/Creatin 11:59-0400 [facility] (04900) ine [Mass ratio] WBC (Bld) 9.6 10*3/uL (NEG) 3.5 - 10.5 02-15-2020 PENDING L OCATION [#/Vol] 10*3/uL 11:59-0400 [facility] (13363) laboratory on 2020-02-13 CMV IgG IA Qn [...] (H) 02-11-2020 Hospital (CMV) AB, IGG 08: [facility] (80011) CYTOMEGALOVIRUS <30.0 (no code) 02-11-2020 Hospital (CMV) AB, IGM 08: [address] ([address]) EBV AB VCA, IGG >600.0 (H) 02-11-2020 Hospital 08:040 [facility] (33295) EBV AB VCA, IGM <36.0 (no code) 02-11-2020 Hospital 08:[address] (09047) EBV NUCLEAR 534.0 (H) 02-11-2020 Hospital ANTIGEN AB, IGG 08: [facility] (97010) INTERPRETATION: EBV (no code) 02-11-2020 Hospital INTERPRETATION 08: [facility] of CHART\.br\ CHAVEZ: [facility] ANTIBODY PRESENT (07170) + ANTIBODY ABSENT -\.br\ INTERPRETATION VCA-IGM VCA-IGG [...] 10*3/uL 02-11-2020 Hospital [#/Vol] 08: [facility] (15197) Basophils/100 1.10 % (no code) 0.5 - 1 % 02-11-2020 Hospital WBC (Bld) 08: [facility] () Eosinophils 0.2 10*3/uL (no code) 0.05 - 0.5 02-11-2020 Hospita l (Bld) [#/Vol] 10*3/uL 08: [facility] (65458) Eosinophils/100 2.9 % (no code) 1 - 4 % 02-11-2020 Hospit al WBC (Bld) 08: [facility] (76940) Erythrocyte 12.2 % (no code) 11.6 - 14.6 % 02-11-2020 Hospit al distribution 08: [facility] width (RBC) [facility] [Ratio] (50803) ESR (Bld) 13 mm/h (no code) 02-11-2020 Hospital [Velocity] 08: [facility] (45675) Hematocrit (Bld) 42.8 % (no code) 36.1 - 50.3 % 02-11-2020 H ospital [Volume 08: [facility] of fraction] [facility] (35800) Hemoglobin (Bld) 14.4 g/dL (no code) 12.1 - 17.2 g/dL 02-11-2020 Hospital [Mass/Vol] 08: [facility] (26452) Lymphocytes 2.07 10*3/uL (no code) 0.9 - 2.9 02-11-2020 Hospita l (Bld) [#/Vol] 10*3/uL 08: [facility] (83186) Lymphocytes/100 31.1 % (no code) 20 - 40 % 02-11-2020 Hospit al WBC (Bld) 08: [facility] (85138) MCH (RBC) 30.9 pg (no code) 27 - 31 pg 02-11-2020 Hospital [Entitic mass] 08: [facility] (36079) MCHC (RBC) 33.6 g/dL (no code) 32 - 36 g/dL 02-11-2020 Hospital [Mass/Vol] 08: [facility] (69146) MCV (RBC) 91.8 fL (no code) 80 - 100 fL 02-11-2020 Hospital [Entitic vol] 08: [facility] (48902) Monocytes (Bld) 0.5 10*3/uL (no code) 0.3 - 0.9 02-11-2020 Hosp ital [#/Vol] 10*3/uL 08: [facility] (23218) Monocytes/100 7.4 % (no code) 2 - 8 % 02-11-2020 Hospital WBC (Bld) 08: [facility] (64505) Neutrophils 3.84 10*3/uL (no code) 1.7 - 7 10*3/uL 02-11-2020 H ospital (Bld) [#/Vol] 08: [facility] (13626) Neutrophils/100 57.5 % (no code) 40 - 60 % 02-11-2020 Hospit al WBC (Bld) 08: [facility] (41538) Platelet mean 9.3 fL (no code) 7.2 - 11.7 fL 02-11-2020 Hosp ital volume (Bld) 08: [facility] of [Entitic vol] [facility] (14711) Platelets (Bld) 275 10*3/uL (no code) 150 - 450 02-11-2020 Hosp ital [#/Vol] 10*3/uL 08: [facility] (62357) RBC (Bld) 4.66 10*6/uL (no code) 4.2 - 6.1 02-11-2020 Hospital [#/Vol] 10*6/uL 08: [facility] (79824) Service comment Comment (no code) 02-11-2020 [facility] (0 0000) (Unsp spec) 21:52-0400 [Interp] WBC (Bld) 6.66 10*3/uL (no code) 3.5 - 10.5 02-11-2020 Hospital [#/Vol] 10*3/uL 08: [facility] (35799) laboratory on 2019-11-11 Basophils (Bld) 0.0 10*3/uL (no code) 0 - 0.3 10*3/uL 11-11-2019 Hospital [#/Vol] 11: [facility] (21837) Basophils/100 0.60 % (no code) 0.5 - 1 % 11-11-2019 Hospital WBC (Bld) 11: [facility] (80199) Eosinophils 0.3 10*3/uL (no code) 0.05 - 0.5 11-11-2019 Hospita l (Bld) [#/Vol] 10*3/uL 11: [facility] (46108) Eosinophils/100 4.1 % (no code) 1 - 4 % 11-11-2019 Hospit al WBC (Bld) 11:26-0500 [facility] (64873) Erythrocyte 12.3 % (no code) 11.6 - 14.6 % 11-11-2019 Hospit al distribution 11: [facility] of width (RBC) [facility] [Ratio] (79469) ESR (Bld) 11 mm/h (no code) 11-11-2019 Hospital [Velocity] 11: [facility] (82313) Hematocrit (Bld) 42.4 % (no code) 36.1 - 50.3 % 11-11-2019 H ospital [Volume 11: [facility] of fraction] [facility] (47806) Hemoglobin (Bld) 14.0 g/dL (no code) 12.1 - 17.2 g/dL 11-11-2019 Hospital [Mass/Vol] 11: [facility] (53808) Lymphocytes 2.30 10*3/uL (no code) 0.9 - 2.9 11-11-2019 Hospita l (Bld) [#/Vol] 10*3/uL 11: [facility] (33263) Lymphocytes/100 33.6 % (no code) 20 - 40 % 11-11-2019 Hospit al WBC (Bld) 11: [facility] (05914) MCH (RBC) 30.5 pg (no code) 27 - 31 pg 11-11-2019 Hospital [Entitic mass] 11: [facility] (86328) MCHC (RBC) 33.0 g/dL (no code) 32 - 36 g/dL 11-11-2019 Hospital [Mass/Vol] 11: [facility] (45791) MCV (RBC) 92.4 fL (no code) 80 - 100 fL 11-11-2019 Hospital [Entitic vol] 11: [facility] (09808) Monocytes (Bld) 0.5 10*3/uL (no code) 0.3 - 0.9 11-11-2019 Hosp ital [#/Vol] 10*3/uL 11: [facility] (17512) Monocytes/100 7.2 % (no code) 2 - 8 % 11-11-2019 Hospital WBC (Bld) 11: [facility] (19762) Neutrophils 3.73 10*3/uL (no code) 1.7 - 7 10*3/uL 11-11-2019 H ospital (Bld) [#/Vol] 11: [facility] (62061) Neutrophils/100 54.5 % (no code) 40 - 60 % 11-11-2019 Hospit al WBC (Bld) 11: [facility] (39558) Platelet mean 9.5 fL (no code) 7.2 - 11.7 fL 11-11-2019 Hosp ital volume (Bld) 11: [facility] [Entitic vol] [facility] (23968) Platelets (Bld) 267 10*3/uL (no code) 150 - 450 11-11-2019 Hosp ital [#/Vol] 10*3/uL 11: [facility] (15652) RBC (Bld) 4.59 10*6/uL (no code) 4.2 - 6.1 11-11-2019 Hospital [#/Vol] 10*6/uL 11: [facility] (17040) WBC (Bld) 6.84 10*3/uL (no code) 3.5 - 10.5 11-11-2019 Hospital [#/Vol] 10*3/uL 11: [facility] (02946) laboratory on 2019-05-22 Clue cells Wet Not Observed (no code) 05-22-2019 Hospital prep Ql (Vag 17:55-0400 [facility] of fld) [facility] (67540) T. vaginalis Wet Not Observed (no code) 05-22-2019 Hospital prep Ql (Vag 17:55-0400 [facility] of fld) [facility] (76919) Yeast Wet prep Not Observed (no code) 05-22-2019 Hospital Ql (Vag fld) 17:55-0400 [facility] (28200) not yet categorized on 2019-05-15 Electrocardiogra Complete (no code) 05-15-2019 Hospital ms recorded 13: [facility] (55733) Urine Volume Urine Volume (no code) 05-15-2019 Hospital Sufficient 13: [facility] (10mL) [facility] (78332) no information Urine Saved if (A) 05-15-2019 Hospital Culture Needed 13: [facility] of (48hrs from time [facility] of collection) (89401) laboratory on 2019-05-15 Albumin BCG dye 4.1 (no code) 05-15-2019 Hospital [Mass/Vol] 13: [facility] (16126) ALP [Catalytic 57 U/L (no code) 44 - 147 U/L 05-15-2019 Hosp ital activity/Vol] 13: [facility] (92627) ALT [Catalytic 19 U/L (no code) 4 - 40 U/L 05-15-2019 Hospit al activity/Vol] 13: [facility] (37614) Anion gap 15 mmol/L (H) 3 - 11 mmol/L 05-15-2019 Hospital [Moles/Vol] 13: [facility] [facility] ([id number]) AST [Catalytic 25 U/L (no code) 10 - 34 U/L 05-15-2019 Hospi ravinder activity/Vol] 13: [facility] (87323) Bacteria LM Ql Negative (no code) 05-15-2019 Hospital (Urine sed) 13: [facility] ([id number]) Basophils (Bld) 0.1 10*3/uL (no code) 0 - 0.3 10*3/uL 05-15-2019 Hospital [#/Vol] 13: [facility] (85020) Basophils/100 0.80 % (no code) 0.5 - 1 % 05-15-2019 Hospital WBC (Bld) 13: [facility] (69740) Bilirubin 0.2 mg/dL (no code) 0.1 - 1.2 mg/dL 05-15-2019 Hospit al [Mass/Vol] 13: [facility] () Bilirubin N/A (A) 05-15-2019 Hospital Confirm Ql (U) 13: [facility] (48673) Bilirubin Ql (U) Negative (no code) 05-15-2019 Hospital 13: [facility] (59668) Calcium 10.1 mg/dL (no code) 8.5 - 10.2 mg/dL 05-15-2019 Hosp ital [Mass/Vol] 13: [facility] ([id number]) Chloride 104 mmol/L (no code) 95 - 106 mmol/L 05-15-2019 Hospi ravinder [Moles/Vol] 13: [facility] () CK [Catalytic 97 U/L (no code) 05-15-2019 Hospital activity/Vol] 13: [facility] () CK.MB [Mass/Vol] 1.9 ng/mL (no code) 0 - 4.3 ng/mL 05-15-2019 H ospital 13: [facility] () Clarity (U) Clear (no code) 05-15-2019 Hospital 13: [facility] () Cobalamin 510.00 pg/mL (no code) 200 - 900 pg/mL 05-15-2019 Hos pital (Vitamin B12) 13: [facility] [Mass/Vol] [facility] (87593) Color (U) Yellow (no code) 05-15-2019 Hospital 13: [facility] () Creatinine 0.76 mg/dL (no code) 05-15-2019 Hospital [Mass/Vol] 13: [facility] (02265) Eosinophils 0.2 10*3/uL (no code) 0.05 - 0.5 05-15-2019 Hospita l (Bld) [#/Vol] 10*3/uL 13: [facility] (79257) Eosinophils/100 2.4 % (no code) 1 - 4 % 05-15-2019 Hospit al WBC (Bld) 13: [facility] (01144) Epithelial 0-5/HPF (A) 05-15-2019 Hospital cells.squamous 13: [facility] LM.HPF (Urine [facility] sed) [#/Area] ([id number]) Erythrocyte 12.3 % (no code) 11.6 - 14.6 % 05-15-2019 Hospit al distribution 13: [facility] width (RBC) [facility] [Ratio] ([id number]) GFR/1.73 sq 76 (no code) 90 - 120 05-15-2019 Hospital M.predicted MDRD mL/min/{1.73_m2} mL/min/{1.73_m2} 13: [facility] (S/P/Bld) [Vol [facility] rate/Area] (00255) Globulin (S) 3.6 g/dL (H) 2 - 3.5 g/dL 05-15-2019 Hospit al [Mass/Vol] 13: [facility] (61173) Glucose 112 mg/dL (H) 60 - 125 mg/dL 05-15-2019 Hospita l [Mass/Vol] 13: [facility] (69102) Glucose Test Negative (no code) 05-15-2019 Hospital strip (U) 13: [facility] [Mass/Vol] [facility] (72882) HCO3 (P) 26 (no code) 05-15-2019 Hospital [Moles/Vol] 13: [facility] (68388) Hematocrit (Bld) 43.5 % (no code) 36.1 - 50.3 % 05-15-2019 H ospital [Volume 13: [facility] fraction] [facility] (77019) Hemoglobin (Bld) 14.6 g/dL (no code) 12.1 - 17.2 g/dL 05-15-2019 Hospital [Mass/Vol] 13: [facility] (48376) Hemoglobin Ql Negative (no code) 05-15-2019 Hospital (U) 13: [facility] (10431) Ketones (U) Negative (no code) 05-15-2019 Hospital [Mass/Vol] 13: [facility] (80301) Leukocyte Negative (no code) 05-15-2019 Hospital esterase Test 13: [facility] strip Ql (U) [facility] (17195) Lymphocytes 1.99 10*3/uL (no code) 0.9 - 2.9 05-15-2019 Hospita l (Bld) [#/Vol] 10*3/uL 13: [facility] () Lymphocytes/100 27.9 % (no code) 20 - 40 % 05-15-2019 Hospit al WBC (Bld) 13: [facility] (68390) MCH (RBC) 30.5 pg (no code) 27 - 31 pg 05-15-2019 Hospital [Entitic mass] 13: [facility] (14157) MCHC (RBC) 33.6 g/dL (no code) 32 - 36 g/dL 05-15-2019 Hospital [Mass/Vol] 13: [facility] (08016) MCV (RBC) 91.0 fL (no code) 80 - 100 fL 05-15-2019 Hospital [Entitic vol] 13: [facility] (59747) Monocytes (Bld) 0.5 10*3/uL (no code) 0.3 - 0.9 05-15-2019 Hosp ital [#/Vol] 10*3/uL 13: [facility] (99004) Monocytes/100 6.3 % (no code) 2 - 8 % 05-15-2019 Hospital WBC (Bld) 13: [facility] (93554) Myoglobin 35.9 ng/mL (no code) 05-15-2019 Hospital [Mass/Vol] 13: [facility] (11537) Neutrophils 4.45 10*3/uL (no code) 1.7 - 7 10*3/uL 05-15-2019 H ospital (Bld) [#/Vol] 13: [facility] (07183) Neutrophils/100 62.6 % (no code) 40 - 60 % 05-15-2019 Hospit al WBC (Bld) 13: [facility] (07293) Nitrite Ql (U) Negative (no code) 05-15-2019 Hospital 13: [facility] (95999) Osmolality Calc 291 (no code) 05-15-2019 Hospital [Osmolality] 13: [facility] () pH (U) 7.0 [pH] (no code) 4.6 - 8 [pH] 05-15-2019 Hospital 13: [facility] () Platelet mean 9.4 fL (no code) 7.2 - 11.7 fL 05-15-2019 Hosp ital volume (Bld) 13: [facility] [Entitic vol] [facility] (78455) Platelets (Bld) 287 10*3/uL (no code) 150 - 450 05-15-2019 Hosp ital [#/Vol] 10*3/uL 13: [facility] (77243) Potassium 4.6 mmol/L (no code) 3.7 - 5.2 mmol/L 05-15-2019 Hosp ital [Moles/Vol] 13: [facility] (26439) Protein (U) Negative (no code) 0 - 20 mg/dL 05-15-2019 Hospita l [Mass/Vol] 13: [facility] (88221) Protein 7.7 g/dL (no code) 6.4 - 8.3 g/dL 05-15-2019 Hospita l [Mass/Vol] 13: [facility] (70656) RBC (Bld) 4.78 10*6/uL (no code) 4.2 - 6.1 05-15-2019 Hospital [#/Vol] 10*6/uL 13: [facility] (28639) RBC LM.HPF Negative (no code) 0 - 4 /[HPF] 05-15-2019 Hospital (Urine sed) 13: [facility] [#/Area] [facility] (01453) Sodium 140 mmol/L (no code) 135 - 145 mmol/L 05-15-2019 Hosp ital [Moles/Vol] 13: [facility] (66693) Specific gravity 1.010 (no code) 05-15-2019 Hospital (U) [Rel 13: [facility] density] [facility] (66475) Troponin ng/mL (no code) 0 - 0.4 ng/mL 05-15-2019 Hospital I.cardiac 13: [facility] [Mass/Vol] [facility] (91303) Urea nitrogen 16 mg/dL (no code) 7 - 20 mg/dL 05-15-2019 Hospi ravinder [Mass/Vol] 13: [facility] (99773) Urobilinogen Qn 0.2 (A) 05-15-2019 Hospital (U) {Josias'U}/dL 13: [facility] (76521) WBC (Bld) 7.12 10*3/uL (no code) 3.5 - 10.5 05-15-2019 Hospital [#/Vol] 10*3/uL 13:30 [facility] (85864) WBC LM.HPF Negative (no code) 0 - 5 /[HPF] 05-15-2019 Hospital (Urine sed) 13: [facility] [#/Area] [facility] (77173) laboratory on 2019-04-27 Albumin BCG dye 4.1 (no code) 04-27-2019 Hospital [Mass/Vol] 12:56040 [facility] (61612) ALP [Catalytic 57 U/L (no code) 44 - 147 U/L 04-27-2019 Hosp ital activity/Vol] 12: [facility] (46799) ALT [Catalytic 21 U/L (no code) 4 - 40 U/L 04-27-2019 Hospit al activity/Vol] 12:56040 [facility] (10175) Anion gap 14 mmol/L (no code) 3 - 11 mmol/L 04-27-2019 Hospital [Moles/Vol] 12: [facility] (33588) AST [Catalytic 23 U/L (no code) 10 - 34 U/L 04-27-2019 Hospi ravinder activity/Vol] 12: [facility] (76315) Basophils (Bld) 0.1 10*3/uL (no code) 0 - 0.3 10*3/uL 04-27-2019 Hospital [#/Vol] 12: [facility] (81277) Basophils/100 0.80 % (no code) 0.5 - 1 % 04-27-2019 Hospital WBC (Bld) 12: [facility] (97948) Bilirubin 0.3 mg/dL (no code) 0.1 - 1.2 mg/dL 04-27-2019 Hospit al [Mass/Vol] 12: [facility] (55457) Calcium 8.9 mg/dL (no code) 8.5 - 10.2 mg/dL 04-27-2019 Hospi ravinder [Mass/Vol] 12: [facility] (46120) Chloride 105 mmol/L (no code) 95 - 106 mmol/L 04-27-2019 Hospi ravinder [Moles/Vol] 12: [facility] (49041) Creatinine 0.77 mg/dL (no code) 04-27-2019 Hospital [Mass/Vol] 12: [facility] (40918) Eosinophils 0.3 10*3/uL (no code) 0.05 - 0.5 04-27-2019 Hospita l (Bld) [#/Vol] 10*3/uL 12: [facility] (52849) Eosinophils/100 3.6 % (no code) 1 - 4 % 04-27-2019 Hospit al WBC (Bld) 12: [facility] (22374) Erythrocyte 12.2 % (no code) 11.6 - 14.6 % 04-27-2019 Hospit al distribution 12: [facility] width (RBC) [facility] [Ratio] ([id number]) GFR/1.73 sq 74 (no code) 90 - 120 04-27-2019 Hospital M.predicted MDRD mL/min/{1.73_m2} mL/min/{1.73_m2} 12: [facility] (S/P/Bld) [Vol [facility] rate/Area] (68201) Globulin (S) 3.0 g/dL (no code) 2 - 3.5 g/dL 04-27-2019 Hospit al [Mass/Vol] 12:56 [facility] () Glucose 98 mg/dL (no code) 60 - 125 mg/dL 04-27-2019 Hospita l [Mass/Vol] 12:56040 [facility] (11978) HCO3 (P) 26 (no code) 04-27-2019 Hospital [Moles/Vol] 12:56040 [facility] (55828) Hematocrit (Bld) 43.4 % (no code) 36.1 - 50.3 % 04-27-2019 H ospital [Volume 12:56 [facility] fraction] [facility] (80589) Hemoglobin (Bld) 14.5 g/dL (no code) 12.1 - 17.2 g/dL 04-27-2019 Hospital [Mass/Vol] 12:56040 [facility] (85473) Lymphocytes 2.51 10*3/uL (no code) 0.9 - 2.9 04-27-2019 Hospita l (Bld) [#/Vol] 10*3/uL 12:56040 [facility] (12248) Lymphocytes/100 32.4 % (no code) 20 - 40 % 04-27-2019 Hospit al WBC (Bld) 12:56 [facility] (35251) M. pneumoniae Ab Negative (no code) 04-27-2019 Hospital Ql (S) 12: [facility] (65558) MCH (RBC) 30.5 pg (no code) 27 - 31 pg 04-27-2019 Hospital [Entitic mass] 12:56 [facility] (42911) MCHC (RBC) 33.4 g/dL (no code) 32 - 36 g/dL 04-27-2019 Hospital [Mass/Vol] 12:56 [facility] (76501) MCV (RBC) 91.2 fL (no code) 80 - 100 fL 04-27-2019 Hospital [Entitic vol] 12:56 [facility] (79731) Monocytes (Bld) 0.6 10*3/uL (no code) 0.3 - 0.9 04-27-2019 Hosp ital [#/Vol] 10*3/uL 12: [facility] (50038) Monocytes/100 8.0 % (no code) 2 - 8 % 04-27-2019 Hospital WBC (Bld) 12: [facility] (43466) Neutrophils 4.27 10*3/uL (no code) 1.7 - 7 10*3/uL 04-27-2019 H ospital (Bld) [#/Vol] 12: [facility] (11773) Neutrophils/100 55.2 % (no code) 40 - 60 % 04-27-2019 Hospit al WBC (Bld) 12: [facility] (30693) Osmolality Calc 290 (no code) 04-27-2019 Hospital [Osmolality] 12: [facility] (37498) Platelet mean 9.3 fL (no code) 7.2 - 11.7 fL 04-27-2019 Hosp ital volume (Bld) 12: [facility] [Entitic vol] [facility] (76096) Platelets (Bld) 267 10*3/uL (no code) 150 - 450 04-27-2019 Hosp ital [#/Vol] 10*3/uL 12:56 [facility] (99811) Potassium 4.7 mmol/L (no code) 3.7 - 5.2 mmol/L 04-27-2019 Hosp ital [Moles/Vol] 12:040 [facility] (11893) Protein 7.1 g/dL (no code) 6.4 - 8.3 g/dL 04-27-2019 Hospita l [Mass/Vol] 12:040 [facility] (61095) RBC (Bld) 4.76 10*6/uL (no code) 4.2 - 6.1 04-27-2019 Hospital [#/Vol] 10*6/uL 12:040 [facility] (86616) Sodium 140 mmol/L (no code) 135 - 145 mmol/L 04-27-2019 Hosp ital [Moles/Vol] 12: [facility] (11657) TSH Qn 1.47 (no code) 04-27-2019 Hospital 12: [facility] (87569) Urea nitrogen 15 mg/dL (no code) 7 - 20 mg/dL 04-27-2019 Hospi ravinder [Mass/Vol] 12:040 [facility] (11099) WBC (Bld) 7.74 10*3/uL (no code) 3.5 - 10.5 04-27-2019 Hospital [#/Vol] 10*3/uL 12:040 [facility] (09609) other on 2018-10-22 Erythrocyte 12.3 % (no code) 11.6 - 14.6 % 10-22-2018 Hospit al distribution 15: [facility] width (RBC) [facility] [Ratio] ([id number]) M. pneumoniae Ab Negative (no code) 10-22-2018 Hospital Ql (S) 15: [facility] (89043) MCHC (RBC) 33.3 g/dL (no code) 32 - 36 g/dL 10-22-2018 Hospital [Mass/Vol] 15: [facility] (14062) Platelet mean 9.2 fL (no code) 7.2 - 11.7 fL 10-22-2018 Hosp ital volume (Bld) 15: [facility] [Entitic vol] [facility] (45869) hematology on 2018-10-22 Basophils (Bld) 0.1 10*3/uL (no code) 0 - 0.3 10*3/uL 10-22-2018 Hospital [#/Vol] 15:050 [facility] (42487) Basophils/100 0.90 % (no code) 0.5 - 1 % 10-22-2018 Hospital WBC (Bld) 15: [facility] (96865) Eosinophils 0.2 10*3/uL (no code) 0.05 - 0.5 10-22-2018 Hospita l (Bld) [#/Vol] 10*3/uL 15: [facility] (98404) Eosinophils/100 3.5 % (no code) 1 - 4 % 10-22-2018 Hospit al WBC (Bld) 15: [facility] (83514) Hematocrit (Bld) 45.9 % (no code) 36.1 - 50.3 % 10-22-2018 H ospital [Volume 15:0500 [facility] fraction] [facility] (66870) Hemoglobin (Bld) 15.3 g/dL (H) 12.1 - 17.2 g/dL 10-22-2018 Hospital [Mass/Vol] 15:050 [facility] (65648) Lymphocytes 1.84 10*3/uL (no code) 0.9 - 2.9 10-22-2018 Hospita l (Bld) [#/Vol] 10*3/uL 15:050 [facility] (35956) Lymphocytes/100 26.8 % (no code) 20 - 40 % 10-22-2018 Hospit al WBC (Bld) 15:050 [facility] (62123) MCH (RBC) 29.9 pg (no code) 27 - 31 pg 10-22-2018 Hospital [Entitic mass] 15:050 [facility] (04298) MCV (RBC) 89.6 fL (no code) 80 - 100 fL 10-22-2018 Hospital [Entitic vol] 15: [facility] (49100) Monocytes (Bld) 0.7 10*3/uL (no code) 0.3 - 0.9 10-22-2018 Hosp ital [#/Vol] 10*3/uL 15: [facility] (79492) Monocytes/100 10.1 % (no code) 2 - 8 % 10-22-2018 Hospital WBC (Bld) 15: [facility] (75544) Neutrophils 4.03 10*3/uL (no code) 1.7 - 7 10*3/uL 10-22-2018 H ospital (Bld) [#/Vol] 15: [facility] (68253) Neutrophils/100 58.7 % (no code) 40 - 60 % 10-22-2018 Hospit al WBC (Bld) 15: [facility] (99440) Platelets (Bld) 265 10*3/uL (no code) 150 - 450 10-22-2018 Hosp ital [#/Vol] 10*3/uL 15: [facility] (39088) RBC (Bld) 5.12 10*6/uL (H) 4.2 - 6.1 10-22-2018 Hospital [#/Vol] 10*6/uL 15: [facility] (69090) WBC (Bld) 6.86 10*3/uL (no code) 3.5 - 10.5 10-22-2018 Hospital [#/Vol] 10*3/uL 15: [facility] (21459) urinalysis on 2018-08-07 Bacteria LM.HPF Trace (A) 08-07-2018 Hospital #/area (Urine 12: [facility] [place] (27163) Bilirubin Ql (U) Negative (no code) 08-07-2018 Hospital 12:45050 [facility] (87886) Clarity Nom (U) Clear (no code) 08-07-2018 Hospital 12: [facility] (84760) Color Nom (U) Yellow (no code) 08-07-2018 Hospital 12:45-0500 [facility] (16238) Epithelial 0-5/HPF (A) 08-07-2018 Hospital cells.squamous 12:45-0500 [facility] LM.HPF #/area [facility] (Urine sed) (66022) Hemoglobin Test Negative (no code) 08-07-2018 Hospital strip Ql (U) 12:45-0500 [facility] (57750) Leukocyte Negative (no code) 08-07-2018 Hospital esterase Test 12:45-0500 [facility] strip Ql (U) [facility] (80311) Nitrite Test Negative (no code) 08-07-2018 Hospital strip Ql (U) 12:45-0500 [facility] (41981) pH Test strip 7.0 [pH] (no code) 4.6 - 8 [pH] 08-07-2018 Hospi ravinder (U) 12:45-0500 [facility] (90516) Protein mass Negative (no code) 0 - 20 mg/dL 08-07-2018 Hospit al conc (U) 12:45-0500 [facility] (86422) RBC LM.HPF Negative (no code) 0 - 4 /[HPF] 08-07-2018 Hospital #/area (Urine 12:45-0500 [facility] sed) [facility] (32972) Specific gravity 1.015 (no code) 08-07-2018 Hospital Relative Density 12:45-0500 [facility] (U) [facility] (10918) Urobilinogen 0.2 (A) 0.2 - 1 08-07-2018 Hospital Test strip Qn {Josias'U}/dL {Josias'U}/dL 12:45-0500 [facility] (U) [facility] (98358) WBC LM.HPF Negative (no code) 0 - 5 /[HPF] 08-07-2018 Hospital #/area (Urine 12:45-0500 [facility] sed) [facility] (20622) other on 2018-08-07 Bilirubin N/A (A) 08-07-2018 Hospital [Presence] in 12:45-0500 [facility] Urine by [facility] Confirmatory ([id number]) method Glucose Negative (no code) 08-07-2018 Hospital [Mass/volume] in 12:45-0500 [facility] Urine by Test [facility] strip ([id number]) Ketones mass Negative (no code) 08-07-2018 Hospital conc (U) 12:45-0500 [facility] (63598) Urine Volume Urine Volume (no code) 08-07-2018 Hospital Sufficient 12:45-0500 [facility] (10mL) [facility] (12686) no information Urine Saved if (A) 08-07-2018 Hospital Culture Needed 12:45-0500 [facility] (48hrs from time [facility] of collection) ([id number]) metabolic panel on 2018-08-07 Anion gap 3 14 mmol/L (no code) 3 - 11 mmol/L 08-07-2018 Hospit al molar conc 12:450500 [facility] (19127) Calcium mass 9.3 mg/dL (no code) 8.5 - 10.2 mg/dL 08-07-2018 Ho spital conc 12:45-0500 [facility] (00548) Chloride molar 103 mmol/L (no code) 95 - 106 mmol/L 08-07-2018 Hospital conc 12:450500 [facility] (86482) CO2 molar conc 27 mmol/L (no code) 23 - 29 mmol/L 08-07-2018 Ho spital 12:450500 [facility] (44687) Creatinine mass 0.82 mg/dL (no code) 08-07-2018 Hospital conc 12:450500 [facility] (84736) GFR/1.73 sq M 69 (no code) 90 - 120 08-07-2018 Hospital predicted among mL/min/{1.73_m2} mL/min/{1.73_m2} 12:450500 [facility] non-blacks MDRD [facility] vol rate/area ([id number]) (S/P/Bld) Glucose mass 88 mg/dL (no code) 60 - 125 mg/dL 08-07-2018 Hosp ital conc 12:45-0500 [facility] (15714) Osmolality 291 mosm/kg (no code) 275 - 295 08-07-2018 Hospital mosm/kg 12:45-0500 [facility] (94673) Potassium molar 4.4 mmol/L (no code) 3.7 - 5.2 mmol/L 08-07-2018 Hospital conc 12:45-0500 [facility] (52085) Sodium molar 140 mmol/L (no code) 135 - 145 mmol/L 08-07-2018 H ospital conc 12:450500 [facility] (63990) Urea nitrogen 20 mg/dL (no code) 7 - 20 mg/dL 08-07-2018 Hospi ravinder mass conc 12:45-0500 [facility] (69521) hematology on 2018-08-07 Basophils Auto 0.1 10*3/uL (no code) 0 - 0.3 10*3/uL 08-07-2018 Hospital #/vol (Bld) 12:45-0500 [facility] (70627) Basophils/100 0.80 % (no code) 0.5 - 1 % 08-07-2018 Hospital WBC Auto (Bld) 12:45-0500 [facility] (18129) Eosinophils Auto 0.2 10*3/uL (no code) 0.05 - 0.5 08-07-2018 Ho spital #/vol (Bld) 10*3/uL 12:45-0500 [facility] (12180) Eosinophils/100 2.7 % (no code) 1 - 4 % 08-07-2018 Hospit al WBC Auto (Bld) 12:450500 [facility] (28194) Erythrocyte 12.7 % (no code) 11.6 - 14.6 % 08-07-2018 Hospit al distribution 12:450500 [facility] width Auto Ratio [facility] (RBC) ([id number]) Hematocrit Auto 43.5 % (no code) 36.1 - 50.3 % 08-07-2018 Ho spital Volume Fraction 12:45-0500 [facility] (Bld) [facility] (59076) Hemoglobin mass 14.1 g/dL (no code) 12.1 - 17.2 g/dL 08-07-2018 Hospital conc (Bld) 12:45-0500 [facility] (56048) Lymphocytes Auto 2.12 10*3/uL (no code) 0.9 - 2.9 08-07-2018 Ho spital #/vol (Bld) 10*3/uL 12:45-0500 [facility] (95881) Lymphocytes/100 28.3 % (no code) 20 - 40 % 08-07-2018 Hospit al WBC Auto (Bld) 12:450500 [facility] (15105) MCH Auto Entitic 29.6 pg (no code) 27 - 31 pg 08-07-2018 Hosp ital mass (RBC) 12:450500 [facility] (42566) MCHC Auto mass 32.4 g/dL (no code) 32 - 36 g/dL 08-07-2018 Hosp ital conc (RBC) 12:450500 [facility] (73514) MCV Auto Entitic 91.2 fL (no code) 80 - 100 fL 08-07-2018 Hos pital volume (RBC) 12:450500 [facility] (14051) Monocytes Auto 0.5 10*3/uL (no code) 0.3 - 0.9 08-07-2018 Hospi ravinder #/vol (Bld) 10*3/uL 12:450500 [facility] (73121) Monocytes/100 6.8 % (no code) 2 - 8 % 08-07-2018 Hospital WBC Auto (Bld) 12:450500 [facility] (40790) Neutrophils Auto 4.61 10*3/uL (no code) 1.7 - 7 10*3/uL 08-07-20 18 Hospital #/vol (Bld) 12:450500 [facility] (61358) Neutrophils/100 61.4 % (no code) 40 - 60 % 08-07-2018 Hospit al WBC Auto (Bld) 12:450500 [facility] (84704) Platelet mean 9.1 fL (no code) 7.2 - 11.7 fL 08-07-2018 Hosp ital volume Auto 12:45-0500 [facility] Entitic volume [facility] ([facility]) (28466) Platelets Auto 259 10*3/uL (no code) 150 - 450 08-07-2018 Hospi ravinder #/vol (Bld) 10*3/uL 12:45-0500 [facility] (10117) RBC Auto #/vol 4.77 10*6/uL (no code) 4.2 - 6.1 08-07-2018 Hosp ital (Bld) 10*6/uL 12:45-0500 [facility] ([id number]) WBC Auto #/vol 7.50 10*3/uL (no code) 3.5 - 10.5 08-07-2018 Hos pital (d) 10*3/uL 12:45-0500 [facility] ([id number]) venous blood hemoglobin measurement (mass/volume) on 2018-02-22 Hemoglobin (HGB) 13.7 g/dL (no code) 12 - 18 g/dL Via [facility] ([id number]) blood neutrophils automated count (number/volume) on 2018-02-22 Neutrophils 4.7 10*3/uL (no code) 1.5 - 7.8 Via [facility] 10*3/[facility] ([id number]) blood monocytes/100 leukocytes on 2018-02-22 Monocytes/100 9 % (no code) 2 - 8 % Via [facility] leukocytes [facility] ([id number]) blood monocytes automated count (number/volume) on 2018-02-22 Monocytes 0.7 10*3/uL (no code) 0.2 - 1.1 Via [facility] 10*3/[facility] ([id number]) blood lymphocytes automated count (number/volume) on 2018-02-22 Lymphocytes 1.5 10*3/uL (no code) 0.85 - 4.1 Via [facility] 10*3/[facility] ([id number]) blood leukocytes automated count (number/volume) on 2018-02-22 WBC (Leukocytes) 7.1 10*3/uL (no code) 3.8 - 10.8 Via [facility] 10*3/uL [facility] ([id number]) blood hematocrit (volume fraction) on 2018-02-22 Hematocrit (HCT) 40 % (no code) 39 - 51 % Via [facility] ([id number]) blood erythrocytes automated count (number/volume) on 2018-02-22 Erythrocytes 4.48 10*6/uL (no code) 4.2 - 6.1 Via [facility] (RBC) 10*6/uL [facility] ([id number]) automated erythrocyte mean corpuscular volume on 2018-02-22 MCV 89 fL (no code) 80 - 100 fL Via [facility] ([id number]) automated erythrocyte mean corpuscular hemoglobin concentration measurement (mass/volume) on 2018-02-22 MCHC 34 g/dL (no code) 32 - 36 g/dL Via [facility] ([id number]) automated erythrocyte mean corpuscular hemoglobin (mass per erythrocyte) on 2018-02-22 MCH 31 pg (no code) 27 - 31 pg Via [facility] ([id number]) automated erythrocyte distribution width ratio on 2018-02-22 RDW-CA 12.7 % (no code) 11 - 15 % Via [facility] ([id number]) automated eosinophil count on 2018-02-22 Eosinophils 0.2 10*3/uL (no code) 0.05 - 1.5 Via [facility] 10*3/uL [facility] ([id number]) automated blood platelet mean volume measurement on 2018-02-22 Platelet mean 9.5 fL (no code) 7.2 - 11.7 fL Via [facility] (PMV) [facility] ([id number]) automated blood platelet count (count/volume) on 2018-02-22 Platelets 279 10*3/uL (no code) 150 - 400 Via [facility] 10*3/uL [facility] ([id number]) automated blood neutrophils/100 leukocytes on 2018-02-22 Neutrophils/100 66 % (no code) 40 - 60 % Via [facility] leukocytes [facility] ([id number]) automated blood lymphocytes/100 leukocytes on 2018-02-22 Lymphocytes/100 22 % (no code) 20 - 40 % Via [facility] leukocytes [facility] ([id number]) automated blood eosinophils/100 leukocytes on 2018-02-22 Eosinophils/100 3 % (no code) 1 - 4 % Via [facility] ([id number]) automated blood basophils/100 leukocytes on 2018-02-22 Basophils/100 1 % (no code) 0.5 - 1 % Via [facility] ([id number]) automated blood basophil count (count/volume) on 2018-02-22 Basophils 0.1 10*3/uL (no code) 0 - 0.2 10*3/uL Via [facility] ([id number]) no panel information on 2018-02-12 NEGATED no [...] code) 09-12-2017 Not Availab le no 13:56-0500 ([id number]) information NEGATED no information (no code) 09-12-2017 Not Availab le no 13:56-0500 (31386) information NEGATED no information (no code) 09-12-2017 Not Availab le no 13:56-0500 (46832) information metabolic panel on 2017-09-12 Albumin mass [...] on 2017-07-16 Amikacin <=16 (S) Not Available (12996) Amoxicillin/K <=8/4 (S) Not Available Clavulanate (68095) Ampicillin <=8 (S) Not Available (93686) Ampicillin/Sulba <=8/4 (S) Not Available ctam (08660) Aztreonam <=8 (S) Not Available (24474) Cefazolin <=8 (S) Not Available (03006) Cefepime <=8 (S) Not Available (41374) Cefotaxime <=2 (S) Not Available (32468) Cefotaxime/K <=0.5 (no code) Not Available Clavulanate (97676) Cefoxitin <=8 (S) Not Available (07225) Ceftazidime <=1 (S) Not Available (67643) Ceftazidime/K <=0.25 (no code) Not Available Clavulanate (36974) Ceftriaxone <=8 (S) Not Available (69642) Cefuroxime <=4 (S) Not Available (17093) Cephalothin <=8 (S) Not Available (38358) Ciprofloxacin <=1 (S) Not Available (05834) CULTURE SOURCE voided urine (no code) 07-16-2017 Not Availa ble 18:30-0400 (28088) Ertapenem <=1 (S) Not Available (47688) FINAL CULTURE Escherichia coli (no code) 07-16-2017 Not Pam ilable RESULTS (Isolate 1) 18:30-0400 (43311) Gentamicin <=4 (S) Not Available (69475) Imipenem <=4 (S) Not Available (45381) Levofloxacin <=2 (S) Not Available (81858) MEDIA PLATED Setup at 18:26 (no code) 07-16-2017 Not Availa ble on 07/16/2017 18:30-0400 (70207) Meropenem <=4 (S) Not Available (44171) Nitrofurantoin <=32 (S) Not Available (92359) Piperacillin <=16 (S) Not Available (02161) Piperacillin/Oskar <=16 (S) Not Available obactam (96913) PRELIM CULTURE >100,000 Gram (no code) 07-16-2017 Not Avail able RESULTS Negative Lactose 18:30-0400 (49300) Public Information Specialist LIZ / ID to Follow Tetracycline >8 (R) Not Available (63011) Tigecycline <=2 (S) Not Available (81803) Tobramycin <=4 (S) Not Available (57646) Trimethoprim/ <=2/38 (S) Not Available Sulfamethoxazole (79979) thyroid on 2017-04-11 TSH Qn 1.40 (no code) 04-11-2017 Not Available 20:04-0400 (15396) other on 2017-04-11 Albumin BCG dye 3.6 (no code) 04-11-2017 Not Availa ble [Mass/Vol] 20:040400 (51133) CK [Catalytic 95 U/L (no code) 04-11-2017 Not Availabl e activity/Vol] 20:040400 (37055) Electrocardiogra Complete (no code) 04-11-2017 Not Avail able ms recorded 20:39-0 (16888) Erythrocyte 12.2 % (no code) 11.6 - 14.6 % 04-11-2017 Not Av ailable distribution 20:040400 (36447) width (RBC) [Ratio] GFR/1.73 sq 70 (no code) 90 - 120 04-11-2017 Not Availa ble M.predicted MDRD mL/min/{1.73_m2} mL/min/{1.73_m2} 20:0400 (84194) (S/P/Bld) [Vol rate/Area] Globulin (S) 3.4 g/dL (no code) 2 - 3.5 g/dL 04-11-2017 Not Av ailable [Mass/Vol] 20:040400 (44273) HCO3 (P) 25 (no code) 04-11-2017 Not Available [Moles/Vol] 20:040400 (68122) MCHC (RBC) 32.7 g/dL (no code) 32 - 36 g/dL 04-11-2017 Not Avai lable [Mass/Vol] 20:040400 (17611) Osmolality Calc 296 (H) 04-11-2017 Not Availa ble [Osmolality] 20:040400 (34544) Platelet mean 9.2 fL (no code) 7.2 - 11.7 fL 04-11-2017 Not Available volume (Bld) 20:040400 (49193) [Entitic vol] metabolic panel on 2017-04-11 ALP [Catalytic 48 U/L (no code) 44 - 147 U/L 04-11-2017 Not Available activity/Vol] 20:040400 (25973) ALT [Catalytic 18 U/L (no code) 4 - 40 U/L 04-11-2017 Not Av ailable activity/Vol] 20:040400 (57149) Anion gap 14 mmol/L (no code) 3 - 11 mmol/L 04-11-2017 Not Avai lable [Moles/Vol] 20:0400 (48401) AST [Catalytic 20 U/L (no code) 10 - 34 U/L 04-11-2017 Not A vailable activity/Vol] 20: (50660) Bilirubin 0.2 mg/dL (no code) 0.1 - 1.2 mg/dL 04-11-2017 Not Av ailable [Mass/Vol] 20: (54272) Calcium 8.9 mg/dL (no code) 8.5 - 10.2 mg/dL 04-11-2017 Not A vailable [Mass/Vol] 20: (67656) Chloride 107 mmol/L (no code) 95 - 106 mmol/L 04-11-2017 Not A vailable [Moles/Vol] 20: (38082) Creatinine 0.82 mg/dL (no code) 04-11-2017 Not Available [Mass/Vol] 20:0 (75213) Glucose 113 mg/dL (H) 60 - 125 mg/dL 04-11-2017 Not Pam ilable [Mass/Vol] 20: (95115) Potassium 4.1 mmol/L (no code) 3.7 - 5.2 mmol/L 04-11-2017 Not Available [Moles/Vol] 20:0 (32345) Protein 7.0 g/dL (no code) 6.4 - 8.3 g/dL 04-11-2017 Not Pam ilable [Mass/Vol] 20:0400 (18548) Sodium 142 mmol/L (no code) 135 - 145 mmol/L 04-11-2017 Not Available [Moles/Vol] 20:0400 (03985) Urea nitrogen 20 mg/dL (no code) 7 - 20 mg/dL 04-11-2017 Not A vailable [Mass/Vol] 20:0400 (65267) hematology on 2017-04-11 Basophils (Bld) 0.0 10*3/uL (no code) 0 - 0.3 10*3/uL 04-11-2017 Not Available [#/Vol] 20:04-0400 (27340) Basophils/100 0.60 % (no code) 0.5 - 1 % 04-11-2017 Not Avai lable WBC (Bld) 20:04-0400 (02577) Eosinophils 0.3 10*3/uL (no code) 0.05 - 0.5 04-11-2017 Not Pam ilable (Bld) [#/Vol] 10*3/uL 20:04-0400 (86979) Eosinophils/100 4.3 % (no code) 1 - 4 % 04-11-2017 Not Av ailable WBC (Bld) 20:-0400 (97672) Hematocrit (Bld) 40.4 % (no code) 36.1 - 50.3 % 04-11-2017 N ot Available [Volume 20:0400 (63496) fraction] Hemoglobin (Bld) 13.2 g/dL (no code) 12.1 - 17.2 g/dL 04-11-2017 Not Available [Mass/Vol] 20:0400 (56979) Lymphocytes 2.30 10*3/uL (no code) 0.9 - 2.9 04-11-2017 Not Pam ilable (Bld) [#/Vol] 10*3/uL 20:04-0400 (55219) Lymphocytes/100 32.8 % (no code) 20 - 40 % 04-11-2017 Not Av ailable WBC (Bld) 20:04-0400 (44317) MCH (RBC) 30.2 pg (no code) 27 - 31 pg 04-11-2017 Not Availab le [Entitic mass] 20:04-0400 (47415) MCV (RBC) 92.4 fL (no code) 80 - 100 fL 04-11-2017 Not Availa ble [Entitic vol] 20:04-0400 (35417) Monocytes (Bld) 0.7 10*3/uL (no code) 0.3 - 0.9 04-11-2017 Not Available [#/Vol] 10*3/uL 20:04-0400 (89567) Monocytes/100 9.6 % (no code) 2 - 8 % 04-11-2017 Not Avai lable WBC (Bld) 20:04-0400 (52858) Neutrophils 3.70 10*3/uL (no code) 1.7 - 7 10*3/uL 04-11-2017 N ot Available (Bld) [#/Vol] 20:04-0400 (90970) Neutrophils/100 52.7 % (no code) 40 - 60 % 04-11-2017 Not Av ailable WBC (Bld) 20:0400 (61518) Platelets (Bld) 249 10*3/uL (no code) 150 - 450 04-11-2017 Not Available [#/Vol] 10*3/uL 20:0400 (43203) RBC (Bld) 4.37 10*6/uL (no code) 4.2 - 6.1 04-11-2017 Not Avail able [#/Vol] 10*6/uL 20:0400 (79814) WBC (Bld) 7.01 10*3/uL (no code) 3.5 - 10.5 04-11-2017 Not Avai lable [#/Vol] 10*3/uL 20:040400 (44039) cardiac on 2017-04-11 CK.MB [Mass/Vol] 2.1 ng/mL (no code) 0 - 4.3 ng/mL 04-11-2017 N ot Available 20:0400 (28088) Myoglobin 33.2 ng/mL (no code) 04-11-2017 Not Available [Mass/Vol] 20:040400 (89342) Troponin ng/mL (no code) 0 - 0.4 ng/mL 04-11-2017 Not Avai lable I.cardiac 20:040400 (94486) [Mass/Vol] Troponin ng/mL (no code) 0 - 0.4 ng/mL 04-11-2017 Not Avai lable I.cardiac 22:59-0400 (70748) [Mass/Vol] urinalysis on 2017-03-22 Clarity (U) Clear (no code) 03-22-2017 Not Available 16: (71692) Color (U) Yellow (no code) 03-22-2017 Not Available 16: (07347) Epithelial 0-5/HPF (A) 03-22-2017 Not Available cells.squamous 16:12-0400 (50630) LM.HPF (Urine sed) [#/Area] Leukocyte 1+ (A) 03-22-2017 Not Available esterase Test 16:12-0400 (65926) strip Ql (U) Protein (U) Negative (no code) 0 - 20 mg/dL 03-22-2017 Not Pam ilable [Mass/Vol] 16:12-0400 (43109) RBC LM.HPF Negative (no code) 0 - 4 /[HPF] 03-22-2017 Not Avai lable (Urine sed) 16:12-0400 (93270) [#/Area] Specific gravity 1.020 (no code) 03-22-2017 Not Avail able (U) [Rel 16:12-0400 (64139) density] WBC LM.HPF 0-2/HPF (A) 03-22-2017 Not Available (Urine sed) 16:12-0400 (97697) [#/Area] other on 2017-03-22 Bacteria LM Ql Trace (A) 03-22-2017 Not Availab le (Urine sed) 16:12-0400 (12287) Bilirubin N/A (A) 03-22-2017 Not Available Confirm Ql (U) 16:120400 (16166) Bilirubin Ql (U) Negative (no code) 03-22-2017 Not Avail able 16:120400 (68713) CULTURE SOURCE void (no code) 03-22-2017 Not Availab le 16:12-0400 (62587) Erythrocyte 12.3 % (no code) 11.6 - 14.6 % 03-22-2017 Not Av ailable distribution 16:120400 (43812) width (RBC) [Ratio] GFR/1.73 sq 57 (L) 90 - 120 03-22-2017 Not Availa ble M.predicted MDRD mL/min/{1.73_m2} mL/min/{1.73_m2} 16:120400 (72538) (S/P/Bld) [Vol rate/Area] Glucose Test Negative (no code) 03-22-2017 Not Available strip (U) 16:120400 (59534) [Mass/Vol] HCO3 (P) 27 (no code) 03-22-2017 Not Available [Moles/Vol] 16:12-0400 (65619) Hemoglobin Ql Negative (no code) 03-22-2017 Not Availabl e (U) 16:120400 (05395) Ketones (U) Negative (no code) 03-22-2017 Not Available [Mass/Vol] 16:120400 (50227) MCHC (RBC) 33.1 g/dL (no code) 32 - 36 g/dL 03-22-2017 Not Avai lable [Mass/Vol] 16:120400 (79717) MEDIA PLATED Setup at 17:33 (no code) 03-22-2017 Not Availa ble on 03/22/2017 16:12-0400 (02594) Nitrite Ql (U) Negative (no code) 03-22-2017 Not Availab le 16:0400 (81495) Osmolality Calc 296 (H) 03-22-2017 Not Availa ble [Osmolality] 16:0 (86512) pH (U) 5.5 [pH] (no code) 4.6 - 8 [pH] 03-22-2017 Not Avail able 16:120400 (16297) Platelet mean 9.6 fL (no code) 7.2 - 11.7 fL 03-22-2017 Not Available volume (Bld) 16:120400 (05906) [Entitic vol] PRELIM CULTURE Positive (no code) 03-22-2017 Not Availab le RESULTS 16:0400 (84572) Urine Volume Urine Volume (no code) 03-22-2017 Not Availabl e Sufficient 16:0 (83661) (10mL) Urobilinogen Qn 0.2 (A) 03-22-2017 Not Availa ble (U) {Josias'U}/dL 16:120400 (98050) Yeast.budding Ql No Yeast present (no code) 03-22-2017 Not Available (Urine sed) 16:120400 (57552) no information Urine Saved if (A) 03-22-2017 Not Avai lable Culture Needed 16:120400 (51308) (48hrs from time of collection) metabolic panel on 2017-03-22 Anion gap 15 mmol/L (H) 3 - 11 mmol/L 03-22-2017 Not Avai lable [Moles/Vol] 16:120400 (84913) Calcium 8.9 mg/dL (no code) 8.5 - 10.2 mg/dL 03-22-2017 Not A vailable [Mass/Vol] 16: (80555) Chloride 104 mmol/L (no code) 95 - 106 mmol/L 03-22-2017 Not A vailable [Moles/Vol] 16: (14888) Creatinine 0.98 mg/dL (no code) 03-22-2017 Not Available [Mass/Vol] 16: (99779) Glucose 105 mg/dL (no code) 60 - 125 mg/dL 03-22-2017 Not Pam ilable [Mass/Vol] 16: (21935) Potassium 4.6 mmol/L (no code) 3.7 - 5.2 mmol/L 03-22-2017 Not Available [Moles/Vol] 16: (14711) Sodium 141 mmol/L (no code) 135 - 145 mmol/L 03-22-2017 Not Available [Moles/Vol] 16: (59664) Urea nitrogen 26 mg/dL (H) 7 - 20 mg/dL 03-22-2017 Not A vailable [Mass/Vol] 16: (57631) hematology on 2017-03-22 Basophils (Bld) 0.1 10*3/uL (no code) 0 - 0.3 10*3/uL 03-22-2017 Not Available [#/Vol] 16: (85584) Basophils/100 0.60 % (no code) 0.5 - 1 % 03-22-2017 Not Avai lable WBC (Bld) 16: (74089) Eosinophils 0.2 10*3/uL (no code) 0.05 - 0.5 03-22-2017 Not Pam ilable (Bld) [#/Vol] 10*3/uL 16: (47173) Eosinophils/100 2.8 % (no code) 1 - 4 % 03-22-2017 Not Av ailable WBC (Bld) 16: (84238) ESR (Bld) 10 mm/h (no code) 03-22-2017 Not Available [Velocity] 16: (26388) Hematocrit (Bld) 43.5 % (no code) 36.1 - 50.3 % 03-22-2017 N ot Available [Volume 16: (58434) fraction] Hemoglobin (Bld) 14.4 g/dL (no code) 12.1 - 17.2 g/dL 03-22-2017 Not Available [Mass/Vol] 16: (28350) Lymphocytes 2.03 10*3/uL (no code) 0.9 - 2.9 03-22-2017 Not Pam ilable (Bld) [#/Vol] 10*3/uL 16: (35674) Lymphocytes/100 24.7 % (no code) 20 - 40 % 03-22-2017 Not Av ailable WBC (Bld) 16: (20355) MCH (RBC) 30.2 pg (no code) 27 - 31 pg 03-22-2017 Not Availab le [Entitic mass] 16: (66286) MCV (RBC) 91.2 fL (no code) 80 - 100 fL 03-22-2017 Not Availa ble [Entitic vol] 16: (78293) Monocytes (Bld) 0.5 10*3/uL (no code) 0.3 - 0.9 03-22-2017 Not Available [#/Vol] 10*3/uL 16:0 (18427) Monocytes/100 5.5 % (no code) 2 - 8 % 03-22-2017 Not Avai lable WBC (Bld) 16: (92428) Neutrophils 5.46 10*3/uL (no code) 1.7 - 7 10*3/uL 03-22-2017 N ot Available (Bld) [#/Vol] 16:0 (24492) Neutrophils/100 66.4 % (no code) 40 - 60 % 03-22-2017 Not Av ailable WBC (Bld) 16: (55575) Platelets (Bld) 269 10*3/uL (no code) 150 - 450 03-22-2017 Not Available [#/Vol] 10*3/uL 16:12-0400 (77055) RBC (Bld) 4.77 10*6/uL (no code) 4.2 - 6.1 03-22-2017 Not Avail able [#/Vol] 10*6/uL 16:12-0400 (46853) WBC (Bld) 8.22 10*3/uL (no code) 3.5 - 10.5 03-22-2017 Not Avai lable [#/Vol] 10*3/uL 16:12-0400 (04058) urinalysis on 2017-02-18 Clarity (U) Clear (no code) 02-18-2017 Not Available 13:56-0400 (85635) Color (U) Yellow (no code) 02-18-2017 Not Available 13:56-0400 (67346) Epithelial 0-5/HPF (A) 02-18-2017 Not Available cells.squamous 13:56-0400 (40674) LM.HPF (Urine sed) [#/Area] Leukocyte Trace (A) 02-18-2017 Not Available esterase Test 13:56-0400 (83871) strip Ql (U) Protein (U) Negative (no code) 0 - 20 mg/dL 02-18-2017 Not Pam ilable [Mass/Vol] 13:56-0400 (43738) RBC LM.HPF 0-2/HPF (A) 02-18-2017 Not Available (Urine sed) 13:56-0400 (36120) [#/Area] Specific gravity 1.025 (no code) 02-18-2017 Not Avail able (U) [Rel 13:56-0400 (49882) density] WBC LM.HPF 0-2/HPF (A) 02-18-2017 Not Available (Urine sed) 13:56-0400 (48970) [#/Area] other on 2017-02-18 Bacteria LM Ql Negative (no code) 02-18-2017 Not Availab le (Urine sed) 13:56-0400 (80833) Bilirubin N/A (A) 02-18-2017 Not Available Confirm Ql (U) 13:56-0400 (83999) Bilirubin Ql (U) Negative (no code) 02-18-2017 Not Avail able 13:56-0400 (01419) Electrocardiogra Complete (no code) 02-18-2017 Not Avail able ms recorded 13:56-0400 (99925) Erythrocyte 12.2 % (no code) 11.6 - 14.6 % 02-18-2017 Not Av ailable distribution 13:56-0400 (04880) width (RBC) [Ratio] FINAL CULTURE Negative (no code) 02-18-2017 Not Availabl e RESULTS 13:56-0400 (29385) GFR/1.73 sq 59 (L) 90 - 120 02-18-2017 Not Availa ble M.predicted MDRD mL/min/{1.73_m2} mL/min/{1.73_m2} 13:56-0400 (42730) (S/P/Bld) [Vol rate/Area] Glucose Test Negative (no code) 02-18-2017 Not Available strip (U) 13:56-0400 (06568) [Mass/Vol] HCO3 (P) 28 (no code) 02-18-2017 Not Available [Moles/Vol] 13:56-0400 (49542) Hemoglobin Ql Negative (no code) 02-18-2017 Not Availabl e (U) 13:56-0400 (94078) Ketones (U) Negative (no code) 02-18-2017 Not Available [Mass/Vol] 13:56-0400 (60423) MCHC (RBC) 33.1 g/dL (no code) 32 - 36 g/dL 02-18-2017 Not Avai lable [Mass/Vol] 13:56-0400 (18717) MEDIA PLATED Setup at 13:21 (no code) 02-18-2017 Not Availa ble on 02/18/2017 13:56-0400 (70206) Nitrite Ql (U) Negative (no code) 02-18-2017 Not Availab le 13:56-0400 (57592) Osmolality Calc 295 (no code) 02-18-2017 Not Availa ble [Osmolality] 13:56-0400 (80045) pH (U) 6.0 [pH] (no code) 4.6 - 8 [pH] 02-18-2017 Not Avail able 13:56-0400 (13742) Platelet mean 9.1 fL (no code) 7.2 - 11.7 fL 02-18-2017 Not Available volume (Bld) 13:56-0400 (78006) [Entitic vol] Urine Volume Urine Volume (no code) 02-18-2017 Not Availabl e Sufficient 13: (16953) (10mL) Urobilinogen Qn 0.2 (A) 02-18-2017 Not Availa ble (U) {Josias'U}/dL 13: (90332) Yeast.budding Ql No Yeast present (no code) 02-18-2017 Not Available (Urine sed) 13: (20651) no information Urine Saved if (A) 02-18-2017 Not Avai lable Culture Needed 13: (41699) (48hrs from time of collection) metabolic panel on 2017-02-18 Anion gap 14 mmol/L (no code) 3 - 11 mmol/L 02-18-2017 Not Avai lable [Moles/Vol] 13: (93378) Calcium 9.3 mg/dL (no code) 8.5 - 10.2 mg/dL 02-18-2017 Not A vailable [Mass/Vol] 13: (16589) Chloride 103 mmol/L (no code) 95 - 106 mmol/L 02-18-2017 Not A vailable [Moles/Vol] 13: (08614) Creatinine 0.95 mg/dL (no code) 02-18-2017 Not Available [Mass/Vol] 13: (37978) Glucose 96 mg/dL (no code) 60 - 125 mg/dL 02-18-2017 Not Pam ilable [Mass/Vol] 13: (64410) Potassium 4.2 mmol/L (no code) 3.7 - 5.2 mmol/L 02-18-2017 Not Available [Moles/Vol] 13:0400 (34469) Sodium 141 mmol/L (no code) 135 - 145 mmol/L 02-18-2017 Not Available [Moles/Vol] 13:040 (78545) Urea nitrogen 26 mg/dL (H) 7 - 20 mg/dL 02-18-2017 Not A vailable [Mass/Vol] 13: (30432) hematology on 2017-02-18 Basophils (Bld) 0.0 10*3/uL (no code) 0 - 0.3 10*3/uL 02-18-2017 Not Available [#/Vol] 13:56-0400 (08139) Basophils/100 0.50 % (no code) 0.5 - 1 % 02-18-2017 Not Avai lable WBC (Bld) 13:560400 (93722) Eosinophils 0.3 10*3/uL (no code) 0.05 - 0.5 02-18-2017 Not Pam ilable (Bld) [#/Vol] 10*3/uL 13:560400 (51741) Eosinophils/100 3.9 % (no code) 1 - 4 % 02-18-2017 Not Av ailable WBC (Bld) 13:560400 (84700) Hematocrit (Bld) 42.0 % (no code) 36.1 - 50.3 % 02-18-2017 N ot Available [Volume 13: (19041) fraction] Hemoglobin (Bld) 13.9 g/dL (no code) 12.1 - 17.2 g/dL 02-18-2017 Not Available [Mass/Vol] 13:560400 (27592) Lymphocytes 2.29 10*3/uL (no code) 0.9 - 2.9 02-18-2017 Not Pam ilable (Bld) [#/Vol] 10*3/uL 13:560400 (51254) Lymphocytes/100 30.6 % (no code) 20 - 40 % 02-18-2017 Not Av ailable WBC (Bld) 13:560400 (47548) MCH (RBC) 30.2 pg (no code) 27 - 31 pg 02-18-2017 Not Availab le [Entitic mass] 13:560400 (05705) MCV (RBC) 91.1 fL (no code) 80 - 100 fL 02-18-2017 Not Availa ble [Entitic vol] 13:560400 (25404) Monocytes (Bld) 0.5 10*3/uL (no code) 0.3 - 0.9 02-18-2017 Not Available [#/Vol] 10*3/uL 13:560400 (53423) Monocytes/100 7.2 % (no code) 2 - 8 % 02-18-2017 Not Avai lable WBC (Bld) 13:56-0400 (71816) Neutrophils 4.32 10*3/uL (no code) 1.7 - 7 10*3/uL 02-18-2017 N ot Available (Bld) [#/Vol] 13:56-0400 (44062) Neutrophils/100 57.8 % (no code) 40 - 60 % 02-18-2017 Not Av ailable WBC (Bld) 13:560400 (74416) Platelets (Bld) 268 10*3/uL (no code) 150 - 450 02-18-2017 Not Available [#/Vol] 10*3/uL 13:560400 (31415) RBC (Bld) 4.61 10*6/uL (no code) 4.2 - 6.1 02-18-2017 Not Avail able [#/Vol] 10*6/uL 13:56-0400 (63939) WBC (Bld) 7.48 10*3/uL (no code) 3.5 - 10.5 02-18-2017 Not Avai lable [#/Vol] 10*3/uL 13:56-0400 (53429) other on 2017-01-11 Fibrin D-dimer 156.00 (no code) 01-11-2017 Not Availab le DDU (PPP) 15:36-0400 (04763) [Mass/Vol] Vital Signs The data below is from unstructured sources Vital Response Date/Time Temperature (Fahrenheit) 98.6 degree s F (97.6 - 99.5) Temperature (Calculated Celsius) 37. 72153 degrees C (36.4 - 37.5) Temperature Source Temporal Pulse Rate (adult) 78 bpm (60 - 90) Respiratory Rate 20 bpm (12 - 24) O2 Sat by Pulse Oximetry 93 % (88 - 100) Blood Pressure 134/66 mm Hg Pain Pain Intensity 0 Height (Feet) 5 feet Height (Inches) 3.00 inches Height (Calculated Centimeters) 160. 209399 cm Weight (Pounds) 226 pounds Weight (Calculated Grams) 618844.877 gm Weight (Calculated Kilograms) 102.51 1877 kilograms Calculated BMI 38.61 Vital Response Date/Time Temperature (Fahrenheit) 98.4 degree s F (97.6 - 99.5) Temperature (Calculated Celsius) 36. 86828 degrees C (36.4 - 37.5) Temperature Source Temporal Pulse Rate (adult) 79 bpm (60 - 90) Respiratory Rate 18 bpm (12 - 24) O2 Sat by Pulse Oximetry 96 % (88 - 100) Blood Pressure 148/75 mm Hg Pain Pain Intensity 4 Height (Feet) 5 feet Height (Inches) 5 inches Height (Calculated Centimeters) 165. 649599 cm Weight (Pounds) 212 pounds Weight (Calculated Grams) 206899.877 gm Weight (Calculated Kilograms) 96.161 583 kilograms [...] inches 06/20/2017 1:08pm Height (Calculated Centimeters) 160. 375146 cm 06/20/2017 1:08pm Weight (Pounds) 221 pounds 06/20/2017 1:08pm Weight (Ounces) 0.0 oz 0 06/20/2017 1:08pm Weight (Calculated Grams) 840646.92 gm 06/20/2017 1:08pm Weight (Calculated Kilograms) 100.24 3915 kilograms 06/20/2017 1:08pm Calculated BMI 39.2 06/01 1:08pm Weight Measurement Method Standing Scale 06/20/2017 1:08pm Blood pressure systolic 158 mmHg 2016-11-08 Blood pressure diastolic 94 mmHg 2016-11-08 Vital Response Date/Time Temperature (Fahrenheit) 97.7 degree s F (97.6 - 99.5) 02/14/2018 12:20pm Temperature (Calculated Celsius) 36. 12687 degrees C (36.4 - 37.5) 02/14/2018 12:20pm [...] inches 02/14/2018 10:32am Height (Calculated Centimeters) 165. 984842 cm 02/14/2018 10:32am Weight (Pounds) 221 pounds 02/14/2018 10:32am Weight (Ounces) 0.0 oz 0 02/14/2018 10:32am Weight (Calculated Grams) 378711.92 gm 02/14/2018 10:32am Weight (Calculated Kilograms) 100.24 3915 kilograms 02/14/2018 10:32am Calculated BMI 36.8 01/28 10:32am Weight Measurement Method Standing Scale 02/14/2018 10:32am Vital Response Date/Time Temperature (Fahrenheit) 98.5 degree s F (97.6 - 99.5) 02/22/2018 5:40pm Temperature (Calculated Celsius) 36. 79583 degrees C (36.4 - 37.5) 02/22/2018 5:40pm [...] inches 02/22/2018 5:40pm Height (Calculated Centimeters) 162. 547684 cm 02/22/2018 5:40pm Height Method Estimated 02/22/2018 5:40pm Weight (Pounds) 205 pounds 02/22/2018 5:40pm Weight (Ounces) 0.0 oz 0 02/14/2018 10:32am Weight (Calculated Grams) 72643.44 gm 02/22/2018 5:40pm Weight (Calculated Kilograms) 92.986 437 kilograms 02/22/2018 5:40pm Calculated BMI 36.8 01/28 10:32am Weight Method Estimated 02/22/2018 5:40pm Weight Measurement Method Standing Scale 02/14/2018 10:32am Capillary Refill Capillary Refill Less Than 3 Seconds 02/22/2018 5:40pm Vital Response Date/Time Temperature (Fahrenheit) 98.5 degree s F (97.6 - 99.5) 02/22/2018 5:40pm Temperature (Calculated Celsius) 36. 86850 degrees C (36.4 - 37.5) 02/22/2018 5:40pm [...] inches 02/22/2018 5:40pm Height (Calculated Centimeters) 162. 567590 cm 02/22/2018 5:40pm Height Method Estimated 02/22/2018 5:40pm Weight (Pounds) 205 pounds 02/22/2018 5:40pm Weight (Ounces) 0.0 oz 0 02/14/2018 10:32am Weight (Calculated Grams) 34649.44 gm 02/22/2018 5:40pm Weight (Calculated Kilograms) 92.986 [...] MD Order Date: Primary Care Physician Address: [address] [place] [id number] Additional Instructions/Education 1. Return to ER for [...] MD Order Date: Primary Care Physician Address: [address] [place] [id number] Additional Instructions/Education 1. 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 - surgery Phone: 02-14-2018 [employer] 02-15-2020 Emergency department no information ROBB COUCH MD [facility] patient visit (no phone) [facility] (no phone) 02-22-2018 Emergency department no information [...] - 02-14-2018 02-06-2018 Patient encounter no information [employer] Work no organization name - 02-06-2018 [employer] 09-12-2017 Patient encounter no information no name no or ganization name - 09-13-2017 07-16-2017 Patient encounter no information no name no or ganization name - 07-17-2017 06-27-2017 Patient encounter no information no name no or ganization name - 06-27-2017 02-11-2020 Patient encounter no information ROD MOLLY [...] Directives No 8:39am Health Care Power of Print Line Operator No 01/11/15 8:39am Organ Donor No 01/11/15 8:39am Resuscitation Status Full Code 01/11/15 8:39am Directive Response Recor ded Date/Time Advance Directives No 1:38am Health Care Power of Print Line Operator No 08/09/09 1:38am Organ Donor No 08/09/09 1:38am Directive Response Recor ded Date/Time Advance Directives No 3:10pm Health Care Power of Print Line Operator No 01/21/15 3:10pm Organ Donor No 01/21/15 3:10pm Resuscitation Status Full Code 01/21/15 3:10pm Directive Response Recor ded Date/Time Advance Directives No 1:10pm Health Care Power of Print Line Operator No 06/20/17 1:10pm Organ Donor No 06/20/17 1:10pm Resuscitation Status Full Code 06/20/17 1:10pm Directive Response Recor ded Date/Time Advance Directives No 10:31am Health Care Power of Print Line Operator No 02/14/18 10:31am Organ Donor No 02/14/18 10:31am Resuscitation Status Full Code 02/14/18 10:31am Directive Response Recor ded Date/Time Advance Directives No 6:09pm Health Care Power of Print Line Operator No 02/22/18 6:09pm Organ Donor No 02/22/18 6:09pm Resuscitation Status Full Code 02/22/18 6:09pm Discharge Instructions No hospital discharge instructions.No hospital discharge instructions.No hospital discharge instructions.No hospital discharge instruction information available.No hospital discharge instruction information available.No hospital discharge instruction information available. Additional Source Comments This clinical document has been generated using [employer] software that has been certified by the Office of the National Coordinator for Health Information Technology (ONC 15.99.04.3023.Diam.31.00.0.059566) and the National Committee for Toolroom Clerk (NCQA, as an eMeasure certified technology). FOR [...] BASED ON T HE PRIMARY CLINICAL RECORDS. [email or web address]. provides no warranty or guara ntee of [...]
--- OUTSIDE RECORDS SUMMARY | 2020-02-15 19:09 | XMS REPORT | Continuity of Care Document ---
Author Organization Unknown Address Unknown Phone Unavailable Allergies Active Description Code Type Severity Reaction Onset Reported/Identified Relationship to Patient Clinical Status Yes No Known Drug Allergies [id number] Drug Allergy Mild N/A 08/08/2009 Yes No Known Drug Allergies [id number] Drug Allergy Unknown N/A 02/06/2018 Medications There is no data. Problems Date Dx Coded Attending Type Code Diagnosis Diagnosed By 07/01/2014 ROD BARNES MD Ot 327.23 OBSTRUCTIVE SLEEP APNEA (ADULT) (PEDIATR 01/12/2015 NEYMAR QUINONES FACC, LUISA FACP CCDS Ot 272.4 HYPERLIPIDEMIA NEC/NOS 01/12/2015 NEYMAR QUINONES FACC, LUISA FACP CCDS Ot 414.01 CORONARY ATHEROSCLEROSIS OF [place] CORON 01/12/2015 NEYMAR QUINONES FACC, LUISA FACP [...] FACC, ALI FACP CCDS Ot 786.09 01/21/2015 NEYMRA QUINONES FACC, LUISA FACP CCDS Ot 786.59 [...] ABNORMAL ELECTROCARDIOGRAM [ECG] [EKG] 07/24/2016 THAIS LUJAN CARD PLACER Ot G47.33 OBSTRUCTIVE SLEEP APNEA (ADULT) (PEDIATR 07/24/2016 THAIS LUJAN L CARD PLACER Ot I 10 ESSENTIAL (PRIMARY) HYPERTENSION 07/24/2016 FAUZIA LUJANHER L CARD PLACER Ot I25.10 ATHSCL HEART DISEASE OF [place] CORONARY 07/24/2016 THAIS LUJAN L CARD PLACER Ot I44.7 LEFT BUNDLE-BRANCH BLOCK, UNSPECIFIED 07/24/2016 THAIS LUJAN L CARD PLACER Ot R53.1 WEAKNESS 07/24/2016 THAIS LUJAN CARD PLACER Ot R94.39 ABNORMAL RESULT OF OTHER CARDIOVASCULAR 07/24/2016 THAIS LUJAN CARD PLACER Ot Z79.899 OTHER CARE HOME (CURRENT) DRUG THERAPY 07/24/2016 FAUZIA LUJANHER L CARD PLACER Ot Z82.49 FAMILY HX OF ISCHEM HEART DIS AND OTH DI 07/24/2016 THAIS LUJAN L CARD PLACER Ot Z95.5 PRESENCE OF CORONARY ANGIOPLASTY IMPLANT [...] ELECTROCARDIOGRAM [ECG] [EKG] 08/09/2016 THAIS LUJAN L CARD PLACER Ot G47.33 OBSTRUCTIVE SLEEP APNEA (ADULT) (PEDIATR 08/09/2016 THAIS LUJAN L CARD PLACER Ot I 10 ESSENTIAL (PRIMARY) HYPERTENSION 08/09/2016 BAIMA THAIS L CARD PLACER Ot I25.10 ATHSCL HEART DISEASE OF [place] CORONARY 08/09/2016 BAIMA, THAIS L CARD PLACER Ot I44.7 LEFT BUNDLE-BRANCH BLOCK, UNSPECIFIED 08/09/2016 BAIMA, THAIS L CARD PLACER Ot R53.1 WEAKNESS 08/09/2016 BAIMA, THAIS L CARD PLACER Ot R94.39 ABNORMAL RESULT OF OTHER CARDIOVASCULAR 08/09/2016 BAIMA, THAIS L CARD PLACER Ot Z79.899 OTHER [employer] UNIFIED COMMUNICATIONS ENGINEER (CURRENT) DRUG THERAPY 08/09/2016 BAIMA, THAIS L CARD PLACER Ot Z82.49 FAMILY HX OF ISCHEM HEART DIS AND OTH DI 08/09/2016 BAIMA, THAIS L CARD PLACER Ot Z95.5 PRESENCE OF CORONARY ANGIOPLASTY IMPLANT 08/11/2016 BAIMA THAIS L CARD PLACER Ot G47.33 OBSTRUCTIVE SLEEP APNEA (ADULT) (PEDIATR 08/11/2016 BAIMA, THAIS L CARD PLACER Ot I 10 ESSENTIAL (PRIMARY) HYPERTENSION 08/11/2016 BAIMA, THAIS L CARD PLACER Ot I25.10 ATHSCL HEART DISEASE OF [place] CORONARY 08/11/2016 BAIMA THAIS L CARD PLACER Ot I44.7 LEFT BUNDLE-BRANCH BLOCK, UNSPECIFIED 08/11/2016 BAIMA, THAIS L CARD PLACER Ot R53.1 WEAKNESS 08/11/2016 BAIMA, THAIS L CARD PLACER Ot R94.39 ABNORMAL RESULT OF OTHER CARDIOVASCULAR 08/11/2016 BAIMA, THAIS L CARD PLACER Ot Z79.899 OTHER [employer] UNIFIED COMMUNICATIONS ENGINEER (CURRENT) DRUG THERAPY 08/11/2016 BAIMA, THAIS L CARD PLACER Ot Z82.49 FAMILY HX OF ISCHEM HEART DIS AND OTH DI 08/11/2016 BAIMA, THAIS L CARD PLACER Ot Z95.5 PRESENCE OF CORONARY ANGIOPLASTY IMPLANT 04/15/2017 BAIMA, THAIS L CARD PLACER Ot I25.10 ATHSCL HEART DISEASE OF [place] CORONARY 04/15/2017 BAIMA, THAIS L CARD PLACER Ot R06.09 OTHER FORMS OF DYSPNEA 04/15/2017 BAIMA, THAIS L CARD PLACER Ot R07.89 OTHER CHEST PAIN 04/15/2017 BAIMA, THAIS L CARD PLACER Ot R94.31 ABNORMAL ELECTROCARDIOGRAM [ECG] [EKG] 05/06/2017 BAIMA, THAIS L CARD PLACER Ot I25.10 ATHSCL HEART DISEASE OF [place] CORONARY 05/06/2017 BAIMA, THAIS L CARD PLACER Ot R06.09 OTHER FORMS OF DYSPNEA 05/06/2017 BAIMA, THAIS L CARD PLACER Ot R07.89 OTHER CHEST PAIN 05/06/2017 BAIMA, THAIS L CARD PLACER Ot R94.31 ABNORMAL ELECTROCARDIOGRAM [ECG] [EKG] 05/28/2017 BAIMA, THAIS L CARD PLACER Ot I25.10 ATHSCL HEART DISEASE OF [place] CORONARY 05/28/2017 BAIMA, THAIS L CARD PLACER Ot R06.09 OTHER FORMS OF DYSPNEA 05/28/2017 BAIMA, THAIS L CARD PLACER Ot R07.89 OTHER CHEST PAIN 05/28/2017 BAIMA, THAIS L CARD PLACER Ot R94.31 ABNORMAL ELECTROCARDIOGRAM [ECG] [EKG] 06/20/2017 [...] MD, Ot I25.10 ATHSCL HEART DISEASE OF [place] CORONARY 06/27/2017 MARQUEZ NIETO MD, Ot I44.7 LEFT BUNDLE-BRANCH BLOCK, UNSPECIFIED 06/27/2017 MARQUEZ NIETO MD, Ot K58.9 IRRITABLE BOWEL SYNDROME WITHOUT DIARRHE 06/27/2017 MARQUEZ NIETO MD, Ot K80.10 CALCULUS OF GALLBLADDER W CHRONIC CHOLEC 06/27/2017 MARQUEZ NIETO MD, Ot Z68.39 BODY MASS INDEX (BMI) 39.0-39.9, ADULT 06/27/2017 MARQUEZ NIETO MD, Ot Z79.02 CARE HOME (CURRENT) USE OF ANTITHROMBOTI 06/27/2017 MARQUEZ NIETO MD, Ot Z79.89 9 OTHER [employer] UNIFIED COMMUNICATIONS ENGINEER (CURRENT) DRUG THERAPY 06/27/2017 MARQEUZ NIETO MD, Ot Z82.49 FAMILY HX OF [...] MD Ot I25.10 ATHSCL HEART DISEASE OF [place] CORONARY 06/29/2017 MARQUEZ NIETO MD, Ot I44.7 LEFT BUNDLE-BRANCH BLOCK, UNSPECIFIED 06/29/2017 MARQUEZ NIETO MD, Ot K58.9 IRRITABLE BOWEL SYNDROME WITHOUT DIARRHE 06/29/2017 MARQUEZ NIETO MD, Ot K80.10 CALCULUS OF GALLBLADDER W CHRONIC CHOLEC 06/29/2017 MARQUEZ NIETO MD, Ot Z68.39 BODY MASS INDEX (BMI) 39.0-39.9, ADULT 06/29/2017 MARQUEZ NIETO MD, Ot Z79.02 [employer] UNIFIED COMMUNICATIONS ENGINEER (CURRENT) USE OF ANTITHROMBOTI 06/29/2017 MARQUEZ NIETO MD, Ot Z79.89 9 OTHER [employer] UNIFIED COMMUNICATIONS ENGINEER (CURRENT) DRUG THERAPY 06/29/2017 MARQUEZ NIETO MD, [...] MD, Ot I25.10 ATHSCL HEART DISEASE OF [place] CORONARY 07/04/2017 MARQUEZ NIETO MD, Ot I44.7 LEFT BUNDLE-BRANCH BLOCK, UNSPECIFIED 07/04/2017 MARQUEZ NIETO MD, Ot K58.9 IRRITABLE BOWEL SYNDROME WITHOUT DIARRHE 07/04/2017 MARQUEZ NIETO MD Ot K80.10 CALCULUS OF GALLBLADDER W CHRONIC CHOLEC 07/04/2017 MARQUEZ NIETO MD, Ot Z68.39 BODY MASS INDEX (BMI) 39.0-39.9, ADULT 07/04/2017 MARQUEZ NIETO MD, Ot Z79.02 [employer] UNIFIED COMMUNICATIONS ENGINEER (CURRENT) USE OF ANTITHROMBOTI 07/04/2017 MARQUEZ NIETO MD, Ot Z79.89 9 OTHER [employer] UNIFIED COMMUNICATIONS ENGINEER (CURRENT) DRUG THERAPY 07/04/2017 MARQUEZ NIETO MD, [...] MD Ot I25.10 ATHSCL HEART DISEASE OF [place] CORONARY 07/22/2017 MARQUEZ NIETO MD, Ot I44.7 LEFT BUNDLE-BRANCH BLOCK, UNSPECIFIED 07/22/2017 MARQUEZ NIETO MD Ot K58.9 IRRITABLE BOWEL SYNDROME WITHOUT DIARRHE 07/22/2017 MARQUEZ NIETO MD Ot K80.10 CALCULUS OF GALLBLADDER W CHRONIC CHOLEC 07/22/2017 MARQUEZ NIETO MD Ot Z68.39 BODY MASS INDEX (BMI) 39.0-39.9, ADULT 07/22/2017 MARQUEZ NIETO MD, Ot Z79.02 [employer] UNIFIED COMMUNICATIONS ENGINEER (CURRENT) USE OF ANTITHROMBOTI 07/22/2017 MARQUEZ NIETO MD, Ot Z79.89 9 OTHER CARE HOME (CURRENT) DRUG THERAPY 07/22/2017 MARQUEZ NIETO [...] MD, Ot I25.10 ATHSCL HEART DISEASE OF [place] CORONARY 02/14/2018 MARQUEZ NIETO MD, Ot K21.0 [...] NE 02/14/2018 MARQUEZ NIETO MD, Ot Z79.02 [employer] UNIFIED COMMUNICATIONS ENGINEER (CURRENT) USE OF ANTITHROMBOTI 02/14/2018 MARQUEZ NIETO MD, Ot Z79.89 9 OTHER [employer] UNIFIED COMMUNICATIONS ENGINEER (CURRENT) DRUG THERAPY 02/14/2018 MARQUEZ NIETO MD, Ot Z80.0 FAMILY HISTORY OF MALIGNANT NEOPLASM OF 02/14/2018 MARQUEZ NIETO MD, Ot Z86.01 0 PERSONAL HISTORY OF COLONIC POLYPS 02/14/2018 MARQUEZ NIETO MD Ot Z95.5 PRESENCE OF CORONARY ANGIOPLASTY IMPLANT 02/17/2018 MARQUEZ NIETO MD Ot I10 ESSENTIAL (PRIMARY) HYPERTENSION 02/17/2018 MARQUEZ NIETO MD Ot I25.10 ATHSCL HEART DISEASE OF [place] CORONARY 02/17/2018 MARQUEZ NIETO MD Ot K21.0 GASTRO-ESOPHAGEAL REFLUX DISEASE WITH ES 02/17/2018 MARQUEZ NIETO MD Ot K22.2 ESOPHAGEAL OBSTRUCTION 02/17/2018 MARQUEZ NIETO MD Ot K25.9 GASTRIC ULCER, UNSP ACUTE OR CHRONIC, 02/17/2018 MARQUEZ NIETO MD Ot K29.70 GASTRITIS, UNSPECIFIED, WITHOUT BLEEDING 02/17/2018 MARQUEZ NIETO MD, Ot K44.9 DIAPHRAGMATIC HERNIA WITHOUT OBSTRUCTION 02/17/2018 MARQUEZ NIETO MD, Ot K64.1 SECOND DEGREE HEMORRHOIDS 02/17/2018 MARQUEZ NIETO MD, Ot Z12.11 ENCOUNTER FOR SCREENING FOR MALIGNANT NE 02/17/2018 MARQUEZ NIETO MD Ot Z79.02 [employer] UNIFIED COMMUNICATIONS ENGINEER (CURRENT) USE OF ANTITHROMBOTI 02/17/2018 MARQUEZ NIETO MD Ot Z79.89 9 OTHER CARE HOME (CURRENT) DRUG THERAPY 02/17/2018 MARQUEZ NIETO MD, Ot Z80.0 FAMILY HISTORY OF MALIGNANT NEOPLASM OF 02/17/2018 MARQUEZ NIETO MD Ot Z86.01 0 PERSONAL HISTORY OF COLONIC POLYPS 02/17/2018 MARQUEZ NIETO MD Ot Z95.5 PRESENCE OF CORONARY ANGIOPLASTY IMPLANT 02/22/2018 MARQUEZ NIETO MD Ot I10 ESSENTIAL (PRIMARY) HYPERTENSION 02/22/2018 MARQUEZ NIETO MD, Ot I25.10 ATHSCL HEART DISEASE OF [place] CORONARY 02/22/2018 MARQUEZ NIETO MD Ot K21.0 [...] NE 02/22/2018 MARQUEZ NIETO MD, Ot Z79.02 [employer] UNIFIED COMMUNICATIONS ENGINEER (CURRENT) USE OF ANTITHROMBOTI 02/22/2018 MARQUEZ NIETO MD, Ot Z79.89 9 OTHER CARE HOME (CURRENT) DRUG THERAPY 02/22/2018 MARQUEZ NIETO [...] APRN Ot I25.10 ATHSCL HEART DISEASE OF [place] CORONARY 02/22/2018 WILLIAM WONG APRN Ot K21 .9 GASTRO-ESOPHAGEAL REFLUX DISEASE WITHOUT 02/22/2018 WILLIAM WONG APRN Ot N99.821 POSTPROC HEMOR OF A SYS ORG FOLLOWING 02/22/2018 WILLIAM WONG APRN Ot Z79.02 [employer] UNIFIED COMMUNICATIONS ENGINEER (CURRENT) USE OF ANTITHROMBOTI 02/22/2018 WILLIAM WONG APRN Ot Z79.82 [employer] UNIFIED COMMUNICATIONS ENGINEER (CURRENT) USE OF ASPIRIN 02/22/2018 WILLIAM WONG APRN Ot Z90.710 ACQUIRED ABSENCE OF BOTH CERVIX AND UTER 02/22/2018 WILLIAM WONG APRN Ot Z95 .5 PRESENCE OF CORONARY ANGIOPLASTY IMPLANT 02/23/2018 MARQUEZ NIETO MD, Ot I10 ESSENTIAL (PRIMARY) HYPERTENSION 02/23/2018 MARQUEZ NIETO MD, Ot I25.10 ATHSCL HEART DISEASE OF [place] CORONARY 02/23/2018 MARQUEZ NIETO MD, Ot K21.0 [...] NE 02/23/2018 MARQUEZ NIETO MD, Ot Z79.02 [employer] UNIFIED COMMUNICATIONS ENGINEER (CURRENT) USE OF ANTITHROMBOTI 02/23/2018 MARQUEZ NIETO MD, Ot Z79.89 9 OTHER [employer] UNIFIED COMMUNICATIONS ENGINEER (CURRENT) DRUG THERAPY 02/23/2018 MARQUEZ NIETO MD, [...] APRN Ot I25.10 ATHSCL HEART DISEASE OF [place] CORONARY 02/24/2018 WILLIAM WONG APRN Ot K21 .9 GASTRO-ESOPHAGEAL REFLUX DISEASE WITHOUT 02/24/2018 WILLIAM WONG APRN Ot N99.821 POSTPROC HEMOR OF A SYS ORG FOLLOWING 02/24/2018 WILLIAM WONG APRN Ot Z79.02 [employer] UNIFIED COMMUNICATIONS ENGINEER (CURRENT) USE OF ANTITHROMBOTI 02/24/2018 WILLIAM WONG APRN Ot Z79.82 CARE HOME (CURRENT) USE OF ASPIRIN 02/24/2018 WILLIAM WONG APRN Ot Z90.710 ACQUIRED ABSENCE OF BOTH CERVIX AND UTER 02/24/2018 WILLIAM WONG APRN Ot Z95 .5 PRESENCE OF CORONARY ANGIOPLASTY IMPLANT 03/13/2018 MARQUEZ NIETO MD Ot I10 ESSENTIAL (PRIMARY) HYPERTENSION 03/13/2018 AMRQUEZ NIETO MD, Ot I25.10 ATHSCL HEART DISEASE OF [place] CORONARY 03/13/2018 MARQUEZ NIETO MD, Ot K21.0 [...] NE 03/13/2018 MARQUEZ NIETO MD Ot Z79.02 CARE HOME (CURRENT) USE OF ANTITHROMBOTI 03/13/2018 MARQUEZ NIETO MD, Ot Z79.89 9 OTHER CARE HOME (CURRENT) DRUG THERAPY 03/13/2018 MARQUEZ NIETO MD, Ot Z80.0 FAMILY HISTORY OF MALIGNANT NEOPLASM OF 03/13/2018 MARQUEZ NIETO MD Ot Z86.01 0 PERSONAL HISTORY OF COLONIC POLYPS 03/13/2018 MARQUEZ NIETO MD Ot Z95.5 PRESENCE OF CORONARY ANGIOPLASTY IMPLANT 09/08/2019 NEYMAR QUINONES FACC, ALI FACP CCDS Ot 278.00 OBESITY, NOS 09/08/2019 NEYMAR QUINONES FACC, ALI FACP CCDS [...] ELECTROCARDIOGRAM [ECG] [EKG] 09/08/2019 BAIMA, THAIS L CARD PLACER Ot I25.10 ATHSCL HEART DISEASE OF [place] CORONARY 09/08/2019 BAIMA, THAIS L CARD PLACER Ot R06.09 OTHER FORMS OF DYSPNEA 09/08/2019 BAIMA, THAIS L CARD PLACER Ot R07.89 OTHER CHEST PAIN 09/08/2019 BAIMA, THAIS L CARD PLACER Ot R94.31 ABNORMAL ELECTROCARDIOGRAM [ECG] [EKG] 09/08/2019 BAIMA, THAIS L CARD PLACER Ot I25.10 ATHSCL HEART DISEASE OF [place] CORONARY 09/08/2019 BAIMA, THAIS L CARD PLACER Ot R06.09 OTHER FORMS OF DYSPNEA 09/08/2019 BAIMA, THAIS L CARD PLACER Ot R07.89 OTHER CHEST PAIN 09/08/2019 BAIMA, THAIS L CARD PLACER Ot R94.31 ABNORMAL ELECTROCARDIOGRAM [ECG] [EKG] 09/10/2019 NEYMAR QUINONES FACC, ALI FACP CCDS Ot G47.33 OBSTRUCTIVE SLEEP APNEA (ADULT) (PEDIATR 09/10/2019 NEYMAR BEDOYAC, ALI FACP CCDS Ot I08.1 RHEUMATIC DISORDERS OF BOTH MITRAL AND T 09/10/2019 NEYMAR QUINONES FACC, ALI FACP CCDS Ot I25.10 ATHSCL HEART DISEASE OF [place] CORONARY 09/10/2019 NEYMAR QUINONES [facility], ALI FACP CCDS Ot I65.29 OCCLUSION AND STENOSIS OF UNSPECIFIED CA 09/29/2019 NEYMAR QUINONES FACC, [facility] FACP CCDS Ot G47.33 OBSTRUCTIVE SLEEP APNEA (ADULT) (PEDIATR 09/29/2019 NEYMAR QUINONES [facility], ALI FACP CCDS Ot I08.1 RHEUMATIC DISORDERS OF BOTH [place] AND T 09/29/2019 NEYMAR QUINONES FACC, [facility] Ot I25.10 ATHSCL HEART DISEASE OF [place] CORONARY 09/29/2019 NEYMAR QUINONES [facility], ALI FACP CCDS Ot I65.29 OCCLUSION AND [...] Status Pt. Type Provider Facility Loc./Unit Complaint [id number] 07/19/2015 15:12:29 07/19/2015 23:59: 59 CLS Outpatient JUDY GUZMAN [id number] 02/12/2018 14:21:00 Document Registration [id number] 09/08/2019 09:21:00 23:59:59 CLS Outpatient LUISA BLACKMON MD, FACC, FACP CC DS [facility] CARD CAD [id number] 08/07/2019 15:09:00 23:59:59 CLS Preadmit LUISA BLACMKON MD, FACC, FACP CCDS [facility] CARD CAD [id number] 02/22/2018 17:30:00 18:56:00 DIS Emergency WILLIAM WONG APRN [facility] ER VAGINAL BLEEDING AFTER BIOPSY,PASSED BLOOD CLOT [id number] 02/14/2018 09:45:00 018 12:20:00 DIS Outpatient MARQUEZ NEITO MD [facility] ENDO SCREENING/REFLUX [id number] 02/06/2018 05:36:00 018 14:47:00 DIS Outpatient MARQUEZ NIETO MD [facility] PREOP COLONOSCOPY/EGD [id number] 06/27/2017 08:55:00 017 14:55:00 DIS Outpatient MARQUEZ NIETO MD [facility] SDC GALLSTONES [id number] 06/20/2017 13:01:00 017 13:30:00 DIS Outpatient MARQUEZ NIETO MD [facility] PREOP GALLSTONES [id number] 04/30/2017 08:10:00 017 23:59:59 CLS Outpatient THAIS LUJAN [facility] CARD R07.89 CHEST PA IN [id number] 04/12/2017 11:30:00 017 23:59:59 CLS Outpatient THAIS LUJAN [facility] RAD R07.89 CHEST PA IN,R06.09 [place] [id number] 07/24/2016 06:59:00 13:15:00 DIS Outpatient THAIS LUJAN [facility] CATH ANGINA,SOB,ABNO RMAL STRESS TEST, FATIGUE,HTN [id number] 07/19/2016 08:08:00 23:59:59 CLS Outpatient NEYMAR QUINONES FACC, ALI FACP CC DS [facility] CARD ABNORMAL EC G,THURST[place] [id number] 07/18/2016 10:57:00 23:59:59 CLS Outpatient NEYMAR QUINONES FACC, ALI FACP CC DS [facility] CARD ABNORMAL EC G,THURSTON,VER[place] [id number] 01/21/2015 14:49:00 18:09:00 DIS Emergency JANEE QUINONES, MEHRDAD Kumar [facility] ER WEAKNESS/SHAKEY LIGHTHE ADED [id number] 01/17/2015 16:19:00 015 23:59:59 CLS Outpatient NEYMAR QUINONES FACC, ALI FACP CC DS [facility] RAD POST CATH G ROIN SWELLING [id number] 01/11/2015 08:19:00 10:10:00 DIS Outpatient NEYMAR QUINONES FACC, ALI FACP CC DS [facility] CATH ANGINA SHOR TNESS OF BREATH FATIGUE [id number] 01/10/2015 09:25:00 23:59:59 CLS Outpatient NEYMAR QUINONES FACC, ALI FACP CC DS [facility] CARD CHEST DISCOMFORT,ABNORMAL EKG [id number] 06/30/2014 20:15:00 014 06:10:00 DIS Outpatient ROD BARNES MD [facility] SLEEP VERNON,SNORING,CHOKING,INS OMNIA [id number] 02/15/2020 17:35:[address] Inpatient LOU QUINONES, YOEL Reinoso [facility] ICU CP R/O ACS, UNSTABLE ANGINA [id number] 02/13/2020 05:07:00 Document Registration [id number] 02/13/2020 05:07:00 Document Registration
[2020-02-15] MEDS: NS IV 1000 ML 1,000 ML IV SCH (20:17)
[2020-02-15] MEDS: meTOprolol TARTRATE 50 MG (LOPRESSOR) TAB PO SCH (20:17)
[2020-02-16] VITALS (14 sets, daily range): BP systolic 105–135; BP diastolic 49–91
[2020-02-16 04:05] LABS: CHOLESTEROL 145 MG/DL (< 200); HDL CHOLESTEROL 43 MG/DL (40-60); TRIGLYCERIDES 168 MG/DL (<150); VLDL CHOLESTEROL 34 MG/DL (5-40)
[2020-02-16] MEDS: NS IV 1000 ML 1,000 ML IV SCH ×2 (07:47→16:35)
--- NOTE | 2020-02-16 07:50 | Consultation-Cardiology ---
HPI-Cardiology Cardiology Consultation: Date of Consultation 02/16/20 Time Seen by a Provider: 08:15 Date of Admission 02-15-2020 Attending Physician Anna Duran MD Admitting Physician Kiki Fisher MD Consulting Physician Aleshia Romero MD HPI: Chief Complaint: Chest pain Ms. Brannon is a 69 year old female admitted to ICU 10 from the ED with an episode of chest pain. She states she has been having episodes of a "bubble feeling" in her chest for the last several months which last for less than a minute and resolve. The episodes can occur with or without relation to activity or stress. She states yesterday she was sitting in the car while her brother was in the store she had an onset of left sided chest pressure which radiated up her neck, jaw and into her head. She states she felt diaphoretic, anxious and SOB. She reports it lasted for approx 10 minutes. She opened the car door and took some deep breaths of fresh air and the discomfort gradually improved. She reports feeling palpitations at the time and dizzy. She states she has been having intermittent headaches since August, but feels since starting Abx tx per her PCP the headaches have improved. She denies any syncope or near syncope. She denies any LE swelling. She denies any fever or chills. Review of Systems-Cardiology Review of Systems Constitutional: No chills, No fever; malaise Eyes: No vision change Ears/Nose/Throat: No epistaxis, No recent hearing loss Respiratory: As described under HPI Cardiovascular: As described under HPI Gastrointestinal: No constipation, No diarrhea, No nausea, No vomiting Genitourinary: No dysuria, No hematuria Musculoskeletal: no symptoms reported Skin: No rash on exposed areas, No ulcerations on exposed areas Psychiatric/Neurological: anxiety, depression; No seizure, No focal weakness, No syncope Hematologic: No bleeding abnormalities All Other Systems Reviewed Negative Unless Noted: Yes [id number] Hx Patient Social History Alcohol Use: Denies Use Recreational Drug Use: No Smoking Status: Never a Smoker 2nd Hand Smoke Exposure: No Recent Foreign Travel: No Recent Infectious Disease Expo: No Hospitalization with Isolation: Denies Immunizations Up To Date Tetanus Booster (TDap): Unknown Date of Pneumonia Vaccine: Jun 30, 2019 Date of Influenza Vaccine: Jul 15, 2017 Past Medical History PMH As described under Assessment. Family Medical History Family Medical History: She reports her father and brother both had CAD and HTN. Allergies and Home Medications Allergies Coded Allergies: No Known Drug Allergies (Unverified , 02/06/18) Home Medications Amoxicillin 500 Mg Capsule, 500 MG PO TID, (Reported) FILLED 02-11-2020 #30/ DAY SUPPLY Ascorbic Acid 1,000 Mg Tablet, 1,000 MG PO DAILY, (Reported) Aspirin 81 Mg Tablet.dr, 81 MG PO DAILY, (Reported) Buspirone HCl 5 Mg Tablet, 5 MG PO BID, (Reported) Clopidogrel Bisulfate 75 Mg Tablet, 75 MG PO DAILY, (Reported) Fexofenadine HCl 180 Mg Tablet, 180 MG PO DAILY, (Reported) Lovastatin 20 Mg Tablet, 40 MG PO HS, (Reported) TAKES 2 (20MG) TABS Metoprolol Tartrate 25 Mg Tablet, 25 MG PO BID, (Reported) Multivits,Ca,Minerals/Iron/FA 1 Each Tablet, 1 EACH PO DAILY, (Reported) Venlafaxine HCl 37.5 Mg Cap.er.24h, 37.5 MG PO DAILY, (Reported) Physical Exam-Cardiology Physical Exam Vital Signs/I&O 02/16/20 02/16/20 02/16/20 02/16/20 02:00 03:00 04:00 04:00 Pulse 64 68 79 Resp 28 29 28 B/P (MAP) 117/52 (73) 111/52 (71) 130/54 (79) Pulse Ox 94 95 94 O2 Delivery Room Air Room Air Room Air Room Air 02/16/20 02/16/20 02/16/20 02/16/20 05:00 06:00 07:00 07:00 Pulse 64 68 70 69 Resp 22 24 23 B/P (MAP) 116/75 (89) 133/60 (84) 121/69 (86) Pulse Ox 95 94 94 O2 Delivery Room Air Room Air Room Air 02/16/20 02/16/20 02/16/20 08:00 08:00 12:00 Pulse 66 Resp 18 B/P (MAP) 128/64 (85) Pulse Ox 93 96 96 O2 Delivery Room Air Room Air Room Air 02/16/20 00:00 Intake Total 200 ml Balance 200 ml Capillary Refill : Less Than 3 Seconds Constitutional: AAO x 3, well-developed, well-nourished HEENT: PERRL, hearing is well preserved, oral hygience is good Neck: No carotid bruit; carotid pulses are 2 + bilaterally Respiratory: No accessory muscle use, No respiratory distress; chest expansion is symmetric, chest is bilaterally symmetric, lungs clear to auscultation Cardiovascular: regular rate-rhythm; No JVD; S1 and S2 Gastrointestinal: No tender; soft, round, audible bowel sounds Extremities: no lower extremity edema bilateral Neurologic/Psychiatric: grossly intact (moves all extremities) Skin: No rash on exposed areas, No ulcerations on exposed areas Data Review Labs Laboratory Tests 02/15/20 15:59: White Blood Count 9.6, Red Blood Count 5.03, Hemoglobin 15.1, Hematocrit 45, Mean Corpuscular Volume 89, Mean Corpuscular Hemoglobin 30, Mean Corpuscular Hemoglobin Concent 34, Red Cell Distribution Width 13.0, Platelet Count 305, Mean Platelet Volume 9.5, Neutrophils (%) (Auto) 61, Lymphocytes (%) (Auto) 28, Monocytes (%) (Auto) 9, Eosinophils (%) (Auto) 3, Basophils (%) (Auto) 1, Neutrophils # (Auto) 5.8, Lymphocytes # (Auto) 2.7, Monocytes # (Auto) 0.8, Eosinophils # (Auto) 0.3, Basophils # (Auto) 0.1, Prothrombin Time 11.9L, INR Comment 0.9, Activated Partial Thromboplast Time 28, Sodium Level 138, Potassium Level 4.7, Chloride Level 104, Carbon Dioxide Level 22, Anion Gap 12, Blood Urea Nitrogen 21H, Creatinine 0.90, Estimat Glomerular Filtration Rate > 60, BUN/Creatinine Ratio 23, Glucose Level 111H, Calcium Level 9.7, Corrected Calcium 9.4, Magnesium Level 2.3, Total Bilirubin 0.2, Aspartate Amino Transf (AST/SGOT) 35H, Alanine Aminotransferase (ALT/SGPT) 23, Alkaline Phosphatase 65, Myoglobin 47.3, Troponin I < 0.028, B-Type Natriuretic Peptide 19.6, Total Protein 8.4H, Albumin 4.4 02/16/20 03:11: Troponin I < 0.028, Triglycerides Level 168H, Cholesterol Level 145, LDL Cholesterol Direct 83, VLDL Cholesterol 34, HDL Cholesterol 43 Radiology NAME: VANGIE BRANNON [facility] REC#: [id number] PT STATUS: REG ER : 1950 PHYSICIAN: DONTE OSBORN ADMIT DATE: 02/15/20/ER Signed Date of Exam:02/15/20 CHEST 1 VIEW, AP/PA ONLY Indication: Chest discomfort. Frontal chest obtained at 04:15 p.m. and compared to 08/09/2009 Heart is top limits normal in size. Lungs are clear. There is no pneumothorax or pleural fluid. IMPRESSION: Borderline heart size with no acute process in the chest. Dictated by: Dictated on workstation # [id number] Dict: 02/15/20 1620 Trans: 02/15/20 1637 [facility] [id number] Interpreted by: BIBI WAGNER MD Electronically signed by: BIBI WAGNER MD 02/15/20 1637 ECG Impression ECG Comment SR with LBBB A/P-Cardiology Assessment/Admission Diagnosis Chest pain of undetermined etiology MPI of 09/08/19 does not show any ischemia or infarction; LVEF 69% Abnormal ECG: LBBB (first seen on ECGs during MPI of 04/30/17, unchanged on ECG of 08/07/19) CAD. 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 Discussion and Recomendations Chest pain of undetermined etiology Based on symptoms, h/o and risk factors as noted above cardiac cath advised to further eval coronary status We have discussed the procedure, risks, benefits and potential complications of cardiac cath with possible PCI. She provides informed consent Continue home medications including BB, ASA, statin Further recs will be based on her hospital course We would like to thank medical services for this consult We have spoken with Dr. Duran this morning Management of headaches is with Dr. Duran Clinical Quality Measures AMI/AHF: ASA po Prior to arrival: No DVT/VTE Risk/Contraindication: Risk Factor Score Per Nursin RFS Level Per Nursing on Admit: 2=Moderate THIAS LUJAN February 16, 2020 07:50
--- NOTE | 2020-02-16 08:25 | History & Physical-Hospitalist ---
History of Present Illness HPI/Chief Complaint Pt is a 69yoCF with a PMH of CAD, HTN, HLD and chronic daily headaches who presented to the ER due to chest pain. She states she was sitting in a car waiting for her brother when she developed central chest pain. She states it radiated up to her neck and jaw and eventually caused a throbbing headache. She was diaphoretic and SOB with it but thought it may be due to anxiety. She opened the car door after about 10 minutes and sat in the fresh air which helped. It eventually resolved but given her history she decided to seek evaluation to make sure she wasn't having a heart attack. Overnight she has continued to have some chest tightness but not as severe as yesterday. She had a cardiac cath with stents years ago and a more recent stress test that was negative. Source: patient Date Seen 02/16/20 Time Seen by a Provider: 08:20 Attending Physician Yoel Duran MD PCP Kiki Fisher MD Referring Physician Date of Admission February 15, 2020 at 17:35 Home Medications & Allergies Home Medications Reviewed patient Home Medication Reconciliation performed by pharmacy medication reconciliations injection molding technician and/or nursing. Patients Allergies have been reviewed. Allergies Allergies Coded Allergies No Known Drug Allergies (Unverified02/06/18) Past Mrmqfjc-Boizmp-Ovbvwh Hx Past Med/Social Hx: Reviewed Nursing Past Med/Soc Hx Patient Social History Alcohol Use: Denies Use Recreational Drug Use: No Smoking Status: Never a Smoker 2nd Hand Smoke Exposure: No Recent Foreign Travel: No Contact w/other who traveled: No Recent Hopitalizations: No Recent Infectious Disease Expo: No Immunizations Up To Date Tetanus Booster (TDap): Unknown Date of Pneumonia Vaccine: Jun 30, 2019 Date of Influenza Vaccine: Jul 15, 2017 Seasonal Allergies Seasonal Allergies: Yes Past Medical History Surgeries: Cardiac, Coronary Stent, Gallbladder, Hysterectomy Currently Using CPAP: Yes Cardiac: Coronary Artery Disease, High Cholesterol, Hypertension Neurological: Headaches /Migraines Reproductive: No Sexually Transmitted Disease: No HIV/AIDS: No Hysterectomy Gastrointestinal: Gastroesophageal Reflux Musculoskeletal: Arthritis Loss of Vision: Denies Hearing Impairment: Denies Psychosocial: Sleep Difficulties, Anxiety, Depression History of Blood Disorders: No Adverse Reaction to Blood Driscoll: No (N/A) Family History Reviewed Nursing Family Hx Review of Systems Constitutional: No chills; diaphoresis; No fever EENTM: throat pain Respiratory: No cough; short of breath Cardiovascular: chest pain; No edema; Hx of Intervention Gastrointestinal: no symptoms reported Genitourinary: no symptoms reported Musculoskeletal: neck pain Skin: no symptoms reported Psychiatric/Neurological: Anxiety Physical Exam Physical Exam Vital Signs Vital Signs - First Documented 02/15/20 15:53 Temp 36.9 Pulse 77 Resp 18 B/P (MAP) 183/116 (138) Pulse Ox 98 O2 Delivery Room Air Capillary Refill : Less Than 3 Seconds Height, Weight, BMI Height: 5'4.00" Weight: 205lbs. 0.0oz. [id number]; 39.74 BMI Method:Estimated General Appearance: No Apparent Distress, WD/WN, Obese HEENT: PERRL/EOMI, Moist Mucous Membranes; No Scleral Icterus (L), No Scleral Icterus (R) Neck: Normal Inspection, Supple Respiratory: Lungs Clear, No Accessory Muscle Use, No Respiratory Distress Cardiovascular: Regular Rate, Rhythm, No JVD, No Murmur Gastrointestinal: No Distended Extremity: Normal Inspection, No Pedal Edema Neurologic/Psychiatric: Alert, Oriented x3, Normal Mood/Affect; No Aphasia, No Facial Droop Skin: Normal Color, Warm/Dry Results Results/Procedures Labs Laboratory Tests 02/15/20 15:59 Patient resulted labs reviewed. Imaging Date of Exam:02/15/20 CHEST 1 VIEW, AP/PA ONLY Indication: Chest discomfort. Frontal chest obtained at 04:15 p.m. and compared to 08/09/2009 Heart is top limits normal in size. Lungs are clear. There is no pneumothorax or pleural fluid. IMPRESSION: Borderline heart size with no acute process in the chest. Assessment/Plan Admission Diagnosis Chest Pain Admission Status: Observation Assessment and Plan Chest Pain CAD HTN HLD troponin negative x2 Cardiology consulted, appreciate recs Continue ASA/Plavix Hold home antihypertensives as is low ot normotensive Continue home statin Chronic Daily Headaches try toradol as is NPO Continue Amoxil course Clinical Quality Measures AMI/AHF: ASA po Prior to arrival: No DVT/VTE Risk/Contraindication: Risk Factor Score Per Nursin RFS Level Per Nursing on Admit: 2=Moderate YOEL DURAN MD February 16, 2020 08:25
[2020-02-16] MEDS ORDERED: KETOROLAC 15 MG/ML VIAL IVP PRN (08:45)
[2020-02-16] MEDS ORDERED: CLOPIDOGREL 75 MG (PLAVIX) TABLET PO SCH (09:00)
[2020-02-16] MEDS ORDERED: PANTOPRAZOLE 40 MG (PROTONIX) TAB PO SCH (09:00)
[2020-02-16] MEDS ORDERED: ASPIRIN E.C. 81 MG (ECOTRIN) TAB PO SCH (09:00)
--- NOTE | 2020-02-16 09:31 | Consultation-Cardiology ---
HPI-Cardiology Cardiology Consultation: Date of Consultation 02/16/20 Time Seen by a Provider: 09:00 Date of Admission Attending Physician Anna Duran MD Admitting Physician Kiki Fisher MD Consulting Physician LUISA BLACKMON MD, MA, FACP, FACC, FSCAI, CCDS HPI: Chief Complaint: CC: Chest pain HPI Ms. Brannon is a 69 year old female admitted to ICU 10 from the ED with an episode of chest pain. She states she has been having episodes of a "bubble feeling" in her chest for the last several months which last for less than a minute and resolve. The episodes can occur with or without relation to activity or stress. She states yesterday she was sitting in the car while her brother was in the store she had an onset of left sided chest pressure which radiated up her neck, jaw and into her head. She states she felt diaphoretic, anxious and SOB. She reports it lasted for approx 10 minutes. She opened the car door and took some deep breaths of fresh air and the discomfort gradually improved. She reports feeling palpitations at the time and dizzy. She states she has been having intermittent headaches since August, but feels since starting Abx tx per her PCP the headaches have improved. She denies any syncope or near syncope. She denies any LE swelling. She denies any fever or chills. Review of Systems-Cardiology Review of Systems Constitutional: No chills, No fever; malaise Eyes: No vision change Ears/Nose/Throat: No epistaxis, No recent hearing loss Respiratory: As described under HPI Cardiovascular: As described under HPI Gastrointestinal: No constipation, No diarrhea, No nausea, No vomiting Genitourinary: No dysuria, No hematuria Musculoskeletal: no symptoms reported Skin: No rash on exposed areas, No ulcerations on exposed areas Psychiatric/Neurological: anxiety, depression; No seizure, No focal weakness, No syncope Hematologic: No bleeding abnormalities All Other Systems Reviewed Negative Unless Noted: Yes ZVM-Mpqwia-Gojibk Hx Patient Social History Alcohol Use: Denies Use Recreational Drug Use: No Smoking Status: Never a Smoker 2nd Hand Smoke Exposure: No Recent Foreign Travel: No Recent Infectious Disease Expo: No Hospitalization with Isolation: Denies Immunizations Up To Date Tetanus Booster (TDap): Unknown Date of Pneumonia Vaccine: Jun 30, 2019 Date of Influenza Vaccine: Jul 15, 2017 Past Medical History PMH As described under Assessment. Family Medical History Family Medical History: She reports her father and brother both had CAD and HTN. Allergies and Home Medications Allergies Coded Allergies: No Known Drug Allergies (Unverified , 02/06/18) Home Medications Ascorbic Acid 500 Mg Tablet, 500 MG PO DAILY, (Reported) Aspirin 81 Mg Tablet.dr, 81 MG PO DAILY, (Reported) Citalopram Hydrobromide 40 Mg Tablet, 40 MG PO DAILY, (Reported) Clopidogrel Bisulfate 75 Mg Tablet, 75 MG PO DAILY, (Reported) Loratadine 10 Mg Tablet, 10 MG PO DAILY, (Reported) Lovastatin 20 Mg Tablet, 20 MG PO DAILY, (Reported) Metoprolol Succinate 25 Mg Tab.er.24h, 25 MG PO BID, (Reported) take 1/2 of 25mg tab Multivits,Ca,Minerals/Iron/FA 1 Each Tablet, 1 EACH PO DAILY, (Reported) Pantoprazole Sodium 40 Mg Tablet.dr, 40 MG PO DAILY Prescribed by: MARQUEZ NIETO on 02/14/18 1126 Patient Home Medication List Home Medication List Reviewed: Yes Physical Exam-Cardiology Physical Exam Vital Signs/I&O 02/15/20 02/15/20 02/16/20 02/16/20 22:00 23:00 00:00 00:00 Pulse 65 65 66 Resp 15 23 20 B/P (MAP) 152/71 (98) 134/61 (85) 135/57 (83) Pulse Ox 94 94 94 O2 Delivery Room Air Room Air Room Air Room Air 02/16/20 02/16/20 02/16/20 02/16/20 00:00 01:00 01:00 02:00 Temp 36.9 Pulse 66 67 64 Resp 16 28 B/P (MAP) 105/55 (72) 117/52 (73) Pulse Ox 94 94 O2 Delivery Room Air Room Air 02/16/20 02/16/20 02/16/20 02/16/20 03:00 04:00 04:00 05:00 Pulse 68 79 64 Resp 29 28 22 B/P (MAP) 111/52 (71) 130/54 (79) 116/75 (89) Pulse Ox 95 94 95 O2 Delivery Room Air Room Air Room Air Room Air 5/19/20 5/19/20 5/19/20 5/19/20 06:00 07:00 07:00 08:00 Pulse 68 70 69 66 Resp 24 23 18 B/P (MAP) 133/60 (84) 121/69 (86) 128/64 (85) Pulse Ox 94 94 93 O2 Delivery Room Air Room Air Room Air 02/16/20 00:00 Intake Total 200 ml Balance 200 ml Capillary Refill : Less Than 3 Seconds Constitutional: AAO x 3, well-developed, well-nourished HEENT: PERRL, hearing is well preserved, oral hygience is good Neck: No carotid bruit; carotid pulses are 2 + bilaterally Respiratory: No accessory muscle use, No respiratory distress; chest expansion is symmetric, chest is bilaterally symmetric, lungs clear to auscultation Cardiovascular: regular rate-rhythm; No JVD; S1 and S2 Gastrointestinal: No tender; soft, round, audible bowel sounds Extremities: no lower extremity edema bilateral Neurologic/Psychiatric: grossly intact (moves all extremities) Skin: No rash on exposed areas, No ulcerations on exposed areas Data Review Labs Laboratory Tests 02/15/20 15:59: White Blood Count 9.6, Red Blood Count 5.03, Hemoglobin 15.1, Hematocrit 45, Mean Corpuscular Volume 89, Mean Corpuscular Hemoglobin 30, Mean Corpuscular Hemoglobin Concent 34, Red Cell Distribution Width 13.0, Platelet Count 305, Mean Platelet Volume 9.5, Neutrophils (%) (Auto) 61, Lymphocytes (%) (Auto) 28, Monocytes (%) (Auto) 9, Eosinophils (%) (Auto) 3, Basophils (%) (Auto) 1, Neutrophils # (Auto) 5.8, Lymphocytes # (Auto) 2.7, Monocytes # (Auto) 0.8, Eosinophils # (Auto) 0.3, Basophils # (Auto) 0.1, Prothrombin Time 11.9L, INR Comment 0.9, Activated Partial Thromboplast Time 28, Sodium Level 138, Potassium Level 4.7, Chloride Level 104, Carbon Dioxide Level 22, Anion Gap 12, Blood Urea Nitrogen 21H, Creatinine 0.90, Estimat Glomerular Filtration Rate > 60, BUN/Creatinine Ratio 23, Glucose Level 111H, Calcium Level 9.7, Corrected Calcium 9.4, Magnesium Level 2.3, Total Bilirubin 0.2, Aspartate Amino Transf (AST/SGOT) 35H, Alanine Aminotransferase (ALT/SGPT) 23, Alkaline Phosphatase 65, Myoglobin 47.3, Troponin I < 0.028, B-Type Natriuretic Peptide 19.6, Total Protein 8.4H, Albumin 4.4 02/16/20 03:11: Troponin I < 0.028, Triglycerides Level 168H, Cholesterol Level 145, LDL Choles terol Direct 83, VLDL Cholesterol 34, HDL Cholesterol 43 A/P-Cardiology Assessment/Admission Diagnosis Chest pain suggestive of unstable angina MPI of 09/08/19 does not show any ischemia or infarction; LVEF 69% Abnormal ECG: LBBB (first seen on ECGs during MPI of 04/30/17, unchanged on ECG of 08/07/19) CAD. 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 Discussion and Recomendations Based on symptoms, h/o and risk factors as noted above cardiac cath advised to further eval coronary status We have discussed the procedure, risks, benefits and potential complications of cardiac cath with possible PCI. She provides informed consent Continue home medications including BB, ASA, statin Further recs will be based on her hospital course We would like to thank Medical services for this consult Management of headaches is with Dr. Duran Clinical Quality Measures AMI/AHF: ASA po Prior to arrival: No DVT/VTE Risk/Contraindication: Risk Factor Score Per Nursin RFS Level Per Nursing on Admit: 2=Moderate LUISA BLACKMON MD FACP FAC CCDS February 16, 2020 09:31
[2020-02-16] MEDS: meTOprolol TARTRATE 50 MG (LOPRESSOR) TAB PO SCH (10:18)
[2020-02-16] MEDS: AMOXICILLIN 500 MG (POLYMOX) CAP PO SCH ×2 (10:19→19:11)
[2020-02-16] MEDS ORDERED: BUSP5TAB59 PO (10:32)
[2020-02-16] MEDS ORDERED: METO-333 PO (10:32)
[2020-02-16] MEDS ORDERED: VENL-48 PO (10:32)
[2020-02-16] MEDS ORDERED: ASCO10006 PO (10:34)
[2020-02-16] MEDS ORDERED: FEXO180T84 PO (10:34)
[2020-02-16] MEDS ORDERED: AMOX500C2 PO (10:36)
--- NOTE | 2020-02-16 11:13 | NUR ---
SPOKE WITH THE PT (SHE HAD HER MEDS WITH HER) AND WENT THRU THE EXT MED HISTORY TO COMPLETE THE MED REC SOME OF THE MEDS THE PT HAS WITH HER SHE IS NOT LONGER TAKING: CARAFATE 1GM, PROTONIX 40MG, CELEXA 40MG & LORATADINE BUSPAR 5MG- DIRECTIONS ARE 1 TAB TID, HOWEVER THE PT TAKES 1 TAB BID OTC MEDS: ASPIRIN 81 MUNA 180MG WOMENS MTV VIT C 1000MG
[2020-02-16] MEDS ORDERED: HEParin (CATH LAB) 2,000 ML IV ONE (14:45)
[2020-02-16] MEDS ORDERED: LIDOCAINE 1% INJ 20 ML 20 ML VIAL ONE (14:45)
--- NOTE | 2020-02-16 15:06 | Cardiac Procedure Note-CS/ASA ---
Pre-Procedure Note Pre-Op Procedure Note H&P Reviewed The H&P was reviewed, patient examined and no changes noted. Date H&P Reviewed: February 16, 2020 Time H&P Reviewed: 15:06 Conscious Sedation Pre-Proced Time 15:06 ASA Score 3 For ASA 3 and 4: Consider anesthesia and medical clearance. Also, for patients with a history of failed moderate sedation consider anesthesia. Airway Lungs Heart ASA score ASA 1: a normal healthy patient ASA 2: a patient with a mild systemic disease (mid diabetes, controlled hypertension, obesity ASA 3: a patient with a severe systemic disease that limits activity (angina, COPD, prior Myocardial infarction) ASA 4: a patient with an incapacitating disease that is a constant threat to life (CHF, renal failure) ASA 5: a moribund patient not expected to survive 24 hrs. (ruptured aneurysm) ASA 6: a declared brain- patient whose organs are being harvested. For emergent operations, add the letter E after the classification Mallampati Classification Grade 2 Sedation Plan Analgesia, Amnesia, Plan communicated to team members, Discussed options with patient/fam, Discussed risks with patient/fam The patient is an appropriate candidate to undergo the planned procedure, sedation, and anesthesia. The patient immediately re-assessed prior to indication. LUISA BLACKMON MD FACP FAC CCDS February 16, 2020 15:06
[2020-02-16] MEDS ORDERED: MIDAZOLAM 5 MG/5 ML (VERSED) VIAL ONE (15:11)
[2020-02-16] MEDS ORDERED: fentaNYL INJECTION 100 MCG/2 ML AMP ONE (15:12)
[2020-02-16] MEDS ORDERED: NS IV 1000 ML 1,000 ML IV SCH (16:01)
--- NOTE | 2020-02-16 16:13 | CARDIAC CATHETERIZATION ---
DATE OF SERVICE: 02/15/2020 CARDIAC CATHETERIZATION The patient is a 69-year-old lady who is known to have coronary artery disease and who was admitted with chest discomfort suggestive of previous angina. Because of symptoms of unstable angina, cardiac catheterization was carried out after having obtained an informed consent. DESCRIPTION OF PROCEDURE: She was brought to the cardiac catheterization laboratory in a fasting state. Right groin was prepared and draped in the usual sterile fashion. Lidocaine 1% was used for local anesthesia. Modified Seldinger technique was used to advance a 5-Gibraltarian sheath in right femoral artery. A 5-Gibraltarian JL4 catheter for left coronary angiography, 5-Gibraltarian JR4 catheter for right coronary angiography, 5-Gibraltarian pigtail catheter was used for left heart catheterization and left ventricular angiography. At the end of the procedure, angiography of the right femoral artery was carried out through the sheath and Mynx was used to achieve hemostasis. She tolerated the procedure well. HEMODYNAMICS: Left ventricular end-diastolic pressure following coronary angiography was 13 mmHg. There is no significant pressure gradient on pullback across the aortic valve. Ascending aortic pressure was 108/68 with a mean of 77 mmHg. CORONARY ANGIOGRAPHY: Coronary calcification is seen. Left main coronary artery does not exhibit significant obstructive disease. Left anterior descending artery shows mild plaque and there is a patent stent in its mid portion. Left circumflex coronary artery has 30% proximal stenosis and a patent stent in the proximal portion of the first obtuse marginal branch. The right coronary artery is dominant and has diffuse mild plaques. LEFT VENTRICULAR ANGIOGRAPHY: Left ventricular angiography was carried out in the right anterior oblique projection. Global left ventricular systolic function is normal. No regional wall motion abnormalities are seen. Left ventricular ejection fraction is 60% to 65%. CONCLUSIONS: 1. Angiographically mild coronary artery disease. 2. Patent stents in the mid left anterior descending (known to be Promus Premier 2.25 x 12) and in the first obtuse marginal (known to be Promus 2.5 x 12 mm). 3. Normal global left ventricular systolic function with ejection fraction approximately 60% to 65%. 4. High-normal left ventricular end-diastolic pressure. DISCUSSION AND RECOMMENDATIONS: Based on this study, chest discomfort does not appear to be of coronary origin. Continuing risk factor modification is advised. Outpatient followup is advised. Job ID: [id number] DocumentID: [id number] Dictated Date: 02/16/2020 15:57:22 Latex Dipper Date: 02/16/2020 16:13:16 Dictated By: LUISA BLACKMON MD, MA, FACP, FACC, MTDD
[2020-02-16] MEDS ORDERED: PATIENT MAY USE OWN MEDS, ALL PO SCH (16:15)
--- NOTE | 2020-02-16 16:38 | Discharge Inst-Simple/Standard ---
Discharge Inst-Standard Patient Instructions/Follow Up Plan of Care/Instructions/FU: Please continue to take your medications as written. Please follow up with your primary care doctor, Dr Fisher in the next week and with Dr Romero as scheduled. Activity as Tolerated: Yes Discharge Diet: Cardiac Diet Return to The Hospital For: Chest pain, shortness of breath, fever, confusion, if you feel you are getting worse. YOEL BLAKE MD February 16, 2020 16:38
--- NOTE | 2020-02-16 16:47 | NUR ---
THIS NURSE NOTIFIED DR LOU BLACKMON WAS GOOD WITH DISCHARGE AFTER 1914. SEE ORDER HX.
[2020-02-16] MEDS ORDERED: SIMvastatin 20 MG (ZOCOR) TAB PO SCH (21:00)
[2020-02-16] MEDS ORDERED: busPIRone 5 MG (BUSPAR) TAB PO SCH (21:00)
[2020-02-16] MEDS ORDERED: NON-FORMULARY MEDICATION 1 EA EA (Lovastatin 40 MG) PO SCH (21:00)
[2020-02-17] MEDS ORDERED: VENlafaxine XR 37.5 MG (EFFEXOR XR) CAP PO SCH (08:00)
[2020-02-17] MEDS ORDERED: LORATADINE (CLARITIN) 10 MG TAB PO SCH (09:00)
[2020-02-17] MEDS ORDERED: NON-FORMULARY MEDICATION 1 EA EA (Fexofenadine HCl (Allegra Allergy) 180 MG) PO SCH (09:00)
== END 2020-02-16 19:23 | disposition home or self-care (01) ==
LOC: EDUNIT# 15:52 → ER 15:55 → ICU 17:35
PROVIDERS: ADMIT Family Medicine; ATTEND Family Medicine
DX: I25.10 Atherosclerotic heart disease of native coronary artery without angina pectoris (principal); I44.7 Left bundle-branch block, unspecified; G47.33 Obstructive sleep apnea (adult) (pediatric); G43.909 Migraine, unspecified, not intractable, without status migrainosus; J30.9 Allergic rhinitis, unspecified; E78.00 Pure hypercholesterolemia, unspecified; I10 Essential (primary) hypertension; M19.90 Unspecified osteoarthritis, unspecified site; K21.9 Gastro-esophageal reflux disease without esophagitis; F32.9 Major depressive disorder, single episode, unspecified; F41.9 Anxiety disorder, unspecified; Z79.82 Long term (current) use of aspirin; Z79.899 Other long term (current) drug therapy; Z79.02 Long term (current) use of antithrombotics/antiplatelets; Z90.710 Acquired absence of both cervix and uterus; Z99.89 Dependence on other enabling machines and devices
CPT/HCPCS: 36415; 71045; 80053; 80061; 83735; 83874; 83880; 84484; 85025; 85610; 85730; 93005; 93041; 93458

== ENCOUNTER 2020-06-15 13:49 | Emergency (ER) | payer MEDICARE, OTHER ==
[~2020-06-15] VITALS: Ht 63 cm; Wt 99.0 kg
[~2020-06-15 13:49] MED LIST changes: +AMOX500C2 PO; +ASCO100024 PO; +BUSP5TAB59 PO; +METO-333 PO; -PANT40TA3 PO; +PANT40TA52 PO; +VENL-48 PO
[2020-06-15] MEDS ORDERED: ONDANSETRON 4 MG/2 ML (SDV) Z0FRAN IVP ONE (14:15)
[2020-06-15] MEDS ORDERED: LACTATED RINGERS 1,000 ML IV ONE (14:15)
--- NOTE | 2020-06-15 14:20 | ED Respiratory ---
General Chief Complaint: General Problems/Pain Stated Complaint: COVID+ Nursing Triage Note: PATIENT ARRIVED BY EMS WITH C/O GENERALIZED WORSENING WEAKNESS. COVID + SINCE 06/07. FEVER TODAY AT HOME AND WHEN ARRIVED. Source: patient Exam Limitations: no limitations History of Present Illness Date Seen by Provider: Jun 15, 2020 Time Seen by Provider: 14:05 Initial Comments Patient presents the ER by EMS from home with chief complaint of malaise poor appetite occasional diarrhea and some shortness of air. She was diagnosed with COVID 19 about a week ago. She is having a sometimes productive cough of phlegm fever Tmax of 101 and occasionally nausea. She took some Tylenol this morning. She has no dysuria. Allergies and Home Medications Allergies Coded Allergies: No Known Drug Allergies (Unverified , 02/06/18) Home Medications Amoxicillin 500 Mg Capsule, 500 MG PO TID, (Reported) FILLED 02-11-2020 #30/10 DAY SUPPLY Ascorbic Acid 1,000 Mg Tablet, 1,000 MG PO DAILY, (Reported) Aspirin 81 Mg Tablet.dr, 81 MG PO DAILY, (Reported) Azithromycin 250 Mg Tablet, 250 MG PO DAILY Prescribed by: DELMA MCGUIRE on 06/15/201529 Buspirone HCl 5 Mg Tablet, 5 MG PO BID, (Reported) Cefdinir 300 Mg Capsule, 300 MG PO BID Prescribed by: DELMA MCGUIRE on 06/15/201529 Clopidogrel Bisulfate 75 Mg Tablet, 75 MG PO DAILY, (Reported) Fexofenadine HCl 180 Mg Tablet, 180 MG PO DAILY, (Reported) Lovastatin 20 Mg Tablet, 40 MG PO HS, (Reported) TAKES 2 (20MG) TABS Metoprolol Tartrate 25 Mg Tablet, 25 MG PO BID, (Reported) Multivits,Ca,Minerals/Iron/FA 1 Each Tablet, 1 EACH PO DAILY, (Reported) Ondansetron 4 Mg Tab.rapdis, 4 MG PO Q6H PRN for NAUSEA/VOMITING Prescribed by: DELMA MCGUIRE on 06/15/201529 Venlafaxine HCl 37.5 Mg Cap.er.24h, 37.5 MG PO DAILY, (Reported) Patient Home Medication List Home Medication List Reviewed: Yes Review of Systems Review of Systems Constitutional: chills, fever, malaise, weakness EENTM: No ear discharge, No ear pain Respiratory: cough, phlegm, short of breath Cardiovascular: No chest pain, No edema, No palpitations Gastrointestinal: No abdominal pain, No nausea, No vomiting Genitourinary: No discharge, No dysuria Musculoskeletal: No back pain, No joint pain All Other Systems Reviewed Negative Unless Noted: Yes Past Zyodoyu-Ekazws-Izodbq Hx Patient Social History Alcohol Use: Denies Use Recreational Drug Use: No 2nd Hand Smoke Exposure: No Recent Foreign Travel: No Contact w/Someone Who Travel: No Recent Infectious Disease Expo: No Recent Hopitalizations: No Immunizations Up To Date Tetanus Booster (TDap): Unknown Date of Pneumonia Vaccine: Jun 30, 2019 Date of Influenza Vaccine: Jun 30, 2019 Seasonal Allergies Seasonal Allergies: No Past Medical History Surgeries: Yes (THUMB AND CARPAL TUNNEL) Coronary Stent, Hysterectomy Respiratory: No Sleep Apnea Currently Using CPAP: Yes Cardiac: Yes Hypertension Neurological: No Headaches /Migraines Reproductive Disorders: No THERAPY ADMINISTRATIVE ASSISTANT History: Hysterectomy Sexually Transmitted Disease: No HIV/AIDS: No Genitourinary: No Gastrointestinal: No Gastroesophageal Reflux Musculoskeletal: No Arthritis Endocrine: No HEENT: No Loss of Vision: Denies Hearing Impairment: Denies Cancer: No Psychosocial: No Sleep Difficulties, Anxiety, Depression Integumentary: No Blood Disorders: No Adverse Reaction/Blood Tranf: No (N/A) Physical Exam Vital Signs - First Documented 06/15/20 13:56 Temp 37.9 Pulse 78 Resp 19 B/P (MAP) 121/60 (80) Pulse Ox 94 O2 Delivery Room Air Capillary Refill : NONE Height: 5'4.00" Weight: 205lbs. 0.0oz. 92.875224nj; 249.00 BMI Method:Estimated General Appearance: WD/WN, mild distress Eyes: Bilateral Eye Normal Inspection, Bilateral Eye PERRL, Bilateral Eye EOMI HEENT: PERRL/EOMI, normal ENT inspection, TMs normal, pharynx normal Neck: full range of motion, supple, normal inspection Respiratory: lungs clear, normal breath sounds, no respiratory distress, no accessory muscle use Cardiovascular: normal peripheral pulses, regular rate, rhythm Gastrointestinal: normal bowel sounds, non tender, soft Neurologic/Psychiatric: alert, normal mood/affect, oriented x 3 Skin: normal color, warm/dry Progress/Results/Core Measures Suspected Sepsis Recent Fever Within 48 Hours: Yes Infection Criteria Present: Documented Infection New/Unexplained Altered Menta: No Sepsis Screen: No Definite Risk SIRS Temperature: Pulse: 78 Respiratory Rate: 19 Laboratory Tests 06/15/20 14:05: White Blood Count 5.7 Blood Pressure 121 /60 Mean: 80 Laboratory Tests 06/15/20 14:05: Creatinine 0.76, Platelet Count 210, Total Bilirubin 0.2 Results/Orders Lab Results Laboratory Tests Test 06/15/20 14:05 06/15/20 14:30 Range/Units White Blood Count 5.7 4.3-11.0 10^3/uL Red Blood Count 4.65 4.35-5.85 10^6/uL Hemoglobin 14.2 11.5-16.0 G/DL Hematocrit 41 35-52 % Mean Corpuscular Volume 88 80-99 FL Mean Corpuscular Hemoglobin 31 25-34 PG Mean Corpuscular Hemoglobin Concent 35 32-36 G/DL Red Cell Distribution Width 12.6 10.0-14.5 % Platelet Count 210 130-400 10^3/uL Mean Platelet Volume 9.8 7.4-10.4 FL Neutrophils (%) (Auto) 66 42-75 % Lymphocytes (%) (Auto) 26 12-44 % Monocytes (%) (Auto) 7 0-12 % Eosinophils (%) (Auto) 1 0-10 % Basophils (%) (Auto) 0 0-10 % Neutrophils # (Auto) 3.8 1.8-7.8 X 10^3 Lymphocytes # (Auto) 1.5 1.0-4.0 X 10^3 Monocytes # (Auto) 0.4 0.0-1.0 X 10^3 Eosinophils # (Auto) 0.0 0.0-0.3 10^3/uL Basophils # (Auto) 0.0 0.0-0.1 10^3/uL Sodium Level 138 135-145 MMOL/L Potassium Level 4.3 3.6-5.0 MMOL/L Chloride Level 104 98-107 MMOL/L Carbon Dioxide Level 24 21-32 MMOL/L Anion Gap 10 5-14 MMOL/L Blood Urea Nitrogen 14 7-18 MG/DL Creatinine 0.76 0.60-1.30 MG/DL Estimat Glomerular Filtration Rate > 60 BUN/Creatinine Ratio 18 Glucose Level 127 H 70-105 MG/DL Calcium Level 8.8 8.5-10.1 MG/DL Corrected Calcium 9.0 8.5-10.1 MG/DL Total Bilirubin 0.2 0.1-1.0 MG/DL Aspartate Amino Transf (AST/SGOT) 28 5-34 U/L Alanine Aminotransferase (ALT/SGPT) 22 0-55 U/L Alkaline Phosphatase 63 40-136 U/L Troponin I < 0.028 <0.028 NG/ML Total Protein 7.3 6.4-8.2 GM/DL Albumin 3.7 3.2-4.5 GM/DL Urine Color YELLOW Urine Clarity CLEAR Urine pH 6.5 5-9 Urine Specific Swain 1.015 L 1.016-1.022 Urine Protein NEGATIVE NEGATIVE Urine Glucose (UA) NEGATIVE NEGATIVE Urine Ketones NEGATIVE NEGATIVE Urine Nitrite NEGATIVE NEGATIVE Urine Bilirubin NEGATIVE NEGATIVE Urine Urobilinogen 0.2 < = 1.0 MG/DL Urine Leukocyte Esterase 1+ H NEGATIVE Urine RBC (Auto) NEGATIVE NEGATIVE Urine RBC NONE /HPF Urine WBC 5-10 H /HPF Urine Squamous Epithelial Cells 2-5 /HPF Urine Renal Epithelial Cells 0-2 /HPF Urine Crystals NONE /LPF Urine Bacteria MODERATE H /HPF Urine Casts NONE /LPF Urine Mucus NEGATIVE /LPF Urine Culture Indicated YES My Orders Orders - DELMA MCGUIRE Ed Iv/Invasive Line Start (06/15/20 14:15) Lactated Ringers (Lr 1000 Ml Iv Solution (06/15/20 14:15) Cbc With Automated Diff (06/15/20 14:15) Comprehensive Metabolic Panel (06/15/20 14:15) Chest 1 View, Ap/Pa Only (06/15/20 14:15) Ekg Tracing (06/15/20 14:15) Continuous Ekg Monitoring (06/15/20 14:15) Troponin I (06/15/20 14:15) Ondansetron Injection (Zofran Injectio (06/15/20 14:15) Acetaminophen Tablet (Tylenol Tablet) (06/15/20 14:30) Ua Culture If Indicated (06/15/20 14:20) Urine Culture (06/15/20 14:30) Azithromycin Tablet (Zithromax Tablet) (06/15/20 15:30) Ceftriaxone For Iv Use (Rocephin For I (06/15/20 15:30) Medications Given in ED Current Medications Medications Dose Ordered Sig/Valentino Route Start Time Stop Time Status Last Admin Dose Admin Acetaminophen 1,000 mg ONCE ONCE PO 06/15/20 14:30 06/15/20 14:31 DC 06/15/20 14:35 1,000 MG Azithromycin 500 mg ONCE ONCE PO 06/15/20 15:30 06/15/20 15:31 DC 06/15/20 15:59 500 MG Ceftriaxone Sodium 1000 mg/ Sterile Water 10 ml @ 200 mls/hr ONCE ONCE IV 06/15/20 15:30 06/15/20 15:32 DC 06/15/20 15:59 200 MLS/HR Lactated Ringer's 1,000 ml @ 0 mls/hr Q0M ONCE IV 06/15/20 14:15 06/15/20 14:18 DC 06/15/20 14:34 1,000 MLS/HR Ondansetron HCl 4 mg ONCE ONCE IVP 06/15/20 14:15 06/15/20 14:18 DC 06/15/20 14:35 4 MG Vital Signs/I&O 06/15/20 06/15/20 13:56 15:52 Temp 37.9 37.3 Pulse 78 73 Resp 19 17 B/P (MAP) 121/60 (80) 122/65 Pulse Ox 94 98 O2 Delivery Room Air Room Air Capillary Refill : NONE Blood Pressure Mean: 80 Progress Note : Time: 15:12 Progress Note Other than the fever she has aseptic vital signs. She has no white count. We will get a chest x-ray which revealed possibly some bacterial pneumonia as well as urinalysis shows a UTI. Plan to put her on cefdinir and azithromycin. Steroids have no place at this time. Lungs sound clear. Throughout her stay she's had no material deterioration. Gave her a liter fluids and some Tylenol. ECG Initial ECG Impression Date: Jun 15, 2020 Initial ECG Impression Time: 14:17 Initial ECG Rate: 75 Initial ECG Rhythm: Normal Sinus Initial ECG Intervals: Normal Initial ECG Impression: Normal, Nonspecific Changes Comment Left bundle branch block without clinically relevant ST elevation or depression. Diagnostic Imaging Diagonstic Imaging: Xray Plain Films/CT/US/NM/MRI: chest Comments NAME: VANGIE VALDOVINOS [facility] REC#: [id number] PT STATUS: REG ER : 1950 PHYSICIAN: DELMA MCGUIRE MD ADMIT DATE: 06/15/20/ER Draft Date of Exam:06/15/20 CHEST 1 VIEW, AP/PA ONLY INDICATION: Shortness of air. FINDINGS: The left lower lung lateral to the heart is of somewhat greater density than on the prior exam. There is, however, no obscuration of the heart borders or diaphragm. Incompletely consolidating developing pneumonia could not be excluded. The remaining lungs are clear and stable. The heart size is stable. There is no vascular congestion. There is no effusion or pneumothorax. IMPRESSION: Increased left basilar opacity is an equivocal but suspicious finding for developing pneumonia in the appropriate clinical scenario. No other potential acute finding. Dictated on workstation # [id number] Dict: 06/15/20 1459 Trans: 06/15/20 1503 [id number] Interpreted by: DORI PALACIOS Electronically signed by: Reviewed: Reviewed by Me Departure Impression Primary Impression: COVID-19 Additional Impressions: Pneumonia Qualified Codes: J18.9 - Pneumonia, unspecified organism UTI (urinary tract infection) Qualified Codes: N30.00 - Acute cystitis without hematuria Disposition: HOME, SELF-CARE Condition: Stable Departure-Patient Inst. Decision time for Depature: 15:30 Referrals: ROD BARNES MD (PCP/Family) Primary Care Physician Patient Instructions: Urinary Tract Infection, Adult (DC), Coronavirus Disease 2019 (COVID-19) Overview, Pneumonia in Adults Add. Discharge Instructions: You have a urinary tract infection and while unless sure that there is a bacte rial infection in your lungs it would be quintero to go ahead and cover you with antibiotics that would treat for both. Cefdinir 1 tablet twice a day for the next 10 days. Azithromycin 1 tablet starting tomorrow every day. Take this for 4 days. Expect improvement over the next 1-2 weeks. Return to the ER having difficulty breathing or other worrisome symptoms. Ondansetron one tablet every 6 hours as necessary for nausea. I encourage you to drink plenty of fluids and eat something throughout the day. If you have diarrhea take 2 tablets of loperamide, 4 mg followed by one tablet every 4 hours afterwards if you're still having loose, watery stools. All discharge instructions reviewed with patient and/or family. Voiced understanding. Scripts Azithromycin (Azithromycin) 250 Mg Tablet 250 MG PO DAILY for 4 Days, #4 TAB 0 Refills Prov: DELMA MCGUIRE 06/15/20 Cefdinir (Cefdinir) 300 Mg Capsule 300 MG PO BID for 10 Days, #20 CAP 0 Refills Prov: DELMA MCGUIRE 06/15/20 Ondansetron (Ondansetron Odt) 4 Mg Tab.rapdis 4 MG PO Q6H PRN for NAUSEA/VOMITING, #8 TAB 0 Refills Prov: DELMA MCGUIRE 06/15/20 Copy Copies To 1: ROD BARNES MD, TITUS J Jun 15, 2020 14:20
[2020-06-15] MEDS ORDERED: ACETAMINOPHEN 500 MG TAB (TYLENOL) PO ONE (14:30)
[2020-06-15 14:39] LABS: BILIRUBIN,URINE NEGATIVE (NEGATIVE); CLARITY,URINE CLEAR; COLOR,URINE YELLOW; GLUCOSE, URINE (UA) NEGATIVE (NEGATIVE); KETONES,URINE NEGATIVE (NEGATIVE); LEUKOCYTE ESTERASE ,URINE 1+ (NEGATIVE); NITRITE,URINE NEGATIVE (NEGATIVE); PH,URINE 6.5 (5-9); PROTEIN,URINE NEGATIVE (NEGATIVE)
[2020-06-15 14:40] LABS: BASOPHILS % (AUTO) 0 % (0-10); EOSINOPHILS % (AUTO) 1 % (0-10); HEMATOCRIT 41 % (35-52); HEMOGLOBIN 14.2 G/DL (11.5-16.0); LYMPHOCYTES # (AUTO) 1.5 X 10^3 (1.0-4.0); LYMPHOCYTES % (AUTO) 26 % (12-44); MEAN CORPUSCULAR HEMOGLOBIN 31 PG (25-34); MEAN CORPUSCULAR HGB CONC 35 G/DL (32-36); MEAN CORPUSCULAR VOLUME 88 FL (80-99); MEAN PLATELET VOLUME 9.8 FL (7.4-10.4); MONOCYTES # (AUTO) 0.4 X 10^3 (0.0-1.0); MONOCYTES % (AUTO) 7 % (0-12); NEUTROPHILS # (AUTO) 3.8 X 10^3 (1.8-7.8); NEUTROPHILS % (AUTO) 66 % (42-75); PLATELET COUNT 210 10^3/uL (130-400); WHITE BLOOD COUNT 5.7 10^3/uL (4.3-11.0)
[2020-06-15 14:46] LABS: BACTERIA,URINE MODERATE /HPF; RENAL EPITHELIAL CELLS,URINE 0-2 /HPF
[2020-06-15 14:48] LABS: ALBUMIN 3.7 GM/DL (3.2-4.5); CHLORIDE 104 MMOL/L (98-107); POTASSIUM 4.3 MMOL/L (3.6-5.0); SODIUM 138 MMOL/L (135-145)
[2020-06-15 14:49] LABS: CALCIUM 8.8 MG/DL (8.5-10.1)
[2020-06-15 14:50] LABS: GLUCOSE 127 MG/DL (70-105)
[2020-06-15 14:51] LABS: TOTAL PROTEIN 7.3 GM/DL (6.4-8.2)
[2020-06-15 14:52] LABS: BILIRUBIN,TOTAL 0.2 MG/DL (0.1-1.0); CARBON DIOXIDE 24 MMOL/L (21-32)
[2020-06-15 14:54] LABS: ALKALINE PHOSPHATASE 63 U/L (40-136); CREATININE SERUM 0.76 MG/DL (0.60-1.30); GFR ESTIMATED > 60
[2020-06-15 14:55] LABS: BUN/CREATININE RATIO 18
[2020-06-15 14:57] LABS: ALANINE AMINOTRANSFERASE 22 U/L (0-55)
--- NOTE | 2020-06-15 15:03 | Diagnostic Imaging Report ---
INDICATION: Shortness of air. FINDINGS: The left lower lung lateral to the heart is of somewhat greater density than on the prior exam. There is, however, no obscuration of the heart borders or diaphragm. Incompletely consolidating developing pneumonia could not be excluded. The remaining lungs are clear and stable. The heart size is stable. There is no vascular congestion. There is no effusion or pneumothorax. IMPRESSION: Increased left basilar opacity is an equivocal but suspicious finding for developing pneumonia in the appropriate clinical scenario. No other potential acute finding. Dictated by: Dictated on workstation # [id number]
[2020-06-15] MEDS ORDERED: AZIT250T12 PO (15:30)
[2020-06-15] MEDS ORDERED: ONDA4TAB11 PO (15:30)
[2020-06-15] MEDS ORDERED: AZITHROMYCIN 250 MG TAB (ZITHROMAX) PO ONE (15:30)
[2020-06-15] MEDS ORDERED: cefTRIAXone FOR IV USE 1,000 MG in WATER (STERILE) FOR INJECTION 10 ML IV ONE (15:30)
[2020-06-15] MEDS ORDERED: CEFD300C3 PO (15:30)
[2020-06-15 15:52] VITALS: BP 122/65
== END 2020-06-15 15:50 | disposition home or self-care (01) ==
LOC: EDUNIT# 13:49 → ER 13:52
DX: U07.1 COVID-19 (principal); J18.9 Pneumonia, unspecified organism; N39.0 Urinary tract infection, site not specified; I10 Essential (primary) hypertension; F41.9 Anxiety disorder, unspecified; F32.9 Major depressive disorder, single episode, unspecified; Z95.5 Presence of coronary angioplasty implant and graft; Z79.82 Long term (current) use of aspirin
CPT/HCPCS: 36415; 71045; 80053; 81000; 84484; 85025; 87088; 93005

== ENCOUNTER 2021-02-13 05:31 | Outpatient (RCR) | payer MEDICARE, OTHER ==
[~2021-02-13] VITALS: Ht 165.1 cm; Wt 99.0 kg
[~2021-02-13 05:31] MED LIST changes: +AZIT250T12 PO; +CARV12.53 PO; +CEFD300C3 PO; +ONDA4TAB11 PO; +SUCR1TAB PO
[2021-02-15] MEDS ORDERED: PANT40TA2 PO (11:31)
== END 2021-05-10 | disposition home or self-care (01) ==
LOC: PREOP 05:31
PROVIDERS: ATTEND Surgery
DX: Z01.812 Encounter for preprocedural laboratory examination (principal); Z53.8 Procedure and treatment not carried out for other reasons; Z01.818 Encounter for other preprocedural examination
CPT/HCPCS: 87635

== ENCOUNTER 2021-02-15 11:16 | Day surgery (SDC) | payer MEDICARE, OTHER ==
[2021-02-15] VITALS (11 sets, daily range): BP systolic 140–191; BP diastolic 70–93
[~2021-02-15] VITALS: Ht 165.1 cm; Wt 99.0 kg
--- NOTE | 2021-02-15 11:29 | Conscious Sedation/ASA ---
Conscious Sedation Pre-Proced Time 11:30 ASA Score 2 For ASA 3 and 4: Consider anesthesia and medical clearance. Also, for patients with a history of failed moderate sedation consider anesthesia. Airway Lungs Heart ASA score ASA 1: a normal healthy patient ASA 2: a patient with a mild systemic disease (mid diabetes, controlled hypertension, obesity ASA 3: a patient with a severe systemic disease that limits activity (angina, COPD, prior Myocardial infarction) ASA 4: a patient with an incapacitating disease that is a constant threat to life (CHF, renal failure) ASA 5: a moribund patient not expected to survive 24 hrs. (ruptured aneurysm) ASA 6: a declared brain- patient whose organs are being harvested. For emergent operations, add the letter E after the classification Mallampati Classification Grade 2 Sedation Plan Analgesia, Amnesia, Plan communicated to team members, Discussed options with patient/fam, Discussed risks with patient/fam The patient is an appropriate candidate to undergo the planned procedure, sedation, and anesthesia. The patient immediately re-assessed prior to indication. MARQUEZ NIETO MD February 15, 2021 11:29
[2021-02-15] MEDS ORDERED: ONDANSETRON 4 MG/2 ML (SDV) Z0FRAN IVP PRN (11:30)
[2021-02-15] MEDS ORDERED: ACETAMINOPHEN 325 MG TABLET PO PRN (11:30)
[2021-02-15] MEDS ORDERED: HYDROcodone/APAP 5 MG/325 MG (LORTAB) TAB PO PRN (11:30)
[2021-02-15] MEDS ORDERED: morphine INJ 10 MG/ML 1ML (SYR OR VIAL) IVP PRN ×2 (11:30)
--- NOTE | 2021-02-15 11:30 | Progress Note-Pre Operative ---
Pre-Operative Progress Note H&P Reviewed The H&P was reviewed, patient examined and no changes noted. Date Seen by Provider: February 15, 2021 Time Seen by Provider: 11:30 Date H&P Reviewed: February 15, 2021 Time H&P Reviewed: 11:30 Pre-Operative Diagnosis: dysphagia, GERD MARQUEZ NIETO MD February 15, 2021 11:30
[2021-02-15] MEDS ORDERED: PANT40TA2 PO (11:31)
--- NOTE | 2021-02-15 11:31 | Discharge Inst-Surgical ---
D/C Lap Instructions-KIDO New, Converted, or Re-Newed RX: RX on Chart Follow Up Appt in 2 weeks Activity as tolerated High Fiber Diet 25g or more per day Avoid Alcohol, Caffeine, Spicy [place] and Acid foods. Drink 64 fluid oz or more of fluids per day. Symptoms to Report: Fever over 101 degree F, Nausea/Vomiting If any problems/questions: Contact your physician or go to Emergency Room MARQUEZ NIETO MD February 15, 2021 11:31
[2021-02-15] MEDS ORDERED: fentaNYL INJ 100 MCG/2 ML AMP IVP ONE (11:45)
[2021-02-15] MEDS ORDERED: NS IV 500 ML 500 ML ONE (11:45)
[2021-02-15] MEDS ORDERED: HURRICAINE EXT TUBE (BENZOCAINE) XX PRN (11:45)
[2021-02-15] MEDS ORDERED: LIDOCAINE JELLY 2% 6 ML SYRINGE MM PRN (11:45)
[2021-02-15] MEDS ORDERED: MIDAZOLAM 5 MG/5 ML (VERSED) VIAL IV ONE (11:45)
[2021-02-15] MEDS ORDERED: NS IV 500 ML 500 ML IV PRN (11:45)
[2021-02-15] MEDS ORDERED: LIDOCAINE JELLY 2% 6 ML SYRINGE ONE (14:32)
[2021-02-15] MEDS ORDERED: fentaNYL INJ 100 MCG/2 ML AMP ONE (14:33)
[2021-02-15] MEDS ORDERED: HURRICAINE EXT TUBE (BENZOCAINE) ONE (14:33)
[2021-02-15] MEDS ORDERED: MIDAZOLAM 5 MG/5 ML (VERSED) VIAL ONE ×2 (14:33→15:03)
--- NOTE | 2021-02-15 15:30 | Progress Note-Post Operative ---
Post-Operative Progess Note Surgeon (s)/Cardiac Catheterization Technician (s) Surgeon MARQUEZ NIETO MD Cardiac Catheterization Technician: none Pre-Operative Diagnosis dysphagia, GERD Post-Operative Diagnosis reflux esophagitis(stage 2), small-moderate HH(2.5cm), moderate gastritis. Procedure & Operative Findings Date of Procedure 02/15/21 Procedure Performed/Findings EGD with bx. Anesthesia Type cs Estimated Blood Loss Estimated blood loss (mL): minimal Specimens/Packing Specimens Removed ge jxn, antrum MARQUEZ NIETO MD February 15, 2021 15:30
--- NOTE | 2021-02-16 00:02 | OPERATIVE REPORT ---
DATE OF SERVICE: ATTENDING PRIMARY CARE PHYSICIAN: Kiki Fisher MD PREOPERATIVE DIAGNOSES: Gastroesophageal reflux disease, epigastric burning sensation. POSTOPERATIVE DIAGNOSES: Reflux esophagitis stage II, small to moderate size hiatal hernia approximately 2.5 to 3 cm in size, moderate gastritis. PROCEDURE: EGD with biopsy. SURGEON: Marquez Nieto MD. ANESTHESIA: Conscious sedation. ESTIMATED BLOOD LOSS: Minimal. FINDINGS: Reflux esophagitis stage II, small to moderate size hiatal hernia approximately 2.5 to 3 cm in size, moderate gastritis. DISPOSITION: The patient tolerated the procedure well. INDICATIONS: The patient is a 70-year-old female, who has had a history of gastroesophageal reflux disease for the past 5 years. She was initially placed on Prilosec and states that her symptoms were tolerable. She states in more recent months, she has had worsening substernal and epigastric burning sensation; however, she has also had feelings sick while hungry, however, also after eating a meal. She also states that she has early satiety after eating meals. She also reports some mild nausea; however, no vomiting. She also does report that she did have a history of H. pylori infection many years ago. DESCRIPTION OF PROCEDURE: The patient was brought to the endoscopy suite, laid in the left lateral decubitus position. After adequate IV pain and sedative medications and conscious sedation anesthesia, the mouthpiece was applied. The endoscope was placed in the mouth, visualizing the pharynx and hypopharyngeal region. Vocal cords, epiglottis and vallecula identified and appeared to be normal. The endoscope was then gently intubated into esophageal opening and the endoscope advanced through the first, second and third portion of esophagus at the GE junction, a reflux esophagitis stage II identified. There were no ulcers or strictures identified in this region. The endoscope was then advanced in the stomach and endoscope retroflexed, visualizing a small to moderate size hiatal hernia approximately 2.5 to 3 cm in size. There was a moderate severity gastritis more towards the stomach antrum. No formal ulcerations, polyps, or any neoplasms. A biopsy was taken of the antrum to rule out H. pylori with visualization of good hemostasis. The endoscope was then advanced to the pylorus and the first and second portion of the duodenum, which appeared normal with no distal obstructions as well as no duodenal ulcerations. The endoscope was then slowly withdrawn while taking a second look and suctioning of residual air with no additional findings. The patient tolerated the procedure well. We will await the biopsy results; however, start her on Protonix 40 mg daily as well as the necessary lifestyle and diet accommodation including small and more frequent meals, avoiding to eating at night as well as head elevation while lying supine. She also needs to avoid caffeinated beverages, spicy, greasy and acidic foods. If she was found to be positive for Helicobacter pylori. We will proceed with the necessary antibiotic regimen. Job ID: [id number] DocumentID: [id number] Dictated Date: 02/15/2021 15:20:44 Grounding Engineer Date: 02/16/2021 00:01:35 Dictated By: MARQUEZ NIETO MD MTDD
== END 2021-02-15 16:12 | disposition home or self-care (01) ==
LOC: ENDO 11:16
PROVIDERS: ATTEND Surgery
DX: K21.00 Gastro-esophageal reflux disease with esophagitis, without bleeding (principal); K44.9 Diaphragmatic hernia without obstruction or gangrene; K29.50 Unspecified chronic gastritis without bleeding; K31.89 Other diseases of stomach and duodenum; E78.5 Hyperlipidemia, unspecified; F32.9 Major depressive disorder, single episode, unspecified; I51.9 Heart disease, unspecified; Z86.16 Personal history of COVID-19; Z90.710 Acquired absence of both cervix and uterus; Z90.49 Acquired absence of other specified parts of digestive tract; Z82.49 Family history of ischemic heart disease and other diseases of the circulatory system; Z83.3 Family history of diabetes mellitus

== ENCOUNTER → 2021-09-19 | Outpatient (CLI) | payer MEDICARE, OTHER ==
[~2021-09-19] MED LIST changes: -CITA40TA11 PO; +CITA40TA13 PO; +REGADENOSON 0.4 MG/5 ML SYR (LEXISCAN) IV ONE
[2021-09-19] MEDS: CATHETER FLUSH 10 ML SYR IV PRN ×2 (07:40→09:23)
[2021-09-19 09:07] VITALS: BP 147/78
--- NOTE | 2021-09-20 00:29 | STRESS TEST ---
DATE OF SERVICE: 09/19/2021 RESTING AND POST REGADENOSON TECHNETIUM-99M TETROFOSMIN SPECT CT IMAGING ORDERING PHYSICIAN: Jodi Field APRN PRIMARY PHYSICIAN: Dr. Fisher. CLINICAL DIAGNOSIS: Chest discomfort. Baseline images were carried out after injection of 10.58 mCi of technetium-99m Tetrofosmin. This was followed by 0.4 mg regadenoson and 31.3 mCi of technetium-99m Tetrofosmin for stress imaging. The electrocardiogram showed sinus rhythm with left bundle branch block at baseline. It did not change significantly with regadenoson infusion. Review of images at rest and following stress indicates a relatively small apical perfusion defect that is partially transient. Gated images show normal global left ventricular systolic function with normal regional wall motion, including the left ventricular apex. Left ventricular ejection fraction is calculated to be 63%. CONCLUSIONS: 1. The study is indicative of a small amount of apical ischemia. 2. Normal regional wall motion. 3. Normal global left ventricular systolic function with a calculated ejection fraction of 63%. Job ID: [id number] DocumentID: [id number] Dictated Date: 09/19/2021 21:44:50 Service Attendant Date: 09/20/2021 00:28:39 Dictated By: LUISA BLACKMON MD, MA, FACP, FACC,
== END ==
LOC: CARD 08:15
PROVIDERS: ATTEND Nurse Practitioner Family
DX: R07.89 Other chest pain (principal)
CPT/HCPCS: 78452; 93017; A9502

== ENCOUNTER 2021-10-24 07:08 | Day surgery (SDC) | payer MEDICARE, OTHER ==
[2021-10-24] VITALS (10 sets, daily range): BP systolic 104–128; BP diastolic 54–76
[~2021-10-24] VITALS: Ht 160 cm; Wt 106.2 kg
[~2021-10-24 07:08] MED LIST changes: -ASPI-1238 PO; -LORA10TA7 PO; -VENL75CA93 PO
[2021-10-24] MEDS ORDERED: NS IV 1000 ML 1,000 ML ONE (07:15)
[2021-10-24] MEDS ORDERED: LIDOCAINE 1% INJ 20 ML VIAL ONE (07:15)
[2021-10-24] MEDS ORDERED: HEParin (CATH LAB) 2,000 ML IV ONE (07:16)
[2021-10-24] MEDS ORDERED: NS IV 1000 ML 1,000 ML IV SCH ×2 (07:30→09:30)
[2021-10-24] MEDS ORDERED: MIDAZOLAM 5 MG/5 ML (VERSED) VIAL ONE (07:35)
[2021-10-24] MEDS ORDERED: fentaNYL INJ 100 MCG/2 ML AMP ONE (07:35)
[2021-10-24 07:38] LABS: HEMATOCRIT 46 % (35-52); HEMOGLOBIN 15.1 g/dL (11.5-16.0); MEAN CORPUSCULAR HEMOGLOBIN 30 pg (25-34); MEAN CORPUSCULAR HGB CONC 33 g/dL (32-36); MEAN CORPUSCULAR VOLUME 90 fL (80-99); MEAN PLATELET VOLUME 9.1 fL (9.0-12.2); PLATELET COUNT 293 10^3/uL (130-400); WHITE BLOOD COUNT 7.8 10^3/uL (4.3-11.0)
[2021-10-24] MEDS ORDERED: CALC-140 PO (07:53)
[2021-10-24] MEDS ORDERED: BUSP5TAB59 PO (07:53)
[2021-10-24] MEDS ORDERED: ASCO500T7 PO (07:53)
[2021-10-24] MEDS ORDERED: LORA10TA7 PO (07:53)
[2021-10-24] MEDS ORDERED: ASPI-1238 PO (07:53)
[2021-10-24] MEDS ORDERED: VENL75CA93 PO (07:53)
[2021-10-24] MEDS ORDERED: PANT40TA52 PO (07:53)
[2021-10-24 07:55] LABS: PROTHROMBIN TIME PATIENT 13.1 SEC (12.2-14.7)
[2021-10-24 07:59] LABS: BILIRUBIN,TOTAL 0.4 MG/DL (0.1-1.0); CALCIUM 9.3 MG/DL (8.5-10.1); CREATININE SERUM 0.85 MG/DL (0.60-1.30); POTASSIUM 4.3 MMOL/L (3.6-5.0); TOTAL PROTEIN 7.8 GM/DL (6.4-8.2)
[2021-10-24] MEDS ORDERED: ONDANSETRON 4 MG/2 ML (SDV) Z0FRAN ONE (08:50)
--- NOTE | 2021-10-24 09:27 | Cardiac Procedure Note-CS/ASA ---
Pre-Procedure Note Pre-Op Procedure Note H&P Reviewed The H&P was reviewed, patient examined and no changes noted. Date H&P Reviewed: Oct 24, 2021 Time H&P Reviewed: 08:45 Conscious Sedation Pre-Proced Time 08:45 ASA Score 3 For ASA 3 and 4: Consider anesthesia and medical clearance. Also, for patients with a history of failed moderate sedation consider anesthesia. Airway Lungs Heart ASA score ASA 1: a normal healthy patient ASA 2: a patient with a mild systemic disease (mid diabetes, controlled hypertension, obesity ASA 3: a patient with a severe systemic disease that limits activity (angina, COPD, prior Myocardial infarction) ASA 4: a patient with an incapacitating disease that is a constant threat to life (CHF, renal failure) ASA 5: a moribund patient not expected to survive 24 hrs. (ruptured aneurysm) ASA 6: a declared brain- patient whose organs are being harvested. For emergent operations, add the letter E after the classification Mallampati Classification Grade 2 Sedation Plan Analgesia, Amnesia, Plan communicated to team members, Discussed options with patient/fam, Discussed risks with patient/fam The patient is an appropriate candidate to undergo the planned procedure, sedation, and anesthesia. The patient immediately re-assessed prior to indication. LUISA BLACKMON MD FACP FAC CCDS Oct 24, 2021 09:27
[2021-10-24] MEDS ORDERED: PATIENT MAY USE OWN MEDS, ALL PO SCH (09:30)
--- NOTE | 2021-10-24 09:30 | Discharge Inst-Cardiology ---
Discharge Inst-Cardiac Discharge Medications Continued Medications: Ascorbic Acid (Ascorbic Acid) 500 Mg Tablet 500 MG PO HS, TAB Aspirin (Aspirin EC) 81 Mg Tablet.dr 81 MG PO DAILY, TAB Buspirone HCl (Buspirone HCl) 5 Mg Tablet 5 MG PO TID, TAB Calcium Carbonate/Vitamin D3 (Calcium + Vitamin D Tablet) 1 Each Tablet 1 EACH PO DAILY, TAB Carvedilol (Carvedilol) 12.5 Mg Tablet 12.5 MG PO BID, TAB Loratadine (Loratadine) 10 Mg Tablet 10 MG PO DAILY, TAB Lovastatin (Lovastatin) 20 Mg Tablet 40 MG PO HS, TAB TAKES 2 (20MG) TABS Multivits,Ca,Minerals/Iron/FA (Women's Daily Formula Caplet) 1 Each Tablet 1 EACH PO DAILY, TAB Pantoprazole Sodium (Pantoprazole Sodium) 40 Mg Tablet.dr 40 MG PO DAILY, TAB Venlafaxine HCl (Venlafaxine HCl ER) 75 Mg Cap.er.24h 75 MG PO DAILY, LUISA SOLER MD FACP FAC CCDS Oct 24, 2021 09:30
--- NOTE | 2021-10-24 09:31 | Discharge Inst-Post CATH ---
Discharge Inst-CATH/EP Post Cardiac Cath/EP D/C Inst Follow Up/Plan F/u with Dr Romero in one month ACTIVITY * Go Home directly and rest. * Limit activity of the leg (or wrist if it was used) for 7 days including aerobics, swimming, jogging, bicycling, etc. * Restrict stair-climbing for 7 days if possible, if not, climb up with your n on-cath leg, then bring together on the same step. * Avoid lifting, pushing, pulling or excessive movement of the affected ex tremity for 7 days. * Customary sexual activity may be resumed after 2 days-use caution not to use a position that strains or causes pain to the affected extremity. * No driving for 24 hours. * NO SMOKING. * Avoid straining for bowel movements for 7 days. * Gentle walking on level ground is allowed. * Returning to work will depend on the type of procedure and the results. Your doctor will discuss this with you. CALL YOUR DOCTOR FOR ANY OF THE FOLLOWING: *If bleeding from the puncture site occurs- Apply gentle pressure to site with clean cloth and call your doctor or EMS. * If a knot or lump forms under the skin, increases in size, or causes pain. * If bruising appears to be worsening or moving further down your leg instead of disappearing. * Temperature above 101 F. CARE OF YOUR GROIN INCISION; * Bruising or purple discoloration of the skin near the puncture site is common. * You may shower only, no bathtub bathing for 5 days. Be careful to avoid slipping as your leg may feel stiff. * If a closure device was used on your femoral artery, please see the attached guide regarding care of the device and your leg. * Leave dressing on FOR 24 hours. CARE OF YOUR WRIST INCISION; * Bruising or purple discoloration of the skin near the puncture site is common. * You may shower. * DO NOT submerge wrist. * Leave dressing on FOR 24 hours. LUISA ROMERO MD FACP FAC CCDS Oct 24, 2021 09:31
--- NOTE | 2021-10-24 10:06 | CARDIAC CATHETERIZATION ---
DATE OF SERVICE: 10/24/2021 CARDIAC CATHETERIZATION REPORT The patient is a 70-year-old lady, who has a history of coronary artery disease and has had stenting of the mid left anterior and of the first obtuse marginal branch. She has been experiencing shortness of breath and chest discomfort and a myocardial perfusion imaging study was indicative of some degree of apical ischemia. Accordingly, cardiac catheterization was carried out today after having obtained an informed consent. DESCRIPTION OF PROCEDURE: She was brought to the cardiac catheterization laboratory in a fasting state. Right groin was prepared and draped in the usual sterile fashion. Lidocaine 1% was infused to local anesthesia. Modified Seldinger technique was used to advance a 5-Russian sheath in the right femoral artery, 5-Russian JL4 catheter was used for left coronary angiography, 5-Russian JR4 catheter for right coronary angiography, 5-Russian pigtail catheter was used for left heart catheterization and left ventricular angiography. Pigtail was removed. Angiography of the right femoral artery was carried out through the sheath. Mynx was used to achieve hemostasis. She tolerated the procedure well. HEMODYNAMICS: Left ventricular end-diastolic pressure following coronary angiography was 14 mmHg. There is no significant pressure gradient on pullback across the aortic valve. LEFT VENTRICULAR ANGIOGRAPHY: Left ventricular angiography was carried out in right anterior oblique projection. Global left ventricular systolic function, normal regional wall motion abnormality is seen. Left ventricular ejection fraction approximately 65%. CORONARY ANGIOGRAPHY: Left main coronary artery is free of significant disease. Left anterior descending, left circumflex and right coronary arteries have diffuse mild plaque. Left anterior descending artery has a patent stent in its mid portion. Proximal to the stent, there is 30% to 40% stenosis. The very proximal left anterior descending artery has approximately 30% stenosis. The left circumflex artery also has proximal and mid vessel disease of 30% to 40%. There is a patent stent in the first obtuse marginal. The right coronary artery is dominant and has mild diffuse plaques. CONCLUSIONS: 1. Mild to moderate coronary artery disease. 2. Patent stent in the mid left anterior descending known to be Promus Premier 2.25 x 12 mm placed in 2013. 3. Patent stent in the first obtuse marginal known to be Promus 2.5 x 12 mm, placed in 12/2013. 4. Left ventricular end-diastolic pressure 14 mmHg. 5. Normal global left ventricular systolic function with ejection fraction approximately 65%. DISCUSSION AND RECOMMENDATIONS: Based on results of the study, it appears appropriate to continue a conservative approach. The coronary anatomy does not appear to have changed significantly compared to a study of 01/2020. Risk factor modification is advised. Continuing current regimen is advised. Outpatient followup is advised. Job ID: [id number] DocumentID: [id number] Dictated Date: 10/24/2021 09:15:16 Abrasive Wheel Molder Date: 10/24/2021 10:05:53 Dictated By: LUISA BLACKMON MD, MA, FACP, FACC, MTDD
== END 2021-10-24 12:43 | disposition home or self-care (01) ==
LOC: CATH 07:08 → SDC 09:31 → CATH 12:43
PROVIDERS: ATTEND Internal Medicine Cardiovascular Disease
DX: I25.10 Atherosclerotic heart disease of native coronary artery without angina pectoris (principal); G47.33 Obstructive sleep apnea (adult) (pediatric); I65.23 Occlusion and stenosis of bilateral carotid arteries; R53.1 Weakness; R53.83 Other fatigue; I44.7 Left bundle-branch block, unspecified; I10 Essential (primary) hypertension; E66.9 Obesity, unspecified; Z68.41 Body mass index [BMI] 40.0-44.9, adult; E78.5 Hyperlipidemia, unspecified; R73.9 Hyperglycemia, unspecified; Z99.89 Dependence on other enabling machines and devices; Z79.82 Long term (current) use of aspirin; Z79.899 Other long term (current) drug therapy
CPT/HCPCS: 80053; 80061; 85027; 85610; 85730; 87081; 93458; C1760; C1894; 36415

== ENCOUNTER → 2021-10-24 | Outpatient (CLI) | payer MEDICARE, OTHER ==
[~2021-10-24] MED LIST changes: +ASPI-1238 PO; +LORA10TA7 PO; -REGADENOSON 0.4 MG/5 ML SYR (LEXISCAN) IV ONE; +VENL75CA93 PO
== END ==
LOC: LABNPT 07:35
PROVIDERS: ATTEND Nurse Practitioner Family
DX: R73.9 Hyperglycemia, unspecified (principal)
CPT/HCPCS: 83036